=== PATIENT | male | born 1930 | race Caucasian/White ===

== ENCOUNTER 2017-10-15 20:50 | Inpatient (IN) | payer OTHER, BC ==
[2017-10-15 20:53] VITALS: BMI 24.4
[2017-10-15] MEDS ORDERED: morphine CARPU-JECT 2 MG/1 ML DISP.SYRIN IVPUSH ONE (21:27)
--- NOTE | 2017-10-15 21:27 | PDOC ---
History of Present Illness - General Chief Complaint: Injury Stated Complaint: FALL/ POSSIBLE FRACTURE Time Seen by Provider: 10/15/17 20:52 History Source: Patient Exam Limitations: No Limitations - History of Present Illness Initial Comments: 10/15/17 21:25 86M with pmh of aortic valve replacement, triple bypass, dementia, Dm2 and HTN brought in after a fall he sustained after tripping on furniture in the dark. Unwitnessed, no LOC but did hit his head and hip, screaming at the time complaining that his leg was broken. Currently comfortbale as long as he's immobile. Left leg shorted than the right. 10/15/17 21:34 Past History - Past Medical History Allergies/Adverse Reactions: Allergies Allergy/AdvReac Type Severity Reaction Status Date / Time iodine [Iodine] Allergy Unknown Verified 10/15/17 20:52 Home Medications: Ambulatory Orders Albuterol Sulfate [Proair Hfa -] 1 - 2 inh PO TID PRN 11/10/13 Amlodipine Besylate [Norvasc -] 5 mg PO DAILY 11/10/13 Aspirin 81 mg PO DAILY 11/10/13 Cholecalciferol (Vitamin D3) [Vitamin D] 1,000 unit PO DAILY 11/10/13 Clopidogrel Bisulfate [Plavix -] 75 mg PO HS 11/10/13 Docosahexanoic Acid/Epa [Fish Oil Softgel] 1 each PO DAILY 11/10/13 Montelukast Na [Singulair -] 10 mg PO DAILY 11/10/13 Rosuvastatin Calcium [Crestor] 20 mg PO DAILY 11/10/13 Sitagliptin Phosphate [Januvia] 50 mg PO HS 11/10/13 Tiotropium [place] [Spiriva -] 1 inh PO DAILY 11/10/13 Travoprost (Benzalkonium) [Travatan 0.004% Eye Drop] 5 ml OU HS 11/10/13 Valsartan [Diovan] 40 mg PO DAILY 11/10/13 Asthma: Yes Cardiac Disorders: Yes COPD: Yes Diabetes: Yes (IDDM) HTN: Yes Hypercholesterolemia: Yes - Surgical History Abdominal Surgery: Yes Cardiac Surgery: Yes (STENTS: 2006) Cholecystectomy: Yes Orthopedic Surgery: Yes (RIGHT FOOT SX BX) - Suicide/Smoking/Psychosocial Hx Smoking History: Never smoked Have you smoked in the past 12 months: No If you are a former smoker, when did you quit?: 5 YRS AGO Information on smoking cessation initiated: No 'Breaking Loose' booklet given: 11/10/13 Hx Alcohol Use: No Drug/Substance Use Hx: No Review of Systems - Review of Systems Able to Perform ROS?: Yes Is the patient limited Estonian proficient: No Constitutional: No: Symptoms Reported HEENTM: No: Symptoms Reported Respiratory: No: Symptoms reported Cardiac (ROS): No: Symptoms Reported ABD/GI: No: Symptoms Reported : No: Symptoms Reported Integumentary: No: Symptoms Reported Neurological: No: Headache, Numbness, Paresthesia, Weakness All Other Systems: Reviewed and Negative *Physical Exam - Vital Signs Last Vital Signs Temp Pulse Resp BP Pulse Ox 97.9 F 81 20 149/72 92 L 10/15/17 20:52 10/15/17 20:52 10/15/17 20:52 10/15/17 20:52 10/15/17 20:52 - Physical Exam General Appearance: Yes: Nourished, Appropriately Dressed. No: Apparent Distress HEENT: positive: EOMI, THEODORE Respiratory/Chest: positive: Lungs Clear, Normal Breath Sounds. negative: Chest Tender, Respiratory Distress Cardiovascular: positive: Regular Rhythm, Regular Rate, S1, S2 Gastrointestinal/Abdominal: positive: Normal Bowel Sounds, Flat, Soft. negative : Tender Musculoskeletal: positive: Normal Inspection. negative: CVA Tenderness Extremity: positive: Other ([place] left leg no hematoma, pain on palpation or hip). negative: Coldness, Cyanosis, Delayed Capillary Refill Integumentary: positive: Normal Color, Dry, Warm. negative: Cyanotic, Erythema Neurologic: positive: Fully Oriented, Alert, Normal Response, Responsive, Confused. negative: Motor Strength 5/5, Sensory Deficit ED Treatment Course - LABORATORY CBC & Chemistry Diagram: 10/15/17 22:00 10/15/17 22:00 - RADIOLOGY Radiology Studies Ordered: Category Date Time Status HEAD CT WITHOUT CONTRAST [CT] Stat CT Scan 10/15/17 20:52 Ordered CHEST X-RAY PORTABLE* [RAD] Stat Radiology 10/15/17 20:55 Ordered FEMUR-LEFT [RAD] Stat Radiology 10/15/17 20:53 Ordered HIP & PELVIS-LEFT [RAD] Stat Radiology 10/15/17 20:53 Ordered Medical Decision Making - Medical Decision Making 10/15/17 21:37 R/O left hip fracture Films of left hip/pelvis/femur are pending. Head ct pending basic lab UA 10/15/17 23:52 EKG: Sinus rhythm with 1st degree AV block Left Bundle Branch Block *DC/Admit/Observation/Transfer Diagnosis at time of Disposition: Fracture, proximal femur - Discharge Dispostion Admit: Yes - Referrals - Patient Instructions - Post Discharge Activity
[2017-10-15] MEDS ORDERED: morphine CARPU-JECT 10 MG/1 ML DISP.SYRIN ONE (21:38)
--- NOTE | 2017-10-15 21:48 | PDOC ---
Attending Attestation - HPI HPI: 10/15/17 21:54 The patient is a 86 year old male, with a significant past medical history of aortic valve replacement, triple bypass, dementia, Dm2 and HTN, who presents to the emergency department, s/p mechanical fall. The patient reports tripping over furniture while walking in the dark. He reports hitting his head and hip. The patient reports he was able to ambulate after the fall. He denies loss of consciousness. He denies any recent fevers, chills, or dizziness. He denies any recent nausea, vomit, diarrhea or constipation. He denies any recent chest pain or shortness of breath. He denies any recent dysuria, frequency, urgency or hematuria. Allergies: Iodine. Past surgical history: None reported. Social History: Nonsmoker. Denies EtOH use and recreational drug use. Documentation prepared by Angelica Johnson, acting as medical technologist clinical for Diogo Jordan MD. - Physicial Exam PE: 10/15/17 21:54 GENERAL: Awake, alert, and fully oriented, in no acute distress HEAD: No signs of trauma EYES: PERRLA, EOMI, sclera anicteric, conjunctiva clear ENT: Auricles normal inspection, hearing grossly normal, nares patent, oropharynx clear without exudates. Moist mucosa NECK: Normal ROM, supple, no lymphadenopathy, JVD, or masses LUNGS: Breath sounds equal, clear to auscultation bilaterally. No wheezes, and no crackles HEART: Regular rate and rhythm, normal S1 and S2, no murmurs, rubs or gallops ABDOMEN: Soft, nontender, normoactive bowel sounds. No guarding, no rebound. No masses EXTREMITIES: +Shortened externally rotated left leg. 2+ DP pulse. Normal sensation. No tenderness to left knee. Normal range of motion, no edema. No clubbing or cyanosis. No cords, erythema, or tenderness NEUROLOGICAL: Cranial nerves II through XII grossly intact. Normal speech, normal gait SKIN: Warm, Dry, normal turgor, no rashes or lesions noted. - Medical Decision Making 10/15/17 23:50 EXAM: CT HEAD without contrast HISTORY: Status post fall COMPARISON: None. FINDINGS: The ventricular system is midline and nondilated. There is mild to moderate cortical atrophy and small vessel ischemic disease. There is no bleed, mass, extra-axial fluid collection or mass effect. No skull fracture or skull lesion is identified. The visualized paranasal sinuses and mastoid air cells are clear. IMPRESSION: No acute pathology. Read by: Isra Perez MD <Angelica Johnson - Last Filed: 10/15/17 23:50> - Resident Resident Name: Den Galeas - ED Attending Attestation I have performed the following: I have examined & evaluated the patient, The case was reviewed & discussed with the resident, I agree w/resident's findings & plan, Exceptions are as noted - Medical Decision Making 10/15/17 21:47 A portion of this note was written by my scribe, under my supervision. Vital Signs Temp Pulse Resp BP Pulse Ox 97.9 F 81 20 149/72 92 L 10/15/17 20:52 10/15/17 20:52 10/15/17 20:52 10/15/17 20:52 10/15/17 20:52 86-year-old male with history of hypertension, diabetes, hyperlipidemia, coronary disease, aortic valve replacement presents with mechanical fall. The patient had fell and hit his left hip. Was not able to get up. Denies numbness or weakness. During the fall he had hit his head but denies loss of consciousness. The patient's left lower extremity is shortened and external rotated concerning for left femoral or left intertrochanteric fracture. He is neurovascularly intact. We'll obtain x-rays, head CT and will likely admit the patient to the hospital given the circumstances. <Diogo Jordan - Last Filed: 10/15/17 23:56> Heart Score/ECG Review #1 ECG reviewed & interpreted by me at: 21:40 10/15/17 23:56 NSR 80 with 1st degree AV block, LBBB, QTC 477 msec <Diogo Jordan - Last Filed: 10/15/17 23:56>
[2017-10-15] MEDS ORDERED: ONDANSETRON 4 MG/2 ML VIAL ONE (21:59)
[2017-10-15 22:11] LABS: BASO % 0.4 % (0-2.0); EOS % 0.5 % (0-4.5); HEMATOCRIT 45.5 % (35.4-49); HEMOGLOBIN 14.7 GM/dL (11.7-16.9); LYMPH % 8.5 % (8-40); MCH 28.5 pg (25.7-33.7); MCHC 32.3 g/dl (32.0-35.9); MEAN CELL VOLUME 88.2 fl (80-96); MEAN PLT VOLUME 9.6 fl (7.5-11.1); MONO % 8.9 % (3.8-10.2); NEUT % 81.7 % (42.8-82.8); PLATELET COUNT 127 K/MM3 (134-434); RBC 5.16 M/mm3 (4.00-5.60); RDW 14.1 % (11.9-15.9); WHITE BLOOD COUNT 10.1 K/mm3 (4.0-10.0)
[2017-10-15 22:24] LABS: INR 1.04 (0.82-1.09); PROTHROMBIN TIME (PATIENT) 11.7 SEC (9.98-11.88)
[2017-10-15 22:26] LABS: ACTIVATED PTT 25.4 SECONDS (26.9-34.4)
[2017-10-15 22:41] LABS: ALBUMIN 3.3 g/dl (3.4-5.0); ALK PHOS 96 U/L (45-117); ANION GAP 6 (8-16); BILIRUBIN,TOTAL 1.2 mg/dL (0.2-1.0); BLOOD UREA NITROGEN 24 mg/dL (7-18); CALCIUM 8.5 mg/dL (8.5-10.1); CHLORIDE 104 mmol/L (98-107); CO2 29 mmol/L (21-32); CREATININE 1.5 mg/dL (0.7-1.3); GLUCOSE,RANDOM 207 mg/dL (74-106); POTASSIUM 5.3 mmol/L (3.5-5.1); SGOT/AST 21 U/L (15-37); SGPT/ALT 21 U/L (12-78); SODIUM 139 mmol/L (136-145); TOT PROT 6.9 g/dl (6.4-8.2)
[2017-10-16] MEDS ORDERED: ALBUTEROL SO4 18 GM HFA INHALER IH PRN (00:31)
[2017-10-16] MEDS ORDERED: ONDANSETRON 4 MG/2 ML VIAL IVPUSH PRN (00:33)
[2017-10-16] MEDS: SODIUM CHLORIDE 1,000 ML IV SCH (00:48)
[2017-10-16] MEDS: sitaGLIPtin PHOSPHATE 50 MG TABLET PO SCH (07:03)
[2017-10-16 08:05] LABS: URINE APPEARANCE CLEAR; URINE BILIRUBIN NEGATIVE (NEGATIVE); URINE BLOOD NEGATIVE (NEGATIVE); URINE COLOR DKYELLOW; URINE GLUCOSE (UA) 3+ (NEGATIVE); URINE KETONE 1+ (NEGATIVE); URINE LEUK ESTERASE NEGATIVE (NEGATIVE); URINE NITRITE NEGATIVE (NEGATIVE); URINE UROBILINOGEN 4.0 E.U/dl mg/dL (0.2-1.0)
[2017-10-16 08:29] LABS: URINE PROTEIN 3+ (NEGATIVE)
[2017-10-16 08:31] LABS: EPI CELLS RARE /HPF (FEW); URINE BACTERIA FEW /hpf (NONE SEEN); URINE MUCUS MODERATE
[2017-10-16] MEDS ORDERED: ACETAMINOPHEN 325 MG TABLET (FP) PO PRN (09:43)
[2017-10-16] MEDS ORDERED: amLODIPine BESYLATE 5 MG TABLET (FP) PO SCH (10:00)
[2017-10-16] MEDS ORDERED: VALSARTAN 40 MG TABLET (FP) PO SCH (10:00)
[2017-10-16] MEDS: OMEGA-3 ACID ETHYL ESTERS (FATTY-ACIDS) 1 GM CAPSULE (FP) PO SCH (10:16)
[2017-10-16] MEDS: ASPIRIN 81 MG CHEWABLE TABLETS PO SCH ×2 (10:16)
[2017-10-16] MEDS: ROSUVASTATIN CA 20 MG TABLET (FP) PO SCH (10:16)
[2017-10-16] MEDS: CHOLECALCIFEROL (VITAMIN D3) 1,000 UNIT TABLET (FP) PO SCH (10:16)
[2017-10-16] MEDS: MONTELUKAST NA 10 MG TABLET PO SCH (10:16)
[2017-10-16] MEDS: TIOTROPIUM BROMIDE 18 MCG/INH (DEVICE W/ 5 CAPSULES) IH SCH (10:17)
[2017-10-16 11:01] LABS: BASO % 0.1 % (0-2.0); HEMATOCRIT 42.5 % (35.4-49); HEMOGLOBIN 13.4 GM/dL (11.7-16.9); LYMPH % 9.7 % (8-40); MCH 28.3 pg (25.7-33.7); MCHC 31.5 g/dl (32.0-35.9); MEAN CELL VOLUME 89.7 fl (80-96); MEAN PLT VOLUME 9.7 fl (7.5-11.1); MONO % 8.1 % (3.8-10.2); NEUT % 82.1 % (42.8-82.8); PLATELET COUNT 127 K/MM3 (134-434); RBC 4.73 M/mm3 (4.00-5.60); RDW 14.4 % (11.9-15.9); WHITE BLOOD COUNT 8.8 K/mm3 (4.0-10.0)
[2017-10-16 11:24] LABS: ANION GAP 9 (8-16); BLOOD UREA NITROGEN 35 mg/dL (7-18); CALCIUM 7.9 mg/dL (8.5-10.1); CHLORIDE 103 mmol/L (98-107); CO2 26 mmol/L (21-32); CREATININE 1.6 mg/dL (0.7-1.3); POTASSIUM 4.8 mmol/L (3.5-5.1); SODIUM 138 mmol/L (136-145)
[2017-10-16 11:34] LABS: GLUCOSE,RANDOM 334 mg/dL (74-106)
--- NOTE | 2017-10-16 11:53 | CONSULT ---
Consult - text type - Consultation Consultation Note: Cardiology (Dr. Chopra covering Dr. Duncan) Referred by PMD CC: Fall with left hip Fx HPI: 86 yo male Known DMT2, dementia and hypertension Known ASCVD and AV disease with prior 2v CABG (BOTELLO to LAD and SVG to OM1) with bio AVR (27mm Bovine) at [place] in 2013 Cath in 10/2013 preceeding CABG showed patent RCA stents. Followed closely by Dr. Lerma and last seen approx 2 weeks ago. Now presents with left hip fracture after a mechanical fall Up in middle of the night (darK) and triped over a chair according to his who is at the bedside. At baseline he uses a walker and is not very mobile But since his AVR/CABG he has denied any chest pain or dyspnea at rest or walking. Meds reviewed: Not taking clopidogrel according to . CV meds include Valsartan 40mg daily, Asa 81mg daily, OM3, Amlodipine 5mg daily and Crestor 20mg daily. 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 Fam Hx: Mother DM and HTN. VS:T 100F, BP 140/67mmHg, Pulse 90-105/min His overall general appearance was normal for his stated age. The eyes had no xanthelasma. The neck had no jugular venous distension without masses or thyromegally. There was a normal carotid upstroke with no carotid bruits bilaterally. The mouth had no cyanosis or pallor. The respiratory and musculoskeletal systems had normal excursion and effort with no kyphosis or scoliosis and the lungs quinn were clear to auscultation bilaterally. The cardiac PMI was non displaced. The rate was regular with normal S1 and S2 and soft systolic murmur heard over RUSB, Loud A2. The abdomen was soft without masses or tenderness. There was no organomegaly and the abdominal aorta was not enlarged by palpation. Extremities had no clubbing or cyanosis and no edema was noted. The left leg was externally rotated. The skin had no ulcerations, rashes or nodules on palpation and neurologically. He was oriented to place and time with questionable insight to his current health status. ECG: on 10/15/2017 at 21:40 NSR at 80/min with 1st degree AVB and LBBB ( unchanged compared to prior in 2013) Echo (01/2014) LVEF 24% (post AVR/CABG) Labs: BUN/Cr 24/1.5, Hgb 14.7, Plt 127,000, INR 1.04, Trop 0.03. IMP/PLAN 86 yo with prior CABG/bioAVR now with left hip fracture. Most recent echo available shows LVEF 24% (2013 at [facility]) Not sure if a more recent echo has been done by Dr. Duncan. He has no clinical evidence of CHF, he is not on furosemide and he does not have an ICD on CXR, so I suspect his LVEF has had interval improvement since 2014 AVR and CABG. His ECG is stable with a baseline LBBB and he denies any cardiovascular complaints. Dr. Duncan here in AM where he can confirm his updated LV Function. If LV is normal he is stable and optimized to proceed, If his LV function is <30%, he is still stable and optimized to proceed with surgery but would be cautious with janis-operative IVF. Given his reported allergy to heparin (according to his ) I would recommend Fondaparinux 2.5mg daily to start 4-8 hours after surgery. Conitnue crestor and valsartan for HTN management
[2017-10-16] MEDS: INSULIN SLIDING SCALE (NOVOLOG) 1 VIAL SQ SCH ×2 (12:20→17:45)
[2017-10-16] MEDS ORDERED: INSULIN REGULAR HUMAN 100 UNITS/ML *VIAL ONE (12:23)
--- NOTE | 2017-10-16 12:51 | EKG ---
Test Reason : Blood Pressure : / mmHG Vent. Rate : 080 BPM Atrial Rate : 080 BPM P-R Int : 210 ms QRS Dur : 134 ms QT Int : 414 ms P-R-T Axes : 015 010 122 degrees QTc Int : 477 ms SINUS RHYTHM WITH 1ST DEGREE A-V BLOCK LEFT BUNDLE BRANCH BLOCK ABNORMAL ECG WHEN COMPARED WITH ECG OF 10-NOV-2013 08:07, [place] INTERVAL HAS INCREASED QT HAS SHORTENED Confirmed by Moiz Hancock ([id number]) on 10/16/2017 12:50:56 PM Referred By: Confirmed By:Moiz Hancock
--- NOTE | 2017-10-16 14:25 | HP ---
Admitting History and Physical - Primary Care Physician PCP: Hair Donald - Admission Chief Complaint: Left Hip Pain S/P Fall History of Present Illness: 86 yrs old man multiple medical Co-morbidities lives at home with poor gait stability H/o HTN, Bioprosthic AVR, Dyslipedemia, as per Cardiology note recent evaluation by Dr Cervantes compensated CHF, Uncontrolled T2DM, CAD S/P AL, CABG , PCI not on Plavix at base line LBB yesterday present s/p fall as per patient was at home upstairs walked in a dark room stucked with chair lost balance landed on Left side, also had head trauma, but no LOC, developed sever Left Hip Pian cpouldnt got up , came to help 911 was called patient brought to ED w/u shows Left proximal Femur fracture, no syncope or pre-syncope symptoms, no c/o focal weakness, seizures or incontinence, at the time of examination comfortable Left LE Pain in good control denies chest pain SOB or palpitation. 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 Cardiovascular: Yes: Aortic Stenosis, CAD, CHF, HTN, Hyperlipdemia - Past Surgical History Past Surgical History: Yes: CABG, Valve Replacement - Smoking History Smoking history: Never smoked Have you smoked in the past 12 months: No If you are a former smoker, when did you quit?: 5 YRS AGO - Alcohol/Substance Use Hx Alcohol Use: No - Social History Usual Living Arrangement: Yes: With Spouse Home Medications - Allergies Allergies/Adverse Reactions: Allergies Allergy/AdvReac Type Severity Reaction Status Date / Time iodine [Iodine] Allergy Unknown Verified 10/15/17 20:52 - Home Medications Home Medications: Ambulatory Orders Aspirin [ASA -] 81 mg PO DAILY 10/16/17 Budesonide [Pulmicort 0.5 mg Nebulizer -] 1 neb NEB BID 10/16/17 Cholecalciferol (Vitamin D3) [Vitamin D3 -] 5,000 unit PO DAILY 10/16/17 Escitalopram Oxalate [Lexapro -] 5 mg PO DAILY 10/16/17 Insulin (LOG) Aspart [NovoLOG -] 0 units SQ TID 10/16/17 Lisinopril 5 mg PO BID 10/16/17 Metoprolol Succinate 25 mg PO DAILY 10/16/17 Montelukast Na [Singulair -] 10 mg PO HS 10/16/17 Multivitamin/Iron/Folic Acid [Centrum Adults Tablet] 1 each PO DAILY 10/16/17 [place]-3 Fatty Acids [[place]-3] 1,000 mg PO DAILY 10/16/17 [place]-3S/Dha/Epa/Fish Oil [Fish Oil 1,200 mg Softgel] 1 each PO DAILY 10/16/17 Rosuvastatin [Crestor -] 20 mg PO HS 10/16/17 Sitagliptin Phosphate [Januvia] 50 mg PO DAILY 10/16/17 Tiotropium [place] [Spiriva] 1 inh PO DAILY 10/16/17 Family Disease History - Family Disease History Other Family History: not contributary Review of Systems - Review of Systems Constitutional: denies: Diaphoresis HENT: denies: Difficult Swallowing, Ear Discharge Neck: denies: Decreased ROM, Lumps Cardiovascular: denies: Chest Pain, Edema, Palpitations, Shortness of Breath Respiratory: denies: Cough, Hemoptysis Gastrointestinal: denies: Abdominal Pain, Constipation Genitourinary: denies: Burning, Discharge Musculoskeletal: denies: Extremity Pain, Joint Pain (Left Hip) Integumentary: denies: Blister, Bruising Neurological: denies: Change in LOC, Change in Speech Endocrine: denies: Excessive Sweating, Flushing, Increased Hunger Hematology/Lymphatic: denies: Easily Bruised, Excessive Bleeding Pain Intensity: 5 Physical Examination Vital Signs: Vital Signs Temperature 100 F H 10/16/17 07:44 Pulse Rate 105 H 10/16/17 07:44 Respiratory Rate 18 10/16/17 07:44 Blood Pressure 140/67 10/16/17 07:44 O2 Sat by Pulse Oximetry (%) 100 10/16/17 07:44 Elderly man c/o Left Hip Pian c/o chest pain or SOB HEENT: MM moist, no anemia, PERRLA EOMI, mild tender hematoma on scalp NECK Supple, no JVd No Bruit CHEST: Non tender CTA B/L CVS: S1S2 R SM in AA ABD: No distention, non tender Bs + EXT: Left LE external rotated sever Left Hip pain unable to move, Pulses +2, no CVA Tenderness 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 Labs: CBC, BMP 10/16/17 10:31 10/16/17 10:31 Laboratory Results - last 24 hr 01/10/15/17 10/15/17 07:24 22:00 22:00 WBC 10.1 H RBC 5.16 Hgb 14.7 Hct 45.5 MCV 88.2 MCH 28.5 MCHC 32.3 RDW 14.1 Plt Count 127 L MPV 9.6 Neutrophils % 81.7 Lymphocytes % 8.5 D Monocytes % 8.9 Eosinophils % 0.5 Basophils % 0.4 PT with INR 11.70 INR 1.04 PTT (Actin FS) 25.4 L D Sodium Potassium Chloride Carbon Dioxide Anion Gap BUN Creatinine Creat Clearance w eGFR POC Glucometer Random Glucose Calcium Total Bilirubin AST ALT Alkaline Phosphatase Creatine Kinase Creatine Kinase Index CK-MB (CK-2) Troponin I Total Protein Albumin Urine Color Dkyellow Urine Appearance Clear Urine pH 5.0 Ur Specific [place] 1.024 Urine Protein 3+ H Urine Glucose (UA) 3+ H Urine Ketones 1+ H Urine Blood Negative Urine Nitrite Negative Urine Bilirubin Negative Urine Urobilinogen 4.0 e.u/dl Ur Leukocyte Esterase Negative Urine WBC (Auto) 2 Urine RBC (Auto) 11 Ur Epithelial Cells Rare Urine Bacteria Few Urine Mucus Moderate Blood Type Antibody Screen 10/15/17 10/15/17 10/15/17 22:00 22:00 22:00 WBC RBC Hgb Hct MCV MCH MCHC RDW Plt Count MPV Neutrophils % Lymphocytes % Monocytes % Eosinophils % Basophils % PT with INR INR PTT (Actin FS) Sodium 139 Potassium 5.3 H Chloride 104 Carbon Dioxide 29 D Anion Gap 6 L BUN 24 H D Creatinine 1.5 H Creat Clearance w eGFR 44.59 POC Glucometer Random Glucose 207 H D Calcium 8.5 Total Bilirubin 1.2 H D AST 21 D ALT 21 D Alkaline Phosphatase 96 Creatine Kinase 194 Creatine Kinase Index 0.9 CK-MB (CK-2) 1.810 Troponin I 0.03 D Total Protein 6.9 Albumin 3.3 L Urine Color Urine Appearance Urine pH Ur Specific [place] Urine Protein Urine Glucose (UA) Urine Ketones Urine Blood Urine Nitrite Urine Bilirubin Urine Urobilinogen Ur Leukocyte Esterase Urine WBC (Auto) Urine RBC (Auto) Ur Epithelial Cells Urine Bacteria Urine Mucus Blood Type O POSITIVE Antibody Screen Negative 10/16/17 10/16/17 10/16/17 09:55 10:31 10:31 WBC 8.8 RBC 4.73 Hgb 13.4 Hct 42.5 MCV 89.7 MCH 28.3 MCHC 31.5 L RDW 14.4 Plt Count 127 L MPV 9.7 Neutrophils % 82.1 Lymphocytes % 9.7 Monocytes % 8.1 Eosinophils % 0.0 D Basophils % 0.1 PT with INR INR PTT (Actin FS) Sodium 138 Potassium 4.8 Chloride 103 Carbon Dioxide 26 Anion Gap 9 BUN 35 H D Creatinine 1.6 H Creat Clearance w eGFR POC Glucometer [phone] Random Glucose 334 H* D Calcium 7.9 L Total Bilirubin AST ALT Alkaline Phosphatase Creatine Kinase Creatine Kinase Index CK-MB (CK-2) Troponin I 0.02 D Total Protein Albumin Urine Color Urine Appearance Urine pH Ur Specific [place] Urine Protein Urine Glucose (UA) Urine Ketones Urine Blood Urine Nitrite Urine Bilirubin Urine Urobilinogen Ur Leukocyte Esterase Urine WBC (Auto) Urine RBC (Auto) Ur Epithelial Cells Urine Bacteria Urine Mucus Blood Type Antibody Screen Imaging - Results Chest X-ray: Report Reviewed (No Pulmonary congestion or infiltrates) Cat Scan: Report Reviewed (Head: No acute intracraniall changes) EKG: Report Reviewed (LBBB art [address] chnages) Other: Report Reviewed (Pelvis: Proximal fracture of Left Femur) Problem List - Problems (1) Fracture, proximal femur Assessment/Plan: Post Mechanical fall Bed Rest pain Control No Wt bearing Ortho Consult Pre Op Evaluation by Cardiology Type and Scree Code(s): S72.009A - FRACTURE OF UNSP PART OF NECK OF UNSP FEMUR, INIT Qualifiers: Fracture type: closed Laterality: left (2) Coronary arteriosclerosis after coronary artery bypass grafting Assessment/Plan: S/P CABG in [address] at present no active issue serial CE normal, EKG LBB at base line cont all home meds Cardiology consult. Code(s): I25.810 - ATHEROSCLEROSIS OF CABG W/O ANGINA PECTORIS (3) Hypercholesteremia Assessment/Plan: Cont Statin Code(s): E78.00 - PURE HYPERCHOLESTEROLEMIA, UNSPECIFIED (4) Uncontrolled diabetes mellitus Assessment/Plan: Diabetic diet, cont insulin as home regimen accu checks F/U HBa1C Code(s): E11.65 - TYPE 2 DIABETES MELLITUS WITH HYPERGLYCEMIA (5) Pre-operative cardiovascular examination Assessment/Plan: Evaluated by cardiology consult for pre Op optimization off Plavix cleared for surgery by Cardiology consult F/U Cardiology recommondations. Code(s): Z01.810 - ENCOUNTER FOR PREPROCEDURAL CARDIOVASCULAR EXAMINATION (6) CKD stage 3 secondary to diabetes Assessment/Plan: f/U BMP and cont hydration. Code(s): E11.22 - TYPE 2 DIABETES MELLITUS W DIABETIC CHRONIC KIDNEY DISEASE; N18.3 - CHRONIC KIDNEY DISEASE, STAGE 3 (MODERATE)
[2017-10-16] MEDS ORDERED: INSULIN (NOVOLOG) ASPART 100 UNITS/ML 10ML VIAL ONE (17:58)
[2017-10-16] MEDS ORDERED: ACETAMINOPHEN 325 MG TABLET (FP) ONE (21:19)
[2017-10-16] MEDS ORDERED: CLOPIDOGREL BISULFATE 75 MG TABLET (FP) PO SCH (22:00)
[2017-10-16] MEDS ORDERED: LORazepam 2 MG/ML SDV VIAL IVPUSH ONE (23:45)
[2017-10-17] MEDS: LATANOPROST 0.005% OPHTH SOLN 2.5ML BOTTLE OU SCH ×2 (02:28→22:40)
[2017-10-17] MEDS: LISINOPRIL 5 MG TABLET (FP) PO SCH ×2 (02:28→09:05)
[2017-10-17] MEDS: morphine CARPU-JECT 10 MG/1 ML DISP.SYRIN IVPUSH PRN ×2 (06:28→22:27)
[2017-10-17] MEDS: INSULIN SLIDING SCALE (NOVOLOG) 1 VIAL SQ SCH ×3 (06:31→18:57)
[2017-10-17 07:12] LABS: BASO % 0.2 % (0-2.0); HEMATOCRIT 39.2 % (35.4-49); HEMOGLOBIN 12.6 GM/dL (11.7-16.9); LYMPH % 6.6 % (8-40); MCH 28.4 pg (25.7-33.7); MCHC 32.1 g/dl (32.0-35.9); MEAN CELL VOLUME 88.5 fl (80-96); MEAN PLT VOLUME 9.8 fl (7.5-11.1); MONO % 9.7 % (3.8-10.2); NEUT % 83.5 % (42.8-82.8); PLATELET COUNT 137 K/MM3 (134-434); RBC 4.43 M/mm3 (4.00-5.60); RDW 14.8 % (11.9-15.9); WHITE BLOOD COUNT 11.5 K/mm3 (4.0-10.0)
[2017-10-17 07:38] LABS: ANION GAP 10 (8-16); BLOOD UREA NITROGEN 59 mg/dL (7-18); CALCIUM 8.9 mg/dL (8.5-10.1); CHLORIDE 103 mmol/L (98-107); CO2 28 mmol/L (21-32); CREATININE 2.1 mg/dL (0.7-1.3); POTASSIUM 4.8 mmol/L (3.5-5.1); SODIUM 141 mmol/L (136-145)
--- NOTE | 2017-10-17 08:53 | PN ---
Progress Note, Physician Chief Complaint: hip fracture History of Present Illness: states he was very agitated and combative yest, confused. less so today but still more confused than baseline. he has not c/o'd cp, sob and denies this at present. denies palpitations. admits to pain in leg at times, not the hip ex cigs - Current Medication List Current Medications: Active Medications Acetaminophen (Tylenol -) 650 mg PO Q6H PRN PRN Reason: PAIN Last Admin: 10/16/17 21:23 Dose: 650 mg Albuterol Sulfate (Ventolin Hfa Inhaler -) 1 puff IH Q8H PRN PRN Reason: SHORT OF BREATH/WHEEZING Aspirin (Asa -) 81 mg PO DAILY [facility] Last Admin: 10/16/17 10:16 Dose: Not Given Cholecalciferol (Vitamin D3 -) 1,000 unit PO DAILY [facility] Last Admin: 10/16/17 10:16 Dose: 1,000 unit Escitalopram Oxalate (Lexapro -) 5 mg PO DAILY [facility] Sodium Chloride (Normal Saline -) 1,000 mls @ 50 mls/hr IV ASDIR [facility] Last Admin: 10/16/17 00:48 Dose: 50 mls/hr Insulin Aspart (Novolog Vial Sliding Scale -) 1 vial SQ TIDAC [facility] PRN Reason: Protocol Last Admin: 10/17/17 06:31 Dose: 12 units Latanoprost (Xalatan 0.005% Eye Drops -) 1 drop OU HS [facility] Last Admin: 10/17/17 02:28 Dose: Not Given Lisinopril (Prinivil) 5 mg PO BID [facility] Last Admin: 10/17/17 02:28 Dose: Not Given Metoprolol Succinate (Toprol Xl -) 25 mg PO DAILY [facility] Montelukast Sodium (Singulair -) 10 mg PO DAILY [facility] Last Admin: 10/16/17 10:16 Dose: 10 mg Morphine Sulfate (Morphine Injection -) 2 mg IVPUSH Q6H PRN PRN Reason: PAIN LEVEL 6-10 Last Admin: 10/17/17 06:28 Dose: 2 mg Kmeud-1-Cloh Ethyl Esters (Lovaza -) 1 gm PO DAILY [facility] Last Admin: 10/16/17 10:16 Dose: 1 gm Ondansetron HCl (Zofran Injection) 4 mg IVPUSH Q6H PRN PRN Reason: NAUSEA Last Admin: 10/17/17 06:28 Dose: 4 mg Rosuvastatin Calcium (Crestor -) 20 mg PO DAILY [facility] Last Admin: 10/16/17 10:16 Dose: 20 mg Sitagliptin Phosphate (Januvia -) 50 mg PO DAILY@0700 [facility] Last Admin: 10/16/17 07:03 Dose: 50 mg Tiotropium [place] (Spiriva -) 1 puff IH DAILY [facility] Last Admin: 10/16/17 10:17 Dose: Not Given - Objective Vital Signs: Vital Signs Temperature 98.9 F 10/17/17 05:50 Pulse Rate 118 H 10/17/17 05:50 Respiratory Rate 20 10/17/17 05:50 Blood Pressure 166/74 10/17/17 05:50 O2 Sat by Pulse Oximetry (%) 95 10/17/17 03:00 Constitutional: Yes: Well Nourished, No Distress, Calm Eyes: No: Sclera Icterus HENT: No: Nasal Congestion Cardiovascular: Yes: Regular Rate and Rhythm, Tachycardia, Murmur (soft (2/6) FILEMON lusb). No: JVD, Gallop Respiratory: Yes: Regular, CTA Bilaterally (anteriorly (fela vest on)). No: Rales, Wheezes Gastrointestinal: Yes: Normal Bowel Sounds, Soft. No: Tenderness Musculoskeletal: Yes: Other (No kyphosis) Extremities: No: Cold Edema: No Integumentary: No: Jaundice Neurological: Yes: Alert. No: Seizure Psychiatric: No: Agitated Labs: CBC, BMP 10/17/17 05:45 10/17/17 05:45 INR, PTT INR 1.04 (0.82-1.09) 10/15/17 22:00 - ....Imaging EKG: Other (tele: baseline LBBB present, probably sinus tach to 140) Assessment/Plan Echo 11/12: nl LV/EF, nl RV, nl LA, no bioAVR dysfunction mechanical fall, hip frx: -tripped over chair in the dark -for ORIF preop CV eval: -RCRI = 1, decr functional status -pt's EF has normalized s/p CABG revasc, and remained stable on serial echoes. he has had no HF sx's since then. -no angina. -medically optimized -cleared to proceed with intermediate risk surgery at interm risk of periop CV complications -cont home metoprolol -has history of heparin-induced thrombocytopenia--avoid all heparin products tachycardia (with baseline LBBB): -probably sinus tachy here being driven by confustion/agitation -did not receive home toprol until this am -rhythm strip today with LBBB (morphology unchanged from office baseline ecg), prob sinus tach with 1st degree AVB, MT approx 200 msec which is similar to baseline ecg (difficult to see p waves). carotid massage--no change. -incr metopr to 25 bid. -monitor tele TYSON on CKD: -baseline creat 1.3-1.6 -creat bumped to 1.6 on 10/16, NS at 50 cc/hr started 1am on 10/16, creat up further 10/17 to 2.1 -bun up as well, suspect vol depletion in setting of agitation, decr po. ? SIMA exacerbating in vol-depleted DM pt. -incr IVF rate to 100 cc/hr. -hold lisinopril. -monitor daily labs s/p AVR: -normal fxn on echo CAD s/p CABG: -preserved EF -no angina since -cont home meds HTN: -bp at times mild-mod elevated here: ? agitation/disorientation, ? pain from hip frx -holding SIMA, increasing BB (as above)--observe bp trend DM: -per pmd dementia: -recently progressive -per pmd asthma/copd: -stable, no wheezing
[2017-10-17] MEDS: sitaGLIPtin PHOSPHATE 50 MG TABLET PO SCH (09:04)
[2017-10-17] MEDS: OMEGA-3 ACID ETHYL ESTERS (FATTY-ACIDS) 1 GM CAPSULE (FP) PO SCH (09:05)
[2017-10-17] MEDS: ROSUVASTATIN CA 20 MG TABLET (FP) PO SCH (09:06)
[2017-10-17] MEDS: ESCITALOPRAM OXALATE 10 MG TABLET (FP) PO SCH (09:06)
[2017-10-17] MEDS: TIOTROPIUM BROMIDE 18 MCG/INH (DEVICE W/ 5 CAPSULES) IH SCH (09:07)
[2017-10-17] MEDS: MONTELUKAST NA 10 MG TABLET PO SCH (09:07)
[2017-10-17] MEDS: ASPIRIN 81 MG CHEWABLE TABLETS PO SCH (09:07)
[2017-10-17] MEDS: SODIUM CHLORIDE 1,000 ML IV SCH ×2 (09:07→12:19)
[2017-10-17] MEDS: CHOLECALCIFEROL (VITAMIN D3) 1,000 UNIT TABLET (FP) PO SCH (09:07)
[2017-10-17 09:28] LABS: GLUCOSE,RANDOM 403 mg/dL (74-106)
[2017-10-17] MEDS ORDERED: metoPROLOL SUCCINATE 25 MG TAB.SR.24H (FP) PO SCH (10:00)
--- NOTE | 2017-10-17 11:29 | CON.ORTH ---
Consult Reason for Consultation:: left hip fx - Past Medical History [employer]: Yes: Dementia Cardio/Vascular: Yes: Aortic Stenosis, CAD, CHF, HTN, Hyperlipdemia - Past Surgical History Past Surgical History: Yes: CABG, Valve Replacement - Alcohol/Substance Use Hx Alcohol Use: No - Smoking History Smoking history: Never smoked Have you smoked in the past 12 months: No If you are a former smoker, when did you quit?: 5 YRS AGO Home Medications - Allergies Allergies/Adverse Reactions: Allergies Allergy/AdvReac Type Severity Reaction Status Date / Time iodine [Iodine] Allergy Unknown Verified 10/15/17 20:52 - Home Medications Home Medications: Ambulatory Orders Aspirin [ASA -] 81 mg PO DAILY 10/16/17 Budesonide [Pulmicort 0.5 mg Nebulizer -] 1 neb NEB BID 10/16/17 Cholecalciferol (Vitamin D3) [Vitamin D3 -] 5,000 unit PO DAILY 10/16/17 Escitalopram Oxalate [Lexapro -] 5 mg PO DAILY 10/16/17 Insulin (LOG) Aspart [NovoLOG -] 0 units SQ TID 10/16/17 Lisinopril 5 mg PO BID 10/16/17 Metoprolol Succinate 25 mg PO DAILY 10/16/17 Montelukast Na [Singulair -] 10 mg PO HS 10/16/17 Multivitamin/Iron/Folic Acid [Centrum Adults Tablet] 1 each PO DAILY 10/16/17 [place]-3 Fatty Acids [[place]-3] 1,000 mg PO DAILY 10/16/17 [place]-3S/Dha/Epa/Fish Oil [Fish Oil 1,200 mg Softgel] 1 each PO DAILY 10/16/17 Rosuvastatin [Crestor -] 20 mg PO HS 10/16/17 Sitagliptin Phosphate [Januvia] 50 mg PO DAILY 10/16/17 Tiotropium [place] [Spiriva] 1 inh PO DAILY 10/16/17 Family Disease History - Family Disease History Other Family History: not contributary Physical Exam for Ortho Vital Signs: Vital Signs Temperature 98.9 F 10/17/17 05:50 Pulse Rate 118 H 10/17/17 05:50 Respiratory Rate 20 10/17/17 05:50 Blood Pressure 166/74 10/17/17 05:50 O2 Sat by Pulse Oximetry (%) 95 10/17/17 03:00 Labs: CBC, BMP 10/17/17 05:45 10/17/17 05:45 INR, PTT INR 1.04 (0.82-1.09) 10/15/17 22:00 - Lower Extremity Hip: Yes: Left, Decreased ROM, Leg Externally Rotated, Leg Shortened, Pain, Swelling, Other (nvi) Imaging - Results X-ray: Report Reviewed, Image Reviewed Assessment/Plan 86 yrs old man multiple medical Co-morbidities lives at home with poor gait stability H/o HTN, Bioprosthic AVR, Dyslipedemia, as per Cardiology note recent evaluation by Dr Cervantes compensated CHF, Uncontrolled T2DM, CAD S/P [place], CABG , PCI not on Plavix at base line LBB yesterday present s/p fall as per patient was at home upstairs walked in a dark room stucked with chair lost balance landed on Left side, also had head trauma, but no LOC, developed sever Left Hip Pian cpouldnt got up , came to help 911 was called patient brought to ED w/u shows Left proximal Femur fracture, no syncope or pre-syncope symptoms, no c/o focal weakness, seizures or incontinence, at the time of examination comfortable Left LE Pain in good control denies chest pain SOB or palpitation. a/p- left displaced proximal femur fx Risks and benefits were d/w pts in detail will need Left long IM gamma nail tentatively Tuesday pending clearance surgical clearance NPO after midnight tonight d/w Dr. Fair
--- NOTE | 2017-10-17 15:22 | PN ---
Progress Note, Physician Chief Complaint: Mr Calvillo says he is feeling better. Still with pain but improved controlled. No cp, sob, n/v. - Current Medication List Current Medications: Active Medications Acetaminophen (Tylenol -) 650 mg PO Q6H PRN PRN Reason: PAIN Last Admin: 10/16/17 21:23 Dose: 650 mg Albuterol Sulfate (Ventolin Hfa Inhaler -) 1 puff IH Q8H PRN PRN Reason: SHORT OF BREATH/WHEEZING Aspirin (Asa -) 81 mg PO DAILY [facility] Last Admin: 10/17/17 09:07 Dose: Not Given Cholecalciferol (Vitamin D3 -) 1,000 unit PO DAILY [facility] Last Admin: 10/17/17 09:07 Dose: Not Given Escitalopram Oxalate (Lexapro -) 5 mg PO DAILY [facility] Last Admin: 10/17/17 09:06 Dose: Not Given Sodium Chloride (Normal Saline -) 1,000 mls @ 100 mls/hr IV ASDIR [facility] Last Admin: 10/17/17 12:19 Dose: 100 mls/hr Insulin Aspart (Novolog Vial Sliding Scale -) 1 vial SQ TIDAC [facility] PRN Reason: Protocol Last Admin: 10/17/17 14:27 Dose: 12 units Latanoprost (Xalatan 0.005% Eye Drops -) 1 drop OU HS [facility] Last Admin: 10/17/17 02:28 Dose: Not Given Metoprolol Succinate (Toprol Xl -) 25 mg PO BID [facility] Montelukast Sodium (Singulair -) 10 mg PO DAILY [facility] Last Admin: 10/17/17 09:07 Dose: Not Given Morphine Sulfate (Morphine Injection -) 2 mg IVPUSH Q6H PRN PRN Reason: PAIN LEVEL 6-10 Last Admin: 10/17/17 06:28 Dose: 2 mg Tkffk-6-Mbva Ethyl Esters (Lovaza -) 1 gm PO DAILY [facility] Last Admin: 10/17/17 09:05 Dose: Not Given Ondansetron HCl (Zofran Injection) 4 mg IVPUSH Q6H PRN PRN Reason: NAUSEA Last Admin: 10/17/17 06:28 Dose: 4 mg Rosuvastatin Calcium (Crestor -) 20 mg PO DAILY [facility] Last Admin: 10/17/17 09:06 Dose: Not Given Sitagliptin Phosphate (Januvia -) 50 mg PO DAILY@0700 [facility] Last Admin: 10/17/17 09:04 Dose: Not Given Tiotropium [place] (Spiriva -) 1 puff IH DAILY [facility] Last Admin: 10/17/17 09:07 Dose: Not Given - Objective Vital Signs: Vital Signs Temperature 36.9 C 10/17/17 14:00 Pulse Rate 103 H 10/17/17 14:00 Respiratory Rate 20 10/17/17 14:00 Blood Pressure 134/68 10/17/17 14:00 O2 Sat by Pulse Oximetry (%) 95 10/17/17 03:00 Constitutional: Yes: Well Nourished, No Distress, Calm Cardiovascular: Yes: Tachycardia, Murmur. No: Gallop, Rub Respiratory: Yes: Regular, CTA Bilaterally. No: Rales, Rhonchi, Wheezes Gastrointestinal: Yes: Normal Bowel Sounds, Soft. 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 Assessment/Plan: -with TYSON -holding all nephrotoxic agents -continue IVF -monitor for improvement -if worsens, consult nephrology Code(s): E11.22 - TYPE 2 DIABETES MELLITUS W DIABETIC CHRONIC KIDNEY DISEASE; N18.3 - CHRONIC KIDNEY DISEASE, STAGE 3 (MODERATE) (3) Coronary arteriosclerosis after coronary artery bypass grafting Assessment/Plan: -cardiology following -holding aspirin prior to surgery -continue statin and toprol xl Code(s): I25.810 - ATHEROSCLEROSIS OF CABG W/O ANGINA PECTORIS (4) Hypercholesteremia Assessment/Plan: -continue statin Code(s): E78.00 - PURE HYPERCHOLESTEROLEMIA, UNSPECIFIED (5) Uncontrolled diabetes mellitus Assessment/Plan: -elevated -will need much better glucose control, particularly after surgery -will add levemir 10 units bid -continue diabetic diet and januvia -close monitoring Code(s): E11.65 - TYPE 2 DIABETES MELLITUS WITH HYPERGLYCEMIA (6) COPD (chronic obstructive pulmonary disease) Assessment/Plan: -not in exacerbation -continue current management Code(s): J44.9 - CHRONIC OBSTRUCTIVE PULMONARY DISEASE, UNSPECIFIED (7) Dementia Assessment/Plan: -per patient with mild dementia -monitor Code(s): F03.90 - UNSPECIFIED DEMENTIA WITHOUT BEHAVIORAL DISTURBANCE (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
[2017-10-17] MEDS: INSULIN DETEMIR 100 UNITS/ML MDV SQ SCH (16:30)
--- NOTE | 2017-10-17 21:36 | EKG ---
Test Reason : Blood Pressure : / mmHG Vent. Rate : 132 BPM Atrial Rate : 127 BPM P-R Int : 000 ms QRS Dur : 152 ms QT Int : 368 ms P-R-T Axes : 000 008 128 degrees QTc Int : 545 ms ATRIAL FIBRILLATION WITH RAPID VENTRICULAR RESPONSE LEFT BUNDLE BRANCH BLOCK ABNORMAL ECG WHEN COMPARED WITH ECG OF 15-OCT-2017 21:40, ATRIAL FIBRILLATION HAS REPLACED SINUS RHYTHM VENT. RATE HAS INCREASED BY 52 BPM Confirmed by FABRICIO NOBLE, SHABNAM ([id number]) on 10/17/2017 9:35:51 PM Referred By: Confirmed By:SHABNAM REGALADO MD
[2017-10-17] MEDS: metoPROLOL SUCCINATE 25 MG TAB.SR.24H (FP) PO SCH (22:16)
[2017-10-18] MEDS: INSULIN SLIDING SCALE (NOVOLOG) 1 VIAL SQ SCH ×4 (07:13→19:03)
[2017-10-18] MEDS: INSULIN DETEMIR 100 UNITS/ML MDV SQ SCH ×2 (07:13→18:56)
[2017-10-18] MEDS: sitaGLIPtin PHOSPHATE 50 MG TABLET PO SCH (07:13)
[2017-10-18 07:33] LABS: BASO % 0.2 % (0-2.0); EOS % 0.1 % (0-4.5); HEMATOCRIT 36.2 % (35.4-49); HEMOGLOBIN 11.5 GM/dL (11.7-16.9); LYMPH % 5.7 % (8-40); MCH 28.5 pg (25.7-33.7); MCHC 31.8 g/dl (32.0-35.9); MEAN CELL VOLUME 89.5 fl (80-96); MEAN PLT VOLUME 9.7 fl (7.5-11.1); MONO % 3.9 % (3.8-10.2); NEUT % 90.1 % (42.8-82.8); PLATELET COUNT 120 K/MM3 (134-434); RBC 4.04 M/mm3 (4.00-5.60); RDW 14.6 % (11.9-15.9); WHITE BLOOD COUNT 6.4 K/mm3 (4.0-10.0)
[2017-10-18 07:59] LABS: ANION GAP 9 (8-16); BLOOD UREA NITROGEN 58 mg/dL (7-18); CALCIUM 8.4 mg/dL (8.5-10.1); CHLORIDE 109 mmol/L (98-107); CO2 28 mmol/L (21-32); CREATININE 1.9 mg/dL (0.7-1.3); MAGNESIUM 2.5 mg/dL (1.8-2.4); PHOSPHOROUS 3.6 mg/dL (2.5-4.9); POTASSIUM 5.2 mmol/L (3.5-5.1); SODIUM 146 mmol/L (136-145)
[2017-10-18 08:29] LABS: GLUCOSE,RANDOM 302 mg/dL (74-106)
[2017-10-18] MEDS ORDERED: INSULIN (NOVOLOG) ASPART 100 UNITS/ML 10ML VIAL SQ ONE (10:44)
[2017-10-18] MEDS: morphine CARPU-JECT 10 MG/1 ML DISP.SYRIN IVPUSH PRN ×2 (10:59→23:24)
[2017-10-18] MEDS: metoPROLOL SUCCINATE 25 MG TAB.SR.24H (FP) PO SCH ×2 (11:50→21:33)
[2017-10-18] MEDS: ROSUVASTATIN CA 20 MG TABLET (FP) PO SCH (11:50)
[2017-10-18] MEDS: ASPIRIN 81 MG CHEWABLE TABLETS PO SCH (11:50)
[2017-10-18] MEDS: MONTELUKAST NA 10 MG TABLET PO SCH (11:51)
[2017-10-18] MEDS: TIOTROPIUM BROMIDE 18 MCG/INH (DEVICE W/ 5 CAPSULES) IH SCH (11:51)
[2017-10-18] MEDS: OMEGA-3 ACID ETHYL ESTERS (FATTY-ACIDS) 1 GM CAPSULE (FP) PO SCH (11:51)
[2017-10-18] MEDS: ESCITALOPRAM OXALATE 10 MG TABLET (FP) PO SCH (11:51)
[2017-10-18] MEDS: CHOLECALCIFEROL (VITAMIN D3) 1,000 UNIT TABLET (FP) PO SCH (11:51)
[2017-10-18] MEDS: SODIUM CHLORIDE 1,000 ML IV SCH (11:52)
--- NOTE | 2017-10-18 11:52 | PN ---
Progress Note (short form) - Note Progress Note: Chief Complaint: hip fracture History of Present Illness: plan for surgery today. Toprol increased from daily to bid dosing yesterday. IVF increased yesterday. denies complaints. no cp, sob, palps, dizziness. poor memory. at baseline mental status per . ex cigs Current Medications Acetaminophen (Tylenol -) 650 mg PO Q6H PRN PRN Reason: PAIN Last Admin: 10/16/17 21:23 Dose: 650 mg Albuterol Sulfate (Ventolin Hfa Inhaler -) 1 puff IH Q8H PRN PRN Reason: SHORT OF BREATH/WHEEZING Aspirin (Asa -) 81 mg PO DAILY [facility] Last Admin: 10/17/17 09:07 Dose: Not Given Cholecalciferol (Vitamin D3 -) 1,000 unit PO DAILY [facility] Last Admin: 10/17/17 09:07 Dose: Not Given Escitalopram Oxalate (Lexapro -) 5 mg PO DAILY [facility] Last Admin: 10/17/17 09:06 Dose: Not Given Sodium Chloride (Normal Saline -) 1,000 mls @ 100 mls/hr IV ASDIR [facility] Last Admin: 10/17/17 12:19 Dose: 100 mls/hr Insulin Aspart (Novolog Vial Sliding Scale -) 1 vial SQ TIDAC [facility] PRN Reason: Protocol Last Admin: 10/18/17 07:13 Dose: Not Given Insulin Detemir (Levemir Vial) 10 units SQ BIDI [facility] Last Admin: 10/18/17 07:13 Dose: Not Given Latanoprost (Xalatan 0.005% Eye Drops -) 1 drop OU HS [facility] Last Admin: 10/17/17 22:40 Dose: 1 drop Metoprolol Succinate (Toprol Xl -) 25 mg PO BID [facility] Last Admin: 10/17/17 22:16 Dose: 25 mg Montelukast Sodium (Singulair -) 10 mg PO DAILY [facility] Last Admin: 10/17/17 09:07 Dose: Not Given Morphine Sulfate (Morphine Injection -) 2 mg IVPUSH Q6H PRN PRN Reason: PAIN LEVEL 6-10 Last Admin: 10/18/17 10:59 Dose: 2 mg Ytwkt-3-Wtym Ethyl Esters (Lovaza -) 1 gm PO DAILY [facility] Last Admin: 10/17/17 09:05 Dose: Not Given Ondansetron HCl (Zofran Injection) 4 mg IVPUSH Q6H PRN PRN Reason: NAUSEA Last Admin: 10/17/17 06:28 Dose: 4 mg Rosuvastatin Calcium (Crestor -) 20 mg PO DAILY [facility] Last Admin: 10/17/17 09:06 Dose: Not Given Sitagliptin Phosphate (Januvia -) 50 mg PO DAILY@0700 [facility] Last Admin: 10/18/17 07:13 Dose: Not Given Tiotropium [place] (Spiriva -) 1 puff IH DAILY [facility] Last Admin: 10/17/17 09:07 Dose: Not Given - Objective Vital Signs: Vital Signs - 24 hr 10/17/17 10/17/17 10/17/17 14:00 18:00 22:00 Temperature 98.4 F 98.8 F 98.6 F Pulse Rate 103 H 107 H 111 H Respiratory 20 20 18 Rate Blood Pressure 134/68 141/71 129/67 O2 Sat by Pulse 98 Oximetry (%) 10/18/17 10/18/17 02:33 06:00 Temperature 99.2 F 98.8 F Pulse Rate 113 H 110 H Respiratory 20 18 Rate Blood Pressure 143/77 146/71 O2 Sat by Pulse Oximetry (%) Intake & Output 10/16/17 10/17/17 10/18/17 10/19/17 07:59 07:59 07:59 07:59 Intake Total 110.5 120 Output Total 619 229 7964 Balance -420 10.5 -1180 Weight 175 lb 175 lb Constitutional: Yes: Well Nourished, No Distress, Calm Eyes: No: Sclera Icterus HENT: No: Nasal Congestion Cardiovascular: Yes: Regular Rate and Rhythm, Tachycardia, Murmur (soft (2/6) FILEMON lusb). No: JVD, Gallop Respiratory: Yes: Regular, CTA Bilaterally (anteriorly (fela vest on)). No: Rales, Wheezes Gastrointestinal: Yes: Normal Bowel Sounds, Soft. No: Tenderness Musculoskeletal: Yes: Other (No kyphosis) Extremities: No: Cold Edema: No Integumentary: No: Jaundice Neurological: Yes: Alert. No: Seizure Psychiatric: No: Agitated Labs: CBC, BMP 10/18/17 06:30 10/18/17 06:30 - ....Imaging EKG: Other (tele: baseline LBBB present with av delay, frequent runs of svt, freq pac's, pvc's) Assessment/Plan Echo 11/12: nl LV/EF, nl RV, nl LA, no bioAVR dysfunction mechanical fall, hip frx: -tripped over chair in the dark -for ORIF preop CV eval: -RCRI = 1, decr functional status. intermediate risk for surgery. -pt's EF has normalized s/p CABG revasc, and remained stable on serial echoes. he has had no HF sx's since then. -no angina. -medically optimized -cleared to proceed with intermediate risk surgery at interm risk of periop CV complications -cont home metoprolol (uptitrated here) -has history of heparin-induced thrombocytopenia--avoid all heparin products, discussed with pmd. plan for hematology evaluation. tachycardia (with baseline LBBB): -intermittent sinus tachy here being driven by confustion/agitation, but also with intermittent brief atrial runs/runs of svt. con't tele montioring. -incr metopr to 25 bid 10/17. - monitor lytes TYSON on CKD: -baseline creat 1.3-1.6 -creat bumped to 1.6 on 10/16, NS at 50 cc/hr started 1am on 10/16, creat up further 10/17 to 2.1 -bun up as well, suspect vol depletion in setting of agitation, decr po. ? SIMA exacerbating in vol-depleted DM pt. -incr IVF rate to 100 cc/hr 10/17 --> Cr improved but hypernatremia slightly worse. Adjustment of IVF per surgery/pmd -holding lisinopril. -monitor daily labs s/p AVR: -normal fxn on echo CAD s/p CABG: -preserved EF -no angina since -cont home meds HTN: -bp at times mild-mod elevated here: ? agitation/disorientation, ? pain from hip frx -holding SIMA, increasing BB (as above)--> bp control improved. con't to monitor. DM: -per pmd dementia: -recently progressive -per pmd asthma/copd: -stable, no wheezing
--- NOTE | 2017-10-18 12:04 | PN ---
Progress Note, Physician Chief Complaint: Mr Calvillo says he is upset that he hasn't eaten today. When told he was having surgery today, said he was upset because no one told him that. Denies cp, sob, n /v. at bedside and states this is his baseline. - Current Medication List Current Medications: Active Medications Acetaminophen (Tylenol -) 650 mg PO Q6H PRN PRN Reason: PAIN Last Admin: 10/16/17 21:23 Dose: 650 mg Albuterol Sulfate (Ventolin Hfa Inhaler -) 1 puff IH Q8H PRN PRN Reason: SHORT OF BREATH/WHEEZING Aspirin (Asa -) 81 mg PO DAILY [facility] Last Admin: 10/18/17 11:50 Dose: Not Given Cholecalciferol (Vitamin D3 -) 1,000 unit PO DAILY [facility] Last Admin: 10/18/17 11:51 Dose: Not Given Escitalopram Oxalate (Lexapro -) 5 mg PO DAILY [facility] Last Admin: 10/18/17 11:51 Dose: Not Given Sodium Chloride (Normal Saline -) 1,000 mls @ 100 mls/hr IV ASDIR [facility] Last Admin: 10/18/17 11:52 Dose: 100 mls/hr Insulin Aspart (Novolog Vial Sliding Scale -) 1 vial SQ TIDAC [facility] PRN Reason: Protocol Last Admin: 10/18/17 11:52 Dose: Not Given Insulin Detemir (Levemir Vial) 10 units SQ BIDI [facility] Last Admin: 10/18/17 07:13 Dose: Not Given Latanoprost (Xalatan 0.005% Eye Drops -) 1 drop OU HS [facility] Last Admin: 10/17/17 22:40 Dose: 1 drop Metoprolol Succinate (Toprol Xl -) 25 mg PO BID [facility] Last Admin: 10/18/17 11:50 Dose: 25 mg Montelukast Sodium (Singulair -) 10 mg PO DAILY [facility] Last Admin: 10/18/17 11:51 Dose: Not Given Morphine Sulfate (Morphine Injection -) 2 mg IVPUSH Q6H PRN PRN Reason: PAIN LEVEL 6-10 Last Admin: 10/18/17 10:59 Dose: 2 mg Zksjp-0-Idco Ethyl Esters (Lovaza -) 1 gm PO DAILY [facility] Last Admin: 10/18/17 11:51 Dose: Not Given Ondansetron HCl (Zofran Injection) 4 mg IVPUSH Q6H PRN PRN Reason: NAUSEA Last Admin: 10/17/17 06:28 Dose: 4 mg Rosuvastatin Calcium (Crestor -) 20 mg PO DAILY [facility] Last Admin: 10/18/17 11:50 Dose: Not Given Sitagliptin Phosphate (Januvia -) 50 mg PO DAILY@0700 [facility] Last Admin: 10/18/17 07:13 Dose: Not Given Tiotropium [place] (Spiriva -) 1 puff IH DAILY [facility] Last Admin: 10/18/17 11:51 Dose: Not Given - Objective Vital Signs: Vital Signs Temperature 37.1 C 10/18/17 06:00 Pulse Rate 110 H 10/18/17 06:00 Respiratory Rate 18 10/18/17 06:00 Blood Pressure 146/71 10/18/17 06:00 O2 Sat by Pulse Oximetry (%) 98 10/17/17 22:00 Constitutional: Yes: Well Nourished, No Distress, Calm Cardiovascular: Yes: Tachycardia. No: Gallop, Murmur, Rub Respiratory: Yes: Regular, CTA Bilaterally. No: Rales, Rhonchi, Wheezes Gastrointestinal: Yes: Normal Bowel Sounds, Soft. 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 Code(s): E11.22 - TYPE 2 DIABETES MELLITUS W DIABETIC CHRONIC KIDNEY DISEASE; N18.3 - CHRONIC KIDNEY DISEASE, STAGE 3 (MODERATE) (3) Coronary arteriosclerosis after coronary artery bypass grafting Code(s): I25.810 - ATHEROSCLEROSIS OF CABG W/O ANGINA PECTORIS (4) Hypercholesteremia Code(s): E78.00 - PURE HYPERCHOLESTEROLEMIA, UNSPECIFIED (5) Uncontrolled diabetes mellitus Code(s): E11.65 - TYPE 2 DIABETES MELLITUS WITH HYPERGLYCEMIA (6) COPD (chronic obstructive pulmonary disease) Code(s): J44.9 - CHRONIC OBSTRUCTIVE PULMONARY DISEASE, UNSPECIFIED (7) Dementia Code(s): F03.90 - UNSPECIFIED DEMENTIA WITHOUT BEHAVIORAL DISTURBANCE (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) Code(s): D75.82 - HEPARIN INDUCED THROMBOCYTOPENIA (HIT) Assessment/Plan (1) Fracture, proximal femur Assessment/Plan: -secondary to fall -planning for repair today Code(s): S72.009A - FRACTURE OF UNSP PART OF NECK OF UNSP FEMUR, INIT Qualifiers: Fracture type: closed Laterality: left (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 Assessment/Plan: -with TYSON -improving, approaching baseline -with slight hyperkalemia and hypernatremia -suspect will improve when eating -nephrology consult Code(s): E11.22 - TYPE 2 DIABETES MELLITUS W DIABETIC CHRONIC KIDNEY DISEASE; N18.3 - CHRONIC KIDNEY DISEASE, STAGE 3 (MODERATE) (3) Coronary arteriosclerosis after coronary artery bypass grafting Assessment/Plan: -cardiology following -holding aspirin prior to surgery -continue statin and toprol xl Code(s): I25.810 - ATHEROSCLEROSIS OF CABG W/O ANGINA PECTORIS (4) Hypercholesteremia Assessment/Plan: -continue statin Code(s): E78.00 - PURE HYPERCHOLESTEROLEMIA, UNSPECIFIED (5) Uncontrolled diabetes mellitus Assessment/Plan: -d/w at bedside -patient is on a significant amount of insulin at home, uses around 50 units a day of 70/30 (on sliding scale) -will need tighter glucose control while here, goal is less than 180 -will change levemir to 20 units bid -will continue SSI -monitor need for excess insulin for hyperglycemia -once eating may benefit from a basal/bolus regimen while in the hospital Code(s): E11.65 - TYPE 2 DIABETES MELLITUS WITH HYPERGLYCEMIA (6) COPD (chronic obstructive pulmonary disease) Assessment/Plan: -not in exacerbation -continue current management Code(s): J44.9 - CHRONIC OBSTRUCTIVE PULMONARY DISEASE, UNSPECIFIED (7) Dementia Assessment/Plan: -per patient with mild dementia -monitor Code(s): F03.90 - UNSPECIFIED DEMENTIA WITHOUT BEHAVIORAL DISTURBANCE (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
[2017-10-18] MEDS ORDERED: BUPIVACAINE HCL/PF 0.5% (5MG/ML) 10 ML VIAL ONE (14:03)
[2017-10-18] MEDS ORDERED: PROPOFOL 20 ML ONE (14:28)
[2017-10-18] MEDS ORDERED: BACITRACIN 15 GM TUBE TOPICAL OINTMENT ONE (14:31)
[2017-10-18] MEDS ORDERED: ceFAZolin SODIUM 1 GM VIAL ONE (14:59)
--- NOTE | 2017-10-18 16:29 | OP ---
Operative Note - Note: Operative Date: 10/18/17 ([facility]) Pre-Operative Diagnosis: left IM gamma nail Post-Operative Diagnosis: Same as Pre-op Surgeon: Adolfo [place] Stainer: Jesse Membreno Anesthesiologist/DIRECTOR OF COLLECTIONS: Mavis Herrera MD Anesthesia: Spinal Estimated Blood Loss (mls): 500 Operative Report Dictated: Yes
--- NOTE | 2017-10-18 16:44 | CONSULT ---
Consult Consult Specialty:: Hematology - History of Present Illness History of Present Illness: 86 yrs old man multiple medical Co-morbidities lives at home with poor gait stability H/o HTN, Bioprosthic AVR, Dyslipedemia, as per Cardiology note recent evaluation by Dr Cervantes compensated CHF, Uncontrolled T2DM, CAD S/P ND, CABG , PCI not on Plavix at base line LBB yesterday present s/p fall as per , also had head trauma, but no LOC, developed sever Left Hip Pian cpouldnt got up , came to help 911 was called patient brought to ED w/u shows Left proximal Femur fracture now pod#0 from ORIF left hip 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 and pt needing DVT ppx post surgery ROS unobtainable due to pts condition - Past Medical History PEDIATRIC ASSOCIATE: Yes: Dementia Cardio/Vascular: Yes: Aortic Stenosis, CAD, CHF, HTN, Hyperlipdemia - Past Surgical History Past Surgical History: Yes: CABG, Valve Replacement - Alcohol/Substance Use Hx Alcohol Use: No - Smoking History Smoking history: Never smoked Have you smoked in the past 12 months: No If you are a former smoker, when did you quit?: 5 YRS AGO Home Medications - Allergies Allergies/Adverse Reactions: Allergies Allergy/AdvReac Type Severity Reaction Status Date / Time iodine [Iodine] Allergy Unknown Verified 10/15/17 20:52 - Home Medications Home Medications: Ambulatory Orders Aspirin [ASA -] 81 mg PO DAILY 10/16/17 Budesonide [Pulmicort 0.5 mg Nebulizer -] 1 neb NEB BID 10/16/17 Cholecalciferol (Vitamin D3) [Vitamin D3 -] 5,000 unit PO DAILY 10/16/17 Escitalopram Oxalate [Lexapro -] 5 mg PO DAILY 10/16/17 Insulin (LOG) Aspart [NovoLOG -] 0 units SQ TID 10/16/17 Lisinopril 5 mg PO BID 10/16/17 Metoprolol Succinate 25 mg PO DAILY 10/16/17 Montelukast Na [Singulair -] 10 mg PO HS 10/16/17 Multivitamin/Iron/Folic Acid [Centrum Adults Tablet] 1 each PO DAILY 10/16/17 Trilla-3 Fatty Acids [Trilla-3] 1,000 mg PO DAILY 10/16/17 Trilla-3S/Dha/Epa/Fish Oil [Fish Oil 1,200 mg Softgel] 1 each PO DAILY 10/16/17 Rosuvastatin [Crestor -] 20 mg PO HS 10/16/17 Sitagliptin Phosphate [Januvia] 50 mg PO DAILY 10/16/17 Tiotropium [place] [Spiriva] 1 inh PO DAILY 10/16/17 Family Disease History - Family Disease History Other Family History: not contributary Physical Exam Vital Signs: Vital Signs Temperature 99.4 F 10/18/17 10:00 Pulse Rate 105 H 10/18/17 10:00 Respiratory Rate 20 10/18/17 10:00 Blood Pressure 126/82 10/18/17 10:00 O2 Sat by Pulse Oximetry (%) 92 L 10/18/17 10:00 Constitutional: Yes: Calm HENT: Yes: Atraumatic, Normocephalic Neck: Yes: Supple Cardiovascular: Yes: Regular Rate and Rhythm Respiratory: Yes: Regular Gastrointestinal: Yes: Normal Bowel Sounds, Soft Extremities: Yes: WNL Edema: No Labs: CBC, BMP 10/18/17 06:30 10/18/17 06:30 Problem List - Problems (1) CKD stage 3 secondary to diabetes Code(s): E11.22 - TYPE 2 DIABETES MELLITUS W DIABETIC CHRONIC KIDNEY DISEASE; N18.3 - CHRONIC KIDNEY DISEASE, STAGE 3 (MODERATE) (2) COPD (chronic obstructive pulmonary disease) Code(s): J44.9 - CHRONIC OBSTRUCTIVE PULMONARY DISEASE, UNSPECIFIED (3) HIT (heparin-induced thrombocytopenia) Code(s): D75.82 - HEPARIN INDUCED THROMBOCYTOPENIA (HIT) (4) Uncontrolled diabetes mellitus Code(s): E11.65 - TYPE 2 DIABETES MELLITUS WITH HYPERGLYCEMIA (5) Dementia Code(s): F03.90 - UNSPECIFIED DEMENTIA WITHOUT BEHAVIORAL DISTURBANCE Assessment/Plan h/o HIT, Now post-op ORIF left femur, needs DVT ppx in January 2014 We could re-challenge with heparin pdt as the hx is >100days, and repeat HIT AB , confirmed from that there is no hx of DVTs. But pt did not want him to take any heparin product Alternative agents are to give arixtra, but no arixtra in-house Other alternatives : can give NOACs, eliquis approved for post-op ppx (2.5 mg twice daily beginning 12 to 24 hours postoperatively/ duration: per surgical discretion ), OK for his CrCl discussed r/b/a with also gave patient "hand-out" of eliquis. d/w and cardiology over phone, minal SERRATO
[2017-10-18] MEDS ORDERED: ALBUTEROL SO4 18 GM HFA INHALER IH PRN (17:24)
[2017-10-18] MEDS ORDERED: ONDANSETRON 4 MG/2 ML VIAL IVPUSH PRN (17:24)
[2017-10-18] MEDS ORDERED: SODIUM CHLORIDE 1,000 ML IV SCH (17:24)
--- NOTE | 2017-10-18 17:24 | SPEC ---
DATE OF OPERATION: 10/18/2017 PREOPERATIVE DIAGNOSIS: Left proximal femur fracture. POSTOPERATIVE DIAGNOSIS: Left proximal femur fracture. PROCEDURE: Left proximal femur intramedullary terri open reduction internal fixation with long gamma nail. SURGEON: Filippo Ram M.D. RAPID TRANSIT OPERATOR: Tien Pemberton ANESTHESIOLOGIST: Mavis Herrera M.D. ANESTHESIA: Spinal anesthesia with sedation. DRAINS: None. COMPLICATIONS: None. BLOOD LOSS: 250 mL from surgery, 300 mL from the hematoma. BLOOD GIVEN: None. FLUID REPLACEMENT: 1500 mL INDICATION: This patient is an 86-year-old male with preoperative diagnosis of a left proximal femur fracture. After understanding the potential risks, complications of this procedure as well as the alternatives, benefits the patient and the family, including his , who is his health proxy, have elected to undergo the procedure. They understand there is risk of poor ambulation, need for additional surgery, poor fracture healing, nonunion, pain, and infection and arthritis. DESCRIPTION OF PROCEDURE: Patient brought to operating room, peripheral IV placed, IV sedation given, 2 g of IV Ancef was given, spinal anesthesia was induced. He was then placed onto the fracture table in a standard fashion. PROCEDURE: Patient was brought to the operating room. Peripheral IV placed, IV sedation given. One gram of IV Ancef was given. General anesthesia was induced. The patient had ample Webril placed around the peroneal post in both ankles. The patient was placed onto the fracture table with a slight longitudinal traction and internal rotation. X-rays were taken documenting excellent reduction of the fracture in the AP and lateral planes. Next, an incision was made over the proximal aspect of the greater trochanter. Subcutaneous hemostasis was achieved with a Bovie cautery, dissection done through the lateral fascia to the top of the greater trochanter. A Hunt elevator was used to take off the soft tissue from the starting point. Under direct visualization a partially threaded guide-wire was placed through the standard starting position, into the proximal femur, passed the fracture fragment into the medullary canal. It was documented to be in excellent position in AP, lateral and multiple oblique planes. Next, we used the proximal 17 mm cannulated reamer and put in a standard titanium Ivy Gamma 3, 125 degree, 420 mm trochanteric nail. It was a 125-degree terri. This was put in cannulated fashion to appropriate depth and using the external guide in a standard fashion, first using external jig, using a threaded guide-wire, replaced the lag screw, guide pin to the lateral aspect of the femur. The prosthesis and up to the femoral neck and head, looked to be in excellent position in a center central position, perhaps slightly posterior and slightly inferior in both AP and lateral planes. We measured it at an 110 mm screw. The cannulated drill was used to drill it to this leg and then we put in an 110 mm titanium lag screw. We achieved excellent compression and overall the position of the hardware in the fracture fragments looked excellent. We locked it in place with a proximal set screw, we altered the external jig to the static position and using the standard technique put in a distal interlocking screw under direct visualization of 45 mm in length. This locked the nail distally. We removed the external jig. We repeated x-rays in AP, lateral and multiple oblique planes and overall I was quite happy with the position of the fracture reduction, the length of the screw, the position of the hardware. Final x-rays were taken in the AP and lateral planes. After the terri was placed down the femur, but before I locked it distally, 2 cables were placed around the proximal fracture fragments holding reduction and reducing the fracture gap. The area was copiously irrigated and washed out. The deep fascial layer was closed with 0 Vicryl sutures. The deep dermal layer was closed with 2-0 Vicryl. Final skin approximation was done with ritika. The area was then washed and dried, covered with Xeroform gauze, 4 x 4 gauze, ABD and tape. Patient was taken down off the fracture table in stable condition. There were no complications during the case. Total operative time was about 50 minutes. Patient tolerated the procedure well, was brought to the regular recovery room in stable condition. FILIPPO RAM M.D. [id number]
--- NOTE | 2017-10-18 18:13 | PN ---
Progress Note (short form) - Note Progress Note: Renal consult Pt is still in OR and was unable to be seen. Chart reviewed. Brook recommend continued IVF. Will check urine studies and monitor BUN/Cr. Bony Paez DO
[2017-10-18] MEDS: CEFAZOLIN 1 GM PUSH 1 GM/10 ML DISP.SYRIN IVPUSH SCH (21:32)
[2017-10-18] MEDS: LATANOPROST 0.005% OPHTH SOLN 2.5ML BOTTLE OU SCH (21:36)
[2017-10-18] MEDS ORDERED: CEFAZOLIN 1 GM PUSH 1 GM/10 ML DISP.SYRIN IVPUSH SCH (22:30)
[2017-10-19] MEDS: CEFAZOLIN 1 GM PUSH 1 GM/10 ML DISP.SYRIN IVPUSH SCH (02:59)
[2017-10-19] MEDS: INSULIN SLIDING SCALE (NOVOLOG) 1 VIAL SQ SCH ×3 (06:07→22:02)
[2017-10-19] MEDS: sitaGLIPtin PHOSPHATE 50 MG TABLET PO SCH (06:07)
[2017-10-19] MEDS: INSULIN DETEMIR 100 UNITS/ML MDV SQ SCH ×2 (06:08→17:51)
[2017-10-19] MEDS: morphine CARPU-JECT 10 MG/1 ML DISP.SYRIN IVPUSH PRN ×3 (06:35→17:31)
[2017-10-19 07:48] LABS: BASO % 0.1 % (0-2.0); EOS % 0.2 % (0-4.5); HEMATOCRIT 34.3 % (35.4-49); LYMPH % 9.2 % (8-40); MCH 27.7 pg (25.7-33.7); MCHC 31.9 g/dl (32.0-35.9); MEAN CELL VOLUME 86.8 fl (80-96); MEAN PLT VOLUME 9.7 fl (7.5-11.1); MONO % 11.8 % (3.8-10.2); NEUT % 78.7 % (42.8-82.8); PLATELET COUNT 129 K/MM3 (134-434); RBC 3.95 M/mm3 (4.00-5.60); RDW 17.4 % (11.9-15.9); WHITE BLOOD COUNT 10.5 K/mm3 (4.0-10.0)
[2017-10-19 08:01] LABS: CHLORIDE 114 mmol/L (98-107); POTASSIUM 4.3 mmol/L (3.5-5.1); SODIUM 151 mmol/L (136-145)
[2017-10-19 08:12] LABS: ANION GAP 7 (8-16); BLOOD UREA NITROGEN 61 mg/dL (7-18); CALCIUM 8.1 mg/dL (8.5-10.1); CO2 30 mmol/L (21-32); CREATININE 1.9 mg/dL (0.7-1.3); GLUCOSE,RANDOM 235 mg/dL (74-106); MAGNESIUM 2.5 mg/dL (1.8-2.4)
--- NOTE | 2017-10-19 08:25 | PN ---
Progress Note (short form) - Note Progress Note: ANESTHESIOLOGY POST-OP CHECK 86M s/p left gamma nail under spinal anesthesia POD #1. No acute events overnight. Pt confused. As per nurse: no N/V, pain controlled - pt comfortable. Vital Signs Temperature 97.3 F L 10/19/17 06:00 Pulse Rate 104 H 10/19/17 06:00 Respiratory Rate 19 10/19/17 06:00 Blood Pressure 140/75 10/19/17 06:00 O2 Sat by Pulse Oximetry (%) 96 10/18/17 21:00 Active Medications Acetaminophen (Tylenol -) 650 mg PO Q6H PRN PRN Reason: PAIN Albuterol Sulfate (Ventolin Hfa Inhaler -) 1 puff IH Q8H PRN PRN Reason: SHORT OF BREATH/WHEEZING Cholecalciferol (Vitamin D3 -) 1,000 unit PO DAILY [facility] Enoxaparin Sodium (Lovenox -) 40 mg SQ DAILY [facility] Escitalopram Oxalate (Lexapro -) 5 mg PO DAILY [facility] Fentanyl (Sublimaze Injection -) 25 mcg IVPUSH [id number] PRN PRN Reason: PAIN-PACU ORDER X 4 DOSES ONLY Sodium Chloride (Normal Saline -) 1,000 mls @ 100 mls/hr IV ASDIR [facility] Last Admin: 10/18/17 18:57 Dose: 100 mls/hr Insulin Aspart (Novolog Vial Sliding Scale -) 1 vial SQ TIDAC [facility] PRN Reason: Protocol Last Admin: 10/19/17 06:07 Dose: 8 unit Insulin Detemir (Levemir Vial) 20 units SQ BIDI [facility] Last Admin: 10/19/17 06:08 Dose: 20 units Latanoprost (Xalatan 0.005% Eye Drops -) 1 drop OU HS [facility] Last Admin: 10/18/17 21:36 Dose: 1 drop Metoprolol Succinate (Toprol Xl -) 25 mg PO BID [facility] Last Admin: 10/18/17 21:33 Dose: 25 mg Montelukast Sodium (Singulair -) 10 mg PO DAILY [facility] Morphine Sulfate (Morphine Injection -) 2 mg IVPUSH Q6H PRN PRN Reason: PAIN LEVEL 6-10 Last Admin: 10/19/17 06:35 Dose: 2 mg Isasi-6-Wuvu Ethyl Esters (Lovaza -) 1 gm PO DAILY [facility] Ondansetron HCl (Zofran Injection) 4 mg IVPUSH Q6H PRN PRN Reason: NAUSEA Rosuvastatin Calcium (Crestor -) 20 mg PO HS [facility] Sitagliptin Phosphate (Januvia -) 50 mg PO DAILY@0700 [facility] Last Admin: 10/19/17 06:07 Dose: 50 mg Tiotropium [place] (Spiriva -) 1 puff IH DAILY [facility] Gen: Awake, confused No appareant anesthesia complications. Pain well controlled. Continue management as per primary team.
--- NOTE | 2017-10-19 08:33 | PN ---
Progress Note (short form) - Note Progress Note: Pt seen and examined. He is on POD #1 s/p left femur ORIF with long Im terri. He appears comfortable, no c/o pain. AVSS H/H decreased but acceptable. LLE appears well aligned, grossly NVI, dressing CDI Overall doing well on POD #1. We will see if he can participate with P.T., light PWB LLE DC planning
[2017-10-19] MEDS ORDERED: PT OWN MED DRAWER 7, Y5N ONE (09:18)
[2017-10-19] MEDS: ENOXAPARIN NA (PORCINE) 40 MG/0.4 ML DISP.SYRIN SQ SCH (09:28)
[2017-10-19] MEDS: ACETAMINOPHEN 325 MG TABLET (FP) PO PRN ×3 (09:28→23:26)
[2017-10-19] MEDS: OMEGA-3 ACID ETHYL ESTERS (FATTY-ACIDS) 1 GM CAPSULE (FP) PO SCH (09:29)
[2017-10-19] MEDS: metoPROLOL SUCCINATE 25 MG TAB.SR.24H (FP) PO SCH ×2 (09:29→21:56)
[2017-10-19] MEDS: CHOLECALCIFEROL (VITAMIN D3) 1,000 UNIT TABLET (FP) PO SCH (09:29)
[2017-10-19] MEDS: MONTELUKAST NA 10 MG TABLET PO SCH (09:29)
[2017-10-19] MEDS: TIOTROPIUM BROMIDE 18 MCG/INH (DEVICE W/ 5 CAPSULES) IH SCH (09:31)
[2017-10-19] MEDS ORDERED: ENOXAPARIN NA (PORCINE) 40 MG/0.4 ML DISP.SYRIN SQ SCH (10:00)
--- NOTE | 2017-10-19 11:06 | PN ---
Progress Note (short form) - Note Progress Note: s: confused, appears comfortable ex cigs Current Medications Generic Name Dose Route Start Last Admin Trade Name Freq PRN Reason Stop Dose Admin Acetaminophen 650 mg 10/18/17 17:24 10/19/17 09:28 Tylenol - PO 650 mg Q6H PRN Administration PAIN Albuterol Sulfate 1 puff 10/18/17 17:24 Ventolin Hfa Inhaler - IH Q8H PRN SHORT OF BREATH/WHEEZING Cholecalciferol 1,000 unit 10/19/17 10:00 10/19/17 09:29 Vitamin D3 - PO 1,000 unit DAILY [facility] Administration Enoxaparin Sodium 40 mg 10/19/17 10:00 10/19/17 09:28 Lovenox - SQ 40 mg DAILY [facility] Administration Escitalopram Oxalate 5 mg 10/19/17 10:00 Lexapro - PO DAILY [facility] Fentanyl 25 mcg 10/18/17 16:43 Sublimaze Injection - IVPUSH [id number] PRN PAIN-PACU ORDER X 4 DOSES ONLY Sodium Chloride 1,000 mls @ 100 mls/hr 10/18/17 17:24 10/18/17 18:57 Normal Saline - IV 100 mls/hr ASDIR [facility] Administration Insulin Aspart 1 vial 10/19/17 07:00 10/19/17 06:07 Novolog Vial Sliding Scale - SQ 8 unit TIDAC [facility] Administration Protocol Insulin Detemir 20 units 10/18/17 16:30 10/19/17 06:08 Levemir Vial SQ 20 units BIDI [facility] Administration Latanoprost 1 drop 10/18/17 22:00 10/18/17 21:36 Xalatan 0.005% Eye Drops - OU 1 drop HS [facility] Administration Metoprolol Succinate 25 mg 10/18/17 22:00 10/19/17 09:29 Toprol Xl - PO 25 mg BID [facility] Administration Montelukast Sodium 10 mg 10/19/17 10:00 10/19/17 09:29 Singulair - PO 10 mg DAILY [facility] Administration Morphine Sulfate 2 mg 10/18/17 17:24 10/19/17 06:35 Morphine Injection - IVPUSH 2 mg Q6H PRN Administration PAIN LEVEL 6-10 [id number] Ethyl Esters 1 gm 10/19/17 10:00 10/19/17 09:29 Lovaza - PO 1 gm DAILY [facility] Administration Ondansetron HCl 4 mg 10/18/17 17:24 Zofran Injection IVPUSH Q6H PRN NAUSEA Rosuvastatin Calcium 20 mg 10/19/17 22:00 Crestor - PO HS [facility] Sitagliptin Phosphate 50 mg 10/19/17 07:00 10/19/17 06:07 Januvia - PO 50 mg DAILY@0700 [facility] Administration Tiotropium [place] 1 puff 10/19/17 10:00 10/19/17 09:31 Spiriva - IH 1 puff DAILY [facility] Administration - Objective Vital Signs: Vital Signs Period Temp Pulse Resp BP Sys/Staples Pulse Ox Last 24 Hr 97.3 F-99.1 F 96-116 16-20 75-160/50-100 96-100 Constitutional: Yes: Well Nourished, No Distress, Calm Eyes: No: Sclera Icterus HENT: No: Nasal Congestion Cardiovascular: Yes: Regular Rate and Rhythm, Tachycardia, Murmur (soft (2/6) FILEMON lusb). No: JVD, Gallop Respiratory: Yes: Regular, CTA Bilaterally (anteriorly (fela vest on)). No: Rales, Wheezes Gastrointestinal: Yes: Normal Bowel Sounds, Soft. No: Tenderness Extremities: No: Cold Edema: No Integumentary: No: Jaundice Neurological: lethargic No: Seizure Psychiatric: No: Agitated Labs: CBC, BMP 10/19/17 05:47 10/19/17 05:47 - ....Imaging EKG: Other (tele: baseline LBBB present with av delay, occ runs of svt, freq pac 's, pvc's) Echo 11/12: nl LV/EF, nl RV, nl LA, no bioAVR dysfunction Assessment/Plan mechanical fall, hip frx: -tripped over chair in the dark -s/p ORIF tachycardia (with baseline LBBB): -intermittent sinus tachy here being driven by confustion/agitation, but also with intermittent brief atrial runs/runs of svt. -pain control, cont bb TYSON on CKD: -baseline creat 1.3-1.6 -creat bumped to 1.6 on 10/16, NS at 50 cc/hr started 1am on 10/16, creat up further 10/17 to 2.1 -bun up as well, suspect vol depletion in setting of agitation, decr po. ? SIMA exacerbating in vol-depleted DM pt. -cont ivfs -holding lisinopril. -monitor daily labs s/p AVR: -normal fxn on recent echo CAD s/p CABG: -preserved EF -no angina since -cont home meds HTN: -cont current meds dementia: -recently progressive -per pmd asthma/copd: -stable, no wheezing
--- NOTE | 2017-10-19 12:55 | PN ---
Progress Note, Physician Chief Complaint: Unable to obtain, patient altered - Current Medication List Current Medications: Active Medications Acetaminophen (Tylenol -) 650 mg PO Q6H PRN PRN Reason: PAIN Last Admin: 10/19/17 09:28 Dose: 650 mg Albuterol Sulfate (Ventolin Hfa Inhaler -) 1 puff IH Q8H PRN PRN Reason: SHORT OF BREATH/WHEEZING Cholecalciferol (Vitamin D3 -) 1,000 unit PO DAILY [facility] Last Admin: 10/19/17 09:29 Dose: 1,000 unit Enoxaparin Sodium (Lovenox -) 40 mg SQ DAILY [facility] Last Admin: 10/19/17 09:28 Dose: 40 mg Escitalopram Oxalate (Lexapro -) 5 mg PO DAILY [facility] Fentanyl (Sublimaze Injection -) 25 mcg IVPUSH [id number] PRN PRN Reason: PAIN-PACU ORDER X 4 DOSES ONLY Sodium Chloride (Normal Saline -) 1,000 mls @ 100 mls/hr IV ASDIR [facility] Last Admin: 10/18/17 18:57 Dose: 100 mls/hr Insulin Aspart (Novolog Vial Sliding Scale -) 1 vial SQ ACHS [facility] PRN Reason: Protocol Insulin Detemir (Levemir Vial) 20 units SQ BIDI [facility] Last Admin: 10/19/17 06:08 Dose: 20 units Latanoprost (Xalatan 0.005% Eye Drops -) 1 drop OU HS [facility] Last Admin: 10/18/17 21:36 Dose: 1 drop Metoprolol Succinate (Toprol Xl -) 25 mg PO BID [facility] Last Admin: 10/19/17 09:29 Dose: 25 mg Montelukast Sodium (Singulair -) 10 mg PO DAILY [facility] Last Admin: 10/19/17 09:29 Dose: 10 mg Morphine Sulfate (Morphine Injection -) 2 mg IVPUSH Q6H PRN PRN Reason: PAIN LEVEL 6-10 Last Admin: 10/19/17 06:35 Dose: 2 mg Rhpyx-9-Rtrk Ethyl Esters (Lovaza -) 1 gm PO DAILY [facility] Last Admin: 10/19/17 09:29 Dose: 1 gm Ondansetron HCl (Zofran Injection) 4 mg IVPUSH Q6H PRN PRN Reason: NAUSEA Rosuvastatin Calcium (Crestor -) 20 mg PO [facility] Sitagliptin Phosphate (Januvia -) 50 mg PO DAILY@0700 [facility] Last Admin: 10/19/17 06:07 Dose: 50 mg Tiotropium [place] (Spiriva -) 1 puff IH DAILY [facility] Last Admin: 10/19/17 09:31 Dose: 1 puff - Objective Vital Signs: Vital Signs Temperature 36.3 C L 10/19/17 06:00 Pulse Rate 104 H 10/19/17 06:00 Respiratory Rate 19 10/19/17 06:00 Blood Pressure 140/75 10/19/17 06:00 O2 Sat by Pulse Oximetry (%) 96 10/18/17 21:00 Constitutional: Yes: Well Nourished, No Distress, Calm Cardiovascular: Yes: Tachycardia. No: Gallop, Murmur, Rub Respiratory: Yes: Regular, CTA Bilaterally. No: Rales, Rhonchi, Wheezes Gastrointestinal: Yes: Normal Bowel Sounds, Soft. No: Distention, Tenderness Extremities: Yes: WNL Edema: No Labs: CBC, BMP 10/19/17 05:47 10/19/17 05:47 INR, PTT INR 1.04 (0.82-1.09) 10/15/17 22:00 Problem List - Problems (1) Fracture, proximal femur Code(s): S72.009A - FRACTURE OF UNSP PART OF NECK OF UNSP FEMUR, INIT Qualifiers: Fracture type: closed Laterality: left (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 Code(s): E11.22 - TYPE 2 DIABETES MELLITUS W DIABETIC CHRONIC KIDNEY DISEASE; N18.3 - CHRONIC KIDNEY DISEASE, STAGE 3 (MODERATE) (3) Coronary arteriosclerosis after coronary artery bypass grafting Code(s): I25.810 - ATHEROSCLEROSIS OF CABG W/O ANGINA PECTORIS (4) Hypercholesteremia Code(s): E78.00 - PURE HYPERCHOLESTEROLEMIA, UNSPECIFIED (5) Uncontrolled diabetes mellitus Code(s): E11.65 - TYPE 2 DIABETES MELLITUS WITH HYPERGLYCEMIA (6) COPD (chronic obstructive pulmonary disease) Code(s): J44.9 - CHRONIC OBSTRUCTIVE PULMONARY DISEASE, UNSPECIFIED (7) Dementia Code(s): F03.90 - UNSPECIFIED DEMENTIA WITHOUT BEHAVIORAL DISTURBANCE (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) Code(s): D75.82 - HEPARIN INDUCED THROMBOCYTOPENIA (HIT) Assessment/Plan (1) Fracture, proximal femur Assessment/Plan: -s/p repair -continue PT Code(s): S72.009A - FRACTURE OF UNSP PART OF NECK OF UNSP FEMUR, INIT Qualifiers: Fracture type: closed Laterality: left (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 Assessment/Plan: -nephrology consulted and case discussed -fluids changed to 1/2 NS -monitor Code(s): E11.22 - TYPE 2 DIABETES MELLITUS W DIABETIC CHRONIC KIDNEY DISEASE; N18.3 - CHRONIC KIDNEY DISEASE, STAGE 3 (MODERATE) (3) Coronary arteriosclerosis after coronary artery bypass grafting Assessment/Plan: -cardiology following -restart aspirin when safe from ortho standpoint -continue statin and toprol xl Code(s): I25.810 - ATHEROSCLEROSIS OF CABG W/O ANGINA PECTORIS (4) Hypercholesteremia Assessment/Plan: -continue statin Code(s): E78.00 - PURE HYPERCHOLESTEROLEMIA, UNSPECIFIED (5) Uncontrolled diabetes mellitus Assessment/Plan: -d/w at bedside -patient now on levemir 20 units bid -afternoon FSBS below 180 -will monitor how much patient needs and adjust insulin as necessary Code(s): E11.65 - TYPE 2 DIABETES MELLITUS WITH HYPERGLYCEMIA (6) COPD (chronic obstructive pulmonary disease) Assessment/Plan: -not in exacerbation -continue current management Code(s): J44.9 - CHRONIC OBSTRUCTIVE PULMONARY DISEASE, UNSPECIFIED (7) Dementia Assessment/Plan: -exacerbated secondary to surgery and hospitalization -monitor Code(s): F03.90 - UNSPECIFIED DEMENTIA WITHOUT BEHAVIORAL DISTURBANCE (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) Assessment/Plan: -appreciate hematology assistance, case discussed -plan to start on eliquis when cleared by surgery Code(s): D75.82 - HEPARIN INDUCED THROMBOCYTOPENIA (HIT)
[2017-10-19] MEDS: ESCITALOPRAM OXALATE 10 MG TABLET (FP) PO SCH (13:33)
[2017-10-19] MEDS ORDERED: SODIUM CHLORIDE 0.45% 1,000 ML IV SCH (13:45)
--- NOTE | 2017-10-19 16:46 | CON.NEP ---
Consult Consult Specialty:: Nephrology Referred by:: Dr. 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 Cardio/Vascular: Yes: Aortic Stenosis, CAD, CHF, HTN, Hyperlipdemia - Past Surgical History Past Surgical History: Yes: CABG, Valve Replacement - Alcohol/Substance Use Hx Alcohol Use: No - Smoking History Smoking history: Never smoked Have you smoked in the past 12 months: No If you are a former smoker, when did you quit?: 5 YRS AGO Home Medications - Allergies Allergies/Adverse Reactions: Allergies Allergy/AdvReac Type Severity Reaction Status Date / Time iodine [Iodine] Allergy Unknown Verified 10/15/17 20:52 - Home Medications Home Medications: Ambulatory Orders Aspirin [ASA -] 81 mg PO DAILY 10/16/17 Budesonide [Pulmicort 0.5 mg Nebulizer -] 1 neb NEB BID 10/16/17 Cholecalciferol (Vitamin D3) [Vitamin D3 -] 5,000 unit PO DAILY 10/16/17 Escitalopram Oxalate [Lexapro -] 5 mg PO DAILY 10/16/17 Insulin (LOG) Aspart [NovoLOG -] 0 units SQ TID 10/16/17 Lisinopril 5 mg PO BID 10/16/17 Metoprolol Succinate 25 mg PO DAILY 10/16/17 Montelukast Na [Singulair -] 10 mg PO HS 10/16/17 Multivitamin/Iron/Folic Acid [Centrum Adults Tablet] 1 each PO DAILY 10/16/17 Kinsman-3 Fatty Acids [Kinsman-3] 1,000 mg PO DAILY 10/16/17 [place]insman-3S/Dha/Epa/Fish Oil [Fish Oil 1,200 mg Softgel] 1 each PO DAILY 10/16/17 Rosuvastatin [Crestor -] 20 mg PO HS 10/16/17 Sitagliptin Phosphate [Januvia] 50 mg PO DAILY 10/16/17 Tiotropium [employer] [Spiriva] 1 inh PO DAILY 10/16/17 Family Disease History - Family Disease History Other Family History: not contributary Nephrology Consult - Height Height: 5 ft 11 in - Weight Weight: 79.379 kg - BMI Body Mass Index (BMI): 24.4 - Lab Results CBC,BMP: CBC, BMP 10/19/17 05:47 10/19/17 05:47 Anion Gap: Anion Gap Anion Gap 7 (8-16) L 10/19/17 05:47 - Physical Examination Vital Signs: Vital Signs Temperature 98.3 F 10/19/17 14:00 Pulse Rate 103 H 10/19/17 14:00 Respiratory Rate 20 10/19/17 14:00 Blood Pressure 103/73 10/19/17 14:00 O2 Sat by Pulse Oximetry (%) 96 10/18/17 21:00 Assessment/Plan 86 yo male Known DMT2, dementia and hypertension Known ASCVD and AV disease with prior 2v CABG (BOTELLO to LAD and SVG to OM1) with bio AVR (27mm Bovine) at [facility] in 2013 86 year old gentleman with PMhx of of CAD s/p CABG, DM Type 2, Hypertension, Dementia, Mild CKD (baseline Cr 1.3) presented to the ED s/p fall and found to have a proximal femur frature with TYSON with Cr of 1.9 and Na of 150. #Acute on chronic renal insufficiency Etiology likely renal hypoprofusion in setting of fracture/blood loss and relative hypotension Check Urine studies and US of Kidney and Bladder Maintain lambert for now with strict I and O change IVF to hypotonic saline Trend BUN/Cr avoid NSIADs, IV contrast, SIMA/ARB #Hypernatremia from poor oral intake + isotonic saline change IVF to 1/2 NS oral water intake as tolerated #Femur fracture s/p ORIF pain control #Gross Hematuria from traumatic lambert monitor urine output #Hypertension on metoprolol for CAD no SIMA/ARB Thank you Bony Paez DO Current Medications Acetaminophen (Tylenol -) 650 mg PO Q6H PRN PRN Reason: PAIN Last Admin: 10/19/17 15:22 Dose: 650 mg Albuterol Sulfate (Ventolin Hfa Inhaler -) 1 puff IH Q8H PRN PRN Reason: SHORT OF BREATH/WHEEZING Cholecalciferol (Vitamin D3 -) 1,000 unit PO DAILY [facility] Last Admin: 10/19/17 09:29 Dose: 1,000 unit Enoxaparin Sodium (Lovenox -) 40 mg SQ DAILY [facility] Last Admin: 10/19/17 09:28 Dose: 40 mg Escitalopram Oxalate (Lexapro -) 5 mg PO DAILY [facility] Last Admin: 10/19/17 13:33 Dose: 5 mg Fentanyl (Sublimaze Injection -) 25 mcg IVPUSH [id number] PRN PRN Reason: PAIN-PACU ORDER X 4 DOSES ONLY Sodium Chloride (1/2 Normal Saline) 1,000 mls @ 100 mls/hr IV ASDIR [facility] Last Admin: 10/19/17 14:30 Dose: 100 mls/hr Insulin Aspart (Novolog Vial Sliding Scale -) 1 vial SQ ACHS [facility] PRN Reason: Protocol Insulin Detemir (Levemir Vial) 20 units SQ BIDI [facility] Last Admin: 10/19/17 06:08 Dose: 20 units Latanoprost (Xalatan 0.005% Eye Drops -) 1 drop OU HS [facility] Last Admin: 10/18/17 21:36 Dose: 1 drop Metoprolol Succinate (Toprol Xl -) 25 mg PO BID [facility] Last Admin: 10/19/17 09:29 Dose: 25 mg Montelukast Sodium (Singulair -) 10 mg PO DAILY [facility] Last Admin: 10/19/17 09:29 Dose: 10 mg Morphine Sulfate (Morphine Injection -) 2 mg IVPUSH Q6H PRN PRN Reason: PAIN LEVEL 6-10 Last Admin: 10/19/17 06:35 Dose: 2 mg Vantd-4-Bgym Ethyl Esters (Lovaza -) 1 gm PO DAILY [facility] Last Admin: 10/19/17 09:29 Dose: 1 gm Ondansetron HCl (Zofran Injection) 4 mg IVPUSH Q6H PRN PRN Reason: NAUSEA Rosuvastatin Calcium (Crestor -) 20 mg PO [facility] Sitagliptin Phosphate (Januvia -) 50 mg PO DAILY@0700 [facility] Last Admin: 10/19/17 06:07 Dose: 50 mg Tiotropium [employer] (Spiriva -) 1 puff IH DAILY [facility] Last Admin: 10/19/17 09:31 Dose: 1 puff
[2017-10-19] MEDS ORDERED: SODIUM CHLORIDE 1,000 ML IV STA (18:42)
--- NOTE | 2017-10-19 19:13 | HOSP ---
Subjective - Review of Symptoms Subjective: Notified by RN that pt having arabella bleeding from penis. RN noted that UOP dropped and was advised to remove lambert and replace However when lambert was removed starting having arabella bleeding from penis pt assessed at bedside, is resting comfortable Bp dropped at SBP 90's pulsatile bleeding noted from penis pt placed into [place] and bolus IVF Lambert inserted without resistance. bleeding noted to stop. pink tinged urine in lambert catheter BP increased to 115/80 Urology consulted stat CBC will likely require further imaging SIgned out to night team to f/u. Physical Examination Vital Signs: Vital Signs Temperature 98.3 F 10/19/17 14:00 Pulse Rate 103 H 10/19/17 14:00 Respiratory Rate 20 10/19/17 14:00 Blood Pressure 103/73 10/19/17 14:00 O2 Sat by Pulse Oximetry (%) 96 10/18/17 21:00 Labs: CBC, BMP 10/19/17 05:47 10/19/17 05:47
[2017-10-19 20:17] LABS: HEMATOCRIT 30.5 % (35.4-49); HEMOGLOBIN 9.7 GM/dL (11.7-16.9); MCH 27.7 pg (25.7-33.7); MCHC 31.9 g/dl (32.0-35.9); MEAN PLT VOLUME 9.8 fl (7.5-11.1); PLATELET COUNT 137 K/MM3 (134-434); RBC 3.51 M/mm3 (4.00-5.60); RDW 17.6 % (11.9-15.9); WHITE BLOOD COUNT 12.2 K/mm3 (4.0-10.0)
[2017-10-19] MEDS: SODIUM CHLORIDE 0.45% 1,000 ML IV SCH (20:45)
[2017-10-19] MEDS: ROSUVASTATIN CA 20 MG TABLET (FP) PO SCH (21:55)
[2017-10-19] MEDS: LATANOPROST 0.005% OPHTH SOLN 2.5ML BOTTLE OU SCH ×2 (22:05→22:12)
[2017-10-19 22:44] LABS: INR 1.12 (0.82-1.09); PROTHROMBIN TIME (PATIENT) 12.6 SEC (9.98-11.88)
[2017-10-19 22:47] LABS: ACTIVATED PTT 24.6 SECONDS (26.9-34.4)
[2017-10-19 22:54] LABS: URINE APPEARANCE CLOUDY; URINE BILIRUBIN NEGATIVE (NEGATIVE); URINE BLOOD 3+ (NEGATIVE); URINE COLOR YELLOW; URINE GLUCOSE (UA) 1+ (NEGATIVE); URINE KETONE NEGATIVE (NEGATIVE); URINE LEUK ESTERASE TRACE (NEGATIVE); URINE NITRITE NEGATIVE (NEGATIVE); URINE UROBILINOGEN NEGATIVE mg/dL (0.2-1.0)
[2017-10-19 22:58] LABS: URINE PROTEIN 2+ (NEGATIVE)
[2017-10-19 22:59] LABS: URINE MUCUS RARE
[2017-10-20] MEDS: ACETAMINOPHEN 325 MG TABLET (FP) PO PRN ×2 (05:29→23:02)
[2017-10-20] MEDS: sitaGLIPtin PHOSPHATE 50 MG TABLET PO SCH (06:32)
[2017-10-20] MEDS: INSULIN SLIDING SCALE (NOVOLOG) 1 VIAL SQ SCH ×5 (06:33→21:18)
[2017-10-20] MEDS: INSULIN DETEMIR 100 UNITS/ML MDV SQ SCH ×2 (06:33→17:15)
[2017-10-20] MEDS: SODIUM CHLORIDE 0.45% 1,000 ML IV SCH (07:03)
[2017-10-20 07:50] LABS: BASO % 0.1 % (0-2.0); EOS % 1.3 % (0-4.5); HEMATOCRIT 28.6 % (35.4-49); HEMOGLOBIN 9.1 GM/dL (11.7-16.9); LYMPH % 10.2 % (8-40); MCH 27.4 pg (25.7-33.7); MCHC 31.7 g/dl (32.0-35.9); MEAN CELL VOLUME 86.3 fl (80-96); MEAN PLT VOLUME 9.5 fl (7.5-11.1); MONO % 11.1 % (3.8-10.2); NEUT % 77.3 % (42.8-82.8); PLATELET COUNT 121 K/MM3 (134-434); RBC 3.32 M/mm3 (4.00-5.60); RDW 17.2 % (11.9-15.9); WHITE BLOOD COUNT 11.9 K/mm3 (4.0-10.0)
[2017-10-20 08:14] LABS: CHLORIDE 118 mmol/L (98-107); POTASSIUM 4.1 mmol/L (3.5-5.1); SODIUM 153 mmol/L (136-145)
[2017-10-20 08:21] LABS: ANION GAP 7 (8-16); BLOOD UREA NITROGEN 61 mg/dL (7-18); CALCIUM 7.4 mg/dL (8.5-10.1); CO2 28 mmol/L (21-32); CREATININE 1.7 mg/dL (0.7-1.3); GLUCOSE,RANDOM 70 mg/dL (74-106); MAGNESIUM 2.5 mg/dL (1.8-2.4); PHOSPHOROUS 2.8 mg/dL (2.5-4.9)
--- NOTE | 2017-10-20 08:41 | PN ---
Progress Note (short form) - Note Progress Note: Pt seen and examined. He is comfortable, no c/o pain or palpitations. H/H decreased to 9.1/28.6 LLE Dressing with mild amount of sanguinous drainage LLE grossly NVI, and overall looks quite good. Imp Doing very well, stable, on POD #2 s/p left femur ORIF Rec P.T. for ambulation and assistance, light PWB only DC/transfer planning ] Can DC/Transfer likely tomorrow from an orthopedic pov
[2017-10-20] MEDS: ESCITALOPRAM OXALATE 10 MG TABLET (FP) PO SCH (09:22)
[2017-10-20] MEDS: metoPROLOL SUCCINATE 25 MG TAB.SR.24H (FP) PO SCH ×2 (09:23→21:10)
[2017-10-20] MEDS: OMEGA-3 ACID ETHYL ESTERS (FATTY-ACIDS) 1 GM CAPSULE (FP) PO SCH (09:23)
[2017-10-20] MEDS: CHOLECALCIFEROL (VITAMIN D3) 1,000 UNIT TABLET (FP) PO SCH (09:23)
[2017-10-20] MEDS: MONTELUKAST NA 10 MG TABLET PO SCH (09:23)
[2017-10-20] MEDS: ENOXAPARIN NA (PORCINE) 40 MG/0.4 ML DISP.SYRIN SQ SCH (09:23)
--- NOTE | 2017-10-20 10:08 | PN ---
Progress Note (short form) - Note Progress Note: s: no cp sob palps dizzy ex cigs Current Medications Generic Name Dose Route Start Last Admin Trade Name Freq PRN Reason Stop Dose Admin Acetaminophen 650 mg 10/18/17 17:24 10/20/17 05:29 Tylenol - PO 650 mg Q6H PRN Administration PAIN Albuterol Sulfate 1 puff 10/18/17 17:24 Ventolin Hfa Inhaler - IH Q8H PRN SHORT OF BREATH/WHEEZING Cholecalciferol 1,000 unit 10/19/17 10:00 10/20/17 09:23 Vitamin D3 - PO 1,000 unit DAILY [facility] Administration Enoxaparin Sodium 40 mg 10/19/17 10:00 10/20/17 09:23 Lovenox - SQ 40 mg DAILY [facility] Administration Escitalopram Oxalate 5 mg 10/19/17 10:00 10/20/17 09:22 Lexapro - PO 5 mg DAILY [facility] Administration Fentanyl 25 mcg 10/18/17 16:43 Sublimaze Injection - IVPUSH [id number] PRN PAIN-PACU ORDER X 4 DOSES ONLY Sodium Chloride 1,000 mls @ 125 mls/hr 10/19/17 18:45 10/20/17 07:03 1/2 Normal Saline IV 125 mls/hr ASDIR [facility] Administration Insulin Aspart 1 vial 10/19/17 16:30 10/20/17 06:33 Novolog Vial Sliding Scale - SQ Not Given ACHS [facility] Protocol Insulin Detemir 20 units 10/18/17 16:30 10/20/17 06:33 Levemir Vial SQ Not Given BIDI [facility] Latanoprost 1 drop 10/18/17 22:00 10/19/17 22:12 Xalatan 0.005% Eye Drops - OU 1 drop HS [facility] Administration Metoprolol Succinate 25 mg 10/18/17 22:00 10/20/17 09:23 Toprol Xl - PO 25 mg BID [facility] Administration Montelukast Sodium 10 mg 10/19/17 10:00 10/20/17 09:23 Singulair - PO 10 mg DAILY [facility] Administration Morphine Sulfate 2 mg 10/18/17 17:24 10/19/17 17:31 Morphine Injection - IVPUSH 2 mg Q6H PRN Administration PAIN LEVEL 6-10 Rtmte-4-Yovd Ethyl Esters 1 gm 10/19/17 10:00 10/20/17 09:23 Lovaza - PO 1 gm DAILY [facility] Administration Ondansetron HCl 4 mg 10/18/17 17:24 Zofran Injection IVPUSH Q6H PRN NAUSEA Rosuvastatin Calcium 20 mg 10/19/17 22:00 10/19/17 21:55 Crestor - PO 20 mg HS [facility] Administration Sitagliptin Phosphate 50 mg 10/19/17 07:00 10/20/17 06:32 Januvia - PO Not Given DAILY@0700 [facility] Tiotropium [place] 1 puff 10/19/17 10:00 10/19/17 09:31 Spiriva - IH 1 puff DAILY [facility] Administration - Objective Vital Signs: Vital Signs Period Temp Pulse Resp BP Sys/Staples Pulse Ox Last 24 Hr 97.7 F-99.2 F 91-111 20-20 103-163/56-81 Constitutional: Yes: Well Nourished, No Distress, Calm Eyes: No: Sclera Icterus HENT: No: Nasal Congestion Cardiovascular: Yes: Regular Rate and Rhythm, Tachycardia, Murmur (soft (2/6) FILEMON lusb). No: JVD, Gallop Respiratory: Yes: Regular, CTA Bilaterally (anteriorly (fela vest on)). No: Rales, Wheezes Gastrointestinal: Yes: Normal Bowel Sounds, Soft. No: Tenderness Extremities: No: Cold Edema: No Integumentary: No: Jaundice Neurological: : Seizure Psychiatric: No: Agitated Labs: CBC, BMP 10/20/17 06:55 10/20/17 06:55 - ....Imaging EKG: Other (tele: baseline LBBB present with av delay, freq pac's, pvc's) Echo 11/12: nl LV/EF, nl RV, nl LA, no bioAVR dysfunction Assessment/Plan mechanical fall, hip frx: -tripped over chair in the dark -s/p ORIF tachycardia (with baseline LBBB): -intermittent sinus tachy here being driven by confustion/agitation, but also with intermittent brief atrial runs/runs of svt. -pain control, cont bb TYSON on CKD: -baseline creat 1.3-1.6 -creat bumped to 1.6 on 10/16, NS at 50 cc/hr started 1am on 10/16, creat up further 10/17 to 2.1 -bun up as well, suspect vol depletion in setting of agitation, decr po. ? SIMA exacerbating in vol-depleted DM pt. -holding lisinopril. -monitor daily labs s/p AVR: -normal fxn on recent echo CAD s/p CABG: -preserved EF -no angina since -cont home meds HTN: -cont current meds dementia: -recently progressive -per pmd asthma/copd: -stable, no wheezing
[2017-10-20] MEDS: TIOTROPIUM BROMIDE 18 MCG/INH (DEVICE W/ 5 CAPSULES) IH SCH (11:42)
--- NOTE | 2017-10-20 13:19 | PN ---
Progress Note (short form) - Note Progress Note: Patient seen and examined at bedside. Events noted ROS not obtained due to dementia Constitutional: Yes: Calm, HENT: Yes: Atraumatic, Normocephalic Neck: Yes: Supple Cardiovascular: Yes: Regular Rate and Rhythm Respiratory: Yes: Regular Gastrointestinal: Yes: Normal Bowel Sounds, Soft Extremities: Yes: WNL Edema: No Last Vital Signs Temp Pulse Resp BP Pulse Ox 98.8 F 93 H 20 153/70 96 10/20/17 10:00 10/20/17 10:00 10/20/17 10:00 10/20/17 10:00 10/18/17 21:00 CBC, BMP 10/20/17 06:55 10/20/17 06:55 Current Medications Generic Name Dose Route Start Last Admin Trade Name Freq PRN Reason Stop Dose Admin Acetaminophen 650 mg 10/18/17 17:24 10/20/17 05:29 Tylenol - PO 650 mg Q6H PRN Administration PAIN Albuterol Sulfate 1 puff 10/18/17 17:24 Ventolin Hfa Inhaler - IH Q8H PRN SHORT OF BREATH/WHEEZING Cholecalciferol 1,000 unit 10/19/17 10:00 10/20/17 09:23 Vitamin D3 - PO 1,000 unit DAILY [facility] Administration Enoxaparin Sodium 40 mg 10/19/17 10:00 10/20/17 09:23 Lovenox - SQ 40 mg DAILY [facility] Administration Escitalopram Oxalate 5 mg 10/19/17 10:00 10/20/17 09:22 Lexapro - PO 5 mg DAILY [facility] Administration Fentanyl 25 mcg 10/18/17 16:43 Sublimaze Injection - IVPUSH [id number] PRN PAIN-PACU ORDER X 4 DOSES ONLY Sodium Chloride 1,000 mls @ 125 mls/hr 10/19/17 18:45 10/20/17 07:03 1/2 Normal Saline IV 125 mls/hr ASDIR [facility] Administration Insulin Aspart 1 vial 10/19/17 16:30 10/20/17 11:21 Novolog Vial Sliding Scale - SQ Not Given ACHS [facility] Protocol Insulin Detemir 20 units 10/18/17 16:30 10/20/17 06:33 Levemir Vial SQ Not Given BIDI [facility] Latanoprost 1 drop 10/18/17 22:00 10/19/17 22:12 Xalatan 0.005% Eye Drops - OU 1 drop HS [facility] Administration Metoprolol Succinate 25 mg 10/18/17 22:00 10/20/17 09:23 Toprol Xl - PO 25 mg BID [facility] Administration Montelukast Sodium 10 mg 10/19/17 10:00 10/20/17 09:23 Singulair - PO 10 mg DAILY [facility] Administration Morphine Sulfate 2 mg 10/18/17 17:24 10/19/17 17:31 Morphine Injection - IVPUSH 2 mg Q6H PRN Administration PAIN LEVEL 6-10 Rsgax-0-Cwlb Ethyl Esters 1 gm 10/19/17 10:00 10/20/17 09:23 Lovaza - PO 1 gm DAILY [facility] Administration Ondansetron HCl 4 mg 10/18/17 17:24 Zofran Injection IVPUSH Q6H PRN NAUSEA Rosuvastatin Calcium 20 mg 10/19/17 22:00 10/19/17 21:55 Crestor - PO 20 mg HS [facility] Administration Sitagliptin Phosphate 50 mg 10/19/17 07:00 10/20/17 06:32 Januvia - PO Not Given DAILY@0700 [facility] Tiotropium [place] 1 puff 10/19/17 10:00 10/20/17 11:42 Spiriva - IH 1 puff DAILY [facility] Administration left femur ORIF Anemia Mild thrombocytopenia h/o HIT in 01/2014 DVT ppx post surgery bleeding. for anemia w/u. eliquis was not started (as dvt ppx ) as held in the setting of hematuria, traumatic lambert. thrombocytopenia, chronic , has 120 in 2010. will continue to monitor. 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
--- NOTE | 2017-10-20 15:14 | PN ---
Progress Note (short form) - Note Progress Note: Renal follow up for TYSON on CKD Pt seen and examined at the bedside overnight events noted pt is awake and alert today at bedside lambert in place on IVF Vital Signs Temperature 98.8 F 10/20/17 10:00 Pulse Rate 93 H 10/20/17 10:00 Respiratory Rate 20 10/20/17 10:00 Blood Pressure 153/70 10/20/17 10:00 O2 Sat by Pulse Oximetry (%) 96 10/18/17 21:00 Intake & Output 10/17/17 10/18/17 10/19/17 10/20/17 23:59 23:59 23:59 23:59 Intake Total 220 2019 3160 2524 Output Total 100 3000 775 350 Balance 120 -980 2385 2174 Weight 79.379 kg 79.379 kg NAD alert RRR No LE edema lambert in place CBC, BMP 10/20/17 06:55 10/20/17 06:55 Current Medications Acetaminophen (Tylenol -) 650 mg PO Q6H PRN PRN Reason: PAIN Last Admin: 10/20/17 05:29 Dose: 650 mg Albuterol Sulfate (Ventolin Hfa Inhaler -) 1 puff IH Q8H PRN PRN Reason: SHORT OF BREATH/WHEEZING Cholecalciferol (Vitamin D3 -) 1,000 unit PO DAILY [facility] Last Admin: 10/20/17 09:23 Dose: 1,000 unit Enoxaparin Sodium (Lovenox -) 40 mg SQ DAILY [facility] Last Admin: 10/20/17 09:23 Dose: 40 mg Escitalopram Oxalate (Lexapro -) 5 mg PO DAILY [facility] Last Admin: 10/20/17 09:22 Dose: 5 mg Fentanyl (Sublimaze Injection -) 25 mcg IVPUSH [id number] PRN PRN Reason: PAIN-PACU ORDER X 4 DOSES ONLY Sodium Chloride (1/2 Normal Saline) 1,000 mls @ 125 mls/hr IV ASDIR [facility] Last Admin: 10/20/17 07:03 Dose: 125 mls/hr Insulin Aspart (Novolog Vial Sliding Scale -) 1 vial SQ ACHS [facility] PRN Reason: Protocol Last Admin: 10/20/17 11:21 Dose: Not Given Insulin Detemir (Levemir Vial) 20 units SQ BIDI [facility] Last Admin: 10/20/17 06:33 Dose: Not Given Latanoprost (Xalatan 0.005% Eye Drops -) 1 drop OU HS [facility] Last Admin: 10/19/17 22:12 Dose: 1 drop Metoprolol Succinate (Toprol Xl -) 25 mg PO BID [facility] Last Admin: 10/20/17 09:23 Dose: 25 mg Montelukast Sodium (Singulair -) 10 mg PO DAILY [facility] Last Admin: 10/20/17 09:23 Dose: 10 mg Morphine Sulfate (Morphine Injection -) 2 mg IVPUSH Q6H PRN PRN Reason: PAIN LEVEL 6-10 Last Admin: 10/19/17 17:31 Dose: 2 mg Ctfxq-0-Arqi Ethyl Esters (Lovaza -) 1 gm PO DAILY [facility] Last Admin: 10/20/17 09:23 Dose: 1 gm Ondansetron HCl (Zofran Injection) 4 mg IVPUSH Q6H PRN PRN Reason: NAUSEA Rosuvastatin Calcium (Crestor -) 20 mg PO HS [facility] Last Admin: 10/19/17 21:55 Dose: 20 mg Sitagliptin Phosphate (Januvia -) 50 mg PO DAILY@0700 [facility] Last Admin: 10/20/17 06:32 Dose: Not Given Tiotropium [place] (Spiriva -) 1 puff IH DAILY [facility] Last Admin: 10/20/17 11:42 Dose: 1 puff 86 year old gentleman with PMhx of of CAD s/p CABG, DM Type 2, Hypertension, Dementia, Mild CKD (baseline Cr 1.3) presented to the ED s/p fall and found to have a proximal femur frature with TYSON with Cr of 1.9 and Na of 150. #Acute on chronic renal insufficiency Etiology likely renal hypoprofusion in setting of fracture/blood loss and relative hypotension Urine studies show low FeNa consistent with preserved tubular function continue hypotonic saline US pending lambert in place with some blood but + urine production #Hypernatremia Serum na remains high will continue 1/2 NS as pt needs water intake but also need some volume #Femur fracture s/p ORIF pain control #Hematuria/BPH Urology consult #Hypertension on metoprolol for CAD no SIMA/ARB Thank you Bony Paez DO
--- NOTE | 2017-10-20 16:00 | PN ---
Progress Note, Physician Chief Complaint: Mr Calvillo says he feels lousy because he is sick but denies pain or nausea. Unable to obtain further subjective secondary to dementia but much improved. - Current Medication List Current Medications: Active Medications Acetaminophen (Tylenol -) 650 mg PO Q6H PRN PRN Reason: PAIN Last Admin: 10/20/17 05:29 Dose: 650 mg Albuterol Sulfate (Ventolin Hfa Inhaler -) 1 puff IH Q8H PRN PRN Reason: SHORT OF BREATH/WHEEZING Cholecalciferol (Vitamin D3 -) 1,000 unit PO DAILY [facility] Last Admin: 10/20/17 09:23 Dose: 1,000 unit Enoxaparin Sodium (Lovenox -) 40 mg SQ DAILY [facility] Last Admin: 10/20/17 09:23 Dose: 40 mg Escitalopram Oxalate (Lexapro -) 5 mg PO DAILY [facility] Last Admin: 10/20/17 09:22 Dose: 5 mg Fentanyl (Sublimaze Injection -) 25 mcg IVPUSH [id number] PRN PRN Reason: PAIN-PACU ORDER X 4 DOSES ONLY Sodium Chloride (1/2 Normal Saline) 1,000 mls @ 125 mls/hr IV ASDIR [facility] Last Admin: 10/20/17 07:03 Dose: 125 mls/hr Insulin Aspart (Novolog Vial Sliding Scale -) 1 vial SQ ACHS [facility] PRN Reason: Protocol Last Admin: 10/20/17 11:21 Dose: Not Given Insulin Detemir (Levemir Vial) 20 units SQ BIDI [facility] Last Admin: 10/20/17 06:33 Dose: Not Given Latanoprost (Xalatan 0.005% Eye Drops -) 1 drop OU HS [facility] Last Admin: 10/19/17 22:12 Dose: 1 drop Metoprolol Succinate (Toprol Xl -) 25 mg PO BID [facility] Last Admin: 10/20/17 09:23 Dose: 25 mg Montelukast Sodium (Singulair -) 10 mg PO DAILY [facility] Last Admin: 10/20/17 09:23 Dose: 10 mg Morphine Sulfate (Morphine Injection -) 2 mg IVPUSH Q6H PRN PRN Reason: PAIN LEVEL 6-10 Last Admin: 10/19/17 17:31 Dose: 2 mg Upavz-1-Uiov Ethyl Esters (Lovaza -) 1 gm PO DAILY [facility] Last Admin: 10/20/17 09:23 Dose: 1 gm Ondansetron HCl (Zofran Injection) 4 mg IVPUSH Q6H PRN PRN Reason: NAUSEA Rosuvastatin Calcium (Crestor -) 20 mg PO HS [facility] Last Admin: 10/19/17 21:55 Dose: 20 mg Sitagliptin Phosphate (Januvia -) 50 mg PO DAILY@0700 [facility] Last Admin: 10/20/17 06:32 Dose: Not Given Tiotropium [place] (Spiriva -) 1 puff IH DAILY [facility] Last Admin: 10/20/17 11:42 Dose: 1 puff - Objective Vital Signs: Vital Signs Temperature 37.1 C 10/20/17 10:00 Pulse Rate 93 H 10/20/17 10:00 Respiratory Rate 20 10/20/17 10:00 Blood Pressure 153/70 10/20/17 10:00 O2 Sat by Pulse Oximetry (%) 96 10/18/17 21:00 Constitutional: Yes: Well Nourished, No Distress, Calm Cardiovascular: Yes: Tachycardia. No: Pulse Irregular, Gallop, Murmur, Rub Respiratory: Yes: Regular, CTA Bilaterally. No: Rales, Rhonchi, Wheezes Gastrointestinal: Yes: Normal Bowel Sounds, Soft. No: Distention, Tenderness Extremities: Yes: WNL Edema: No Labs: CBC, BMP 10/20/17 06:55 10/20/17 06:55 INR, PTT INR 1.12 (0.82-1.09) 10/19/17 21:00 Problem List - Problems (1) Fracture, proximal femur Code(s): S72.009A - FRACTURE OF UNSP PART OF NECK OF UNSP FEMUR, INIT Qualifiers: Fracture type: closed Laterality: left (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 Code(s): E11.22 - TYPE 2 DIABETES MELLITUS W DIABETIC CHRONIC KIDNEY DISEASE; N18.3 - CHRONIC KIDNEY DISEASE, STAGE 3 (MODERATE) (3) Coronary arteriosclerosis after coronary artery bypass grafting Code(s): I25.810 - ATHEROSCLEROSIS OF CABG W/O ANGINA PECTORIS (4) Hypercholesteremia Code(s): E78.00 - PURE HYPERCHOLESTEROLEMIA, UNSPECIFIED (5) Uncontrolled diabetes mellitus Code(s): E11.65 - TYPE 2 DIABETES MELLITUS WITH HYPERGLYCEMIA (6) COPD (chronic obstructive pulmonary disease) Code(s): J44.9 - CHRONIC OBSTRUCTIVE PULMONARY DISEASE, UNSPECIFIED (7) Dementia Code(s): F03.90 - UNSPECIFIED DEMENTIA WITHOUT BEHAVIORAL DISTURBANCE (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) Code(s): D75.82 - HEPARIN INDUCED THROMBOCYTOPENIA (HIT) Assessment/Plan (1) Fracture, proximal femur Assessment/Plan: -s/p repair -continue PT Code(s): S72.009A - FRACTURE OF UNSP PART OF NECK OF UNSP FEMUR, INIT Qualifiers: Fracture type: closed Laterality: left (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 Assessment/Plan: -nephrology following and note reviewed -continue 1/2 NS currently Code(s): E11.22 - TYPE 2 DIABETES MELLITUS W DIABETIC CHRONIC KIDNEY DISEASE; N18.3 - CHRONIC KIDNEY DISEASE, STAGE 3 (MODERATE) (3) Coronary arteriosclerosis after coronary artery bypass grafting Assessment/Plan: -cardiology following -restart aspirin when safe from ortho standpoint -continue statin and toprol xl Code(s): I25.810 - ATHEROSCLEROSIS OF CABG W/O ANGINA PECTORIS (4) Hypercholesteremia Assessment/Plan: -continue statin Code(s): E78.00 - PURE HYPERCHOLESTEROLEMIA, UNSPECIFIED (5) Uncontrolled diabetes mellitus Assessment/Plan: -much improved -continue levemir 20 units bid with SSI -currently maintaining below goal of 180 -will decrease severity of SSI Code(s): E11.65 - TYPE 2 DIABETES MELLITUS WITH HYPERGLYCEMIA (6) COPD (chronic obstructive pulmonary disease) Assessment/Plan: -not in exacerbation -continue current management Code(s): J44.9 - CHRONIC OBSTRUCTIVE PULMONARY DISEASE, UNSPECIFIED (7) Dementia Assessment/Plan: -exacerbated secondary to surgery and hospitalization -monitor Code(s): F03.90 - UNSPECIFIED DEMENTIA WITHOUT BEHAVIORAL DISTURBANCE (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) Assessment/Plan: -appreciate hematology assistance, case discussed -plan to start on eliquis when cleared by surgery Code(s): D75.82 - HEPARIN INDUCED THROMBOCYTOPENIA (HIT) (9) Hematuria -secondary to trauma -urology consulted
--- NOTE | 2017-10-20 18:37 | CON.GU ---
Consult Consult Specialty:: Urology Reason for Consultation:: Hematuria following traumatic lambert removal then insertion. - History of Present Illness Chief Complaint: Gross hematuria (resolved). History of Present Illness: Pt had Lambert removed and had gross hematuria. Lambert has been re-inserted and currently the urien is clear yellow. He denies and previous episodes of hematuria. No complaints of dysuria or other urinary symptoms. HAs Lambert indwelling. Not certain why Lambert remains indwelling - History Source History Provided By: Patient Limitations to Obtaining History: No Limitations - Past Medical History SLUBBER HAND: Yes: Dementia Cardio/Vascular: Yes: Aortic Stenosis, CAD, CHF, HTN, Hyperlipdemia - Past Surgical History Past Surgical History: Yes: CABG, Valve Replacement - Alcohol/Substance Use Hx Alcohol Use: No - Smoking History Smoking history: Never smoked Have you smoked in the past 12 months: No If you are a former smoker, when did you quit?: 5 YRS AGO - Social History Usual Living Arrangement: With Spouse Home Medications - Allergies Allergies/Adverse Reactions: Allergies Allergy/AdvReac Type Severity Reaction Status Date / Time iodine [Iodine] Allergy Unknown Verified 10/15/17 20:52 - Home Medications Home Medications: Ambulatory Orders Aspirin [ASA -] 81 mg PO DAILY 10/16/17 Budesonide [Pulmicort 0.5 mg Nebulizer -] 1 neb NEB BID 10/16/17 Cholecalciferol (Vitamin D3) [Vitamin D3 -] 5,000 unit PO DAILY 10/16/17 Escitalopram Oxalate [Lexapro -] 5 mg PO DAILY 10/16/17 Insulin (LOG) Aspart [NovoLOG -] 0 units SQ TID 10/16/17 Lisinopril 5 mg PO BID 10/16/17 Metoprolol Succinate 25 mg PO DAILY 10/16/17 Montelukast Na [Singulair -] 10 mg PO HS 10/16/17 Multivitamin/Iron/Folic Acid [Centrum Adults Tablet] 1 each PO DAILY 10/16/17 [place]-3 Fatty Acids [Houston-3] 1,000 mg PO DAILY 10/16/17 [place]-3S/Dha/Epa/Fish Oil [Fish Oil 1,200 mg Softgel] 1 each PO DAILY 10/16/17 Rosuvastatin [Crestor -] 20 mg PO HS 10/16/17 Sitagliptin Phosphate [Januvia] 50 mg PO DAILY 10/16/17 Tiotropium [place] [Spiriva] 1 inh PO DAILY 10/16/17 Family Disease History - Family Disease History Family History: Unremarkable Other Family History: not contributary Review of Systems - Review of Systems Constitutional: reports: No Symptoms Eyes: reports: No Symptoms HENT: reports: No Symptoms Neck: reports: No Symptoms Cardiovascular: reports: No Symptoms Respiratory: reports: No Symptoms Gastrointestinal: reports: No Symptoms Genitourinary: reports: Hematuria (resolved), Incontinence Musculoskeletal: reports: No Symptoms Integumentary: reports: No Symptoms Neurological: reports: No Symptoms Endocrine: reports: No Symptoms Hematology/Lymphatic: reports: No Symptoms Psychiatric: reports: No Symptoms Physical Exam- Vital Signs: Vital Signs Temperature 98.7 F 10/20/17 17:00 Pulse Rate 93 H 10/20/17 10:00 Respiratory Rate 20 10/20/17 17:00 Blood Pressure 120/82 10/20/17 17:00 O2 Sat by Pulse Oximetry (%) 96 10/18/17 21:00 Constitutional: Yes: Well Nourished, No Distress Eyes: Yes: WNL HENT: Yes: WNL Neck: Yes: WNL Cardiovascular: Yes: WNL Respiratory: Yes: WNL Gastrointestinal: Yes: WNL, Soft Renal/: Yes: Lmabert Present, Hematuria (Urine is clear yellow in the lambert tubing and bag.) Kidneys: Yes: WNL Pelvis: Yes: WNL Testicles: Yes: WNL Scrotum: Yes: WNL Prostate Exam: Yes: WNL Musculoskeletal: Yes: WNL Extremities: Yes: WNL Integumentary: Yes: WNL Labs: CBC, BMP 10/20/17 06:55 10/20/17 06:55 Imaging - Results Ultrasound: Report Reviewed Problem List - Problems (1) Hematuria Code(s): R31.9 - HEMATURIA, UNSPECIFIED Qualifiers: Hematuria type: gross Qualified Code(s): R31.0 - Gross hematuria Assessment/Plan Hematuria resolved. Likely secondary to the lambert trauma. Renal and bladder ultrasound unremarkable. CBC stable No acute urologic intervention needed.
[2017-10-20] MEDS: LATANOPROST 0.005% OPHTH SOLN 2.5ML BOTTLE OU SCH (21:09)
[2017-10-20] MEDS: ROSUVASTATIN CA 20 MG TABLET (FP) PO SCH (21:11)
[2017-10-21] MEDS: INSULIN DETEMIR 100 UNITS/ML MDV SQ SCH ×2 (06:19→17:50)
[2017-10-21] MEDS: sitaGLIPtin PHOSPHATE 50 MG TABLET PO SCH (06:19)
[2017-10-21] MEDS: INSULIN SLIDING SCALE (NOVOLOG) 1 VIAL SQ SCH ×4 (06:19→22:34)
[2017-10-21 07:58] LABS: BASO % 0.2 % (0-2.0); EOS % 5.2 % (0-4.5); HEMATOCRIT 27.7 % (35.4-49); HEMOGLOBIN 8.8 GM/dL (11.7-16.9); LYMPH % 11.9 % (8-40); MCH 27.7 pg (25.7-33.7); MCHC 31.7 g/dl (32.0-35.9); MEAN CELL VOLUME 87.4 fl (80-96); MEAN PLT VOLUME 9.9 fl (7.5-11.1); MONO % 11.2 % (3.8-10.2); NEUT % 71.5 % (42.8-82.8); PLATELET COUNT 144 K/MM3 (134-434); RBC 3.17 M/mm3 (4.00-5.60); RDW 16.7 % (11.9-15.9); WHITE BLOOD COUNT 10.1 K/mm3 (4.0-10.0)
[2017-10-21 08:16] LABS: ANION GAP 9 (8-16); BLOOD UREA NITROGEN 51 mg/dL (7-18); CALCIUM 7.4 mg/dL (8.5-10.1); CHLORIDE 112 mmol/L (98-107); CO2 27 mmol/L (21-32); CREATININE 1.5 mg/dL (0.7-1.3); GLUCOSE,RANDOM 142 mg/dL (74-106); LDH 367 U/L (87-241); MAGNESIUM 2.4 mg/dL (1.8-2.4); PHOSPHOROUS 2.3 mg/dL (2.5-4.9); POTASSIUM 3.6 mmol/L (3.5-5.1); SODIUM 148 mmol/L (136-145)
[2017-10-21] MEDS: ENOXAPARIN NA (PORCINE) 40 MG/0.4 ML DISP.SYRIN SQ SCH (10:15)
[2017-10-21] MEDS: ESCITALOPRAM OXALATE 10 MG TABLET (FP) PO SCH (10:15)
[2017-10-21] MEDS: OMEGA-3 ACID ETHYL ESTERS (FATTY-ACIDS) 1 GM CAPSULE (FP) PO SCH (10:16)
[2017-10-21] MEDS: metoPROLOL SUCCINATE 25 MG TAB.SR.24H (FP) PO SCH ×2 (10:16→22:12)
[2017-10-21] MEDS: CHOLECALCIFEROL (VITAMIN D3) 1,000 UNIT TABLET (FP) PO SCH (10:16)
[2017-10-21] MEDS: MONTELUKAST NA 10 MG TABLET PO SCH (10:16)
[2017-10-21] MEDS: TIOTROPIUM BROMIDE 18 MCG/INH (DEVICE W/ 5 CAPSULES) IH SCH (10:21)
--- NOTE | 2017-10-21 10:46 | PN ---
Progress Note (short form) - Note Progress Note: s: no cp sob palps dizzy ex cigs Current Medications Generic Name Dose Route Start Last Admin Trade Name Freq PRN Reason Stop Dose Admin Acetaminophen 650 mg 10/18/17 17:24 10/20/17 23:02 Tylenol - PO 650 mg Q6H PRN Administration PAIN Albuterol Sulfate 1 puff 10/18/17 17:24 Ventolin Hfa Inhaler - IH Q8H PRN SHORT OF BREATH/WHEEZING Cholecalciferol 1,000 unit 10/19/17 10:00 10/21/17 10:16 Vitamin D3 - PO 1,000 unit DAILY [facility]ERRE Administration Enoxaparin Sodium 40 mg 10/19/17 10:00 10/21/17 10:15 Lovenox - SQ 40 mg DAILY [facility] Administration Escitalopram Oxalate 5 mg 10/19/17 10:00 10/21/17 10:15 Lexapro - PO 5 mg DAILY [facility]ERRE Administration Fentanyl 25 mcg 10/18/17 16:43 Sublimaze Injection - IVPUSH [id number] PRN PAIN-PACU ORDER X 4 DOSES ONLY Sodium Chloride 1,000 mls @ 125 mls/hr 10/19/17 18:45 10/20/17 07:03 1/2 Normal Saline IV 125 mls/hr ASDIR [facility]ERRE Administration Insulin Aspart 1 vial 10/20/17 16:30 10/21/17 06:19 Novolog Vial Sliding Scale - SQ 2 units ACHS JEAN-PIERRE Administration Protocol Insulin Detemir 20 units 10/18/17 16:30 10/21/17 06:19 Levemir Vial SQ 20 units BIDI [facility]-PIERRE Administration Latanoprost 1 drop 10/18/17 22:00 10/20/17 21:09 Xalatan 0.005% Eye Drops - OU 1 drop HS [facility] Administration Metoprolol Succinate 25 mg 10/18/17 22:00 10/21/17 10:16 Toprol Xl - PO 25 mg BID [facility] Administration Montelukast Sodium 10 mg 10/19/17 10:00 10/21/17 10:16 Singulair - PO 10 mg DAILY [facility] Administration Morphine Sulfate 2 mg 10/18/17 17:24 10/19/17 17:31 Morphine Injection - IVPUSH 2 mg Q6H PRN Administration PAIN LEVEL 6-10 Merth-6-Deiw Ethyl Esters 1 gm 10/19/17 10:00 10/21/17 10:16 Lovaza - PO 1 gm DAILY [facility] Administration Ondansetron HCl 4 mg 10/18/17 17:24 Zofran Injection IVPUSH Q6H PRN NAUSEA Rosuvastatin Calcium 20 mg 10/19/17 22:00 10/20/17 21:11 Crestor - PO 20 mg HS [facility]-PIERRE Administration Sitagliptin Phosphate 50 mg 10/19/17 07:00 10/21/17 06:19 Januvia - PO 50 mg DAILY@0700 [facility]RE Administration Tiotropium [place] 1 puff 10/19/17 10:00 10/21/17 10:21 Spiriva - IH 1 puff DAILY [facility]ER[facility] Administration - Objective Vital Signs: Vital Signs Period Temp Pulse Resp BP Sys/Staples Pulse Ox Last 24 Hr 98.7 F-100.1 F 97-108 20-20 120-141/63-82 100 Constitutional: Yes: Well Nourished, No Distress, Calm Eyes: No: Sclera Icterus HENT: No: Nasal Congestion Cardiovascular: Yes: Regular Rate and Rhythm, Tachycardia, Murmur (soft (2/6) FILEMON lusb). No: JVD, Gallop Respiratory: Yes: Regular, CTA Bilaterally (anteriorly (fela vest on)). No: Rales, Wheezes Gastrointestinal: Yes: Normal Bowel Sounds, Soft. No: Tenderness Extremities: No: Cold Edema: No Integumentary: No: Jaundice Neurological: : Seizure Psychiatric: No: Agitated Labs: CBC, BMP 10/21/17 06:45 10/21/17 06:45 - ....Imaging EKG: Other (tele: baseline LBBB present with av delay, freq pac's, pvc's) Echo 11/12: nl LV/EF, nl RV, nl LA, no bioAVR dysfunction Assessment/Plan mechanical fall, hip frx: -tripped over chair in the dark -s/p ORIF tachycardia (with baseline LBBB): -intermittent sinus tachy here being driven by confustion/agitation, but also with intermittent brief atrial runs/runs of svt. -pain control, cont bb TYSON on CKD: -baseline creat 1.3-1.6 -creat bumped to 1.6 on 10/16, NS at 50 cc/hr started 1am on 10/16, creat up further 10/17 to 2.1 -bun up as well, suspect vol depletion in setting of agitation, decr po. ? SIMA exacerbating in vol-depleted DM pt. -holding lisinopril. -monitor daily labs s/p AVR: -normal fxn on recent echo CAD s/p CABG: -preserved EF -no angina since -cont home meds HTN: -cont current meds dementia: -recently progressive -per pmd asthma/copd: -stable, no wheezing cardiac gaitan remains stable, can dc tele
--- NOTE | 2017-10-21 11:32 | PN ---
Progress Note, Physician Chief Complaint: Mr Calvillo says he is doing well and without complaint. No cp, sob, n/v. Very pleasant today. - Current Medication List Current Medications: Active Medications Acetaminophen (Tylenol -) 650 mg PO Q6H PRN PRN Reason: PAIN Last Admin: 10/20/17 23:02 Dose: 650 mg Albuterol Sulfate (Ventolin Hfa Inhaler -) 1 puff IH Q8H PRN PRN Reason: SHORT OF BREATH/WHEEZING Cholecalciferol (Vitamin D3 -) 1,000 unit PO DAILY [facility] Last Admin: 10/21/17 10:16 Dose: 1,000 unit Enoxaparin Sodium (Lovenox -) 40 mg SQ DAILY [facility] Last Admin: 10/21/17 10:15 Dose: 40 mg Escitalopram Oxalate (Lexapro -) 5 mg PO DAILY [facility] Last Admin: 10/21/17 10:15 Dose: 5 mg Fentanyl (Sublimaze Injection -) 25 mcg IVPUSH [id number] PRN PRN Reason: PAIN-PACU ORDER X 4 DOSES ONLY Sodium Chloride (1/2 Normal Saline) 1,000 mls @ 125 mls/hr IV ASDIR [facility] Last Admin: 10/20/17 07:03 Dose: 125 mls/hr Insulin Aspart (Novolog Vial Sliding Scale -) 1 vial SQ ACHS [facility] PRN Reason: Protocol Last Admin: 10/21/17 06:19 Dose: 2 units Insulin Detemir (Levemir Vial) 20 units SQ BIDI [facility] Last Admin: 10/21/17 06:19 Dose: 20 units Latanoprost (Xalatan 0.005% Eye Drops -) 1 drop OU HS [facility] Last Admin: 10/20/17 21:09 Dose: 1 drop Metoprolol Succinate (Toprol Xl -) 25 mg PO BID [facility] Last Admin: 10/21/17 10:16 Dose: 25 mg Montelukast Sodium (Singulair -) 10 mg PO DAILY [facility] Last Admin: 10/21/17 10:16 Dose: 10 mg Morphine Sulfate (Morphine Injection -) 2 mg IVPUSH Q6H PRN PRN Reason: PAIN LEVEL 6-10 Last Admin: 10/19/17 17:31 Dose: 2 mg Ffrye-9-Fbgd Ethyl Esters (Lovaza -) 1 gm PO DAILY [facility] Last Admin: 10/21/17 10:16 Dose: 1 gm Ondansetron HCl (Zofran Injection) 4 mg IVPUSH Q6H PRN PRN Reason: NAUSEA Potassium Phos/Sodium Phos (Phos-Nak Packet -) 1 packet PO BID [facility] Rosuvastatin Calcium (Crestor -) 20 mg PO HS [facility] Last Admin: 10/20/17 21:11 Dose: 20 mg Sitagliptin Phosphate (Januvia -) 50 mg PO DAILY@0700 [facility] Last Admin: 10/21/17 06:19 Dose: 50 mg Tiotropium [place] (Spiriva -) 1 puff IH DAILY [facility] Last Admin: 10/21/17 10:21 Dose: 1 puff - Objective Vital Signs: Vital Signs Temperature 37.5 C 10/21/17 04:57 Pulse Rate 97 H 10/21/17 04:57 Respiratory Rate 20 10/21/17 04:57 Blood Pressure 130/63 10/21/17 04:57 O2 Sat by Pulse Oximetry (%) 100 10/20/17 20:22 Constitutional: Yes: Well Nourished, No Distress, Calm Cardiovascular: Yes: Tachycardia. No: Pulse Irregular, Gallop, Murmur, Rub Respiratory: Yes: Regular, CTA Bilaterally. No: Rales, Rhonchi, Wheezes Gastrointestinal: Yes: Normal Bowel Sounds, Soft. No: Distention, Tenderness Extremities: Yes: WNL Edema: No Labs: CBC, BMP 10/21/17 06:45 10/21/17 06:45 INR, PTT INR 1.12 (0.82-1.09) 10/19/17 21:00 Problem List - Problems (1) Fracture, proximal femur Code(s): S72.009A - FRACTURE OF UNSP PART OF NECK OF UNSP FEMUR, INIT Qualifiers: Fracture type: closed Laterality: left (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 Code(s): E11.22 - TYPE 2 DIABETES MELLITUS W DIABETIC CHRONIC KIDNEY DISEASE; N18.3 - CHRONIC KIDNEY DISEASE, STAGE 3 (MODERATE) (3) Coronary arteriosclerosis after coronary artery bypass grafting Code(s): I25.810 - ATHEROSCLEROSIS OF CABG W/O ANGINA PECTORIS (4) Hypercholesteremia Code(s): E78.00 - PURE HYPERCHOLESTEROLEMIA, UNSPECIFIED (5) Uncontrolled diabetes mellitus Code(s): E11.65 - TYPE 2 DIABETES MELLITUS WITH HYPERGLYCEMIA (6) COPD (chronic obstructive pulmonary disease) Code(s): J44.9 - CHRONIC OBSTRUCTIVE PULMONARY DISEASE, UNSPECIFIED (7) Dementia Code(s): F03.90 - UNSPECIFIED DEMENTIA WITHOUT BEHAVIORAL DISTURBANCE (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) Code(s): D75.82 - HEPARIN INDUCED THROMBOCYTOPENIA (HIT) Assessment/Plan (1) Fracture, proximal femur Assessment/Plan: -s/p repair -continue PT Code(s): S72.009A - FRACTURE OF UNSP PART OF NECK OF UNSP FEMUR, INIT Qualifiers: Fracture type: closed Laterality: left (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 Assessment/Plan: -renal function improving -nephrology following -defer stopping IVF to nephrology Code(s): E11.22 - TYPE 2 DIABETES MELLITUS W DIABETIC CHRONIC KIDNEY DISEASE; N18.3 - CHRONIC KIDNEY DISEASE, STAGE 3 (MODERATE) (3) Coronary arteriosclerosis after coronary artery bypass grafting Assessment/Plan: -cardiology following -restart aspirin when safe from ortho standpoint -continue statin and toprol xl Code(s): I25.810 - ATHEROSCLEROSIS OF CABG W/O ANGINA PECTORIS (4) Hypercholesteremia Assessment/Plan: -continue statin Code(s): E78.00 - PURE HYPERCHOLESTEROLEMIA, UNSPECIFIED (5) Uncontrolled diabetes mellitus Assessment/Plan: -well controlled -continue levemir 20 units bid -maintain glucose levels below 180 Code(s): E11.65 - TYPE 2 DIABETES MELLITUS WITH HYPERGLYCEMIA (6) COPD (chronic obstructive pulmonary disease) Assessment/Plan: -not in exacerbation -continue current management Code(s): J44.9 - CHRONIC OBSTRUCTIVE PULMONARY DISEASE, UNSPECIFIED (7) Dementia Assessment/Plan: -exacerbated secondary to surgery and hospitalization -monitor -concern about sundowning -neurology consult, want patient to be stable upon discharge Code(s): F03.90 - UNSPECIFIED DEMENTIA WITHOUT BEHAVIORAL DISTURBANCE (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
[2017-10-21] MEDS: SODIUM CHLORIDE 0.45% 1,000 ML IV SCH ×2 (13:55→17:52)
[2017-10-21] MEDS: NAPH,MB-DB/K PH,MBDB POWDER PACKET PO SCH ×2 (13:56→22:12)
--- NOTE | 2017-10-21 15:32 | PN ---
Progress Note (short form) - Note Progress Note: Renal follow up for TYSON on CKD Pt seen and examined at the bedside at the bedside reports that pt was very agigatated overnight tolerating oral diet on IVF Vital Signs Temperature 98.4 F 10/21/17 14:00 Pulse Rate 90 10/21/17 14:00 Respiratory Rate 18 10/21/17 10:00 Blood Pressure 134/60 10/21/17 14:00 O2 Sat by Pulse Oximetry (%) 100 10/20/17 20:22 Intake & Output 10/18/17 10/19/17 10/20/17 10/21/17 23:59 23:59 23:59 23:59 Intake Total 2019 3160 2914 1730 Output Total 3000 775 1350 950 Balance -980 2385 1564 780 Weight 79.379 kg NAD alert RRR No LE edema lambert in place CBC, BMP 10/21/17 06:45 10/21/17 06:45 Laboratory Tests 10/21/17 06:45 Calcium 7.4 L Phosphorus 2.3 L Magnesium 2.4 LD Total 367 H Current Medications Acetaminophen (Tylenol -) 650 mg PO Q6H PRN PRN Reason: PAIN Last Admin: 10/20/17 23:02 Dose: 650 mg Albuterol Sulfate (Ventolin Hfa Inhaler -) 1 puff IH Q8H PRN PRN Reason: SHORT OF BREATH/WHEEZING Apixaban (Eliquis -) 2.5 mg PO BID [facility] Cholecalciferol (Vitamin D3 -) 1,000 unit PO DAILY [facility] Last Admin: 10/21/17 10:16 Dose: 1,000 unit Escitalopram Oxalate (Lexapro -) 5 mg PO DAILY [facility] Last Admin: 10/21/17 10:15 Dose: 5 mg Fentanyl (Sublimaze Injection -) 25 mcg IVPUSH [id number] PRN PRN Reason: PAIN-PACU ORDER X 4 DOSES ONLY Sodium Chloride (1/2 Normal Saline) 1,000 mls @ 125 mls/hr IV ASDIR [facility] Last Admin: 10/21/17 13:55 Dose: 125 mls/hr Insulin Aspart (Novolog Vial Sliding Scale -) 1 vial SQ ACHS [facility] PRN Reason: Protocol Last Admin: 10/21/17 12:35 Dose: Not Given Insulin Detemir (Levemir Vial) 20 units SQ BIDI [facility] Last Admin: 10/21/17 06:19 Dose: 20 units Latanoprost (Xalatan 0.005% Eye Drops -) 1 drop OU HS [facility] Last Admin: 10/20/17 21:09 Dose: 1 drop Metoprolol Succinate (Toprol Xl -) 25 mg PO BID [facility] Last Admin: 10/21/17 10:16 Dose: 25 mg Montelukast Sodium (Singulair -) 10 mg PO DAILY [facility] Last Admin: 10/21/17 10:16 Dose: 10 mg Morphine Sulfate (Morphine Injection -) 2 mg IVPUSH Q6H PRN PRN Reason: PAIN LEVEL 6-10 Last Admin: 10/19/17 17:31 Dose: 2 mg Iyjay-1-Lsdg Ethyl Esters (Lovaza -) 1 gm PO DAILY [facility] Last Admin: 10/21/17 10:16 Dose: 1 gm Ondansetron HCl (Zofran Injection) 4 mg IVPUSH Q6H PRN PRN Reason: NAUSEA Potassium Phos/Sodium Phos (Phos-Nak Packet -) 1 packet PO BID [facility] Last Admin: 10/21/17 13:56 Dose: 1 packet Rosuvastatin Calcium (Crestor -) 20 mg PO HS [facility] Last Admin: 10/20/17 21:11 Dose: 20 mg Sitagliptin Phosphate (Januvia -) 50 mg PO DAILY@0700 [facility] Last Admin: 10/21/17 06:19 Dose: 50 mg Tiotropium [place] (Spiriva -) 1 puff IH DAILY [facility] Last Admin: 10/21/17 10:21 Dose: 1 puff 86 year old gentleman with PMhx of of CAD s/p CABG, DM Type 2, Hypertension, Dementia, Mild CKD (baseline Cr 1.3) presented to the ED s/p fall and found to have a proximal femur frature with TYSON with Cr of 1.9 and Na of 150. #Acute on chronic renal insufficiency Etiology likely renal hypoprofusion in setting of fracture/blood loss and relative hypotension BUN/Cr improved will continue IVF but at a decreased rate Renal US reviewed, smaller left kidney, no evidence of obstruction #Hypernatremia improving continue 1/2 NS for now #Femur fracture s/p ORIF pain control #Hematuria/BPH lambert in place #Hypertension on metoprolol for CAD no SIMA/ARB Thank you Bony Paez DO
--- NOTE | 2017-10-21 16:20 | PN ---
Progress Note (short form) - Note Progress Note: Patient seen and examined at bedside. Events noted ROS not obtained due to dementia Constitutional: Yes: Calm, HENT: Yes: Atraumatic, Normocephalic Neck: Yes: Supple Cardiovascular: Yes: Regular Rate and Rhythm Respiratory: Yes: Regular Gastrointestinal: Yes: Normal Bowel Sounds, Soft Extremities: Yes: WNL Edema: No Last Vital Signs Temp Pulse Resp BP Pulse Ox 98.8 F 93 H 20 153/70 96 10/20/17 10:00 10/20/17 10:00 10/20/17 10:00 10/20/17 10:00 10/18/17 21:00 CBC, BMP 10/20/17 06:55 10/20/17 06:55 Current Medications Generic Name Dose Route Start Last Admin Trade Name Freq PRN Reason Stop Dose Admin Acetaminophen 650 mg 10/18/17 17:24 10/20/17 05:29 Tylenol - PO 650 mg Q6H PRN Administration PAIN Albuterol Sulfate 1 puff 10/18/17 17:24 Ventolin Hfa Inhaler - IH Q8H PRN SHORT OF BREATH/WHEEZING Cholecalciferol 1,000 unit 10/19/17 10:00 10/20/17 09:23 Vitamin D3 - PO 1,000 unit DAILY [facility] Administration Enoxaparin Sodium 40 mg 10/19/17 10:00 10/20/17 09:23 Lovenox - SQ 40 mg DAILY [facility]ERRE Administration Escitalopram Oxalate 5 mg 10/19/17 10:00 10/20/17 09:22 Lexapro - PO 5 mg DAILY [facility]ERRE Administration Fentanyl 25 mcg 10/18/17 16:43 Sublimaze Injection - IVPUSH [id number] PRN PAIN-PACU ORDER X 4 DOSES ONLY Sodium Chloride 1,000 mls @ 125 mls/hr 10/19/17 18:45 10/20/17 07:03 1/2 Normal Saline IV 125 mls/hr [facility] Administration Insulin Aspart 1 vial 10/19/17 16:30 10/20/17 11:21 Novolog Vial Sliding Scale - SQ Not Given ACHS [facility] Protocol Insulin Detemir 20 units 10/18/17 16:30 10/20/17 06:33 Levemir Vial SQ Not Given BIDI [facility] Latanoprost 1 drop 10/18/17 22:00 10/19/17 22:12 Xalatan 0.005% Eye Drops - OU 1 drop HS [facility] Administration Metoprolol Succinate 25 mg 10/18/17 22:00 10/20/17 09:23 Toprol Xl - PO 25 mg BID [facility] Administration Montelukast Sodium 10 mg 10/19/17 10:00 10/20/17 09:23 Singulair - PO 10 mg DAILY [facility] Administration Morphine Sulfate 2 mg 10/18/17 17:24 10/19/17 17:31 Morphine Injection - IVPUSH 2 mg Q6H PRN Administration PAIN LEVEL 6-10 Srafd-0-Ixsw Ethyl Esters 1 gm 10/19/17 10:00 10/20/17 09:23 Lovaza - PO 1 gm DAILY [facility] Administration Ondansetron HCl 4 mg 10/18/17 17:24 Zofran Injection IVPUSH Q6H PRN NAUSEA Rosuvastatin Calcium 20 mg 10/19/17 22:00 10/19/17 21:55 Crestor - PO 20 mg HS [facility] Administration Sitagliptin Phosphate 50 mg 10/19/17 07:00 10/20/17 06:32 Januvia - PO Not Given DAILY@0700 [facility] Tiotropium [place] 1 puff 10/19/17 10:00 10/20/17 11:42 Spiriva - IH 1 puff DAILY [facility] Administration left femur ORIF Anemia Mild thrombocytopenia h/o HIT in 01/2014 DVT ppx post surgery bleeding. f/u anemia w/u. eliquis as ppx. note reviewed monitor crit closely. if <8 will need to transfuse Problem List - Problems (1) CKD stage 3 secondary to diabetes Code(s): E11.22 - TYPE 2 DIABETES MELLITUS W DIABETIC CHRONIC KIDNEY DISEASE; N18.3 - CHRONIC KIDNEY DISEASE, STAGE 3 (MODERATE) (2) COPD (chronic obstructive pulmonary disease) Code(s): J44.9 - CHRONIC OBSTRUCTIVE PULMONARY DISEASE, UNSPECIFIED (3) HIT (heparin-induced thrombocytopenia) Code(s): D75.82 - HEPARIN INDUCED THROMBOCYTOPENIA (HIT) (4) Uncontrolled diabetes mellitus Code(s): E11.65 - TYPE 2 DIABETES MELLITUS WITH HYPERGLYCEMIA (5) Dementia Code(s): F03.90 - UNSPECIFIED DEMENTIA WITHOUT BEHAVIORAL DISTURBANCE
[2017-10-21] MEDS: ROSUVASTATIN CA 20 MG TABLET (FP) PO SCH (22:13)
[2017-10-21] MEDS: LATANOPROST 0.005% OPHTH SOLN 2.5ML BOTTLE OU SCH (22:35)
--- NOTE | 2017-10-21 22:47 | CON.NEURO ---
Consult Consult Specialty:: NEUROLOGY -[facility] - History of Present Illness History of Present Illness: 86 yrs old man multiple medical Co-morbidities lives at home with poor gait stability H/o HTN, Bioprosthic AVR, Dyslipedemia, as per Cardiology note recent evaluation by Dr Cervantes compensated CHF, Uncontrolled T2DM, CAD S/P OH, CABG , PCI not on Plavix at base line LBB yesterday present s/p fall as per , also had head trauma, but no LOC, developed sever Left Hip Pian cpouldnt got up , came to help 911 was called patient brought to ED w/u shows Left proximal Femur fracture. nOw s/P ORIF. He is unable to relate hx. but as per nursing he has a mild dementia that as per chart review is said to be "recently progressive", since sx. noted to be more "confused". 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 Cardio/Vascular: Yes: Aortic Stenosis, CAD, CHF, HTN, Hyperlipdemia - Past Surgical History Past Surgical History: Yes: CABG, Valve Replacement - Alcohol/Substance Use Hx Alcohol Use: No - Smoking History Smoking history: Never smoked Have you smoked in the past 12 months: No If you are a former smoker, when did you quit?: 5 YRS AGO - Social History Usual Living Arrangement: With Spouse Home Medications - Allergies Allergies/Adverse Reactions: Allergies Allergy/AdvReac Type Severity Reaction Status Date / Time iodine [Iodine] Allergy Unknown Verified 10/15/17 20:52 - Home Medications Home Medications: Ambulatory Orders Aspirin [ASA -] 81 mg PO DAILY 10/16/17 Budesonide [Pulmicort 0.5 mg Nebulizer -] 1 neb NEB BID 10/16/17 Cholecalciferol (Vitamin D3) [Vitamin D3 -] 5,000 unit PO DAILY 10/16/17 Escitalopram Oxalate [Lexapro -] 5 mg PO DAILY 10/16/17 Insulin (LOG) Aspart [NovoLOG -] 0 units SQ TID 10/16/17 Lisinopril 5 mg PO BID 10/16/17 Metoprolol Succinate 25 mg PO DAILY 10/16/17 Montelukast Na [Singulair -] 10 mg PO HS 10/16/17 Multivitamin/Iron/Folic Acid [Centrum Adults Tablet] 1 each PO DAILY 10/16/17 Panther-3 Fatty Acids [Panther-3] 1,000 mg PO DAILY 10/16/17 Panther-3S/Dha/Epa/Fish Oil [Fish Oil 1,200 mg Softgel] 1 each PO DAILY 10/16/17 Rosuvastatin [Crestor -] 20 mg PO HS 10/16/17 Sitagliptin Phosphate [Januvia] 50 mg PO DAILY 10/16/17 Tiotropium [place] [Spiriva] 1 inh PO DAILY 10/16/17 Family Disease History - Family Disease History Other Family History: not contributary Physical Exam-Neuro Vital Signs: Vital Signs Temperature 99.4 F 10/21/17 17:00 Pulse Rate 93 H 10/21/17 17:00 Respiratory Rate 20 10/21/17 20:40 Blood Pressure 129/63 10/21/17 17:00 O2 Sat by Pulse Oximetry (%) 91 L 10/21/17 20:40 Labs: CBC, BMP 10/21/17 06:45 10/21/17 06:45 INR, PTT INR 1.12 (0.82-1.09) 10/19/17 21:00 - Neuro Exam Level Of Consciousness: Yes: Alert, Oriented to Person Eyes: Yes: THEODORE Speech: Wernicke's Aphasia (Pt. makes paraphasic errors, has impaired comprehension and is logorrhoeic, makes non-sequiter remarks.) Dominant Hand: Right Mini Mental Exam: Inattentive, unable to test. Cranial Nerves II-XII Intact: No (slight right diminished nasolabial fold) DTR's: 0 Left Achilles, 0 Right Achilles, 1+ Left Tricep, 1+ Right Tricep, 1+ Left Brachioradialis, 1+ Right Brachioradialis, 2+ Left Bicep, 2+ Right Bicep Babinski: Present (right upgoing toe) Response to light touch: Normal (withdraws all 4 ext. to pain in all 4ext. Unable to test other sensory modalities) Motor Strength: 2/5: Left Leg (Unable to exert strength), 4/5: Right Leg, 5/5: Left Arm, Right Arm (+right UE mild pronator drift.) Gait: Deferred, Other (Unable ) Imaging - Results Cat Scan: Report Reviewed (CT Head 10/15/17 without acute abn.) Assessment/Plan S/P ORIF, with cognitive deficits at baseline now more confused and has sensory aphasia. It is uncklear whetherr this aphasia is new or preexisting, likely new. He may have had a left temporal lobe ischemic event. Suggest: Repeat CT head Carotid doppler study Rest of managemnet after above. Thank you, Zenaida Ramesh MD [phone]
[2017-10-22] MEDS: sitaGLIPtin PHOSPHATE 50 MG TABLET PO SCH (06:09)
[2017-10-22] MEDS: INSULIN DETEMIR 100 UNITS/ML MDV SQ SCH ×2 (06:09→17:27)
[2017-10-22] MEDS: INSULIN SLIDING SCALE (NOVOLOG) 1 VIAL SQ SCH ×5 (06:09→21:35)
[2017-10-22] MEDS: MONTELUKAST NA 10 MG TABLET PO SCH (09:18)
[2017-10-22] MEDS: ESCITALOPRAM OXALATE 10 MG TABLET (FP) PO SCH (09:18)
[2017-10-22] MEDS: CHOLECALCIFEROL (VITAMIN D3) 1,000 UNIT TABLET (FP) PO SCH (09:18)
[2017-10-22] MEDS: APIXABAN 2.5 MG TABLET PO SCH ×3 (09:19→21:26)
[2017-10-22] MEDS: metoPROLOL SUCCINATE 25 MG TAB.SR.24H (FP) PO SCH ×2 (09:19→21:25)
[2017-10-22] MEDS: OMEGA-3 ACID ETHYL ESTERS (FATTY-ACIDS) 1 GM CAPSULE (FP) PO SCH (09:19)
[2017-10-22] MEDS: NAPH,MB-DB/K PH,MBDB POWDER PACKET PO SCH ×2 (09:19→21:26)
[2017-10-22] MEDS: TIOTROPIUM BROMIDE 18 MCG/INH (DEVICE W/ 5 CAPSULES) IH SCH (09:20)
--- NOTE | 2017-10-22 10:20 | PN ---
Progress Note (short form) - Note Progress Note: Renal follow up for TYSON on CKD Pt seen and examined at the bedside awake but confused not at the bedside todays labs pending pt pulled out lambert overnight nurse reports that he has been voiding w/o the lambert Vital Signs Temperature 99 F 10/22/17 05:31 Pulse Rate 98 H 10/22/17 05:31 Respiratory Rate 20 10/22/17 05:49 Blood Pressure 128/67 10/22/17 05:31 O2 Sat by Pulse Oximetry (%) 91 L 10/22/17 05:49 Intake & Output 10/19/17 10/20/17 10/21/17 10/22/17 23:59 23:59 23:59 23:59 Intake Total 3160 2914 1930 620 Output Total 775 1350 1150 Balance 2385 1564 780 620 Weight 79.379 kg NAD alert RRR No LE edema lambert removed CBC, BMP 10/21/17 06:45 10/21/17 06:45 Laboratory Tests 10/21/17 06:45 Calcium 7.4 L Phosphorus 2.3 L Magnesium 2.4 LD Total 367 H Current Medications Acetaminophen (Tylenol -) 650 mg PO Q6H PRN PRN Reason: PAIN Last Admin: 10/20/17 23:02 Dose: 650 mg Albuterol Sulfate (Ventolin Hfa Inhaler -) 1 puff IH Q8H PRN PRN Reason: SHORT OF BREATH/WHEEZING Apixaban (Eliquis -) 2.5 mg PO BID [facility] Cholecalciferol (Vitamin D3 -) 1,000 unit PO DAILY [facility] Last Admin: 10/21/17 10:16 Dose: 1,000 unit Escitalopram Oxalate (Lexapro -) 5 mg PO DAILY [facility] Last Admin: 10/21/17 10:15 Dose: 5 mg Fentanyl (Sublimaze Injection -) 25 mcg IVPUSH [id number] PRN PRN Reason: PAIN-PACU ORDER X 4 DOSES ONLY Sodium Chloride (1/2 Normal Saline) 1,000 mls @ 125 mls/hr IV ASDIR [facility] Last Admin: 10/21/17 13:55 Dose: 125 mls/hr Insulin Aspart (Novolog Vial Sliding Scale -) 1 vial SQ ACHS [facility] PRN Reason: Protocol Last Admin: 10/21/17 12:35 Dose: Not Given Insulin Detemir (Levemir Vial) 20 units SQ BIDI [facility] Last Admin: 10/21/17 06:19 Dose: 20 units Latanoprost (Xalatan 0.005% Eye Drops -) 1 drop OU HS [facility] Last Admin: 10/20/17 21:09 Dose: 1 drop Metoprolol Succinate (Toprol Xl -) 25 mg PO BID [facility] Last Admin: 10/21/17 10:16 Dose: 25 mg Montelukast Sodium (Singulair -) 10 mg PO DAILY [facility] Last Admin: 10/21/17 10:16 Dose: 10 mg Morphine Sulfate (Morphine Injection -) 2 mg IVPUSH Q6H PRN PRN Reason: PAIN LEVEL 6-10 Last Admin: 10/19/17 17:31 Dose: 2 mg [id number]-[id number] Ethyl Esters (Lovaza -) 1 gm PO DAILY [facility] Last Admin: 10/21/17 10:16 Dose: 1 gm Ondansetron HCl (Zofran Injection) 4 mg IVPUSH Q6H PRN PRN Reason: NAUSEA Potassium Phos/Sodium Phos (Phos-Nak Packet -) 1 packet PO BID [facility] Last Admin: 10/21/17 13:56 Dose: 1 packet Rosuvastatin Calcium (Crestor -) 20 mg PO HS [facility] Last Admin: 10/20/17 21:11 Dose: 20 mg Sitagliptin Phosphate (Januvia -) 50 mg PO DAILY@0700 [facility] Last Admin: 10/21/17 06:19 Dose: 50 mg Tiotropium [place] (Spiriva -) 1 puff IH DAILY [facility] Last Admin: 10/21/17 10:21 Dose: 1 puff 86 year old gentleman with PMhx of of CAD s/p CABG, DM Type 2, Hypertension, Dementia, Mild CKD (baseline Cr 1.3) presented to the ED s/p fall and found to have a proximal femur frature with TYSON with Cr of 1.9 and Na of 150. #Acute on chronic renal insufficiency Etiology likely renal hypoprofusion in setting of fracture/blood loss and relative hypotension renal function improving to near baseline as of yesterday todays labs pending on IVF #Hypernatremia todays labs pending continue hypotonic saline for now #Femur fracture s/p ORIF pain control #Hematuria/BPH lambert removed making urine urology following #Hypertension on metoprolol for CAD no SIMA/ARB Thank you Bony Paez DO
[2017-10-22 10:26] LABS: HEMOGLOBIN 8.4 GM/dL (11.7-16.9); MCH 27.8 pg (25.7-33.7); MCHC 32.4 g/dl (32.0-35.9); MEAN CELL VOLUME 85.6 fl (80-96); MEAN PLT VOLUME 9.2 fl (7.5-11.1); PLATELET COUNT 141 K/MM3 (134-434); RBC 3.04 M/mm3 (4.00-5.60); WHITE BLOOD COUNT 8.5 K/mm3 (4.0-10.0)
[2017-10-22 10:54] LABS: ANION GAP 10 (8-16); BLOOD UREA NITROGEN 39 mg/dL (7-18); CALCIUM 7.2 mg/dL (8.5-10.1); CHLORIDE 111 mmol/L (98-107); CO2 24 mmol/L (21-32); CREATININE 1.2 mg/dL (0.7-1.3); GLUCOSE,RANDOM 188 mg/dL (74-106); POTASSIUM 3.8 mmol/L (3.5-5.1); SODIUM 145 mmol/L (136-145)
[2017-10-22 11:06] LABS: MAGNESIUM 2.1 mg/dL (1.8-2.4); PHOSPHOROUS 2.6 mg/dL (2.5-4.9)
--- NOTE | 2017-10-22 12:47 | PN ---
Progress Note (short form) - Note Progress Note: Urology: Pt voiding without lambert. Recommend to leave out the lambert and observe for resolving hematuria without furthur trauma. Labs: CBC WBC 8.5 K/mm3 (4.0-10.0) 10/22/17 10:00 RBC 3.04 M/mm3 (4.00-5.60) L 10/22/17 10:00 Hgb 8.4 GM/dL (11.7-16.9) L 10/22/17 10:00 Hct 26.0 % (35.4-49) L 10/22/17 10:00 MCV 85.6 fl (80-96) 10/22/17 10:00 MCH 27.8 pg (25.7-33.7) 10/22/17 10:00 MCHC 32.4 g/dl (32.0-35.9) 10/22/17 10:00 RDW 16.0 % (11.9-15.9) H 10/22/17 10:00 Plt Count 141 K/MM3 (134-434) 10/22/17 10:00 MPV 9.2 fl (7.5-11.1) 10/22/17 10:00 Neutrophils % 71.5 % (42.8-82.8) 10/21/17 06:45 Lymphocytes % 11.9 % (8-40) 10/21/17 06:45 Monocytes % 11.2 % (3.8-10.2) H 10/21/17 06:45 Eosinophils % 5.2 % (0-4.5) H D 10/21/17 06:45 Basophils % 0.2 % (0-2.0) 10/21/17 06:45 Retic Count 2.50 % (0.5-1.5) H 10/21/17 06:45 Problem List - Problems (1) Hematuria Code(s): R31.9 - HEMATURIA, UNSPECIFIED Qualifiers: Qualified Code(s): R31.0 - Gross hematuria
--- NOTE | 2017-10-22 12:47 | PN ---
Progress Note, Physician History of Present Illness: Patient agitated/ confused last night, pulled out IV line, was chewing on IV tubing. Had pulled out lambert catheter yesterday and had hematuria (Eliquis was held). This morning sleepy after being up all night. Due ot get repeat CT head for suspected CVA. - Current Medication List Current Medications: Active Medications Acetaminophen (Tylenol -) 650 mg PO Q6H PRN PRN Reason: PAIN Last Admin: 10/20/17 23:02 Dose: 650 mg Albuterol Sulfate (Ventolin Hfa Inhaler -) 1 puff IH Q8H PRN PRN Reason: SHORT OF BREATH/WHEEZING Apixaban (Eliquis -) 2.5 mg PO BID [facility] Last Admin: 10/22/17 11:27 Dose: 2.5 mg Cholecalciferol (Vitamin D3 -) 1,000 unit PO DAILY [facility] Last Admin: 10/22/17 09:18 Dose: 1,000 unit Escitalopram Oxalate (Lexapro -) 5 mg PO DAILY [facility] Last Admin: 10/22/17 09:18 Dose: 5 mg Fentanyl (Sublimaze Injection -) 25 mcg IVPUSH [id number] PRN PRN Reason: PAIN-PACU ORDER X 4 DOSES ONLY Sodium Chloride (1/2 Normal Saline) 1,000 mls @ 75 mls/hr IV ASDIR [facility] Last Admin: 10/21/17 17:52 Dose: 75 mls/hr Insulin Aspart (Novolog Vial Sliding Scale -) 1 vial SQ ACHS [facility] PRN Reason: Protocol Last Admin: 10/22/17 06:09 Dose: Not Given Insulin Detemir (Levemir Vial) 20 units SQ BIDI [facility] Last Admin: 10/22/17 06:09 Dose: Not Given Latanoprost (Xalatan 0.005% Eye Drops -) 1 drop OU HS [facility] Last Admin: 10/21/17 22:35 Dose: 1 drop Metoprolol Succinate (Toprol Xl -) 25 mg PO BID [facility] Last Admin: 10/22/17 09:19 Dose: 25 mg Montelukast Sodium (Singulair -) 10 mg PO DAILY [facility] Last Admin: 10/22/17 09:18 Dose: 10 mg Vjate-3-Lmmm Ethyl Esters (Lovaza -) 1 gm PO DAILY [facility] Last Admin: 10/22/17 09:19 Dose: 1 gm Ondansetron HCl (Zofran Injection) 4 mg IVPUSH Q6H PRN PRN Reason: NAUSEA Potassium Phos/Sodium Phos (Phos-Nak Packet -) 1 packet PO BID [facility] Last Admin: 10/22/17 09:19 Dose: 1 packet Rosuvastatin Calcium (Crestor -) 20 mg PO HS [facility] Last Admin: 10/21/17 22:13 Dose: 20 mg Sitagliptin Phosphate (Januvia -) 50 mg PO DAILY@0700 [facility] Last Admin: 10/22/17 06:09 Dose: Not Given Tiotropium [place] (Spiriva -) 1 puff IH DAILY [facility] Last Admin: 10/22/17 09:20 Dose: 1 puff - Objective Vital Signs: Vital Signs Temperature 98.8 F 10/22/17 10:00 Pulse Rate 100 H 10/22/17 10:00 Respiratory Rate 20 10/22/17 10:00 Blood Pressure 128/64 10/22/17 10:00 O2 Sat by Pulse Oximetry (%) 95 10/22/17 09:00 Constitutional: Yes: No Distress Cardiovascular: Yes: Regular Rate and Rhythm, S1, S2. No: Murmur Respiratory: Yes: Regular, CTA Bilaterally. No: Rales, Rhonchi, Wheezes Gastrointestinal: Yes: Normal Bowel Sounds, Soft. 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
--- NOTE | 2017-10-22 13:17 | PN ---
Progress Note (short form) - Note Progress Note: Oncology follow-up note S: patient minimally conversant when visited today. His says he had some bleeding from his urethra after lambert was removed as he keeps pulling the lambert. Per RN, urine is lcearing up and he put out alex colored urine. has reservations about using eliquis given his history of HIT Last Vital Signs Temp Pulse Resp BP Pulse Ox 98.8 F 100 H 20 128/64 95 10/22/17 10:00 10/22/17 10:00 10/22/17 10:00 10/22/17 10:00 10/22/17 09:00 ROS not obtained due to dementia Constitutional: Yes: Calm, HENT: Yes: Atraumatic, Normocephalic Neck: Yes: Supple Cardiovascular: Yes: Regular Rate and Rhythm Respiratory: Yes: Regular Gastrointestinal: Yes: Normal Bowel Sounds, Soft Extremities: Yes: WNL Edema: No CBC, BMP 10/22/17 10:00 10/22/17 10:00 Current Medications Generic Name Dose Route Start Last Admin Trade Name Larryq PRN Reason Stop Dose Admin Acetaminophen 650 mg 10/18/17 17:24 10/20/17 23:02 Tylenol - PO 650 mg Q6H PRN Administration PAIN Albuterol Sulfate 1 puff 10/18/17 17:24 Ventolin Hfa Inhaler - IH Q8H PRN SHORT OF BREATH/WHEEZING Apixaban 2.5 mg 10/22/17 10:00 10/22/17 11:27 Eliquis - PO 2.5 mg BID [facility] Administration Cholecalciferol 1,000 unit 10/19/17 10:00 10/22/17 09:18 Vitamin D3 - PO 1,000 unit DAILY [facility] Administration Escitalopram Oxalate 5 mg 10/19/17 10:00 10/22/17 09:18 Lexapro - PO 5 mg DAILY [facility] Administration Fentanyl 25 mcg 10/18/17 16:43 Sublimaze Injection - IVPUSH [id number] PRN PAIN-PACU ORDER X 4 DOSES ONLY Sodium Chloride 1,000 mls @ 75 mls/hr 10/21/17 15:33 10/21/17 17:52 1/2 Normal Saline IV 75 mls/hr ASDIR [facility] Administration Insulin Aspart 1 vial 10/20/17 16:30 10/22/17 13:01 Novolog Vial Sliding Scale - SQ 6 units ACHS [facility] Administration Protocol Insulin Detemir 20 units 10/18/17 16:30 10/22/17 06:09 Levemir Vial SQ Not Given BIDI [facility] Latanoprost 1 drop 10/18/17 22:00 10/21/17 22:35 Xalatan 0.005% Eye Drops - OU 1 drop HS [facility] Administration Metoprolol Succinate 25 mg 10/18/17 22:00 10/22/17 09:19 Toprol Xl - PO 25 mg BID [facility] Administration Montelukast Sodium 10 mg 10/19/17 10:00 10/22/17 09:18 Singulair - PO 10 mg DAILY [facility] Administration [id number]-[id number] Ethyl Esters 1 gm 10/19/17 10:00 10/22/17 09:19 Lovaza - PO 1 gm DAILY [facility] Administration Ondansetron HCl 4 mg 10/18/17 17:24 Zofran Injection IVPUSH Q6H PRN NAUSEA Potassium Phos/Sodium Phos 1 packet 10/21/17 11:00 10/22/17 09:19 Phos-Nak Packet - PO 1 packet BID [facility] Administration Rosuvastatin Calcium 20 mg 10/19/17 22:00 10/21/17 22:13 Crestor - PO 20 mg HS [facility] Administration Sitagliptin Phosphate 50 mg 10/19/17 07:00 10/22/17 06:09 Januvia - PO Not Given DAILY@0700 [facility] Tiotropium [place] 1 puff 10/19/17 10:00 10/22/17 09:20 Spiriva - IH 1 puff DAILY [facility] Administration A/P : 86 y/o male with PMHx of multiple cardiovascular comorbidities that is now admitted with a fall and is s/p left femur ORIF. He was diagnosed with HIT in 2013 and is now on eliquis for the same post surgical prophylaxis. -counts mildly trending down, transfuse Hgb <8 -platelets are stable, would continue eliquis at this time especially now tht patient is also undergoing a CVA rule out. I explained this to the who was agreeable with this plan -monitor daily CBC's -will continue to follow closely
[2017-10-22] MEDS: ACETAMINOPHEN 325 MG TABLET (FP) PO PRN ×2 (15:17→23:24)
--- NOTE | 2017-10-22 16:18 | PN ---
Progress Note (short form) - Note Progress Note: CC: hip fracture s: Worsened confusion overnight. Had pulled out lambert catheter yesterday and had recurrent hematuria --> lambert now removed, no further hematuria. HR increasing today in setting of + fever. unable to get history from patient. However according to he is calmer today, although more sleepy. ex cigs Current Medications Acetaminophen (Tylenol -) 650 mg PO Q6H PRN PRN Reason: PAIN Last Admin: 10/22/17 15:17 Dose: 650 mg Albuterol Sulfate (Ventolin Hfa Inhaler -) 1 puff IH Q8H PRN PRN Reason: SHORT OF BREATH/WHEEZING Apixaban (Eliquis -) 2.5 mg PO BID [facility] Last Admin: 10/22/17 11:27 Dose: 2.5 mg Cholecalciferol (Vitamin D3 -) 1,000 unit PO DAILY [facility] Last Admin: 10/22/17 09:18 Dose: 1,000 unit Docusate Sodium (Colace -) 200 mg PO DAILY [facility] Escitalopram Oxalate (Lexapro -) 5 mg PO DAILY [facility] Last Admin: 10/22/17 09:18 Dose: 5 mg Fentanyl (Sublimaze Injection -) 25 mcg IVPUSH [id number] PRN PRN Reason: PAIN-PACU ORDER X 4 DOSES ONLY Sodium Chloride (1/2 Normal Saline) 1,000 mls @ 75 mls/hr IV ASDIR [facility] Last Admin: 10/21/17 17:52 Dose: 75 mls/hr Levofloxacin (Levaquin 500 Mg Premixed Ivpb -) 500 mg in 100 mls @ 100 mls/hr IVPB DAILY [facility] Insulin Aspart (Novolog Vial Sliding Scale -) 1 vial SQ ACHS [facility] PRN Reason: Protocol Last Admin: 10/22/17 13:01 Dose: 6 units Insulin Detemir (Levemir Vial) 20 units SQ BIDI [facility] Last Admin: 10/22/17 06:09 Dose: Not Given Latanoprost (Xalatan 0.005% Eye Drops -) 1 drop OU HS [facility] Last Admin: 10/21/17 22:35 Dose: 1 drop Metoprolol Succinate (Toprol Xl -) 25 mg PO BID [facility] Last Admin: 10/22/17 09:19 Dose: 25 mg Montelukast Sodium (Singulair -) 10 mg PO DAILY [facility] Last Admin: 10/22/17 09:18 Dose: 10 mg [id number] Ethyl Esters (Lovaza -) 1 gm PO DAILY [facility] Last Admin: 10/22/17 09:19 Dose: 1 gm Ondansetron HCl (Zofran Injection) 4 mg IVPUSH Q6H PRN PRN Reason: NAUSEA Potassium Phos/Sodium Phos (Phos-Nak Packet -) 1 packet PO BID [facility] Last Admin: 10/22/17 09:19 Dose: 1 packet Rosuvastatin Calcium (Crestor -) 20 mg PO HS [facility] Last Admin: 10/21/17 22:13 Dose: 20 mg Senna (Senna -) 2 tab PO [facility] Sitagliptin Phosphate (Januvia -) 50 mg PO DAILY@0700 [facility] Last Admin: 10/22/17 06:09 Dose: Not Given Tiotropium [place] (Spiriva -) 1 puff IH DAILY [facility] Last Admin: 10/22/17 09:20 Dose: 1 puff - Objective : Vital Signs - 24 hr 10/21/17 10/21/17 10/21/17 17:00 20:40 22:00 Temperature 99.4 F 99.6 F Pulse Rate 93 H 94 H Respiratory 20 20 20 Rate Blood Pressure 129/63 122/53 O2 Sat by Pulse 91 L Oximetry (%) 10/22/17 10/22/17 10/22/17 05:31 05:49 09:00 Temperature 99 F Pulse Rate 98 H Respiratory 20 20 Rate Blood Pressure 128/67 O2 Sat by Pulse 91 L 95 Oximetry (%) 10/22/17 10/22/17 10:00 14:00 Temperature 98.8 F 102.3 F H Pulse Rate 100 H 108 H Respiratory 20 20 Rate Blood Pressure 128/64 122/75 O2 Sat by Pulse Oximetry (%) Intake & Output 10/20/17 10/21/17 10/22/17 10/23/17 07:59 07:59 07:59 07:59 Intake Total 3220 3004 960 Output Total 375 1800 700 Balance 2845 1204 260 Weight 175 lb Constitutional: Yes: Well Nourished, No Distress, Calm Eyes: No: Sclera Icterus HENT: No: Nasal Congestion Cardiovascular: Yes: Regular Rate and Rhythm, Murmur (soft (2/6) FILEMON lusb). No : JVD, Gallop Respiratory: Yes: Regular, CTA Bilaterally (anteriorly (fela vest on)). No: Rales, Wheezes Gastrointestinal: Yes: Normal Bowel Sounds, Soft. No: Tenderness Extremities: No: Cold Edema: No Integumentary: No: Jaundice Neurological: Alert but not oriented: Seizure Psychiatric: No: Agitated Labs: CBC, BMP 10/22/17 10:00 10/22/17 10:00 - ....Imaging EKG: Other (tele: baseline LBBB present with av delay, freq pac's, pvc's, frequent recurrent runs of SVT, atrial runs ) head ct: no acute pathology carotid u/s: extensive atherosclerotic disease without stenosis. Echo 11/12: nl LV/EF, nl RV, nl LA, no bioAVR dysfunction Assessment/Plan mechanical fall, hip frx: -tripped over chair in the dark -s/p ORIF 10/18 - started on low dose eliquis today 10/22 for post-op dvt px. pt with h/o HIT. heme following. hgb trending down since surgery. tachycardia (with baseline LBBB): -intermittent sinus tachy here being driven by confustion/agitation/pain?/fever , but also with frequent intermittent brief atrial runs/runs of svt (worse today 10/22 in setting of fever). -pain control, fever control. lyte repletion prn. cont bb. increased to bid dosing from daily dosing here. TYSON on CKD: -baseline creat 1.3-1.6 - suspect etiology vol depletion/hypoperfusion in setting of decr po/blood loss. ? SIMA exacerbating -creat bumped to 1.6 on 10/16, NS at 50 cc/hr started 1am on 10/16, creat peak to 2.1 --> IVF rate increased with improvement in cr (now back to baseline) -holding lisinopril. - on hypotonic IVF for hypernatremia (resolved today 10/22), renal following. s/p AVR: -normal fxn on recent echo CAD s/p CABG: -preserved EF -no angina since -cont home meds (bb, statin), holding ASA while on AC HTN: - stable on toprol bid dementia: -recently progressive -per pmd asthma/copd: -stable, no wheezing fever - eval/mgm't per pmd/surgery
[2017-10-22] MEDS: SODIUM CHLORIDE 0.45% 1,000 ML IV SCH (16:22)
[2017-10-22 19:30] LABS: URINE APPEARANCE SLCLOUDY; URINE BILIRUBIN NEGATIVE (NEGATIVE); URINE BLOOD 2+ (NEGATIVE); URINE COLOR YELLOW; URINE GLUCOSE (UA) 1+ (NEGATIVE); URINE KETONE 1+ (NEGATIVE); URINE LEUK ESTERASE NEGATIVE (NEGATIVE); URINE NITRITE NEGATIVE (NEGATIVE)
[2017-10-22 20:08] LABS: URINE PROTEIN 1+ (NEGATIVE)
[2017-10-22 20:09] LABS: EPI CELLS RARE /HPF (FEW); URINE MUCUS RARE
[2017-10-22] MEDS: LATANOPROST 0.005% OPHTH SOLN 2.5ML BOTTLE OU SCH (21:25)
[2017-10-22] MEDS: ROSUVASTATIN CA 20 MG TABLET (FP) PO SCH (21:26)
[2017-10-22] MEDS: SENNOSIDES 8.6MG TABLET (FP) PO SCH (21:26)
[2017-10-22] MEDS ORDERED: INSULIN (NOVOLOG) ASPART 100 UNITS/ML 10ML VIAL ONE (21:30)
--- NOTE | 2017-10-22 22:22 | PN ---
Progress Note (short form) - Note Progress Note: orthopedically stable plan: oob, PT,
[2017-10-23] MEDS ORDERED: HALOPERIDOL LACTATE 5 MG/ML IM ONE ×2 (01:30→21:45)
[2017-10-23] MEDS: INSULIN SLIDING SCALE (NOVOLOG) 1 VIAL SQ SCH ×4 (06:20→21:57)
[2017-10-23] MEDS: INSULIN DETEMIR 100 UNITS/ML MDV SQ SCH ×2 (06:23→17:58)
[2017-10-23] MEDS: sitaGLIPtin PHOSPHATE 50 MG TABLET PO SCH (06:24)
[2017-10-23 07:11] LABS: HEMOGLOBIN 8.3 GM/dL (11.7-16.9); MCH 27.7 pg (25.7-33.7); MCHC 31.9 g/dl (32.0-35.9); MEAN CELL VOLUME 86.8 fl (80-96); MEAN PLT VOLUME 9.8 fl (7.5-11.1); PLATELET COUNT 147 K/MM3 (134-434); RBC 2.99 M/mm3 (4.00-5.60); RDW 16.2 % (11.9-15.9); WHITE BLOOD COUNT 11.1 K/mm3 (4.0-10.0)
[2017-10-23 07:22] LABS: ANION GAP 9 (8-16); BLOOD UREA NITROGEN 36 mg/dL (7-18); CALCIUM 7.1 mg/dL (8.5-10.1); CHLORIDE 109 mmol/L (98-107); CO2 26 mmol/L (21-32); CREATININE 1.2 mg/dL (0.7-1.3); GLUCOSE,RANDOM 216 mg/dL (74-106); MAGNESIUM 2.1 mg/dL (1.8-2.4); PHOSPHOROUS 3.1 mg/dL (2.5-4.9); SODIUM 144 mmol/L (136-145)
[2017-10-23 09:57] LABS: ANISOCYTOSIS 2+; PLATELET ESTIMATE DECREASED
[2017-10-23] MEDS: ESCITALOPRAM OXALATE 10 MG TABLET (FP) PO SCH (10:36)
[2017-10-23] MEDS: DOCUSATE SODIUM 100 MG CAPSULE (FP) PO SCH (10:36)
[2017-10-23] MEDS: OMEGA-3 ACID ETHYL ESTERS (FATTY-ACIDS) 1 GM CAPSULE (FP) PO SCH (10:37)
[2017-10-23] MEDS: TIOTROPIUM BROMIDE 18 MCG/INH (DEVICE W/ 5 CAPSULES) IH SCH (10:37)
[2017-10-23] MEDS: ACETAMINOPHEN 325 MG TABLET (FP) PO PRN ×2 (10:37→18:05)
[2017-10-23] MEDS: MONTELUKAST NA 10 MG TABLET PO SCH (10:37)
[2017-10-23] MEDS: APIXABAN 2.5 MG TABLET PO SCH ×2 (10:37→21:57)
[2017-10-23] MEDS: CHOLECALCIFEROL (VITAMIN D3) 1,000 UNIT TABLET (FP) PO SCH (10:37)
[2017-10-23] MEDS: NAPH,MB-DB/K PH,MBDB POWDER PACKET PO SCH ×2 (10:37→21:57)
[2017-10-23] MEDS: metoPROLOL SUCCINATE 25 MG TAB.SR.24H (FP) PO SCH ×2 (10:38→21:58)
--- NOTE | 2017-10-23 12:06 | PN ---
Progress Note, Physician History of Present Illness: Patient very agitated/ aggressive last night -received IM haldol and much more calm this morning. Still confused [place] knows that he broke his leg but states that they "fixed it twice". Repeat CT head negative for CVA. Blood counts have been stable, but having fevers. Blood cultures pending (likely source urine as he had pulled out lambert catheter) -started on Levaquin yesterday. - Current Medication List Current Medications: Active Medications Acetaminophen (Tylenol -) 650 mg PO Q6H PRN PRN Reason: PAIN Last Admin: 10/23/17 10:37 Dose: 650 mg Albuterol Sulfate (Ventolin Hfa Inhaler -) 1 puff IH Q8H PRN PRN Reason: SHORT OF BREATH/WHEEZING Apixaban (Eliquis -) 2.5 mg PO BID [facility] Last Admin: 10/23/17 10:37 Dose: 2.5 mg Cholecalciferol (Vitamin D3 -) 1,000 unit PO DAILY [facility] Last Admin: 10/23/17 10:37 Dose: 1,000 unit Docusate Sodium (Colace -) 200 mg PO DAILY [facility] Last Admin: 10/23/17 10:36 Dose: 200 mg Escitalopram Oxalate (Lexapro -) 5 mg PO DAILY [facility] Last Admin: 10/23/17 10:36 Dose: 5 mg Fentanyl (Sublimaze Injection -) 25 mcg IVPUSH [id number] PRN PRN Reason: PAIN-PACU ORDER X 4 DOSES ONLY Sodium Chloride (1/2 Normal Saline) 1,000 mls @ 75 mls/hr IV ASDIR [facility] Last Admin: 10/22/17 16:22 Dose: 75 mls/hr Levofloxacin (Levaquin 500 Mg Premixed Ivpb -) 500 mg in 100 mls @ 100 mls/hr IVPB DAILY [facility] Last Admin: 10/23/17 10:37 Dose: 100 mls/hr Insulin Aspart (Novolog Vial Sliding Scale -) 1 vial SQ ACHS [facility] PRN Reason: Protocol Last Admin: 10/23/17 06:20 Dose: 4 units Insulin Detemir (Levemir Vial) 20 units SQ BIDI [facility] Last Admin: 10/23/17 06:23 Dose: 20 units Latanoprost (Xalatan 0.005% Eye Drops -) 1 drop OU [facility] Last Admin: 10/22/17 21:25 Dose: 1 drop Metoprolol Succinate (Toprol Xl -) 25 mg PO BID [facility] Last Admin: 10/23/17 10:38 Dose: 25 mg Montelukast Sodium (Singulair -) 10 mg PO DAILY [facility] Last Admin: 10/23/17 10:37 Dose: 10 mg [id number] Ethyl Esters (Lovaza -) 1 gm PO DAILY [facility] Last Admin: 10/23/17 10:37 Dose: 1 gm Ondansetron HCl (Zofran Injection) 4 mg IVPUSH Q6H PRN PRN Reason: NAUSEA Potassium Phos/Sodium Phos (Phos-Nak Packet -) 1 packet PO BID [facility] Last Admin: 10/23/17 10:37 Dose: 1 packet Rosuvastatin Calcium (Crestor -) 20 mg PO [facility] Last Admin: 10/22/17 21:26 Dose: 20 mg Senna (Senna -) 2 tab PO [facility] Last Admin: 10/22/17 21:26 Dose: 2 tab Sitagliptin Phosphate (Januvia -) 50 mg PO DAILY@0700 [facility] Last Admin: 10/23/17 06:24 Dose: 50 mg Tiotropium [place] (Spiriva -) 1 puff IH DAILY [facility] Last Admin: 10/23/17 10:37 Dose: 1 puff - Objective Vital Signs: Vital Signs Temperature 99.1 F 10/23/17 06:00 Pulse Rate 109 H 10/23/17 06:00 Respiratory Rate 19 10/23/17 06:00 Blood Pressure 120/62 10/23/17 06:00 O2 Sat by Pulse Oximetry (%) 95 10/22/17 21:00 Constitutional: Yes: No Distress, Calm Neck: Yes: Supple, Trachea Midline Cardiovascular: Yes: Regular Rate and Rhythm Respiratory: Yes: Regular, CTA Bilaterally Gastrointestinal: Yes: Normal Bowel Sounds, Soft. 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
[2017-10-23] MEDS ORDERED: HALOPERIDOL 2 MG TABLET PO PRN (15:14)
--- NOTE | 2017-10-23 15:42 | PN ---
Progress Note (short form) - Note Progress Note: CC: hip fracture s: temp improving, no longer febrile. bp trending down. calm, conversational. still with poor po intake. denies cp, sob, palps, dizziness. ex cigs - Objective Current Medications Acetaminophen (Tylenol -) 650 mg PO Q6H PRN PRN Reason: PAIN Last Admin: 10/23/17 10:37 Dose: 650 mg Albuterol Sulfate (Ventolin Hfa Inhaler -) 1 puff IH Q8H PRN PRN Reason: SHORT OF BREATH/WHEEZING Apixaban (Eliquis -) 2.5 mg PO BID [facility] Last Admin: 10/23/17 10:37 Dose: 2.5 mg Cholecalciferol (Vitamin D3 -) 1,000 unit PO DAILY [facility] Last Admin: 10/23/17 10:37 Dose: 1,000 unit Docusate Sodium (Colace -) 200 mg PO DAILY [facility] Last Admin: 10/23/17 10:36 Dose: 200 mg Escitalopram Oxalate (Lexapro -) 5 mg PO DAILY [facility] Last Admin: 10/23/17 10:36 Dose: 5 mg Fentanyl (Sublimaze Injection -) 25 mcg IVPUSH [id number] PRN PRN Reason: PAIN-PACU ORDER X 4 DOSES ONLY Haloperidol (Haldol -) 2 mg PO TID PRN PRN Reason: AGITATION Sodium Chloride (1/2 Normal Saline) 1,000 mls @ 75 mls/hr IV ASDIR [facility] Last Admin: 10/22/17 16:22 Dose: 75 mls/hr Levofloxacin (Levaquin 500 Mg Premixed Ivpb -) 500 mg in 100 mls @ 100 mls/hr IVPB DAILY [facility] Last Admin: 10/23/17 10:37 Dose: 100 mls/hr Insulin Aspart (Novolog Vial Sliding Scale -) 1 vial SQ ACHS [facility] PRN Reason: Protocol Last Admin: 10/23/17 12:21 Dose: 2 units Insulin Detemir (Levemir Vial) 20 units SQ BIDI [facility] Last Admin: 10/23/17 06:23 Dose: 20 units Latanoprost (Xalatan 0.005% Eye Drops -) 1 drop OU HS [facility] Last Admin: 10/22/17 21:25 Dose: 1 drop Metoprolol Succinate (Toprol Xl -) 25 mg PO BID [facility] Last Admin: 10/23/17 10:38 Dose: 25 mg Montelukast Sodium (Singulair -) 10 mg PO DAILY [facility] Last Admin: 10/23/17 10:37 Dose: 10 mg [id number] Ethyl Esters (Lovaza -) 1 gm PO DAILY [facility] Last Admin: 10/23/17 10:37 Dose: 1 gm Ondansetron HCl (Zofran Injection) 4 mg IVPUSH Q6H PRN PRN Reason: NAUSEA Potassium Phos/Sodium Phos (Phos-Nak Packet -) 1 packet PO BID [facility] Last Admin: 10/23/17 10:37 Dose: 1 packet Rosuvastatin Calcium (Crestor -) 20 mg PO [facility] Last Admin: 10/22/17 21:26 Dose: 20 mg Senna (Senna -) 2 tab PO [facility] Last Admin: 10/22/17 21:26 Dose: 2 tab Sitagliptin Phosphate (Januvia -) 50 mg PO DAILY@0700 [facility] Last Admin: 10/23/17 06:24 Dose: 50 mg Tiotropium [place] (Spiriva -) 1 puff IH DAILY [facility] Last Admin: 10/23/17 10:37 Dose: 1 puff Vital Signs - 24 hr 10/22/17 10/22/17 10/22/17 16:23 18:00 21:00 Temperature 100 F H 99.2 F Pulse Rate 104 H Respiratory 20 Rate Blood Pressure 104/56 O2 Sat by Pulse 95 Oximetry (%) 10/22/17 10/23/17 10/23/17 22:00 02:00 06:00 Temperature 99.5 F 99.1 F 99.1 F Pulse Rate 110 H 113 H 109 H Respiratory 20 20 19 Rate Blood Pressure 135/65 107/64 120/62 O2 Sat by Pulse Oximetry (%) 10/23/17 10/23/17 10/23/17 09:00 10:00 14:00 Temperature 99.5 F 99.2 F Pulse Rate 99 H 88 Respiratory 20 20 Rate Blood Pressure 100/58 113/52 O2 Sat by Pulse 95 Oximetry (%) Intake & Output 10/21/17 10/22/17 10/23/17 10/24/17 07:59 07:59 07:59 07:59 Intake Total 3004 960 2350 Output Total 1800 700 425 Balance 7868 454 5428 Constitutional: Yes: Well Nourished, No Distress, Calm Eyes: No: Sclera Icterus HENT: No: Nasal Congestion Cardiovascular: Yes: Regular Rate and Rhythm, Murmur (soft (2/6) FILEMON lusb). No : JVD, Gallop Respiratory: Yes: Regular, trace bibasilar rales. No: Rales, Wheezes Gastrointestinal: Yes: Normal Bowel Sounds, Soft. No: Tenderness Extremities: No: Cold Edema: No Integumentary: No: Jaundice Neurological: Alert but not oriented: Seizure Psychiatric: No: Agitated Labs: CBC, BMP 10/23/17 05:05 10/23/17 05:05 Laboratory Tests 10/23/17 05:05 Plt Count Phosphorus Magnesium 2.1 - ....Imaging EKG: Other tele: baseline LBBB present with av delay, freq pac's, pvc's, frequent recurrent runs of SVT, atrial runs, (decreased freq compared to yesterday) intermittent sinus tach cxr 10/23 images/report reviewed: persistent right base infiltrate with fluid/ atelectasis head ct: no acute pathology carotid u/s: extensive atherosclerotic disease without stenosis. Echo 11/12: nl LV/EF, nl RV, nl LA, no bioAVR dysfunction Assessment/Plan mechanical fall, hip frx: -tripped over chair in the dark -s/p ORIF 10/18 - started on low dose eliquis 10/22 for post-op dvt px. pt with h/o HIT. heme following. hgb trending down since surgery. tachycardia (with baseline LBBB): -intermittent sinus tachy here being driven by confustion/agitation/pain?/fever , but also with frequent intermittent brief atrial runs/runs of svt (worse in setting of fever). -pain control, fever control. mgm't of infection per pmd/id. (UTI vs. pna) lyte repletion prn. cont bb. increased to bid dosing from daily dosing here. Can consider need to uptitrate bb further if bp remains stable tomorrow. TYSON on CKD: -baseline creat 1.3-1.6 - suspect etiology vol depletion/hypoperfusion in setting of decr po/blood loss. ? SIMA exacerbating -creat bumped to 1.6 on 10/16, NS at 50 cc/hr started 1am on 10/16, creat peak to 2.1 --> IVF rate increased with improvement in cr (now back to baseline) -holding lisinopril. - on hypotonic IVF for hypernatremia (resolved 10/22), renal following. s/p AVR: -normal fxn on recent echo CAD s/p CABG: -preserved EF -no angina since -cont home meds (bb, statin), holding ASA while on AC HTN: - stable on toprol bid, monitor trend. dementia: -recently progressive -per pmd asthma/copd: -stable, no wheezing fever - eval/mgm't per pmd/ID
--- NOTE | 2017-10-23 15:47 | CON.ID ---
Consult Consult Specialty:: infectious diseases Referred by:: Reason for Consultation:: fever - History of Present Illness History of Present Illness: 86 yrs old man multiple medical Co-morbidities lives at home with poor gait stability H/o HTN, Bioprosthic AVR, Dyslipedemia, as per Cardiology note recent evaluation by Dr Cervantes compensated CHF, Uncontrolled T2DM, CAD S/P [place], CABG , PCI not on Plavix According to the had a fall patient was brought to the hospital and underwent surgery patient was doing well,untill he started spiking fevers and also started having more confusion at night and aggressive behaviour patient has history of dementia and after he lost his son has been generally angry with everything currently patient is stable patient was worked up for fever and found to have rt base infiltrate also increase in wbc noted - History Source History Provided By: Family Member Limitations to Obtaining History: Clinical Condition - Past Medical History SAUSAGE TIER: Yes: Dementia Cardio/Vascular: Yes: Aortic Stenosis, CAD, CHF, HTN, Hyperlipdemia - Past Surgical History Past Surgical History: Yes: CABG, Valve Replacement - Alcohol/Substance Use Hx Alcohol Use: No - Smoking History Smoking history: Never smoked Have you smoked in the past 12 months: No If you are a former smoker, when did you quit?: 5 YRS AGO - Social History Usual Living Arrangement: With Spouse Home Medications - Allergies Allergies/Adverse Reactions: Allergies Allergy/AdvReac Type Severity Reaction Status Date / Time iodine [Iodine] Allergy Unknown Verified 10/15/17 20:52 - Home Medications Home Medications: Ambulatory Orders Aspirin [ASA -] 81 mg PO DAILY 10/16/17 Budesonide [Pulmicort 0.5 mg Nebulizer -] 1 neb NEB BID 10/16/17 Cholecalciferol (Vitamin D3) [Vitamin D3 -] 5,000 unit PO DAILY 10/16/17 Escitalopram Oxalate [Lexapro -] 5 mg PO DAILY 10/16/17 Insulin (LOG) Aspart [NovoLOG -] 0 units SQ TID 10/16/17 Lisinopril 5 mg PO BID 10/16/17 Metoprolol Succinate 25 mg PO DAILY 10/16/17 Montelukast Na [Singulair -] 10 mg PO HS 10/16/17 Multivitamin/Iron/Folic Acid [Centrum Adults Tablet] 1 each PO DAILY 10/16/17 [place]-3 Fatty Acids [[place]-3] 1,000 mg PO DAILY 10/16/17 [place]-3S/Dha/Epa/Fish Oil [Fish Oil 1,200 mg Softgel] 1 each PO DAILY 10/16/17 Rosuvastatin [Crestor -] 20 mg PO HS 10/16/17 Sitagliptin Phosphate [Januvia] 50 mg PO DAILY 10/16/17 Tiotropium [place] [Spiriva] 1 inh PO DAILY 10/16/17 Family Disease History - Family Disease History Other Family History: not contributary Review of Systems Unable to obtain ROS, reason: unable Physical Exam Vital Signs: Vital Signs Temperature 99.2 F 10/23/17 14:00 Pulse Rate 88 10/23/17 14:00 Respiratory Rate 20 10/23/17 14:00 Blood Pressure 113/52 10/23/17 14:00 O2 Sat by Pulse Oximetry (%) 95 10/23/17 09:00 Constitutional: Yes: Calm, Mild Distress Eyes: Yes: Conjunctiva Clear HENT: Yes: Atraumatic, Normocephalic Neck: Yes: Supple, Trachea Midline Cardiovascular: Yes: Regular Rate and Rhythm Respiratory: Yes: On Nasal O2, Poor Air Entry (rt side), Rhonchi Gastrointestinal: Yes: Normal Bowel Sounds, Soft Musculoskeletal: Yes: WNL Extremities: Yes: WNL Neurological: Yes: Alert, Confusion Psychiatric: Yes: Alert, Other Labs: CBC, BMP 10/23/17 05:05 10/23/17 05:05 Imaging - Results Chest X-ray: Report Reviewed, Image Reviewed Ultrasound: Report Reviewed, Image Reviewed Assessment/Plan Assessment/Plan (1) Pneumonia with sepsis (2) Fracture, proximal femur Code(s): S72.009A - FRACTURE OF UNSP PART OF NECK OF UNSP FEMUR, INIT Qualifiers: Fracture type: closed Laterality: left (3) CKD stage 3 secondary to diabetes Code(s): E11.22 - TYPE 2 DIABETES MELLITUS W DIABETIC CHRONIC KIDNEY DISEASE; N18.3 - CHRONIC KIDNEY DISEASE, STAGE 3 (MODERATE) (4) Coronary arteriosclerosis after coronary artery bypass grafting Code(s): I25.810 - ATHEROSCLEROSIS OF CABG W/O ANGINA PECTORIS (5) Hypercholesteremia Code(s): E78.00 - PURE HYPERCHOLESTEROLEMIA, UNSPECIFIED (6) Uncontrolled diabetes mellitus Code(s): E11.65 - TYPE 2 DIABETES MELLITUS WITH HYPERGLYCEMIA (7) COPD (chronic obstructive pulmonary disease) Code(s): J44.9 - CHRONIC OBSTRUCTIVE PULMONARY DISEASE, UNSPECIFIED (8) Dementia Code(s): F03.90 - UNSPECIFIED DEMENTIA WITHOUT BEHAVIORAL DISTURBANCE (9) HIT (heparin-induced thrombocytopenia) Code(s): D75.82 - HEPARIN INDUCED THROMBOCYTOPENIA (HIT) (10) Hematuria -resolved plan plasencia tart patient on zosyn will monitor wbc await for rest of the results aspiration precautions rest as per the team
[2017-10-23] MEDS ORDERED: PIPERACILLIN/TAZOB 3.375 GM 50 ML IVPB SCH (16:00)
[2017-10-23] MEDS: SODIUM CHLORIDE 0.45% 1,000 ML IV SCH (17:13)
[2017-10-23] MEDS: PIPERACILLIN/TAZOB 3.375 GM 3.375 GM in DEXTROSE 5%-WATER - 100 ML IVPB SCH (17:14)
[2017-10-23] MEDS: HALOPERIDOL 1 MG TABLET (FP) PO PRN (18:06)
[2017-10-23] MEDS ORDERED: PT OWN MED DRAWER 7, Y5N ONE ×2 (18:52→22:00)
[2017-10-23] MEDS ORDERED: INSULIN DETEMIR 100 UNITS/ML MDV SQ ONE (18:53)
[2017-10-23] MEDS ORDERED: INSULIN (NOVOLOG) ASPART 100 UNITS/ML 10ML VIAL ONE (18:53)
[2017-10-23] MEDS: ROSUVASTATIN CA 20 MG TABLET (FP) PO SCH (21:57)
[2017-10-23] MEDS: SENNOSIDES 8.6MG TABLET (FP) PO SCH (21:57)
[2017-10-23] MEDS: LATANOPROST 0.005% OPHTH SOLN 2.5ML BOTTLE OU SCH (22:00)
[2017-10-24] MEDS ORDERED: PT OWN MED DRAWER 7, Y5N ONE ×4 (02:10→17:19)
[2017-10-24] MEDS: PIPERACILLIN/TAZOB 3.375 GM 3.375 GM in DEXTROSE 5%-WATER - 100 ML IVPB SCH ×3 (02:21→18:08)
[2017-10-24] MEDS: INSULIN SLIDING SCALE (NOVOLOG) 1 VIAL SQ SCH ×4 (06:06→22:00)
[2017-10-24] MEDS: INSULIN DETEMIR 100 UNITS/ML MDV SQ SCH ×3 (06:23→18:08)
[2017-10-24] MEDS: sitaGLIPtin PHOSPHATE 50 MG TABLET PO SCH (06:25)
[2017-10-24] MEDS: HALOPERIDOL 1 MG TABLET (FP) PO PRN ×2 (06:25→09:41)
[2017-10-24 06:54] LABS: HEMATOCRIT 26.6 % (35.4-49); HEMOGLOBIN 8.4 GM/dL (11.7-16.9); MCH 27.8 pg (25.7-33.7); MCHC 31.7 g/dl (32.0-35.9); MEAN CELL VOLUME 87.6 fl (80-96); MEAN PLT VOLUME 9.9 fl (7.5-11.1); PLATELET COUNT 171 K/MM3 (134-434); RBC 3.04 M/mm3 (4.00-5.60); RDW 16.1 % (11.9-15.9); WHITE BLOOD COUNT 9.5 K/mm3 (4.0-10.0)
[2017-10-24 07:21] LABS: ALBUMIN 2.1 g/dl (3.4-5.0); ANION GAP 7 (8-16); BILIRUBIN,TOTAL 1.4 mg/dL (0.2-1.0); BLOOD UREA NITROGEN 31 mg/dL (7-18); CALCIUM 7.1 mg/dL (8.5-10.1); CHLORIDE 110 mmol/L (98-107); CO2 29 mmol/L (21-32); CREATININE 1.4 mg/dL (0.7-1.3); GLUCOSE,RANDOM 108 mg/dL (74-106); POTASSIUM 3.7 mmol/L (3.5-5.1); SGOT/AST 70 U/L (15-37); SGPT/ALT 63 U/L (12-78); SODIUM 146 mmol/L (136-145); TOT PROT 4.9 g/dl (6.4-8.2)
[2017-10-24 07:22] LABS: ALK PHOS 90 U/L (45-117)
--- NOTE | 2017-10-24 09:06 | PN ---
Progress Note, Physician Chief Complaint: hip fracture History of Present Illness: very agitated/combative still at times per , no complaints of cp, palpit, sob currently sleepy but opens eyes to voice, not well oriented ex cigs - Current Medication List Current Medications: Active Medications Acetaminophen (Tylenol -) 650 mg PO Q6H PRN PRN Reason: PAIN Last Admin: 10/23/17 18:05 Dose: 650 mg Albuterol Sulfate (Ventolin Hfa Inhaler -) 1 puff IH Q8H PRN PRN Reason: SHORT OF BREATH/WHEEZING Apixaban (Eliquis -) 2.5 mg PO BID [facility] Last Admin: 10/23/17 21:57 Dose: 2.5 mg Cholecalciferol (Vitamin D3 -) 1,000 unit PO DAILY [facility] Last Admin: 10/23/17 10:37 Dose: 1,000 unit Docusate Sodium (Colace -) 200 mg PO DAILY [facility] Last Admin: 10/23/17 10:36 Dose: 200 mg Escitalopram Oxalate (Lexapro -) 5 mg PO DAILY [facility] Last Admin: 10/23/17 10:36 Dose: 5 mg Fentanyl (Sublimaze Injection -) 25 mcg IVPUSH [id number] PRN PRN Reason: PAIN-PACU ORDER X 4 DOSES ONLY Haloperidol (Haldol -) 2 mg PO TID PRN PRN Reason: AGITATION Last Admin: 10/24/17 06:25 Dose: 2 mg Sodium Chloride (1/2 Normal Saline) 1,000 mls @ 75 mls/hr IV ASDIR [facility] Last Admin: 10/23/17 17:13 Dose: Not Given Piperacillin Sod/Tazobactam (Sod 3.375 gm/ Dextrose) 100 mls @ 200 mls/hr IVPB Q8H-IV [facility] Last Admin: 10/24/17 02:21 Dose: 200 mls/hr Insulin Aspart (Novolog Vial Sliding Scale -) 1 vial SQ ACHS [facility] PRN Reason: Protocol Last Admin: 10/24/17 06:06 Dose: Not Given Insulin Detemir (Levemir Vial) 20 units SQ BIDI [facility] Last Admin: 10/24/17 07:38 Dose: 20 units Latanoprost (Xalatan 0.005% Eye Drops -) 1 drop OU HS [facility] Last Admin: 10/23/17 22:00 Dose: 1 drop Metoprolol Succinate (Toprol Xl -) 25 mg PO BID [facility] Last Admin: 10/23/17 21:58 Dose: 25 mg Montelukast Sodium (Singulair -) 10 mg PO DAILY [facility] Last Admin: 10/23/17 10:37 Dose: 10 mg Qzpta-0-Awjg Ethyl Esters (Lovaza -) 1 gm PO DAILY [facility] Last Admin: 10/23/17 10:37 Dose: 1 gm Ondansetron HCl (Zofran Injection) 4 mg IVPUSH Q6H PRN PRN Reason: NAUSEA Potassium Phos/Sodium Phos (Phos-Nak Packet -) 1 packet PO BID [facility] Last Admin: 10/23/17 21:57 Dose: 1 packet Rosuvastatin Calcium (Crestor -) 20 mg PO [facility] Last Admin: 10/23/17 21:57 Dose: 20 mg Senna (Senna -) 2 tab PO [facility] Last Admin: 10/23/17 21:57 Dose: 2 tab Sitagliptin Phosphate (Januvia -) 50 mg PO DAILY@0700 [facility] Last Admin: 10/24/17 06:25 Dose: 50 mg Tiotropium [place] (Spiriva -) 1 puff IH DAILY [facility] Last Admin: 10/23/17 10:37 Dose: 1 puff - Objective Vital Signs: Vital Signs Temperature 99.9 F H 10/24/17 06:50 Pulse Rate 91 H 10/24/17 06:50 Respiratory Rate 20 10/24/17 08:44 Blood Pressure 130/54 10/24/17 06:50 O2 Sat by Pulse Oximetry (%) 96 10/24/17 08:44 Constitutional: Yes: No Distress, Calm Eyes: No: Sclera Icterus HENT: No: Nasal Congestion Cardiovascular: Yes: Regular Rate and Rhythm, Murmur (2/6 early FILEMON lsub), S1, S2, Other (PMI non diplaced). No: JVD, Gallop Respiratory: Yes: CTA Bilaterally (anteriorly). No: Accessory Muscle Use Gastrointestinal: Yes: Normal Bowel Sounds, Soft. No: Tenderness Musculoskeletal: Yes: Other (No kyphosis) Extremities: No: Cold Edema: No Integumentary: No: Jaundice Neurological: Yes: Alert. No: Seizure Psychiatric: No: Agitated Labs: CBC, BMP 10/24/17 06:35 10/24/17 06:35 INR, PTT INR 1.12 (0.82-1.09) 10/19/17 21:00 - ....Imaging EKG: Other (tele: NSR mostly 90s. at times wide QRS c/w LBBB, usually rate- related (with clear sinus rhythm p waves at times)) Assessment/Plan cxr 10/23 images/report reviewed: persistent right base infiltrate with fluid/ atelectasis head ct: no acute pathology carotid u/s: extensive atherosclerotic disease without stenosis. Echo 11/12: nl LV/EF, nl RV, nl LA, no bioAVR dysfunction Assessment/Plan mechanical fall, hip frx: -tripped over chair in the dark -s/p ORIF 10/18 -started on low dose eliquis 10/22 for post-op dvt prophylaxis (known h/o HIT)-- per ortho, heme. postop hgb stable sinus tachycardia (with baseline LBBB)/PSVT/wide complex tach ? brief NSVT: -intermittent sinus tachy here being driven by confustion/agitation and now fever as well -also with frequent intermittent brief atrial runs/runs of svt -pain control, fever control/abx (ID consulted). -cont toprol 25 bid--low threshold to increase if need be, given bp's have been stable (asthma may not tolerate higher doses at home but ok while here) -10/24 tele: rate-related intermittent LBBB without suspicion of any sustained VT. at times atrial rate approx 120s, with similar RI interval as baseline-- likely sinus tach > SVT -cont K repletion as doing--target K >2, Mag >4 TYSON on CKD: -baseline creat 1.3-1.6 -suspect etiology vol depletion/hypoperfusion in setting of decr po/blood loss. ? SIMA exacerbating -creat bumped to 1.6 on 10/16, NS at 50 cc/hr started 1am on 10/16, creat peak to 2.1 --> IVF rate increased with improvement in cr (now back to baseline) -holding lisinopril. -on hypotonic IVF for hypernatremia--improving. per renal s/p AVR: -normal fxn on recent echo CAD s/p CABG: -preserved EF -no angina since -cont home meds (bb, statin), holding ASA while on AC HTN: - stable on toprol bid, monitor trend. dementia: -recently progressive -per pmd asthma/copd: -stable, no wheezing fever - eval/mgm't per pmd/ID
[2017-10-24] MEDS: MONTELUKAST NA 10 MG TABLET PO SCH (09:41)
[2017-10-24] MEDS: CHOLECALCIFEROL (VITAMIN D3) 1,000 UNIT TABLET (FP) PO SCH (09:41)
[2017-10-24] MEDS: APIXABAN 2.5 MG TABLET PO SCH ×2 (09:41→21:50)
[2017-10-24] MEDS: OMEGA-3 ACID ETHYL ESTERS (FATTY-ACIDS) 1 GM CAPSULE (FP) PO SCH (09:42)
[2017-10-24] MEDS: metoPROLOL SUCCINATE 25 MG TAB.SR.24H (FP) PO SCH ×2 (09:42→21:51)
[2017-10-24] MEDS: DOCUSATE SODIUM 100 MG CAPSULE (FP) PO SCH (09:42)
[2017-10-24] MEDS: ESCITALOPRAM OXALATE 10 MG TABLET (FP) PO SCH ×2 (09:42→09:57)
--- NOTE | 2017-10-24 09:51 | PN ---
Progress Note (short form) - Note Progress Note: Ortho Pt seen and examined s/p left IM gamma nail Selected Entries 10/24/17 06:50 Temperature 99.9 F H Pulse Rate 91 H Respiratory 20 Rate Blood Pressure 130/54 Laboratory Tests 10/24/17 06:35 WBC 9.5 Hgb 8.4 L Hct 26.6 L Plt Count 171 dressing saturated, incision with slight serous drainage, calf soft, nt nvi a/p dressing changed PT if able dvt ppx pain control d/c planning
[2017-10-24] MEDS: NAPH,MB-DB/K PH,MBDB POWDER PACKET PO SCH ×2 (09:56→21:51)
[2017-10-24] MEDS: TIOTROPIUM BROMIDE 18 MCG/INH (DEVICE W/ 5 CAPSULES) IH SCH (09:56)
[2017-10-24 10:31] LABS: ANISOCYTOSIS 1+; MACROCYTOSIS 0; PLATELET ESTIMATE NORMAL
--- NOTE | 2017-10-24 11:32 | PN ---
Progress Note, Physician Chief Complaint: Mr Calvillo says he is "getting there". at bedside saying he still becomes very agitated at night. - Current Medication List Current Medications: Active Medications Acetaminophen (Tylenol -) 650 mg PO Q6H PRN PRN Reason: PAIN Last Admin: 10/23/17 18:05 Dose: 650 mg Albuterol Sulfate (Ventolin Hfa Inhaler -) 1 puff IH Q8H PRN PRN Reason: SHORT OF BREATH/WHEEZING Apixaban (Eliquis -) 2.5 mg PO BID [facility] Last Admin: 10/24/17 09:41 Dose: 2.5 mg Cholecalciferol (Vitamin D3 -) 1,000 unit PO DAILY [facility] Last Admin: 10/24/17 09:41 Dose: 1,000 unit Docusate Sodium (Colace -) 200 mg PO DAILY [facility] Last Admin: 10/24/17 09:42 Dose: 200 mg Escitalopram Oxalate (Lexapro -) 5 mg PO DAILY [facility] Last Admin: 10/24/17 09:57 Dose: 5 mg Fentanyl (Sublimaze Injection -) 25 mcg IVPUSH [id number] PRN PRN Reason: PAIN-PACU ORDER X 4 DOSES ONLY Haloperidol (Haldol -) 2 mg PO TID PRN PRN Reason: AGITATION Last Admin: 10/24/17 09:41 Dose: 2 mg Sodium Chloride (1/2 Normal Saline) 1,000 mls @ 75 mls/hr IV ASDIR [facility] Last Admin: 10/23/17 17:13 Dose: Not Given Piperacillin Sod/Tazobactam (Sod 3.375 gm/ Dextrose) 100 mls @ 200 mls/hr IVPB Q8H-IV [facility] Last Admin: 10/24/17 09:59 Dose: 200 mls/hr Insulin Aspart (Novolog Vial Sliding Scale -) 1 vial SQ ACHS [facility] PRN Reason: Protocol Last Admin: 10/24/17 06:06 Dose: Not Given Insulin Detemir (Levemir Vial) 20 units SQ BIDI [facility] Last Admin: 10/24/17 07:38 Dose: 20 units Latanoprost (Xalatan 0.005% Eye Drops -) 1 drop OU HS [facility] Last Admin: 10/23/17 22:00 Dose: 1 drop Metoprolol Succinate (Toprol Xl -) 25 mg PO BID [facility] Last Admin: 10/24/17 09:42 Dose: 25 mg Montelukast Sodium (Singulair -) 10 mg PO DAILY [facility] Last Admin: 10/24/17 09:41 Dose: 10 mg Jbwpo-0-Qape Ethyl Esters (Lovaza -) 1 gm PO DAILY [facility] Last Admin: 10/24/17 09:42 Dose: 1 gm Ondansetron HCl (Zofran Injection) 4 mg IVPUSH Q6H PRN PRN Reason: NAUSEA Potassium Phos/Sodium Phos (Phos-Nak Packet -) 1 packet PO BID [facility] Last Admin: 10/24/17 09:56 Dose: 1 packet Rosuvastatin Calcium (Crestor -) 20 mg PO [facility] Last Admin: 10/23/17 21:57 Dose: 20 mg Senna (Senna -) 2 tab PO [facility] Last Admin: 10/23/17 21:57 Dose: 2 tab Sitagliptin Phosphate (Januvia -) 50 mg PO DAILY@0700 [facility] Last Admin: 10/24/17 06:25 Dose: 50 mg Tiotropium [place] (Spiriva -) 1 puff IH DAILY [facility] Last Admin: 10/24/17 09:56 Dose: 1 puff - Objective Vital Signs: Vital Signs Temperature 36.8 C 10/24/17 10:00 Pulse Rate 99 H 10/24/17 10:00 Respiratory Rate 20 10/24/17 10:00 Blood Pressure 132/51 10/24/17 10:00 O2 Sat by Pulse Oximetry (%) 96 10/24/17 08:44 Constitutional: Yes: Well Nourished, No Distress, Calm Cardiovascular: Yes: Regular Rate and Rhythm. No: Gallop, Murmur, Rub Respiratory: Yes: Regular, Rhonchi (RLL). No: Rales, Wheezes Gastrointestinal: Yes: Normal Bowel Sounds, Soft. No: Distention, Tenderness Extremities: Yes: WNL Edema: No Labs: CBC, BMP 10/24/17 06:35 10/24/17 06:35 INR, PTT INR 1.12 (0.82-1.09) 10/19/17 21:00 - ....Imaging Chest X-ray: Report Reviewed, Image Reviewed Problem List - Problems (1) Pneumonia Code(s): J18.9 - PNEUMONIA, UNSPECIFIED ORGANISM (2) Sepsis Code(s): A41.9 - SEPSIS, UNSPECIFIED ORGANISM (3) Fracture, proximal femur Code(s): S72.009A - FRACTURE OF UNSP PART OF NECK OF UNSP FEMUR, INIT Qualifiers: Fracture type: closed Laterality: left (4) CKD stage 3 secondary to diabetes Code(s): E11.22 - TYPE 2 DIABETES MELLITUS W DIABETIC CHRONIC KIDNEY DISEASE; N18.3 - CHRONIC KIDNEY DISEASE, STAGE 3 (MODERATE) (5) Coronary arteriosclerosis after coronary artery bypass grafting Code(s): I25.810 - ATHEROSCLEROSIS OF CABG W/O ANGINA PECTORIS (6) Hypercholesteremia Code(s): E78.00 - PURE HYPERCHOLESTEROLEMIA, UNSPECIFIED (7) Uncontrolled diabetes mellitus Code(s): E11.65 - TYPE 2 DIABETES MELLITUS WITH HYPERGLYCEMIA (8) COPD (chronic obstructive pulmonary disease) Code(s): J44.9 - CHRONIC OBSTRUCTIVE PULMONARY DISEASE, UNSPECIFIED (9) Dementia Code(s): F03.90 - UNSPECIFIED DEMENTIA WITHOUT BEHAVIORAL DISTURBANCE (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) Code(s): D75.82 - HEPARIN INDUCED THROMBOCYTOPENIA (HIT) Assessment/Plan (1) Pneumonia with sepsis -patient with fever and leukocytosis -chest x-ray showing effusion and infiltrate, possible atelectasis -case d/w ID -continue zosyn -monitor for improvement (2) Fracture, proximal femur Assessment/Plan: -s/p repair -continue PT Code(s): S72.009A - FRACTURE OF UNSP PART OF NECK OF UNSP FEMUR, INIT Qualifiers: Fracture type: closed Laterality: left (3) CKD stage 3 secondary to diabetes Assessment/Plan: -renal function stable -continue IVF currently -nephrology to see and defer cessation of IVF to their discretion Code(s): E11.22 - TYPE 2 DIABETES MELLITUS W DIABETIC CHRONIC KIDNEY DISEASE; N18.3 - CHRONIC KIDNEY DISEASE, STAGE 3 (MODERATE) (4) Coronary arteriosclerosis after coronary artery bypass grafting Assessment/Plan: -cardiology following -holding aspirin while on AC -continue statin and toprol xl Code(s): I25.810 - ATHEROSCLEROSIS OF CABG W/O ANGINA PECTORIS (5) Hypercholesteremia Assessment/Plan: -continue statin Code(s): E78.00 - PURE HYPERCHOLESTEROLEMIA, UNSPECIFIED (6) Uncontrolled diabetes mellitus Assessment/Plan: -well controlled -continue levemir 20 units bid -maintain glucose levels below 180 Code(s): E11.65 - TYPE 2 DIABETES MELLITUS WITH HYPERGLYCEMIA (7) COPD (chronic obstructive pulmonary disease) Assessment/Plan: -not in exacerbation -continue current management Code(s): J44.9 - CHRONIC OBSTRUCTIVE PULMONARY DISEASE, UNSPECIFIED (8) Dementia Assessment/Plan: -appreciate neurology assistance -aspect of sunding -however may be getting hypoxic at night -check oxygen at night -continue prn haldol Code(s): F03.90 - UNSPECIFIED DEMENTIA WITHOUT BEHAVIORAL DISTURBANCE (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
[2017-10-24] MEDS ORDERED: INSULIN (NOVOLOG) ASPART 100 UNITS/ML 10ML VIAL ONE (14:42)
[2017-10-24] MEDS: SODIUM CHLORIDE 0.45% 1,000 ML IV SCH (18:07)
[2017-10-24] MEDS: SENNOSIDES 8.6MG TABLET (FP) PO SCH (21:47)
[2017-10-24] MEDS: ROSUVASTATIN CA 20 MG TABLET (FP) PO SCH (21:50)
[2017-10-24] MEDS: LATANOPROST 0.005% OPHTH SOLN 2.5ML BOTTLE OU SCH (21:55)
[2017-10-25] MEDS ORDERED: PT OWN MED DRAWER 7, Y5N ONE ×4 (02:42→21:10)
[2017-10-25] MEDS: PIPERACILLIN/TAZOB 3.375 GM 3.375 GM in DEXTROSE 5%-WATER - 100 ML IVPB SCH ×3 (02:49→17:02)
[2017-10-25] MEDS: sitaGLIPtin PHOSPHATE 50 MG TABLET PO SCH (06:28)
[2017-10-25] MEDS: INSULIN DETEMIR 100 UNITS/ML MDV SQ SCH ×2 (06:28→21:56)
[2017-10-25] MEDS: INSULIN SLIDING SCALE (NOVOLOG) 1 VIAL SQ SCH ×4 (06:28→21:56)
[2017-10-25 07:28] LABS: ANION GAP 9 (8-16); BLOOD UREA NITROGEN 24 mg/dL (7-18); CALCIUM 7.1 mg/dL (8.5-10.1); CHLORIDE 110 mmol/L (98-107); CO2 27 mmol/L (21-32); MAGNESIUM 2.2 mg/dL (1.8-2.4); PHOSPHOROUS 3.5 mg/dL (2.5-4.9); POTASSIUM 3.3 mmol/L (3.5-5.1); SODIUM 146 mmol/L (136-145)
[2017-10-25 07:30] LABS: CREATININE 1.1 mg/dL (0.7-1.3)
[2017-10-25 07:45] LABS: HEMATOCRIT 26.8 % (35.4-49); HEMOGLOBIN 8.6 GM/dL (11.7-16.9); MCH 27.8 pg (25.7-33.7); MCHC 32.1 g/dl (32.0-35.9); MEAN CELL VOLUME 86.7 fl (80-96); MEAN PLT VOLUME 9.5 fl (7.5-11.1); PLATELET COUNT 203 K/MM3 (134-434); RBC 3.09 M/mm3 (4.00-5.60); WHITE BLOOD COUNT 9.6 K/mm3 (4.0-10.0)
[2017-10-25 07:55] LABS: GLUCOSE,RANDOM 35 mg/dL (74-106)
[2017-10-25] MEDS: OMEGA-3 ACID ETHYL ESTERS (FATTY-ACIDS) 1 GM CAPSULE (FP) PO SCH (09:12)
[2017-10-25] MEDS: DOCUSATE SODIUM 100 MG CAPSULE (FP) PO SCH (09:12)
[2017-10-25] MEDS: ESCITALOPRAM OXALATE 10 MG TABLET (FP) PO SCH (09:12)
[2017-10-25] MEDS: TIOTROPIUM BROMIDE 18 MCG/INH (DEVICE W/ 5 CAPSULES) IH SCH (09:13)
[2017-10-25] MEDS: CHOLECALCIFEROL (VITAMIN D3) 1,000 UNIT TABLET (FP) PO SCH (09:13)
[2017-10-25] MEDS: MONTELUKAST NA 10 MG TABLET PO SCH (09:13)
[2017-10-25] MEDS: NAPH,MB-DB/K PH,MBDB POWDER PACKET PO SCH ×2 (09:13→22:00)
[2017-10-25] MEDS: APIXABAN 2.5 MG TABLET PO SCH ×2 (09:13→21:59)
[2017-10-25] MEDS: metoPROLOL SUCCINATE 25 MG TAB.SR.24H (FP) PO SCH ×2 (09:13→21:57)
--- NOTE | 2017-10-25 11:30 | PN ---
Progress Note (short form) - Note Progress Note: Chief Complaint: hip fracture History of Present Illness: according to , still with . remains on IVF but according to is eating slightly more. HR's trending down. remains afebrile. patient alert and conversational, no complaints of cp, palpit, sob, dizziness. endorses some mild abdominal discomfort after eating. no pain. tele d/c yesterday. ex cigs Current Medications Acetaminophen (Tylenol -) 650 mg PO Q6H PRN PRN Reason: PAIN Last Admin: 10/23/17 18:05 Dose: 650 mg Albuterol Sulfate (Ventolin Hfa Inhaler -) 1 puff IH Q8H PRN PRN Reason: SHORT OF BREATH/WHEEZING Apixaban (Eliquis -) 2.5 mg PO BID [facility] Last Admin: 10/25/17 09:13 Dose: 2.5 mg Cholecalciferol (Vitamin D3 -) 1,000 unit PO DAILY [facility] Last Admin: 10/25/17 09:13 Dose: 1,000 unit Docusate Sodium (Colace -) 200 mg PO DAILY [facility] Last Admin: 10/25/17 09:12 Dose: 200 mg Escitalopram Oxalate (Lexapro -) 5 mg PO DAILY [facility] Last Admin: 10/25/17 09:12 Dose: 5 mg Fentanyl (Sublimaze Injection -) 25 mcg IVPUSH [id number] PRN PRN Reason: PAIN-PACU ORDER X 4 DOSES ONLY Haloperidol (Haldol -) 2 mg PO TID PRN PRN Reason: AGITATION Last Admin: 10/24/17 09:41 Dose: 2 mg Sodium Chloride (1/2 Normal Saline) 1,000 mls @ 75 mls/hr IV ASDIR [facility] Last Admin: 10/24/17 18:07 Dose: 75 mls/hr Piperacillin Sod/Tazobactam (Sod 3.375 gm/ Dextrose) 100 mls @ 200 mls/hr IVPB Q8H-IV [facility] Last Admin: 10/25/17 09:12 Dose: 200 mls/hr Insulin Aspart (Novolog Vial Sliding Scale -) 1 vial SQ ACHS [facility] PRN Reason: Protocol Last Admin: 10/25/17 06:28 Dose: Not Given Insulin Detemir (Levemir Vial) 10 units SQ [facility] Insulin Detemir (Levemir Vial) 15 units SQ AM [facility] Latanoprost (Xalatan 0.005% Eye Drops -) 1 drop OU HS [facility] Last Admin: 10/24/17 21:55 Dose: 1 drop Metoprolol Succinate (Toprol Xl -) 25 mg PO BID [facility] Last Admin: 10/25/17 09:13 Dose: 25 mg Montelukast Sodium (Singulair -) 10 mg PO DAILY [facility] Last Admin: 10/25/17 09:13 Dose: 10 mg Aawih-2-Vkvi Ethyl Esters (Lovaza -) 1 gm PO DAILY [facility] Last Admin: 10/25/17 09:12 Dose: 1 gm Ondansetron HCl (Zofran Injection) 4 mg IVPUSH Q6H PRN PRN Reason: NAUSEA Potassium Phos/Sodium Phos (Phos-Nak Packet -) 1 packet PO BID [facility] Last Admin: 10/25/17 09:13 Dose: 1 packet Rosuvastatin Calcium (Crestor -) 20 mg PO [facility] Last Admin: 10/24/17 21:50 Dose: 20 mg Senna (Senna -) 2 tab PO [facility] Last Admin: 10/24/17 21:47 Dose: Not Given Sitagliptin Phosphate (Januvia -) 50 mg PO DAILY@0700 [facility] Last Admin: 10/25/17 06:28 Dose: Not Given Tiotropium [place] (Spiriva -) 1 puff IH DAILY [facility] Last Admin: 10/25/17 09:13 Dose: 1 puff - Objective Vital Signs: Vital Signs - 24 hr 10/24/17 10/24/17 10/24/17 14:05 18:00 21:00 Temperature 98 F 97.4 F L Pulse Rate 89 82 Respiratory 20 20 Rate Blood Pressure 134/56 124/68 O2 Sat by Pulse 95 Oximetry (%) 10/24/17 10/25/17 10/25/17 22:00 06:00 09:00 Temperature 98.6 F Pulse Rate 82 84 Respiratory 20 20 Rate Blood Pressure 131/60 135/62 O2 Sat by Pulse 97 Oximetry (%) 10/25/17 10:00 Temperature 98.2 F Pulse Rate 78 Respiratory 18 Rate Blood Pressure 137/74 O2 Sat by Pulse Oximetry (%) Intake & Output 10/23/17 10/24/17 10/25/17 10/26/17 07:59 07:59 07:59 07:59 Intake Total 2350 2000 850 Output Total 425 500 Balance 1925 1500 850 Constitutional: Yes: Well Nourished, No Distress, Calm Eyes: No: Sclera Icterus HENT: No: Nasal Congestion Cardiovascular: Yes: Regular Rate and Rhythm, Murmur (soft (2/6) FILEMON lusb). No : JVD, Gallop Respiratory: Yes: Regular, trace bibasilar rales/dimished air mov't, nl effort. Gastrointestinal: Yes: Normal Bowel Sounds, Soft. No: Tenderness Extremities: + dp/pt No: Cold Edema: No Integumentary: No: Jaundice, diaphoresis Neurological: Alert but not oriented Psychiatric: No: Agitated Labs: CBC, BMP 10/25/17 05:05 10/25/17 05:05 Laboratory Tests 10/25/17 05:05 Magnesium 2.2 - ....Imaging EKG: Other (prior tele: NSR mostly 90s. at times wide QRS c/w LBBB, usually rate -related (with clear sinus rhythm p waves at times)) Assessment/Plan cxr 10/23 images/report reviewed: persistent right base infiltrate with fluid/ atelectasis head ct: no acute pathology carotid u/s: extensive atherosclerotic disease without stenosis. Echo 11/12: nl LV/EF, nl RV, nl LA, no bioAVR dysfunction Assessment/Plan mechanical fall, hip frx: -tripped over chair in the dark -s/p ORIF 10/18 -started on low dose eliquis 10/22 for post-op dvt prophylaxis (known h/o HIT)-- per ortho, heme. postop hgb stable sinus tachycardia (with baseline LBBB)/PSVT/wide complex tach ? brief NSVT: -intermittent sinus tachy here being driven by confustion/agitation and now fever as well -also with frequent intermittent brief atrial runs/runs of svt -pain control, fever control/abx (ID consulted). -cont toprol 25 bid--low threshold to increase if need be, given bp's have been stable (asthma may not tolerate higher doses at home but ok while here) -10/24 tele: rate-related intermittent LBBB without suspicion of any sustained VT. at times atrial rate approx 120s, with similar [place] interval as baseline-- likely sinus tach > SVT - 10/25: now off tele, Hr trend overall improved. - cont K repletion as doing--target K >2, Mag >4 TYSON on CKD: -baseline creat 1.3-1.6 -suspect etiology vol depletion/hypoperfusion in setting of decr po/blood loss. ? SIMA exacerbating -creat bumped to 1.6 on 10/16, NS at 50 cc/hr started 1am on 10/16, creat peak to 2.1 --> IVF rate increased with improvement in cr (now back to baseline) -holding lisinopril. -on hypotonic IVF for hypernatremia--stable/improving. per renal s/p AVR: -normal fxn on recent echo CAD s/p CABG: -preserved EF -no angina since -cont home meds (bb, statin, lovaza), holding ASA while on AC HTN: - stable on toprol bid dementia: -recently progressive -per pmd asthma/copd: -stable, no wheezing fever - eval/mgm't per pmd/ID. currently afebrile.
[2017-10-25 11:38] LABS: PLATELET ESTIMATE NORMAL
[2017-10-25] MEDS ORDERED: POTASSIUM CHLORIDE TABS 20 MEQ TABLET.ER (FP) PO ONE (11:45)
[2017-10-25] MEDS: POTASSIUM CHLORIDE 10 MEQ in SODIUM CHLORIDE 100 ML IVPB SCH ×3 (12:08→13:49)
--- NOTE | 2017-10-25 13:30 | PN ---
Progress Note, Physician History of Present Illness: continues to improve breathing much better night agitation still present - Current Medication List Current Medications: Active Medications Acetaminophen (Tylenol -) 650 mg PO Q6H PRN PRN Reason: PAIN Last Admin: 10/23/17 18:05 Dose: 650 mg Albuterol Sulfate (Ventolin Hfa Inhaler -) 1 puff IH Q8H PRN PRN Reason: SHORT OF BREATH/WHEEZING Apixaban (Eliquis -) 2.5 mg PO BID [facility] Last Admin: 10/25/17 09:13 Dose: 2.5 mg Cholecalciferol (Vitamin D3 -) 1,000 unit PO DAILY [facility] Last Admin: 10/25/17 09:13 Dose: 1,000 unit Docusate Sodium (Colace -) 200 mg PO DAILY [facility] Last Admin: 10/25/17 09:12 Dose: 200 mg Escitalopram Oxalate (Lexapro -) 5 mg PO DAILY [facility] Last Admin: 10/25/17 09:12 Dose: 5 mg Fentanyl (Sublimaze Injection -) 25 mcg IVPUSH [id number] PRN PRN Reason: PAIN-PACU ORDER X 4 DOSES ONLY Haloperidol (Haldol -) 2 mg PO TID PRN PRN Reason: AGITATION Last Admin: 10/24/17 09:41 Dose: 2 mg Piperacillin Sod/Tazobactam (Sod 3.375 gm/ Dextrose) 100 mls @ 200 mls/hr IVPB Q8H-IV [facility] Last Admin: 10/25/17 09:12 Dose: 200 mls/hr Potassium Chloride 10 meq/ (Sodium Chloride) 105 mls @ 100 mls/hr IVPB Q60M [facility] Stop: 10/25/17 14:59 Last Admin: 10/25/17 12:53 Dose: 100 mls/hr Amino Acids (Clinimix -) 1,000 mls @ 42 mls/hr IV Q24H [facility] Insulin Aspart (Novolog Vial Sliding Scale -) 1 vial SQ ACHS [facility] PRN Reason: Protocol Last Admin: 10/25/17 11:28 Dose: Not Given Insulin Detemir (Levemir Vial) 10 units SQ HS [facility] Insulin Detemir (Levemir Vial) 15 units SQ AM [facility] Latanoprost (Xalatan 0.005% Eye Drops -) 1 drop OU HS [facility] Last Admin: 10/24/17 21:55 Dose: 1 drop Metoprolol Succinate (Toprol Xl -) 25 mg PO BID [facility] Last Admin: 10/25/17 09:13 Dose: 25 mg Montelukast Sodium (Singulair -) 10 mg PO DAILY [facility] Last Admin: 10/25/17 09:13 Dose: 10 mg Keksn-2-Gbeo Ethyl Esters (Lovaza -) 1 gm PO DAILY [facility] Last Admin: 10/25/17 09:12 Dose: 1 gm Ondansetron HCl (Zofran Injection) 4 mg IVPUSH Q6H PRN PRN Reason: NAUSEA Potassium Phos/Sodium Phos (Phos-Nak Packet -) 1 packet PO BID [facility] Last Admin: 10/25/17 09:13 Dose: 1 packet Rosuvastatin Calcium (Crestor -) 20 mg PO [facility] Last Admin: 10/24/17 21:50 Dose: 20 mg Senna (Senna -) 2 tab PO [facility] Last Admin: 10/24/17 21:47 Dose: Not Given Sitagliptin Phosphate (Januvia -) 50 mg PO DAILY@0700 [facility] Last Admin: 10/25/17 06:28 Dose: Not Given Tiotropium [place] (Spiriva -) 1 puff IH DAILY [facility] Last Admin: 10/25/17 09:13 Dose: 1 puff - Objective Vital Signs: Vital Signs Temperature 98.2 F 10/25/17 10:00 Pulse Rate 78 10/25/17 10:00 Respiratory Rate 18 10/25/17 10:00 Blood Pressure 137/74 10/25/17 10:00 O2 Sat by Pulse Oximetry (%) 97 10/25/17 09:00 Constitutional: Yes: No Distress, Calm Cardiovascular: Yes: Regular Rate and Rhythm Respiratory: Yes: Regular, Poor Air Entry Gastrointestinal: Yes: Normal Bowel Sounds, Soft Musculoskeletal: Yes: WNL Extremities: Yes: Other Neurological: Yes: Alert, Other Labs: CBC, BMP 10/25/17 05:05 10/25/17 05:05 INR, PTT INR 1.12 (0.82-1.09) 10/19/17 21:00 Assessment/Plan Assessment/Plan (1) Pneumonia with sepsis (2) Fracture, proximal femur Code(s): S72.009A - FRACTURE OF UNSP PART OF NECK OF UNSP FEMUR, INIT Qualifiers: Fracture type: closed Laterality: left (3) CKD stage 3 secondary to diabetes Code(s): E11.22 - TYPE 2 DIABETES MELLITUS W DIABETIC CHRONIC KIDNEY DISEASE; N18.3 - CHRONIC KIDNEY DISEASE, STAGE 3 (MODERATE) (4) Coronary arteriosclerosis after coronary artery bypass grafting Code(s): I25.810 - ATHEROSCLEROSIS OF CABG W/O ANGINA PECTORIS (5) Hypercholesteremia Code(s): E78.00 - PURE HYPERCHOLESTEROLEMIA, UNSPECIFIED (6) Uncontrolled diabetes mellitus Code(s): E11.65 - TYPE 2 DIABETES MELLITUS WITH HYPERGLYCEMIA (7) COPD (chronic obstructive pulmonary disease) Code(s): J44.9 - CHRONIC OBSTRUCTIVE PULMONARY DISEASE, UNSPECIFIED (8) Dementia Code(s): F03.90 - UNSPECIFIED DEMENTIA WITHOUT BEHAVIORAL DISTURBANCE (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
[2017-10-25] MEDS: ACETAMINOPHEN 325 MG TABLET (FP) PO PRN (13:54)
--- NOTE | 2017-10-25 13:57 | PN ---
Progress Note, Physician Chief Complaint: Mr Calvillo says he is doing well. Very pleasant, cannot elicit complaints. says he continues to become agitated at night. - Current Medication List Current Medications: Active Medications Acetaminophen (Tylenol -) 650 mg PO Q6H PRN PRN Reason: PAIN Last Admin: 10/23/17 18:05 Dose: 650 mg Albuterol Sulfate (Ventolin Hfa Inhaler -) 1 puff IH Q8H PRN PRN Reason: SHORT OF BREATH/WHEEZING Apixaban (Eliquis -) 2.5 mg PO BID [facility] Last Admin: 10/25/17 09:13 Dose: 2.5 mg Cholecalciferol (Vitamin D3 -) 1,000 unit PO DAILY [facility] Last Admin: 10/25/17 09:13 Dose: 1,000 unit Docusate Sodium (Colace -) 200 mg PO DAILY [facility] Last Admin: 10/25/17 09:12 Dose: 200 mg Escitalopram Oxalate (Lexapro -) 5 mg PO DAILY [facility] Last Admin: 10/25/17 09:12 Dose: 5 mg Fentanyl (Sublimaze Injection -) 25 mcg IVPUSH [id number] PRN PRN Reason: PAIN-PACU ORDER X 4 DOSES ONLY Haloperidol (Haldol -) 2 mg PO TID PRN PRN Reason: AGITATION Last Admin: 10/24/17 09:41 Dose: 2 mg Piperacillin Sod/Tazobactam (Sod 3.375 gm/ Dextrose) 100 mls @ 200 mls/hr IVPB Q8H-IV [facility] Last Admin: 10/25/17 09:12 Dose: 200 mls/hr Potassium Chloride 10 meq/ (Sodium Chloride) 105 mls @ 100 mls/hr IVPB Q60M [facility] Stop: 10/25/17 14:59 Last Admin: 10/25/17 13:49 Dose: 100 mls/hr Amino Acids (Clinimix -) 1,000 mls @ 42 mls/hr IV Q24H [facility] Insulin Aspart (Novolog Vial Sliding Scale -) 1 vial SQ ACHS [facility] PRN Reason: Protocol Last Admin: 10/25/17 11:28 Dose: Not Given Insulin Detemir (Levemir Vial) 10 units SQ HS [facility] Insulin Detemir (Levemir Vial) 15 units SQ AM [facility] Latanoprost (Xalatan 0.005% Eye Drops -) 1 drop OU [facility] Last Admin: 10/24/17 21:55 Dose: 1 drop Metoprolol Succinate (Toprol Xl -) 25 mg PO BID [facility] Last Admin: 10/25/17 09:13 Dose: 25 mg Montelukast Sodium (Singulair -) 10 mg PO DAILY [facility] Last Admin: 10/25/17 09:13 Dose: 10 mg Fuhcy-4-Pcoe Ethyl Esters (Lovaza -) 1 gm PO DAILY [facility] Last Admin: 10/25/17 09:12 Dose: 1 gm Ondansetron HCl (Zofran Injection) 4 mg IVPUSH Q6H PRN PRN Reason: NAUSEA Potassium Phos/Sodium Phos (Phos-Nak Packet -) 1 packet PO BID [facility] Last Admin: 10/25/17 09:13 Dose: 1 packet Rosuvastatin Calcium (Crestor -) 20 mg PO [facility] Last Admin: 10/24/17 21:50 Dose: 20 mg Senna (Senna -) 2 tab PO [facility] Last Admin: 10/24/17 21:47 Dose: Not Given Sitagliptin Phosphate (Januvia -) 50 mg PO DAILY@0700 [facility] Last Admin: 10/25/17 06:28 Dose: Not Given Tiotropium [place] (Spiriva -) 1 puff IH DAILY [facility] Last Admin: 10/25/17 09:13 Dose: 1 puff - Objective Vital Signs: Vital Signs Temperature 36.8 C 10/25/17 10:00 Pulse Rate 78 10/25/17 10:00 Respiratory Rate 18 10/25/17 10:00 Blood Pressure 137/74 10/25/17 10:00 O2 Sat by Pulse Oximetry (%) 97 10/25/17 09:00 Constitutional: Yes: Well Nourished, No Distress, Calm Cardiovascular: Yes: Regular Rate and Rhythm. No: Gallop, Murmur, Rub Respiratory: Yes: Regular, On Nasal O2, Rhonchi (right base). No: CTA Bilaterally, Rales, Wheezes Gastrointestinal: Yes: Normal Bowel Sounds, Soft. No: Distention, Tenderness Extremities: Yes: WNL Edema: No Labs: CBC, BMP 10/25/17 05:05 10/25/17 05:05 INR, PTT INR 1.12 (0.82-1.09) 10/19/17 21:00 Problem List - Problems (1) Pneumonia Code(s): J18.9 - PNEUMONIA, UNSPECIFIED ORGANISM (2) Sepsis Code(s): A41.9 - SEPSIS, UNSPECIFIED ORGANISM (3) Fracture, proximal femur Code(s): S72.009A - FRACTURE OF UNSP PART OF NECK OF UNSP FEMUR, INIT Qualifiers: Fracture type: closed Laterality: left (4) CKD stage 3 secondary to diabetes Code(s): E11.22 - TYPE 2 DIABETES MELLITUS W DIABETIC CHRONIC KIDNEY DISEASE; N18.3 - CHRONIC KIDNEY DISEASE, STAGE 3 (MODERATE) (5) Coronary arteriosclerosis after coronary artery bypass grafting Code(s): I25.810 - ATHEROSCLEROSIS OF CABG W/O ANGINA PECTORIS (6) Hypercholesteremia Code(s): E78.00 - PURE HYPERCHOLESTEROLEMIA, UNSPECIFIED (7) Uncontrolled diabetes mellitus Code(s): E11.65 - TYPE 2 DIABETES MELLITUS WITH HYPERGLYCEMIA (8) COPD (chronic obstructive pulmonary disease) Code(s): J44.9 - CHRONIC OBSTRUCTIVE PULMONARY DISEASE, UNSPECIFIED (9) Dementia Code(s): F03.90 - UNSPECIFIED DEMENTIA WITHOUT BEHAVIORAL DISTURBANCE (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) Code(s): D75.82 - HEPARIN INDUCED THROMBOCYTOPENIA (HIT) Assessment/Plan (1) Pneumonia with sepsis -appreciate ID assistance -continue zosyn -currently afebrile and leukocytosis resolved (2) Fracture, proximal femur Assessment/Plan: -s/p repair -continue PT Code(s): S72.009A - FRACTURE OF UNSP PART OF NECK OF UNSP FEMUR, INIT Qualifiers: Fracture type: closed Laterality: left (3) CKD stage 3 secondary to diabetes Assessment/Plan: -renal function stable -IVF stopped, now on clinimix Code(s): E11.22 - TYPE 2 DIABETES MELLITUS W DIABETIC CHRONIC KIDNEY DISEASE; N18.3 - CHRONIC KIDNEY DISEASE, STAGE 3 (MODERATE) (4) Coronary arteriosclerosis after coronary artery bypass grafting Assessment/Plan: -cardiology following -holding aspirin while on AC -continue statin and toprol xl Code(s): I25.810 - ATHEROSCLEROSIS OF CABG W/O ANGINA PECTORIS (5) Hypercholesteremia Assessment/Plan: -continue statin Code(s): E78.00 - PURE HYPERCHOLESTEROLEMIA, UNSPECIFIED (6) Uncontrolled diabetes mellitus Assessment/Plan: -episodes of hypoglycemia -started on clinimix -decrease levemir Code(s): E11.65 - TYPE 2 DIABETES MELLITUS WITH HYPERGLYCEMIA (7) COPD (chronic obstructive pulmonary disease) Assessment/Plan: -not in exacerbation -continue current management Code(s): J44.9 - CHRONIC OBSTRUCTIVE PULMONARY DISEASE, UNSPECIFIED (8) Dementia Assessment/Plan: -will request second opinion per patient's request -also consult psychiatry -follow up evaluations Code(s): F03.90 - UNSPECIFIED DEMENTIA WITHOUT BEHAVIORAL DISTURBANCE (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
[2017-10-25] MEDS: AMINO ACIDS 4.25%/D5W 1,000 ML IV SCH (13:58)
--- NOTE | 2017-10-25 15:53 | PN ---
Progress Note (short form) - Note Progress Note: Renal follow up for TYSON on CKD Pt seen and examined at the bedside at the bedside oral intake is improving making urine on IVF no acute complaints Vital Signs Temperature 98.2 F 10/25/17 10:00 Pulse Rate 78 10/25/17 10:00 Respiratory Rate 18 10/25/17 10:00 Blood Pressure 137/74 10/25/17 10:00 O2 Sat by Pulse Oximetry (%) 97 10/25/17 09:00 Intake & Output 10/22/17 10/23/17 10/24/17 10/25/17 23:59 23:59 23:59 23:59 Intake Total 1860 2110 1850 400 Output Total 300 625 Balance 1560 1485 1850 400 NAD alert RRR No LE edema lambert removed CBC, BMP 10/25/17 05:05 10/25/17 05:05 Laboratory Tests 10/25/17 05:05 Calcium 7.1 L Phosphorus 3.5 Magnesium 2.2 Current Medications Acetaminophen (Tylenol -) 650 mg PO Q6H PRN PRN Reason: PAIN Last Admin: 10/25/17 13:54 Dose: 650 mg Albuterol Sulfate (Ventolin Hfa Inhaler -) 1 puff IH Q8H PRN PRN Reason: SHORT OF BREATH/WHEEZING Apixaban (Eliquis -) 2.5 mg PO BID [facility] Last Admin: 10/25/17 09:13 Dose: 2.5 mg Cholecalciferol (Vitamin D3 -) 1,000 unit PO DAILY [facility] Last Admin: 10/25/17 09:13 Dose: 1,000 unit Docusate Sodium (Colace -) 200 mg PO DAILY [facility] Last Admin: 10/25/17 09:12 Dose: 200 mg Escitalopram Oxalate (Lexapro -) 5 mg PO DAILY [facility] Last Admin: 10/25/17 09:12 Dose: 5 mg Fentanyl (Sublimaze Injection -) 25 mcg IVPUSH [id number] PRN PRN Reason: PAIN-PACU ORDER X 4 DOSES ONLY Haloperidol (Haldol -) 2 mg PO TID PRN PRN Reason: AGITATION Last Admin: 10/24/17 09:41 Dose: 2 mg Piperacillin Sod/Tazobactam (Sod 3.375 gm/ Dextrose) 100 mls @ 200 mls/hr IVPB Q8H-IV [facility] Last Admin: 10/25/17 09:12 Dose: 200 mls/hr Amino Acids (Clinimix -) 1,000 mls @ 42 mls/hr IV Q24H [facility] Last Admin: 10/25/17 13:58 Dose: 42 mls/hr Insulin Aspart (Novolog Vial Sliding Scale -) 1 vial SQ ACHS [facility] PRN Reason: Protocol Last Admin: 10/25/17 11:28 Dose: Not Given Insulin Detemir (Levemir Vial) 10 units SQ HS [facility] Insulin Detemir (Levemir Vial) 15 units SQ AM [facility] Latanoprost (Xalatan 0.005% Eye Drops -) 1 drop OU HS [facility] Last Admin: 10/24/17 21:55 Dose: 1 drop Metoprolol Succinate (Toprol Xl -) 25 mg PO BID [facility] Last Admin: 10/25/17 09:13 Dose: 25 mg Montelukast Sodium (Singulair -) 10 mg PO DAILY [facility] Last Admin: 10/25/17 09:13 Dose: 10 mg Rkwwg-1-Matr Ethyl Esters (Lovaza -) 1 gm PO DAILY [facility] Last Admin: 10/25/17 09:12 Dose: 1 gm Ondansetron HCl (Zofran Injection) 4 mg IVPUSH Q6H PRN PRN Reason: NAUSEA Potassium Phos/Sodium Phos (Phos-Nak Packet -) 1 packet PO BID [facility] Last Admin: 10/25/17 09:13 Dose: 1 packet Rosuvastatin Calcium (Crestor -) 20 mg PO [facility] Last Admin: 10/24/17 21:50 Dose: 20 mg Senna (Senna -) 2 tab PO [facility] Last Admin: 10/24/17 21:47 Dose: Not Given Sitagliptin Phosphate (Januvia -) 50 mg PO DAILY@0700 [facility] Last Admin: 10/25/17 06:28 Dose: Not Given Tiotropium [place] (Spiriva -) 1 puff IH DAILY [facility] Last Admin: 10/25/17 09:13 Dose: 1 puff 86 year old gentleman with PMhx of of CAD s/p CABG, DM Type 2, Hypertension, Dementia, Mild CKD (baseline Cr 1.3) presented to the ED s/p fall and found to have a proximal femur frature with TYSON with Cr of 1.9 and Na of 150. #Acute on chronic renal insufficiency Renal function now improved to near baseline will D/c IVF and start Clinimix at 42 cc per hour trend BUN/Cr and electrolytes #Hypernatremia oral intake of water as tolerated trend na #Femur fracture s/p ORIF pain control #Hematuria/BPH lambert removed making urine urology following #Hypertension on metoprolol for CAD no SIMA/ARB Thank you Bony Paez DO
--- NOTE | 2017-10-25 20:08 | CON.PSY ---
Psychiatry Consult Chief Complaint: Asked to see this patient, an 86 year old male for episodes of agitation . 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 Patient was found lying in bed calm with no agitation or combative behaviour at this time A review of his medications indicated that he received haldol this am for behavioral disturbances. Since, then, he has not required any more haldol and has been in behavioral control. Patient's reports that he is much calmer during the day and it is at nights that he displays agitated behavior. He has haldol on board prn and he is on lexapro 5 mgs daily. Rec: Since patient is not requiring the use of haldol frequently, it is acceptable to continue prn use. If he starts to need haldol more regularly, would recommend that we switch to risperdal 1mg q 8 h prn for its less side effect profile - Current Medications Current Medications: Active Medications Acetaminophen (Tylenol -) 650 mg PO Q6H PRN PRN Reason: PAIN Last Admin: 10/25/17 13:54 Dose: 650 mg Albuterol Sulfate (Ventolin Hfa Inhaler -) 1 puff IH Q8H PRN PRN Reason: SHORT OF BREATH/WHEEZING Apixaban (Eliquis -) 2.5 mg PO BID [facility] Last Admin: 10/25/17 09:13 Dose: 2.5 mg Cholecalciferol (Vitamin D3 -) 1,000 unit PO DAILY [facility] Last Admin: 10/25/17 09:13 Dose: 1,000 unit Docusate Sodium (Colace -) 200 mg PO DAILY [facility] Last Admin: 10/25/17 09:12 Dose: 200 mg Escitalopram Oxalate (Lexapro -) 5 mg PO DAILY [facility] Last Admin: 10/25/17 09:12 Dose: 5 mg Fentanyl (Sublimaze Injection -) 25 mcg IVPUSH [id number] PRN PRN Reason: PAIN-PACU ORDER X 4 DOSES ONLY Haloperidol (Haldol -) 2 mg PO TID PRN PRN Reason: AGITATION Last Admin: 10/24/17 09:41 Dose: 2 mg Piperacillin Sod/Tazobactam (Sod 3.375 gm/ Dextrose) 100 mls @ 200 mls/hr IVPB Q8H-IV [facility] Last Admin: 10/25/17 17:02 Dose: 200 mls/hr Amino Acids (Clinimix -) 1,000 mls @ 42 mls/hr IV Q24H [facility] Last Admin: 10/25/17 13:58 Dose: 42 mls/hr Insulin Aspart (Novolog Vial Sliding Scale -) 1 vial SQ ACHS [facility] PRN Reason: Protocol Last Admin: 10/25/17 16:59 Dose: Not Given Insulin Detemir (Levemir Vial) 10 units SQ HS [facility] Insulin Detemir (Levemir Vial) 15 units SQ AM [facility] Latanoprost (Xalatan 0.005% Eye Drops -) 1 drop OU HS [facility] Last Admin: 10/24/17 21:55 Dose: 1 drop Metoprolol Succinate (Toprol Xl -) 25 mg PO BID [facility] Last Admin: 10/25/17 09:13 Dose: 25 mg Montelukast Sodium (Singulair -) 10 mg PO DAILY [facility] Last Admin: 10/25/17 09:13 Dose: 10 mg Gwwrm-3-Hsyf Ethyl Esters (Lovaza -) 1 gm PO DAILY [facility] Last Admin: 10/25/17 09:12 Dose: 1 gm Ondansetron HCl (Zofran Injection) 4 mg IVPUSH Q6H PRN PRN Reason: NAUSEA Potassium Phos/Sodium Phos (Phos-Nak Packet -) 1 packet PO BID [facility] Last Admin: 10/25/17 09:13 Dose: 1 packet Rosuvastatin Calcium (Crestor -) 20 mg PO [facility] Last Admin: 10/24/17 21:50 Dose: 20 mg Senna (Senna -) 2 tab PO [facility] Last Admin: 10/24/17 21:47 Dose: Not Given Sitagliptin Phosphate (Januvia -) 50 mg PO DAILY@0700 [facility] Last Admin: 10/25/17 06:28 Dose: Not Given Tiotropium [place] (Spiriva -) 1 puff IH DAILY [facility] Last Admin: 10/25/17 09:13 Dose: 1 puff - Allergies Allergies: Allergies Allergy/AdvReac Type Severity Reaction Status Date / Time iodine [Iodine] Allergy Unknown Verified 10/15/17 20:52
[2017-10-25] MEDS ORDERED: ROSUVASTATIN CA 10 MG TABLET (FP) ONE (21:09)
[2017-10-25] MEDS: SENNOSIDES 8.6MG TABLET (FP) PO SCH (21:57)
[2017-10-25] MEDS: ROSUVASTATIN CA 20 MG TABLET (FP) PO SCH (21:58)
[2017-10-25] MEDS: HALOPERIDOL 1 MG TABLET (FP) PO PRN (21:59)
[2017-10-25] MEDS: LATANOPROST 0.005% OPHTH SOLN 2.5ML BOTTLE OU SCH (21:59)
[2017-10-26] MEDS: PIPERACILLIN/TAZOB 3.375 GM 3.375 GM in DEXTROSE 5%-WATER - 100 ML IVPB SCH ×2 (01:57→10:50)
[2017-10-26] MEDS: INSULIN SLIDING SCALE (NOVOLOG) 1 VIAL SQ SCH ×4 (06:32→22:23)
[2017-10-26] MEDS: INSULIN DETEMIR 100 UNITS/ML MDV SQ SCH ×2 (06:33→22:19)
[2017-10-26] MEDS: sitaGLIPtin PHOSPHATE 50 MG TABLET PO SCH (06:33)
[2017-10-26] MEDS: ACETAMINOPHEN 325 MG TABLET (FP) PO PRN (06:33)
[2017-10-26] MEDS ORDERED: ONDANSETRON 4 MG/2 ML VIAL IVPUSH PRN (07:32)
[2017-10-26 08:06] LABS: HEMOGLOBIN 8.9 GM/dL (11.7-16.9); MCH 27.9 pg (25.7-33.7); MCHC 31.9 g/dl (32.0-35.9); MEAN CELL VOLUME 87.5 fl (80-96); MEAN PLT VOLUME 9.3 fl (7.5-11.1); PLATELET COUNT 242 K/MM3 (134-434); RDW 16.6 % (11.9-15.9); WHITE BLOOD COUNT 10.1 K/mm3 (4.0-10.0)
--- NOTE | 2017-10-26 08:23 | PN ---
Progress Note, Physician History of Present Illness: patient looks better,according to no complaints but patient becoming more agitated at night clinically better - Current Medication List Current Medications: Active Medications Acetaminophen (Tylenol -) 650 mg PO Q6H PRN PRN Reason: PAIN Albuterol Sulfate (Ventolin Hfa Inhaler -) 1 puff IH Q8H PRN PRN Reason: SHORT OF BREATH/WHEEZING Apixaban (Eliquis -) 2.5 mg PO BID [facility] Cholecalciferol (Vitamin D3 -) 1,000 unit PO DAILY [facility] Docusate Sodium (Colace -) 200 mg PO DAILY [facility] Escitalopram Oxalate (Lexapro -) 5 mg PO DAILY [facility] Haloperidol (Haldol -) 2 mg PO TID PRN PRN Reason: AGITATION Last Admin: 10/25/17 21:59 Dose: 2 mg Piperacillin Sod/Tazobactam (Sod 3.375 gm/ Dextrose) 100 mls @ 200 mls/hr IVPB Q8H-IV [facility] Last Admin: 10/26/17 01:57 Dose: 200 mls/hr Amino Acids (Clinimix -) 1,000 mls @ 42 mls/hr IV Q24H [facility] Last Admin: 10/25/17 13:58 Dose: 42 mls/hr Insulin Aspart (Novolog Vial Sliding Scale -) 1 vial SQ ACHS [facility] PRN Reason: Protocol Insulin Detemir (Levemir Vial) 10 units SQ HS [facility] Last Admin: 10/25/17 21:56 Dose: 10 units Insulin Detemir (Levemir Vial) 15 units SQ AM [facility] Last Admin: 10/26/17 06:33 Dose: 15 units Latanoprost (Xalatan 0.005% Eye Drops -) 1 drop OU HS [facility] Metoprolol Succinate (Toprol Xl -) 25 mg PO BID [facility] Montelukast Sodium (Singulair -) 10 mg PO DAILY [facility] Wogrx-5-Dytj Ethyl Esters (Lovaza -) 1 gm PO DAILY [facility] Ondansetron HCl (Zofran Injection) 4 mg IVPUSH Q6H PRN PRN Reason: NAUSEA Potassium Phos/Sodium Phos (Phos-Nak Packet -) 1 packet PO BID [facility] Rosuvastatin Calcium (Crestor -) 20 mg PO HS [facility] Senna (Senna -) 2 tab PO HS [facility] Sitagliptin Phosphate (Januvia -) 50 mg PO DAILY@0700 [facility] Tiotropium [place] (Spiriva -) 1 puff IH DAILY [facility] - Objective Vital Signs: Vital Signs Temperature 99.1 F 10/26/17 06:00 Pulse Rate 92 H 10/26/17 06:00 Respiratory Rate 20 10/26/17 06:00 Blood Pressure 134/69 10/26/17 06:00 O2 Sat by Pulse Oximetry (%) 96 10/25/17 22:00 Constitutional: Yes: No Distress, Calm Cardiovascular: Yes: Regular Rate and Rhythm Respiratory: Yes: Regular, Poor Air Entry, Rhonchi Gastrointestinal: Yes: Normal Bowel Sounds Extremities: Yes: Other Neurological: Yes: Alert, Other Psychiatric: Yes: Other Labs: CBC, BMP 10/26/17 07:27 INR, PTT INR 1.12 (0.82-1.09) 10/19/17 21:00 Assessment/Plan Assessment/Plan (1) Pneumonia with sepsis (2) Fracture, proximal femur Code(s): S72.009A - FRACTURE OF UNSP PART OF NECK OF UNSP FEMUR, INIT Qualifiers: Fracture type: closed Laterality: left (3) CKD stage 3 secondary to diabetes Code(s): E11.22 - TYPE 2 DIABETES MELLITUS W DIABETIC CHRONIC KIDNEY DISEASE; N18.3 - CHRONIC KIDNEY DISEASE, STAGE 3 (MODERATE) (4) Coronary arteriosclerosis after coronary artery bypass grafting Code(s): I25.810 - ATHEROSCLEROSIS OF CABG W/O ANGINA PECTORIS (5) Hypercholesteremia Code(s): E78.00 - PURE HYPERCHOLESTEROLEMIA, UNSPECIFIED (6) Uncontrolled diabetes mellitus Code(s): E11.65 - TYPE 2 DIABETES MELLITUS WITH HYPERGLYCEMIA (7) COPD (chronic obstructive pulmonary disease) Code(s): J44.9 - CHRONIC OBSTRUCTIVE PULMONARY DISEASE, UNSPECIFIED (8) Dementia Code(s): F03.90 - UNSPECIFIED DEMENTIA WITHOUT BEHAVIORAL DISTURBANCE (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
[2017-10-26 08:28] LABS: CHLORIDE 105 mmol/L (98-107); POTASSIUM 4.2 mmol/L (3.5-5.1); SODIUM 140 mmol/L (136-145)
[2017-10-26 08:34] LABS: ANION GAP 7 (8-16); BLOOD UREA NITROGEN 23 mg/dL (7-18); CALCIUM 7.6 mg/dL (8.5-10.1); CO2 28 mmol/L (21-32); CREATININE 1.3 mg/dL (0.7-1.3); GLUCOSE,RANDOM 140 mg/dL (74-106); MAGNESIUM 2.2 mg/dL (1.8-2.4); PHOSPHOROUS 2.6 mg/dL (2.5-4.9)
--- NOTE | 2017-10-26 09:32 | CONSULT ---
Consult - text type - Consultation Consultation Note: Neurology History of Present Illness: 86 yrs old man multiple medical Co-morbidities lives at home with poor gait stability H/o HTN, Bioprosthic AVR, Dyslipedemia, as per Cardiology note recent evaluation by Dr Duncan compensated CHF, Uncontrolled T2DM, CAD S/P SC, CABG , PCI not on Plavix at base line LBB presented s/p fall as per patient was at home upstairs walked in a dark room stucked with chair lost balance landed on Left side, also had head trauma, but no LOC, and was brought to ER. Was noted to have left proximal Femur fracture, no syncope or pre- syncope symptoms, no c/o focal weakness, seizures or incontinence. Seen initially by Dr. Ramesh but requested second opinion. CT head completed and did not show acute changes. Patient with underlying memory difficulty and seen in office by me before. Overnight, has been getting aggitated and Psych note reviewed and appreciated. Recommended PRN haldol or if needed frequently, can use ongoing risperdal. ID following and has prescribed Zosyn for ongoing Pneumonia. Nurse's aide mentioned patient was aggitated this AM and biting. - Past Medical History [employer]: Yes: Dementia Cardiovascular: Yes: Aortic Stenosis, CAD, CHF, HTN, Hyperlipdemia - Past Surgical History Past Surgical History: Yes: CABG, Valve Replacement - Smoking History Smoking history: Never smoked Have you smoked in the past 12 months: No If you are a former smoker, when did you quit?: 5 YRS AGO - Alcohol/Substance Use Hx Alcohol Use: No - Social History Usual Living Arrangement: Yes: With Spouse Home Medications - Allergies Allergies/Adverse Reactions: Allergies Allergy/AdvReac Type Severity Reaction Status Date / Time iodine [Iodine] Allergy Unknown Verified 10/15/17 20:52 - Home Medications Home Medications: Ambulatory Orders Aspirin [ASA -] 81 mg PO DAILY 10/16/17 Budesonide [Pulmicort 0.5 mg Nebulizer -] 1 neb NEB BID 10/16/17 Cholecalciferol (Vitamin D3) [Vitamin D3 -] 5,000 unit PO DAILY 10/16/17 Escitalopram Oxalate [Lexapro -] 5 mg PO DAILY 10/16/17 Insulin (LOG) Aspart [NovoLOG -] 0 units SQ TID 10/16/17 Lisinopril 5 mg PO BID 10/16/17 Metoprolol Succinate 25 mg PO DAILY 10/16/17 Montelukast Na [Singulair -] 10 mg PO HS 10/16/17 Multivitamin/Iron/Folic Acid [Centrum Adults Tablet] 1 each PO DAILY 10/16/17 [place]-3 Fatty Acids [[place]-3] 1,000 mg PO DAILY 10/16/17 [place]-3S/Dha/Epa/Fish Oil [Fish Oil 1,200 mg Softgel] 1 each PO DAILY 10/16/17 Rosuvastatin [Crestor -] 20 mg PO HS 10/16/17 Sitagliptin Phosphate [Januvia] 50 mg PO DAILY 10/16/17 Tiotropium [place] [Spiriva] 1 inh PO DAILY 10/16/17 Family Disease History - Family Disease History Other Family History: not contributary Review of Systems - Review of Systems Constitutional: denies: Diaphoresis HENT: denies: Difficult Swallowing, Ear Discharge Neck: denies: Decreased ROM, Lumps Cardiovascular: denies: Chest Pain, Edema, Palpitations, Shortness of Breath Respiratory: denies: Cough, Hemoptysis Gastrointestinal: denies: Abdominal Pain, Constipation Genitourinary: denies: Burning, Discharge Musculoskeletal: denies: Extremity Pain, Joint Pain (Left Hip) Integumentary: denies: Blister, Bruising Neurological: denies: Change in LOC, Change in Speech Endocrine: denies: Excessive Sweating, Flushing, Increased Hunger Hematology/Lymphatic: denies: Easily Bruised, Excessive Bleeding Pain Intensity: 5 Physical Examination Vital Signs Period Temp Pulse Resp BP Sys/Staples Pulse Ox Last 24 Hr 72 F-99.1 F 20-95 18-20 97-164/50-74 96 Constitutional: Yes: Well Nourished, No Distress, Calm and cooperative Eyes: No: Sclera Icterus HENT: No: Nasal Congestion Cardiovascular: Yes: Regular Rate and Rhythm, Tachycardia, Murmur (soft (2/6) FILEMON lusb). No: JVD, Gallop Respiratory: Yes: Regular, CTA Bilaterally No: Rales, Wheezes Gastrointestinal: Yes: Normal Bowel Sounds, Soft. No: Tenderness Musculoskeletal: Yes: Other (No kyphosis) Extremities: No: Cold Edema: No Integumentary: No: Jaundice Neurological: Awake, alert, calm, CN appear intact, moves all ext equally, sensory intact, gait deferred Psychiatric: No: Agitatation Labs: CBCD WBC 10.1 K/mm3 (4.0-10.0) H 10/26/17 07:27 RBC 3.20 M/mm3 (4.00-5.60) L 10/26/17 07:27 Hgb 8.9 GM/dL (11.7-16.9) L 10/26/17 07:27 Hct 28.0 % (35.4-49) L 10/26/17 07:27 MCV 87.5 fl (80-96) 10/26/17 07:27 MCHC 31.9 g/dl (32.0-35.9) L 10/26/17 07:27 RDW 16.6 % (11.9-15.9) H 10/26/17 07:27 Plt Count 242 K/MM3 (134-434) 10/26/17 07:27 MPV 9.3 fl (7.5-11.1) 10/26/17 07:27 CMP Sodium 146 mmol/L (136-145) H 10/25/17 05:05 Potassium 3.3 mmol/L (3.5-5.1) L 10/25/17 05:05 Chloride 110 mmol/L (98-107) H 10/25/17 05:05 Carbon Dioxide 27 mmol/L (21-32) 10/25/17 05:05 Anion Gap 9 (8-16) 10/25/17 05:05 BUN 24 mg/dL (7-18) H D 10/25/17 05:05 Creatinine 1.1 mg/dL (0.7-1.3) D 10/25/17 05:05 Creat Clearance w eGFR 48.28 (>60) 10/24/17 06:35 Calcium 7.1 mg/dL (8.5-10.1) L 10/25/17 05:05 Total Bilirubin 1.4 mg/dL (0.2-1.0) H 10/24/17 06:35 AST 70 U/L (15-37) H D 10/24/17 06:35 ALT 63 U/L (12-78) D 10/24/17 06:35 Alkaline Phosphatase 90 U/L (45-117) 10/24/17 06:35 Total Protein 4.9 g/dl (6.4-8.2) L D 10/24/17 06:35 Albumin 2.1 g/dl (3.4-5.0) L D 10/24/17 06:35 Imaging - Results Chest X-ray: Report Reviewed (No Pulmonary congestion or infiltrates) Cat Scan: Report Reviewed (Head: No acute intracraniall changes) Plan 86 yrs old man multiple medical Co-morbidities lives at home with poor gait stability H/o HTN, Bioprosthic AVR, Dyslipedemia, as per Cardiology note recent evaluation by Dr Duncan compensated CHF, Uncontrolled T2DM, CAD S/P SC, CABG , PCI not on Plavix at base line LBB presented s/p fall as per patient was at home upstairs walked in a dark room stucked with chair lost balance landed on Left side, also had head trauma, but no LOC, and was brought to ER. Was noted to have left proximal Femur fracture, no syncope or pre- syncope symptoms, no c/o focal weakness, seizures or incontinence. Seen initially by Dr. Ramesh but requested second opinion. CT head completed and did not show acute changes. Patient with underlying memory difficulty and seen in office by me before. Overnight, has been getting aggitated and Psych note reviewed and appreciated. Recommended PRN haldol or if needed frequently, can use ongoing risperdal. ID following and has prescribed Zosyn for ongoing Pneumonia. Nurse's aide mentioned patient was aggitated this AM and biting. Likely with sundowning and combination of unfamiliar enviorment with infection causing altered mental status Delirium superimposed onto ongoing cognitive impairment leading to patient episodes Agree with psych rec'd Would not pursue further imaging at this time Would try to reorient as able, medication if patient risk to self or others Maintain hydration As infection clears would expect improvements gradually
[2017-10-26] MEDS ORDERED: PT OWN MED DRAWER 7, Y5N ONE (09:43)
[2017-10-26] MEDS: DOCUSATE SODIUM 100 MG CAPSULE (FP) PO SCH (10:50)
[2017-10-26] MEDS: OMEGA-3 ACID ETHYL ESTERS (FATTY-ACIDS) 1 GM CAPSULE (FP) PO SCH (10:50)
[2017-10-26] MEDS: APIXABAN 2.5 MG TABLET PO SCH ×2 (10:50→22:19)
[2017-10-26] MEDS: CHOLECALCIFEROL (VITAMIN D3) 1,000 UNIT TABLET (FP) PO SCH (10:50)
[2017-10-26] MEDS: metoPROLOL SUCCINATE 25 MG TAB.SR.24H (FP) PO SCH ×2 (10:51→22:18)
[2017-10-26] MEDS: MONTELUKAST NA 10 MG TABLET PO SCH (10:51)
[2017-10-26] MEDS: NAPH,MB-DB/K PH,MBDB POWDER PACKET PO SCH ×2 (10:51→22:19)
[2017-10-26] MEDS: ESCITALOPRAM OXALATE 10 MG TABLET (FP) PO SCH (10:51)
[2017-10-26] MEDS: TIOTROPIUM BROMIDE 18 MCG/INH (DEVICE W/ 5 CAPSULES) IH SCH (11:11)
--- NOTE | 2017-10-26 11:23 | PN ---
Progress Note (short form) - Note Progress Note: s: no cp sob palps dizzy ex cigs Current Medications Generic Name Dose Route Start Last Admin Trade Name Freq PRN Reason Stop Dose Admin Acetaminophen 650 mg 10/26/17 07:32 Tylenol - PO Q6H PRN PAIN Albuterol Sulfate 1 puff 10/26/17 07:32 Ventolin Hfa Inhaler - IH Q8H PRN SHORT OF BREATH/WHEEZING Apixaban 2.5 mg 10/26/17 10:00 10/26/17 10:50 Eliquis - PO 2.5 mg BID JEAN-PIERRE Administration Cholecalciferol 1,000 unit 10/26/17 10:00 10/26/17 10:50 Vitamin D3 - PO 1,000 unit DAILY JEAN-PIERRE Administration Docusate Sodium 200 mg 10/26/17 10:00 10/26/17 10:50 Colace - PO 200 mg DAILY JEAN-PIERRE Administration Escitalopram Oxalate 5 mg 10/26/17 10:00 10/26/17 10:51 Lexapro - PO 5 mg DAILY JEAN-PIERRE Administration Haloperidol 2 mg 10/23/17 17:04 10/25/17 21:59 Haldol - PO 2 mg TID PRN Administration AGITATION Piperacillin Sod/Tazobactam 100 mls @ 200 mls/hr 10/23/17 16:00 10/26/17 10: 50 Sod 3.375 gm/ Dextrose IVPB 200 mls/hr Q8H-IV JEAN-PIERRE Administration Amino Acids 1,000 mls @ 42 mls/hr 10/25/17 12:00 10/25/17 13:58 Clinimix - IV 42 mls/hr Q24H JEAN-PIERRE Administration Insulin Aspart 1 vial 10/26/17 11:00 Novolog Vial Sliding Scale - SQ ACHS [facility] Protocol Insulin Detemir 10 units 10/25/17 22:00 10/25/17 21:56 Levemir Vial SQ 10 units HS JEAN-PIERRE Administration Insulin Detemir 15 units 10/26/17 07:00 10/26/17 06:33 Levemir Vial SQ 15 units AM JEAN-PIERRE Administration Latanoprost 1 drop 10/26/17 22:00 Xalatan 0.005% Eye Drops - OU HS [facility] Metoprolol Succinate 25 mg 10/26/17 10:00 10/26/17 10:51 Toprol Xl - PO 25 mg BID JEAN-PIERRE Administration Montelukast Sodium 10 mg 10/26/17 10:00 10/26/17 10:51 Singulair - PO 10 mg DAILY JEAN-PIERRE Administration [id number] Ethyl Esters 1 gm 10/26/17 10:00 10/26/17 10:50 Lovaza - PO 1 gm DAILY JEAN-PIERRE Administration Ondansetron HCl 4 mg 10/26/17 07:32 Zofran Injection IVPUSH Q6H PRN NAUSEA Potassium Phos/Sodium Phos 1 packet 10/26/17 10:00 10/26/17 10:51 Phos-Nak Packet - PO 1 packet BID JEAN-PIERRE Administration Rosuvastatin Calcium 20 mg 10/26/17 22:00 Crestor - PO HS JEAN-PIERRE Senna 2 tab 10/26/17 22:00 Senna - PO HS JEAN-PIERRE Sitagliptin Phosphate 50 mg 10/27/17 07:00 Januvia - PO DAILY@0700 JEAN-PIERRE Tiotropium [place] 1 puff 10/26/17 10:00 10/26/17 11:11 Spiriva - IH 1 puff DAILY JEAN-PIERRE Administration Vital Signs Period Temp Pulse Resp BP Sys/Staples Pulse Ox Last 24 Hr 72 F-99.1 F 20-95 18-20 97-164/50-72 96 Constitutional: Yes: Well Nourished, No Distress, Calm Eyes: No: Sclera Icterus HENT: No: Nasal Congestion Cardiovascular: Yes: Regular Rate and Rhythm, Tachycardia, Murmur (soft (2/6) FILEMON lusb). No: JVD, Gallop Respiratory: Yes: Regular, CTA Bilaterally (anteriorly (fela vest on)). No: Rales, Wheezes Gastrointestinal: Yes: Normal Bowel Sounds, Soft. No: Tenderness Extremities: No: Cold Edema: No Integumentary: No: Jaundice Neurological: : Seizure Psychiatric: No: Agitated Labs: CBC, BMP 10/26/17 07:27 10/26/17 07:27 Echo 11/12: nl LV/EF, nl RV, nl LA, no bioAVR dysfunction Assessment/Plan mechanical fall, hip frx: -tripped over chair in the dark -s/p ORIF 10/18 -started on low dose eliquis 10/22 for post-op dvt prophylaxis (known h/o HIT)-- per ortho, heme. postop hgb stable sinus tachycardia (with baseline LBBB)/PSVT/wide complex tach ? brief NSVT: -intermittent sinus tachy here being driven by confustion/agitation and now fever as well -also with frequent intermittent brief atrial runs/runs of svt -pain control, fever control/abx (ID consulted). -cont toprol 25 bid--low threshold to increase if need be, given bp's have been stable (asthma may not tolerate higher doses at home but ok while here) -10/24 tele: rate-related intermittent LBBB without suspicion of any sustained VT. at times atrial rate approx 120s, with similar NH interval as baseline-- likely sinus tach > SVT - 10/25-: now off tele, Hr trend overall improved. - cont K repletion as doing--target K >2, Mag >4 TYSON on CKD: -baseline creat 1.3-1.6 -suspect etiology vol depletion/hypoperfusion in setting of decr po/blood loss. ? SIMA exacerbating -creat bumped to 1.6 on 10/16, NS at 50 cc/hr started 1am on 10/16, creat peak to 2.1 --> IVF rate increased with improvement in cr (now back to baseline) -holding lisinopril. -on hypotonic IVF for hypernatremia--stable/improving. per renal s/p AVR: -normal fxn on recent echo CAD s/p CABG: -preserved EF -no angina since -cont home meds (bb, statin, lovaza), holding ASA while on AC HTN: - stable on toprol bid dementia: -recently progressive -per pmd asthma/copd: -stable, no wheezing
--- NOTE | 2017-10-26 11:51 | PN ---
Progress Note (short form) - Note Progress Note: Ortho Pt seen and examined s/p left IM gamma nail Selected Entries 10/26/17 06:00 Temperature 99.1 F Pulse Rate 92 H Respiratory 20 Rate Blood Pressure 134/69 Laboratory Tests 10/26/17 07:27 WBC 10.1 H Hgb 8.9 L Hct 28.0 L Plt Count 242 incision c/d/i, calf soft, nt nvi a/p ABX as per ID PT if able dvt ppx pain control d/c planning
--- NOTE | 2017-10-26 12:07 | PN ---
Progress Note, Physician Chief Complaint: Mr Calvillo remains pleasant. Unable to obtain subjective. says patient still becomes very agitated at night. - Current Medication List Current Medications: Active Medications Acetaminophen (Tylenol -) 650 mg PO Q6H PRN PRN Reason: PAIN Albuterol Sulfate (Ventolin Hfa Inhaler -) 1 puff IH Q8H PRN PRN Reason: SHORT OF BREATH/WHEEZING Apixaban (Eliquis -) 2.5 mg PO BID [facility] Last Admin: 10/26/17 10:50 Dose: 2.5 mg Cholecalciferol (Vitamin D3 -) 1,000 unit PO DAILY [facility] Last Admin: 10/26/17 10:50 Dose: 1,000 unit Docusate Sodium (Colace -) 200 mg PO DAILY [facility] Last Admin: 10/26/17 10:50 Dose: 200 mg Escitalopram Oxalate (Lexapro -) 5 mg PO DAILY [facility] Last Admin: 10/26/17 10:51 Dose: 5 mg Haloperidol (Haldol -) 2 mg PO TID PRN PRN Reason: AGITATION Last Admin: 10/25/17 21:59 Dose: 2 mg Piperacillin Sod/Tazobactam (Sod 3.375 gm/ Dextrose) 100 mls @ 200 mls/hr IVPB Q8H-IV [facility] Last Admin: 10/26/17 10:50 Dose: 200 mls/hr Amino Acids (Clinimix -) 1,000 mls @ 42 mls/hr IV Q24H [facility] Last Admin: 10/25/17 13:58 Dose: 42 mls/hr Insulin Aspart (Novolog Vial Sliding Scale -) 1 vial SQ ACHS [facility] PRN Reason: Protocol Last Admin: 10/26/17 12:00 Dose: 2 units Insulin Detemir (Levemir Vial) 10 units SQ HS [facility] Last Admin: 10/25/17 21:56 Dose: 10 units Insulin Detemir (Levemir Vial) 15 units SQ AM [facility] Last Admin: 10/26/17 06:33 Dose: 15 units Latanoprost (Xalatan 0.005% Eye Drops -) 1 drop OU HS [facility] Metoprolol Succinate (Toprol Xl -) 25 mg PO BID [facility] Last Admin: 10/26/17 10:51 Dose: 25 mg Montelukast Sodium (Singulair -) 10 mg PO DAILY [facility] Last Admin: 10/26/17 10:51 Dose: 10 mg [id number] Ethyl Esters (Lovaza -) 1 gm PO DAILY [facility] Last Admin: 10/26/17 10:50 Dose: 1 gm Ondansetron HCl (Zofran Injection) 4 mg IVPUSH Q6H PRN PRN Reason: NAUSEA Potassium Phos/Sodium Phos (Phos-Nak Packet -) 1 packet PO BID [facility] Last Admin: 10/26/17 10:51 Dose: 1 packet Rosuvastatin Calcium (Crestor -) 20 mg PO HS JEAN-PIERRE Senna (Senna -) 2 tab PO HS JEAN-PIERRE Sitagliptin Phosphate (Januvia -) 50 mg PO DAILY@0700 [facility] Tiotropium [place] (Spiriva -) 1 puff IH DAILY [facility] Last Admin: 10/26/17 11:11 Dose: 1 puff - Objective Vital Signs: Vital Signs Temperature 37.3 C 10/26/17 06:00 Pulse Rate 92 H 10/26/17 06:00 Respiratory Rate 20 10/26/17 06:00 Blood Pressure 134/69 10/26/17 06:00 O2 Sat by Pulse Oximetry (%) 96 10/25/17 22:00 Constitutional: Yes: Well Nourished, No Distress, Calm Cardiovascular: Yes: Regular Rate and Rhythm. No: Gallop, Murmur, Rub Respiratory: Yes: Regular, CTA Bilaterally. No: Rales, Rhonchi, Wheezes Gastrointestinal: Yes: Normal Bowel Sounds, Soft. No: Distention, Tenderness Extremities: Yes: WNL Edema: No Labs: CBC, BMP 10/26/17 07:27 10/26/17 07:27 INR, PTT INR 1.12 (0.82-1.09) 10/19/17 21:00 Problem List - Problems (1) Pneumonia Code(s): J18.9 - PNEUMONIA, UNSPECIFIED ORGANISM (2) Sepsis Code(s): A41.9 - SEPSIS, UNSPECIFIED ORGANISM (3) Fracture, proximal femur Code(s): S72.009A - FRACTURE OF UNSP PART OF NECK OF UNSP FEMUR, INIT Qualifiers: Fracture type: closed Laterality: left (4) CKD stage 3 secondary to diabetes Code(s): E11.22 - TYPE 2 DIABETES MELLITUS W DIABETIC CHRONIC KIDNEY DISEASE; N18.3 - CHRONIC KIDNEY DISEASE, STAGE 3 (MODERATE) (5) Coronary arteriosclerosis after coronary artery bypass grafting Code(s): I25.810 - ATHEROSCLEROSIS OF CABG W/O ANGINA PECTORIS (6) Hypercholesteremia Code(s): E78.00 - PURE HYPERCHOLESTEROLEMIA, UNSPECIFIED (7) Uncontrolled diabetes mellitus Code(s): E11.65 - TYPE 2 DIABETES MELLITUS WITH HYPERGLYCEMIA (8) COPD (chronic obstructive pulmonary disease) Code(s): J44.9 - CHRONIC OBSTRUCTIVE PULMONARY DISEASE, UNSPECIFIED (9) Dementia Code(s): F03.90 - UNSPECIFIED DEMENTIA WITHOUT BEHAVIORAL DISTURBANCE (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 if can stop clinimix Code(s): E11.22 - TYPE 2 DIABETES MELLITUS W DIABETIC CHRONIC KIDNEY DISEASE; N18.3 - CHRONIC KIDNEY DISEASE, STAGE 3 (MODERATE) (4) Coronary arteriosclerosis after coronary artery bypass grafting Assessment/Plan: -cardiology following -holding aspirin while on AC -continue statin and toprol xl Code(s): I25.810 - ATHEROSCLEROSIS OF CABG W/O ANGINA PECTORIS (5) Hypercholesteremia Assessment/Plan: -continue statin Code(s): E78.00 - PURE HYPERCHOLESTEROLEMIA, UNSPECIFIED (6) Uncontrolled diabetes mellitus Assessment/Plan: -improved control on decreased levemir -may elevate -monitor Code(s): E11.65 - TYPE 2 DIABETES MELLITUS WITH HYPERGLYCEMIA (7) COPD (chronic obstructive pulmonary disease) Assessment/Plan: -not in exacerbation -continue current management Code(s): J44.9 - CHRONIC OBSTRUCTIVE PULMONARY DISEASE, UNSPECIFIED (8) Dementia Assessment/Plan: -appreciate psychiatry and neurology assistance -continue haldol currently Code(s): F03.90 - UNSPECIFIED DEMENTIA WITHOUT BEHAVIORAL DISTURBANCE (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
[2017-10-26 12:22] LABS: ANISOCYTOSIS 2+; PLATELET ESTIMATE NORMAL
[2017-10-26] MEDS: ALBUTEROL SO4 18 GM HFA INHALER IH PRN (13:30)
[2017-10-26] MEDS: AMINO ACIDS 4.25%/D5W 1,000 ML IV SCH (13:30)
--- NOTE | 2017-10-26 15:18 | PN ---
Progress Note, Physician History of Present Illness: patient looks more lethargic today events from night noted - Current Medication List Current Medications: Active Medications Acetaminophen (Tylenol -) 650 mg PO Q6H PRN PRN Reason: PAIN Albuterol Sulfate (Ventolin Hfa Inhaler -) 1 puff IH Q8H PRN PRN Reason: SHORT OF BREATH/WHEEZING Last Admin: 10/26/17 13:30 Dose: 1 puff Apixaban (Eliquis -) 2.5 mg PO BID [facility] Last Admin: 10/26/17 10:50 Dose: 2.5 mg Cholecalciferol (Vitamin D3 -) 1,000 unit PO DAILY [facility] Last Admin: 10/26/17 10:50 Dose: 1,000 unit Docusate Sodium (Colace -) 200 mg PO DAILY [facility] Last Admin: 10/26/17 10:50 Dose: 200 mg Escitalopram Oxalate (Lexapro -) 5 mg PO DAILY [facility] Last Admin: 10/26/17 10:51 Dose: 5 mg Haloperidol (Haldol -) 2 mg PO TID PRN PRN Reason: AGITATION Last Admin: 10/25/17 21:59 Dose: 2 mg Piperacillin Sod/Tazobactam (Sod 3.375 gm/ Dextrose) 100 mls @ 200 mls/hr IVPB Q8H-IV [facility] Last Admin: 10/26/17 10:50 Dose: 200 mls/hr Amino Acids (Clinimix -) 1,000 mls @ 42 mls/hr IV Q24H [facility] Last Admin: 10/26/17 13:30 Dose: 42 mls/hr Insulin Aspart (Novolog Vial Sliding Scale -) 1 vial SQ ACHS [facility] PRN Reason: Protocol Last Admin: 10/26/17 12:00 Dose: 2 units Insulin Detemir (Levemir Vial) 10 units SQ HS [facility] Last Admin: 10/25/17 21:56 Dose: 10 units Insulin Detemir (Levemir Vial) 15 units SQ AM [facility] Last Admin: 10/26/17 06:33 Dose: 15 units Latanoprost (Xalatan 0.005% Eye Drops -) 1 drop OU HS [facility] Metoprolol Succinate (Toprol Xl -) 25 mg PO BID [facility] Last Admin: 10/26/17 10:51 Dose: 25 mg Montelukast Sodium (Singulair -) 10 mg PO DAILY [facility] Last Admin: 10/26/17 10:51 Dose: 10 mg [id number]-3-[id number] Ethyl Esters (Lovaza -) 1 gm PO DAILY [facility] Last Admin: 10/26/17 10:50 Dose: 1 gm Ondansetron HCl (Zofran Injection) 4 mg IVPUSH Q6H PRN PRN Reason: NAUSEA Potassium Phos/Sodium Phos (Phos-Nak Packet -) 1 packet PO BID [facility] Last Admin: 10/26/17 10:51 Dose: 1 packet Rosuvastatin Calcium (Crestor -) 20 mg PO HS [facility] Senna (Senna -) 2 tab PO HS [facility] Sitagliptin Phosphate (Januvia -) 50 mg PO DAILY@0700 [facility] Tiotropium [place] (Spiriva -) 1 puff IH DAILY [facility] Last Admin: 10/26/17 11:11 Dose: 1 puff - Objective Vital Signs: Vital Signs Temperature 98.0 F 10/26/17 13:38 Pulse Rate 81 10/26/17 13:38 Respiratory Rate 20 10/26/17 09:00 Blood Pressure 112/53 10/26/17 13:38 O2 Sat by Pulse Oximetry (%) 96 10/26/17 09:00 Constitutional: Yes: No Distress, Calm HENT: Yes: Other (tounge red) Cardiovascular: Yes: Regular Rate and Rhythm Respiratory: Yes: Poor Air Entry, Wheezes (exp) Gastrointestinal: Yes: Normal Bowel Sounds, Soft Musculoskeletal: Yes: WNL Extremities: Yes: WNL Neurological: Yes: Alert, Oriented Psychiatric: Yes: Alert, Oriented Labs: CBC, BMP 10/26/17 07:27 10/26/17 07:27 INR, PTT INR 1.12 (0.82-1.09) 10/19/17 21:00 Assessment/Plan Assessment/Plan (1) Pneumonia with sepsis (2) Fracture, proximal femur Code(s): S72.009A - FRACTURE OF UNSP PART OF NECK OF UNSP FEMUR, INIT Qualifiers: Fracture type: closed Laterality: left (3) CKD stage 3 secondary to diabetes Code(s): E11.22 - TYPE 2 DIABETES MELLITUS W DIABETIC CHRONIC KIDNEY DISEASE; N18.3 - CHRONIC KIDNEY DISEASE, STAGE 3 (MODERATE) (4) Coronary arteriosclerosis after coronary artery bypass grafting Code(s): I25.810 - ATHEROSCLEROSIS OF CABG W/O ANGINA PECTORIS (5) Hypercholesteremia Code(s): E78.00 - PURE HYPERCHOLESTEROLEMIA, UNSPECIFIED (6) Uncontrolled diabetes mellitus Code(s): E11.65 - TYPE 2 DIABETES MELLITUS WITH HYPERGLYCEMIA (7) COPD (chronic obstructive pulmonary disease) Code(s): J44.9 - CHRONIC OBSTRUCTIVE PULMONARY DISEASE, UNSPECIFIED (8) Dementia Code(s): F03.90 - UNSPECIFIED DEMENTIA WITHOUT BEHAVIORAL DISTURBANCE (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
[2017-10-26] MEDS ORDERED: LORazepam 2 MG/ML SDV VIAL IVPUSH ONE (18:41)
[2017-10-26] MEDS ORDERED: ROSUVASTATIN CA 10 MG TABLET (FP) ONE (22:12)
[2017-10-26] MEDS: ROSUVASTATIN CA 20 MG TABLET (FP) PO SCH (22:17)
[2017-10-26] MEDS: SENNOSIDES 8.6MG TABLET (FP) PO SCH (22:20)
[2017-10-26] MEDS: LATANOPROST 0.005% OPHTH SOLN 2.5ML BOTTLE OU SCH (22:20)
[2017-10-27] MEDS: INSULIN DETEMIR 100 UNITS/ML MDV SQ SCH ×2 (06:27→21:48)
[2017-10-27] MEDS: sitaGLIPtin PHOSPHATE 50 MG TABLET PO SCH (06:28)
[2017-10-27] MEDS: INSULIN SLIDING SCALE (NOVOLOG) 1 VIAL SQ SCH ×4 (06:28→21:47)
[2017-10-27] MEDS ORDERED: INSULIN (NOVOLOG) ASPART 100 UNITS/ML 10ML VIAL ONE (06:44)
[2017-10-27 07:48] LABS: HEMATOCRIT 28.3 % (35.4-49); HEMOGLOBIN 8.8 GM/dL (11.7-16.9); MCH 27.1 pg (25.7-33.7); MEAN CELL VOLUME 87.6 fl (80-96); MEAN PLT VOLUME 8.7 fl (7.5-11.1); PLATELET COUNT 242 K/MM3 (134-434); RBC 3.24 M/mm3 (4.00-5.60); RDW 16.7 % (11.9-15.9); WHITE BLOOD COUNT 11.1 K/mm3 (4.0-10.0)
[2017-10-27 08:01] LABS: ANION GAP 4 (8-16); BLOOD UREA NITROGEN 23 mg/dL (7-18); CALCIUM 7.3 mg/dL (8.5-10.1); CHLORIDE 106 mmol/L (98-107); CO2 30 mmol/L (21-32); CREATININE 1.1 mg/dL (0.7-1.3); GLUCOSE,RANDOM 103 mg/dL (74-106); PHOSPHOROUS 2.6 mg/dL (2.5-4.9); POTASSIUM 3.8 mmol/L (3.5-5.1); SODIUM 140 mmol/L (136-145)
[2017-10-27] MEDS: MONTELUKAST NA 10 MG TABLET PO SCH (09:58)
[2017-10-27] MEDS: CHOLECALCIFEROL (VITAMIN D3) 1,000 UNIT TABLET (FP) PO SCH (09:58)
[2017-10-27] MEDS: DOCUSATE SODIUM 100 MG CAPSULE (FP) PO SCH (09:58)
[2017-10-27] MEDS: metoPROLOL SUCCINATE 25 MG TAB.SR.24H (FP) PO SCH ×2 (09:58→21:42)
[2017-10-27] MEDS: OMEGA-3 ACID ETHYL ESTERS (FATTY-ACIDS) 1 GM CAPSULE (FP) PO SCH (09:58)
[2017-10-27] MEDS: ESCITALOPRAM OXALATE 10 MG TABLET (FP) PO SCH (09:58)
[2017-10-27] MEDS: APIXABAN 2.5 MG TABLET PO SCH ×2 (09:59→21:44)
[2017-10-27] MEDS: TIOTROPIUM BROMIDE 18 MCG/INH (DEVICE W/ 5 CAPSULES) IH SCH (09:59)
[2017-10-27] MEDS: NAPH,MB-DB/K PH,MBDB POWDER PACKET PO SCH ×2 (09:59→21:43)
--- NOTE | 2017-10-27 10:02 | PN ---
Progress Note (short form) - Note Progress Note: Neurology History of Present Illness: 86 yrs old man multiple medical Co-morbidities lives at home with poor gait stability H/o HTN, Bioprosthic AVR, Dyslipedemia, as per Cardiology note recent evaluation by Dr Duncan compensated CHF, Uncontrolled T2DM, CAD S/P AL, CABG , PCI not on Plavix at base line LBB presented s/p fall as per patient was at home upstairs walked in a dark room stucked with chair lost balance landed on Left side, also had head trauma, but no LOC, and was brought to ER. Was noted to have left proximal Femur fracture, no syncope or pre- syncope symptoms, no c/o focal weakness, seizures or incontinence. Seen initially by Dr. Ramesh but requested second opinion. CT head completed and did not show acute changes. Patient with underlying memory difficulty and seen in office by me before. This AM somnolent, monitor for arousal later in the day. Psych recommended PRN haldol or if needed frequently, can use ongoing risperdal. ID following for infection. Active Medications Acetaminophen (Tylenol -) 650 mg PO Q6H PRN PRN Reason: PAIN Albuterol Sulfate (Ventolin Hfa Inhaler -) 1 puff IH Q8H PRN PRN Reason: SHORT OF BREATH/WHEEZING Last Admin: 10/26/17 13:30 Dose: 1 puff Apixaban (Eliquis -) 2.5 mg PO BID [facility] Last Admin: 10/26/17 22:19 Dose: 2.5 mg Cholecalciferol (Vitamin D3 -) 1,000 unit PO DAILY [facility] Last Admin: 10/26/17 10:50 Dose: 1,000 unit Docusate Sodium (Colace -) 200 mg PO DAILY [facility] Last Admin: 10/26/17 10:50 Dose: 200 mg Escitalopram Oxalate (Lexapro -) 5 mg PO DAILY [facility] Last Admin: 10/26/17 10:51 Dose: 5 mg Haloperidol (Haldol -) 2 mg PO TID PRN PRN Reason: AGITATION Last Admin: 10/25/17 21:59 Dose: 2 mg Amino Acids (Clinimix -) 1,000 mls @ 42 mls/hr IV Q24H [facility] Last Admin: 10/26/17 13:30 Dose: 42 mls/hr Insulin Aspart (Novolog Vial Sliding Scale -) 1 vial SQ ACHS [facility] PRN Reason: Protocol Last Admin: 10/27/17 06:28 Dose: Not Given Insulin Detemir (Levemir Vial) 10 units SQ HS [facility] Last Admin: 10/26/17 22:19 Dose: 10 units Insulin Detemir (Levemir Vial) 15 units SQ AM [facility] Last Admin: 10/27/17 06:27 Dose: 15 units Latanoprost (Xalatan 0.005% Eye Drops -) 1 drop OU HS [facility] Last Admin: 10/26/17 22:20 Dose: 1 drop Metoprolol Succinate (Toprol Xl -) 25 mg PO BID [facility] Last Admin: 10/26/17 22:18 Dose: 25 mg Montelukast Sodium (Singulair -) 10 mg PO DAILY [facility] Last Admin: 10/26/17 10:51 Dose: 10 mg Qdmci-1-Trya Ethyl Esters (Lovaza -) 1 gm PO DAILY [facility] Last Admin: 10/26/17 10:50 Dose: 1 gm Ondansetron HCl (Zofran Injection) 4 mg IVPUSH Q6H PRN PRN Reason: NAUSEA Potassium Phos/Sodium Phos (Phos-Nak Packet -) 1 packet PO BID [facility] Last Admin: 10/26/17 22:19 Dose: 1 packet Rosuvastatin Calcium (Crestor -) 20 mg PO [facility] Last Admin: 10/26/17 22:17 Dose: 20 mg Senna (Senna -) 2 tab PO [facility] Last Admin: 10/26/17 22:20 Dose: 2 tab Sitagliptin Phosphate (Januvia -) 50 mg PO DAILY@0700 [facility] Last Admin: 10/27/17 06:28 Dose: 50 mg Tiotropium [place] (Spiriva -) 1 puff IH DAILY [facility] Last Admin: 10/26/17 11:11 Dose: 1 puff Physical Examination Vital Signs Temperature 98.2 F 10/27/17 09:00 Pulse Rate 91 H 10/27/17 09:00 Respiratory Rate 20 10/27/17 09:00 Blood Pressure 137/64 10/27/17 09:00 O2 Sat by Pulse Oximetry (%) 96 10/26/17 21:00 Constitutional: Yes: Well Nourished, No Distress, Calm and cooperative Eyes: No: Sclera Icterus HENT: No: Nasal Congestion Cardiovascular: Yes: Regular Rate and Rhythm, Tachycardia, Murmur (soft (2/6) FILEMON lusb). No: JVD, Gallop Respiratory: Yes: Regular, CTA Bilaterally No: Rales, Wheezes Gastrointestinal: Yes: Normal Bowel Sounds, Soft. No: Tenderness Musculoskeletal: Yes: Other (No kyphosis) Extremities: No: Cold Edema: No Integumentary: No: Jaundice Neurological: Awake, alert, calm, CN appear intact, moves all ext equally, sensory intact, gait deferred Psychiatric: No: Agitatation, somnolent CBCD WBC 11.1 K/mm3 (4.0-10.0) H 10/27/17 07:20 RBC 3.24 M/mm3 (4.00-5.60) L 10/27/17 07:20 Hgb 8.8 GM/dL (11.7-16.9) L 10/27/17 07:20 Hct 28.3 % (35.4-49) L 10/27/17 07:20 MCV 87.6 fl (80-96) 10/27/17 07:20 MCHC 31.0 g/dl (32.0-35.9) L 10/27/17 07:20 RDW 16.7 % (11.9-15.9) H 10/27/17 07:20 Plt Count 242 K/MM3 (134-434) 10/27/17 07:20 MPV 8.7 fl (7.5-11.1) 10/27/17 07:20 CMP Sodium 140 mmol/L (136-145) 10/27/17 07:20 Potassium 3.8 mmol/L (3.5-5.1) 10/27/17 07:20 Chloride 106 mmol/L (98-107) 10/27/17 07:20 Carbon Dioxide 30 mmol/L (21-32) 10/27/17 07:20 Anion Gap 4 (8-16) L 10/27/17 07:20 BUN 23 mg/dL (7-18) H 10/27/17 07:20 Creatinine 1.1 mg/dL (0.7-1.3) 10/27/17 07:20 Creat Clearance w eGFR 48.28 (>60) 10/24/17 06:35 Calcium 7.3 mg/dL (8.5-10.1) L 10/27/17 07:20 Total Bilirubin 1.4 mg/dL (0.2-1.0) H 10/24/17 06:35 AST 70 U/L (15-37) H D 10/24/17 06:35 ALT 63 U/L (12-78) D 10/24/17 06:35 Alkaline Phosphatase 90 U/L (45-117) 10/24/17 06:35 Total Protein 4.9 g/dl (6.4-8.2) L D 10/24/17 06:35 Albumin 2.1 g/dl (3.4-5.0) L D 10/24/17 06:35 Imaging - Results Chest X-ray: Report Reviewed (No Pulmonary congestion or infiltrates) Cat Scan: Report Reviewed (Head: No acute intracraniall changes) Plan 86 yrs old man multiple medical Co-morbidities lives at home with poor gait stability H/o HTN, Bioprosthic AVR, Dyslipedemia, as per Cardiology note recent evaluation by Dr Duncan compensated CHF, Uncontrolled T2DM, CAD S/P AL, CABG , PCI not on Plavix at base line LBB presented s/p fall as per patient was at home upstairs walked in a dark room stucked with chair lost balance landed on Left side, also had head trauma, but no LOC, and was brought to ER. Was noted to have left proximal Femur fracture, no syncope or pre- syncope symptoms, no c/o focal weakness, seizures or incontinence. Seen initially by Dr. Ramesh but requested second opinion. CT head completed and did not show acute changes. Had been getting aggitated and psych recommended PRN haldol or if needed frequently, can use ongoing risperdal. Monitor mental status for more arousal in afternoon Has had owning, combination of unfamiliar enviorment with infection causing altered mental status Maintain hydration As infection clears would expect improvements gradually Id following for infection
--- NOTE | 2017-10-27 10:22 | PN ---
Progress Note (short form) - Note Progress Note: Pt seen and examined. He is s/p Left Gamma Nail. Doing fine. Comfortable. P.T. progressing slowly. AVSS H/H increased to 8.9 LLE grossly NVI Dressing CDI Overall pt doing well. Can DC/Transfer from an orthopedic POV
--- NOTE | 2017-10-27 10:50 | PN ---
Progress Note (short form) - Note Progress Note: s: no cp sob palps dizzy ex cigs Current Medications Generic Name Dose Route Start Last Admin Trade Name Freq PRN Reason Stop Dose Admin Acetaminophen 650 mg 10/26/17 07:32 Tylenol - PO Q6H PRN PAIN Albuterol Sulfate 1 puff 10/26/17 07:32 10/26/17 13:30 Ventolin Hfa Inhaler - IH 1 puff Q8H PRN Administration SHORT OF BREATH/WHEEZING Apixaban 2.5 mg 10/26/17 10:00 10/27/17 09:59 Eliquis - PO 2.5 mg BID [facility] Administration Cholecalciferol 1,000 unit 10/26/17 10:00 10/27/17 09:58 Vitamin D3 - PO 1,000 unit DAILY [facility] Administration Docusate Sodium 200 mg 10/26/17 10:00 10/27/17 09:58 Colace - PO 200 mg DAILY [facility] Administration Escitalopram Oxalate 5 mg 10/26/17 10:00 10/27/17 09:58 Lexapro - PO 5 mg DAILY [facility] Administration Haloperidol 2 mg 10/23/17 17:04 10/25/17 21:59 Haldol - PO 2 mg TID PRN Administration AGITATION Amino Acids 1,000 mls @ 42 mls/hr 10/25/17 12:00 10/26/17 13:30 Clinimix - IV 42 mls/hr Q24H [facility] Administration Insulin Aspart 1 vial 10/26/17 11:00 10/27/17 06:28 Novolog Vial Sliding Scale - SQ Not Given [facility]S [facility] Protocol Insulin Detemir 10 units 10/25/17 22:00 10/26/17 22:19 Levemir Vial SQ 10 units HS [facility] Administration Insulin Detemir 15 units 10/26/17 07:00 10/27/17 06:27 Levemir Vial SQ 15 units AM [facility] Administration Latanoprost 1 drop 10/26/17 22:00 10/26/17 22:20 Xalatan 0.005% Eye Drops - OU 1 drop HS [facility] Administration Metoprolol Succinate 25 mg 10/26/17 10:00 10/27/17 09:58 Toprol Xl - PO 25 mg BID [facility] Administration Montelukast Sodium 10 mg 10/26/17 10:00 10/27/17 09:58 Singulair - PO 10 mg DAILY [facility] Administration Aihxl-1-Fqel Ethyl Esters 1 gm 10/26/17 10:00 10/27/17 09:58 Lovaza - PO 1 gm DAILY [facility] Administration Ondansetron HCl 4 mg 10/26/17 07:32 Zofran Injection IVPUSH Q6H PRN NAUSEA Potassium Phos/Sodium Phos 1 packet 10/26/17 10:00 10/27/17 09:59 Phos-Nak Packet - PO 1 packet BID [facility] Administration Rosuvastatin Calcium 20 mg 10/26/17 22:00 10/26/17 22:17 Crestor - PO 20 mg HS [facility] Administration Senna 2 tab 10/26/17 22:00 10/26/17 22:20 Senna - PO 2 tab HS [facility] Administration Sitagliptin Phosphate 50 mg 10/27/17 07:00 10/27/17 06:28 Januvia - PO 50 mg DAILY@0700 [facility] Administration Tiotropium [place] 1 puff 10/26/17 10:00 10/27/17 09:59 Spiriva - IH 1 puff DAILY [facility] Administration Vital Signs Period Temp Pulse Resp BP Sys/Staples Pulse Ox Last 24 Hr 97.4 F-99.1 F 81-93 18-20 112-158/53-79 96 Constitutional: Yes: Well Nourished, No Distress, Calm Eyes: No: Sclera Icterus HENT: No: Nasal Congestion Cardiovascular: Yes: Regular Rate and Rhythm, Tachycardia, Murmur (soft (2/6) FILEMON lusb). No: JVD, Gallop Respiratory: Yes: Regular, CTA Bilaterally (anteriorly (fela vest on)). No: Rales, Wheezes Gastrointestinal: Yes: Normal Bowel Sounds, Soft. No: Tenderness Extremities: No: Cold Edema: No Integumentary: No: Jaundice Neurological: : Seizure Psychiatric: No: Agitated Labs: CBC, BMP 10/27/17 07:20 10/27/17 07:20 Echo 11/12: nl LV/EF, nl RV, nl LA, no bioAVR dysfunction Assessment/Plan mechanical fall, hip frx: -tripped over chair in the dark -s/p ORIF 10/18 -started on low dose eliquis 10/22 for post-op dvt prophylaxis (known h/o HIT)-- per ortho, heme. postop hgb stable sinus tachycardia (with baseline LBBB)/PSVT/wide complex tach ? brief NSVT: -intermittent sinus tachy here being driven by confustion/agitation and now fever as well -also with frequent intermittent brief atrial runs/runs of svt -pain control, fever control/abx (ID consulted). -cont toprol 25 bid--low threshold to increase if need be, given bp's have been stable (asthma may not tolerate higher doses at home but ok while here) -10/24 tele: rate-related intermittent LBBB without suspicion of any sustained VT. at times atrial rate approx 120s, with similar WI interval as baseline-- likely sinus tach > SVT - 10/25-10/27: now off tele, Hr trend overall improved. TYSON on CKD: -baseline creat 1.3-1.6 -suspect etiology vol depletion/hypoperfusion in setting of decr po/blood loss. ? SIMA exacerbating -creat bumped to 1.6 on 10/16, NS at 50 cc/hr started 1am on 10/16, creat peak to 2.1 --> IVF rate increased with improvement in cr (now back to baseline) -holding lisinopril. s/p AVR: -normal fxn on recent echo CAD s/p CABG: -preserved EF -no angina since -cont home meds (bb, statin, lovaza), holding ASA while on AC HTN: - stable on toprol bid dementia: -recently progressive -per pmd asthma/copd: -stable, no wheezing
[2017-10-27] MEDS: AMINO ACIDS 4.25%/D5W 1,000 ML IV SCH (13:50)
[2017-10-27 13:53] LABS: PLATELET ESTIMATE ADEQUATE
--- NOTE | 2017-10-27 15:58 | PN ---
Progress Note, Physician Chief Complaint: Mr Calvillo is lethargic today but pleasant. still says very agitated at night. - Current Medication List Current Medications: Active Medications Acetaminophen (Tylenol -) 650 mg PO Q6H PRN PRN Reason: PAIN Albuterol Sulfate (Ventolin Hfa Inhaler -) 1 puff IH Q8H PRN PRN Reason: SHORT OF BREATH/WHEEZING Last Admin: 10/26/17 13:30 Dose: 1 puff Apixaban (Eliquis -) 2.5 mg PO BID [facility] Last Admin: 10/27/17 09:59 Dose: 2.5 mg Cholecalciferol (Vitamin D3 -) 1,000 unit PO DAILY [facility] Last Admin: 10/27/17 09:58 Dose: 1,000 unit Docusate Sodium (Colace -) 200 mg PO DAILY [facility] Last Admin: 10/27/17 09:58 Dose: 200 mg Escitalopram Oxalate (Lexapro -) 5 mg PO DAILY [facility] Last Admin: 10/27/17 09:58 Dose: 5 mg Haloperidol (Haldol -) 2 mg PO TID PRN PRN Reason: AGITATION Last Admin: 10/25/17 21:59 Dose: 2 mg Amino Acids (Clinimix -) 1,000 mls @ 42 mls/hr IV Q24H [facility] Last Admin: 10/27/17 13:50 Dose: 42 mls/hr Insulin Aspart (Novolog Vial Sliding Scale -) 1 vial SQ ACHS [facility] PRN Reason: Protocol Last Admin: 10/27/17 11:37 Dose: 2 units Insulin Detemir (Levemir Vial) 10 units SQ HS [facility] Last Admin: 10/26/17 22:19 Dose: 10 units Insulin Detemir (Levemir Vial) 15 units SQ AM [facility] Last Admin: 10/27/17 06:27 Dose: 15 units Latanoprost (Xalatan 0.005% Eye Drops -) 1 drop OU HS [facility] Last Admin: 10/26/17 22:20 Dose: 1 drop Lorazepam (Ativan -) 1 mg PO HS PRN PRN Reason: ANXIETY Metoprolol Succinate (Toprol Xl -) 25 mg PO BID [facility] Last Admin: 10/27/17 09:58 Dose: 25 mg Montelukast Sodium (Singulair -) 10 mg PO DAILY [facility] Last Admin: 10/27/17 09:58 Dose: 10 mg Fceha-0-Ubfu Ethyl Esters (Lovaza -) 1 gm PO DAILY [facility] Last Admin: 10/27/17 09:58 Dose: 1 gm Ondansetron HCl (Zofran Injection) 4 mg IVPUSH Q6H PRN PRN Reason: NAUSEA Potassium Phos/Sodium Phos (Phos-Nak Packet -) 1 packet PO BID [facility] Last Admin: 10/27/17 09:59 Dose: 1 packet Rosuvastatin Calcium (Crestor -) 20 mg PO [facility] Last Admin: 10/26/17 22:17 Dose: 20 mg Senna (Senna -) 2 tab PO [facility] Last Admin: 10/26/17 22:20 Dose: 2 tab Sitagliptin Phosphate (Januvia -) 50 mg PO DAILY@0700 [facility] Last Admin: 10/27/17 06:28 Dose: 50 mg Tiotropium [place] (Spiriva -) 1 puff IH DAILY [facility] Last Admin: 10/27/17 09:59 Dose: 1 puff - Objective Vital Signs: Vital Signs Temperature 37.1 C 10/27/17 14:00 Pulse Rate 86 10/27/17 14:00 Respiratory Rate 20 10/27/17 14:00 Blood Pressure 120/45 10/27/17 14:00 O2 Sat by Pulse Oximetry (%) 97 10/27/17 09:00 Constitutional: Yes: Well Nourished, No Distress, Calm Cardiovascular: Yes: Regular Rate and Rhythm. No: Gallop, Murmur, Rub Respiratory: Yes: Regular, CTA Bilaterally. No: Rales, Rhonchi, Wheezes Gastrointestinal: Yes: Normal Bowel Sounds, Soft. No: Distention, Tenderness Extremities: Yes: WNL Edema: No Labs: CBC, BMP 10/27/17 07:20 10/27/17 07:20 INR, PTT INR 1.12 (0.82-1.09) 10/19/17 21:00 Problem List - Problems (1) Pneumonia Code(s): J18.9 - PNEUMONIA, UNSPECIFIED ORGANISM (2) Sepsis Code(s): A41.9 - SEPSIS, UNSPECIFIED ORGANISM (3) Fracture, proximal femur Code(s): S72.009A - FRACTURE OF UNSP PART OF NECK OF UNSP FEMUR, INIT Qualifiers: Fracture type: closed Laterality: left (4) CKD stage 3 secondary to diabetes Code(s): E11.22 - TYPE 2 DIABETES MELLITUS W DIABETIC CHRONIC KIDNEY DISEASE; N18.3 - CHRONIC KIDNEY DISEASE, STAGE 3 (MODERATE) (5) Coronary arteriosclerosis after coronary artery bypass grafting Code(s): I25.810 - ATHEROSCLEROSIS OF CABG W/O ANGINA PECTORIS (6) Hypercholesteremia Code(s): E78.00 - PURE HYPERCHOLESTEROLEMIA, UNSPECIFIED (7) Uncontrolled diabetes mellitus Code(s): E11.65 - TYPE 2 DIABETES MELLITUS WITH HYPERGLYCEMIA (8) COPD (chronic obstructive pulmonary disease) Code(s): J44.9 - CHRONIC OBSTRUCTIVE PULMONARY DISEASE, UNSPECIFIED (9) Dementia Code(s): F03.90 - UNSPECIFIED DEMENTIA WITHOUT BEHAVIORAL DISTURBANCE (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) Code(s): D75.82 - HEPARIN INDUCED THROMBOCYTOPENIA (HIT) Assessment/Plan (1) Pneumonia with sepsis -case d/w ID -finished full course of antibiotics (2) Fracture, proximal femur Assessment/Plan: -s/p repair -continue PT Code(s): S72.009A - FRACTURE OF UNSP PART OF NECK OF UNSP FEMUR, INIT Qualifiers: Fracture type: closed Laterality: left (3) CKD stage 3 secondary to diabetes Assessment/Plan: -renal function stable -continue clinimix, patient with minimal intake secondary to Code(s): E11.22 - TYPE 2 DIABETES MELLITUS W DIABETIC CHRONIC KIDNEY DISEASE; N18.3 - CHRONIC KIDNEY DISEASE, STAGE 3 (MODERATE) (4) Coronary arteriosclerosis after coronary artery bypass grafting Assessment/Plan: -cardiology following -holding aspirin while on AC -continue statin and toprol xl Code(s): I25.810 - ATHEROSCLEROSIS OF CABG W/O ANGINA PECTORIS (5) Hypercholesteremia Assessment/Plan: -continue statin Code(s): E78.00 - PURE HYPERCHOLESTEROLEMIA, UNSPECIFIED (6) Uncontrolled diabetes mellitus Assessment/Plan: -improved control on decreased levemir -may elevate -monitor Code(s): E11.65 - TYPE 2 DIABETES MELLITUS WITH HYPERGLYCEMIA (7) COPD (chronic obstructive pulmonary disease) Assessment/Plan: -not in exacerbation -continue current management Code(s): J44.9 - CHRONIC OBSTRUCTIVE PULMONARY DISEASE, UNSPECIFIED (8) Dementia Assessment/Plan: -appreciate psychiatry and neurology assistance -will trial ativan at night to see if helps sleep Code(s): F03.90 - UNSPECIFIED DEMENTIA WITHOUT BEHAVIORAL DISTURBANCE (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
--- NOTE | 2017-10-27 16:05 | PN ---
Progress Note, Physician History of Present Illness: patient stable still with confusion at night received ativan was normal during lunch - Current Medication List Current Medications: Active Medications Acetaminophen (Tylenol -) 650 mg PO Q6H PRN PRN Reason: PAIN Albuterol Sulfate (Ventolin Hfa Inhaler -) 1 puff IH Q8H PRN PRN Reason: SHORT OF BREATH/WHEEZING Last Admin: 10/26/17 13:30 Dose: 1 puff Apixaban (Eliquis -) 2.5 mg PO BID [facility] Last Admin: 10/27/17 09:59 Dose: 2.5 mg Cholecalciferol (Vitamin D3 -) 1,000 unit PO DAILY [facility] Last Admin: 10/27/17 09:58 Dose: 1,000 unit Docusate Sodium (Colace -) 200 mg PO DAILY [facility] Last Admin: 10/27/17 09:58 Dose: 200 mg Escitalopram Oxalate (Lexapro -) 5 mg PO DAILY [facility] Last Admin: 10/27/17 09:58 Dose: 5 mg Haloperidol (Haldol -) 2 mg PO TID PRN PRN Reason: AGITATION Last Admin: 10/25/17 21:59 Dose: 2 mg Amino Acids (Clinimix -) 1,000 mls @ 42 mls/hr IV Q24H [facility] Last Admin: 10/27/17 13:50 Dose: 42 mls/hr Insulin Aspart (Novolog Vial Sliding Scale -) 1 vial SQ ACHS [facility] PRN Reason: Protocol Last Admin: 10/27/17 11:37 Dose: 2 units Insulin Detemir (Levemir Vial) 10 units SQ HS [facility] Last Admin: 10/26/17 22:19 Dose: 10 units Insulin Detemir (Levemir Vial) 15 units SQ AM [facility] Last Admin: 10/27/17 06:27 Dose: 15 units Latanoprost (Xalatan 0.005% Eye Drops -) 1 drop OU HS [facility] Last Admin: 10/26/17 22:20 Dose: 1 drop Lorazepam (Ativan -) 1 mg PO HS PRN PRN Reason: ANXIETY Metoprolol Succinate (Toprol Xl -) 25 mg PO BID [facility] Last Admin: 10/27/17 09:58 Dose: 25 mg Montelukast Sodium (Singulair -) 10 mg PO DAILY [facility] Last Admin: 10/27/17 09:58 Dose: 10 mg Yolrf-7-Dewf Ethyl Esters (Lovaza -) 1 gm PO DAILY [facility] Last Admin: 10/27/17 09:58 Dose: 1 gm Ondansetron HCl (Zofran Injection) 4 mg IVPUSH Q6H PRN PRN Reason: NAUSEA Potassium Phos/Sodium Phos (Phos-Nak Packet -) 1 packet PO BID [facility] Last Admin: 10/27/17 09:59 Dose: 1 packet Rosuvastatin Calcium (Crestor -) 20 mg PO [facility] Last Admin: 10/26/17 22:17 Dose: 20 mg Senna (Senna -) 2 tab PO [facility] Last Admin: 10/26/17 22:20 Dose: 2 tab Sitagliptin Phosphate (Januvia -) 50 mg PO DAILY@0700 [facility] Last Admin: 10/27/17 06:28 Dose: 50 mg Tiotropium [place] (Spiriva -) 1 puff IH DAILY [facility] Last Admin: 10/27/17 09:59 Dose: 1 puff - Objective Vital Signs: Vital Signs Temperature 98.7 F 10/27/17 14:00 Pulse Rate 86 10/27/17 14:00 Respiratory Rate 20 10/27/17 14:00 Blood Pressure 120/45 10/27/17 14:00 O2 Sat by Pulse Oximetry (%) 97 10/27/17 09:00 Constitutional: Yes: Calm, Other Cardiovascular: Yes: Regular Rate and Rhythm Respiratory: Yes: Regular, On Nasal O2, Poor Air Entry Gastrointestinal: Yes: Normal Bowel Sounds, Soft Musculoskeletal: Yes: WNL Extremities: Yes: WNL Neurological: Yes: Alert, Other Psychiatric: Yes: Other Labs: CBC, BMP 10/27/17 07:20 10/27/17 07:20 INR, PTT INR 1.12 (0.82-1.09) 10/19/17 21:00 Assessment/Plan Assessment/Plan (1) Pneumonia with sepsis (2) Fracture, proximal femur Code(s): S72.009A - FRACTURE OF UNSP PART OF NECK OF UNSP FEMUR, INIT Qualifiers: Fracture type: closed Laterality: left (3) CKD stage 3 secondary to diabetes Code(s): E11.22 - TYPE 2 DIABETES MELLITUS W DIABETIC CHRONIC KIDNEY DISEASE; N18.3 - CHRONIC KIDNEY DISEASE, STAGE 3 (MODERATE) (4) Coronary arteriosclerosis after coronary artery bypass grafting Code(s): I25.810 - ATHEROSCLEROSIS OF CABG W/O ANGINA PECTORIS (5) Hypercholesteremia Code(s): E78.00 - PURE HYPERCHOLESTEROLEMIA, UNSPECIFIED (6) Uncontrolled diabetes mellitus Code(s): E11.65 - TYPE 2 DIABETES MELLITUS WITH HYPERGLYCEMIA (7) COPD (chronic obstructive pulmonary disease) Code(s): J44.9 - CHRONIC OBSTRUCTIVE PULMONARY DISEASE, UNSPECIFIED (8) Dementia Code(s): F03.90 - UNSPECIFIED DEMENTIA WITHOUT BEHAVIORAL DISTURBANCE (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
[2017-10-27] MEDS: AMOX TR/POT CLAV 500MG/125MG TABLETS (FP) PO SCH (17:07)
[2017-10-27] MEDS ORDERED: ROSUVASTATIN CA 10 MG TABLET (FP) ONE (21:17)
[2017-10-27] MEDS ORDERED: PT OWN MED DRAWER 7, Y5N ONE (21:19)
[2017-10-27] MEDS: SENNOSIDES 8.6MG TABLET (FP) PO SCH (21:43)
[2017-10-27] MEDS: ROSUVASTATIN CA 20 MG TABLET (FP) PO SCH (21:45)
[2017-10-27] MEDS: LATANOPROST 0.005% OPHTH SOLN 2.5ML BOTTLE OU SCH (21:47)
[2017-10-27] MEDS: LORazepam 1 MG TABLET PO PRN (21:50)
[2017-10-27] MEDS: ACETAMINOPHEN 325 MG TABLET (FP) PO PRN (21:52)
[2017-10-28] MEDS: INSULIN SLIDING SCALE (NOVOLOG) 1 VIAL SQ SCH ×4 (06:34→21:12)
[2017-10-28 08:47] LABS: HEMATOCRIT 28.6 % (35.4-49); HEMOGLOBIN 8.9 GM/dL (11.7-16.9); MCH 27.2 pg (25.7-33.7); MCHC 31.2 g/dl (32.0-35.9); MEAN CELL VOLUME 87.2 fl (80-96); MEAN PLT VOLUME 8.9 fl (7.5-11.1); PLATELET COUNT 249 K/MM3 (134-434); RBC 3.28 M/mm3 (4.00-5.60); RDW 16.8 % (11.9-15.9)
[2017-10-28 09:11] LABS: ANION GAP 7 (8-16); BLOOD UREA NITROGEN 23 mg/dL (7-18); CHLORIDE 105 mmol/L (98-107); CO2 28 mmol/L (21-32); GLUCOSE,RANDOM 74 mg/dL (74-106); MAGNESIUM 2.1 mg/dL (1.8-2.4); PHOSPHOROUS 2.7 mg/dL (2.5-4.9); POTASSIUM 3.6 mmol/L (3.5-5.1); SODIUM 140 mmol/L (136-145)
[2017-10-28 09:12] LABS: CALCIUM 7.6 mg/dL (8.5-10.1)
[2017-10-28] MEDS ORDERED: PT OWN MED DRAWER 7, Y5N ONE ×3 (09:13→21:06)
[2017-10-28] MEDS: TIOTROPIUM BROMIDE 18 MCG/INH (DEVICE W/ 5 CAPSULES) IH SCH (09:26)
[2017-10-28] MEDS: NAPH,MB-DB/K PH,MBDB POWDER PACKET PO SCH ×2 (09:28→21:12)
[2017-10-28] MEDS: OMEGA-3 ACID ETHYL ESTERS (FATTY-ACIDS) 1 GM CAPSULE (FP) PO SCH (09:28)
[2017-10-28] MEDS: MONTELUKAST NA 10 MG TABLET PO SCH (09:28)
[2017-10-28] MEDS: metoPROLOL SUCCINATE 25 MG TAB.SR.24H (FP) PO SCH ×2 (09:29→21:11)
[2017-10-28] MEDS: AMOX TR/POT CLAV 500MG/125MG TABLETS (FP) PO SCH ×2 (09:29→17:15)
[2017-10-28] MEDS: ESCITALOPRAM OXALATE 10 MG TABLET (FP) PO SCH (09:29)
[2017-10-28] MEDS: APIXABAN 2.5 MG TABLET PO SCH ×2 (09:29→21:11)
[2017-10-28] MEDS: DOCUSATE SODIUM 100 MG CAPSULE (FP) PO SCH (09:29)
[2017-10-28] MEDS: CHOLECALCIFEROL (VITAMIN D3) 1,000 UNIT TABLET (FP) PO SCH (09:30)
--- NOTE | 2017-10-28 09:43 | PN ---
Progress Note (short form) - Note Progress Note: Neurology History of Present Illness: 86 yrs old man multiple medical Co-morbidities lives at home with poor gait stability H/o HTN, Bioprosthic AVR, Dyslipedemia, as per Cardiology note recent evaluation by Dr Duncan compensated CHF, Uncontrolled T2DM, CAD S/P [place], CABG , PCI not on Plavix at base line LBB presented s/p fall as per patient was at home upstairs walked in a dark room stucked with chair lost balance landed on Left side, also had head trauma, but no LOC, and was brought to ER. Was noted to have left proximal Femur fracture, no syncope or pre- syncope symptoms, no c/o focal weakness, seizures or incontinence. Seen initially by Dr. Ramesh but requested second opinion. CT head completed and did not show acute changes. Patient with underlying memory difficulty and seen in office by me before. ID following for infection. Psych recommended PRN haldol or if needed frequently, can use ongoing risperdal. Has required Ativan overnight. Somnolent this AM but briefly arousable. Active Medications Acetaminophen (Tylenol -) 650 mg PO Q6H PRN PRN Reason: PAIN Last Admin: 10/27/17 21:52 Dose: 650 mg Albuterol Sulfate (Ventolin Hfa Inhaler -) 1 puff IH Q8H PRN PRN Reason: SHORT OF BREATH/WHEEZING Last Admin: 10/26/17 13:30 Dose: 1 puff Amoxicillin/Clavulanate Potassium (Augmentin - 500mg Tablet) 1 tab PO BID@0800, 1730 [facility] Last Admin: 10/28/17 09:29 Dose: 1 tab Apixaban (Eliquis -) 2.5 mg PO BID [facility] Last Admin: 10/28/17 09:29 Dose: 2.5 mg Cholecalciferol (Vitamin D3 -) 1,000 unit PO DAILY [facility] Last Admin: 10/28/17 09:30 Dose: 1,000 unit Docusate Sodium (Colace -) 200 mg PO DAILY [facility] Last Admin: 10/28/17 09:29 Dose: 200 mg Escitalopram Oxalate (Lexapro -) 5 mg PO DAILY [facility] Last Admin: 10/28/17 09:29 Dose: 5 mg Haloperidol (Haldol -) 2 mg PO TID PRN PRN Reason: AGITATION Last Admin: 10/25/17 21:59 Dose: 2 mg Amino Acids (Clinimix -) 1,000 mls @ 42 mls/hr IV Q24H [facility] Last Admin: 10/27/17 13:50 Dose: 42 mls/hr Insulin Aspart (Novolog Vial Sliding Scale -) 1 vial SQ ACHS [facility] PRN Reason: Protocol Last Admin: 10/28/17 06:34 Dose: Not Given Insulin Detemir (Levemir Vial) 10 units SQ HS [facility] Last Admin: 10/27/17 21:48 Dose: 10 units Insulin Detemir (Levemir Vial) 15 units SQ AM [facility] Last Admin: 10/27/17 06:27 Dose: 15 units Latanoprost (Xalatan 0.005% Eye Drops -) 1 drop OU HS [facility] Last Admin: 10/27/17 21:47 Dose: 1 drop Lorazepam (Ativan -) 1 mg PO HS PRN PRN Reason: ANXIETY Last Admin: 10/27/17 21:50 Dose: 1 mg Metoprolol Succinate (Toprol Xl -) 25 mg PO BID [facility] Last Admin: 10/28/17 09:29 Dose: 25 mg Montelukast Sodium (Singulair -) 10 mg PO DAILY [facility] Last Admin: 10/28/17 09:28 Dose: 10 mg Tnnoh-6-Cvzk Ethyl Esters (Lovaza -) 1 gm PO DAILY [facility] Last Admin: 10/28/17 09:28 Dose: 1 gm Ondansetron HCl (Zofran Injection) 4 mg IVPUSH Q6H PRN PRN Reason: NAUSEA Potassium Phos/Sodium Phos (Phos-Nak Packet -) 1 packet PO BID [facility] Last Admin: 10/28/17 09:28 Dose: 1 packet Rosuvastatin Calcium (Crestor -) 20 mg PO HS [facility] Last Admin: 10/27/17 21:45 Dose: 20 mg Senna (Senna -) 2 tab PO HS [facility] Last Admin: 10/27/17 21:43 Dose: 2 tab Sitagliptin Phosphate (Januvia -) 50 mg PO DAILY@0700 [facility] Last Admin: 10/27/17 06:28 Dose: 50 mg Tiotropium [place] (Spiriva -) 1 puff IH DAILY [facility] Last Admin: 10/28/17 09:26 Dose: 1 puff Physical Examination Vital Signs Temperature 97.8 F 10/28/17 08:57 Pulse Rate 85 10/28/17 08:57 Respiratory Rate 18 10/28/17 08:57 Blood Pressure 150/76 10/28/17 08:57 O2 Sat by Pulse Oximetry (%) 97 10/27/17 21:00 Constitutional: Yes: Well Nourished, No Distress, Calm and cooperative Eyes: No: Sclera Icterus HENT: No: Nasal Congestion Cardiovascular: Yes: Regular Rate and Rhythm, Tachycardia, Murmur (soft (2/6) FILEMON lusb). No: JVD, Gallop Respiratory: Yes: Regular, CTA Bilaterally No: Rales, Wheezes Gastrointestinal: Yes: Normal Bowel Sounds, Soft. No: Tenderness Musculoskeletal: Yes: Other (No kyphosis) Extremities: No: Cold Edema: No Integumentary: No: Jaundice Neurological: Awake, alert, calm, CN appear intact, moves all ext equally, sensory intact, gait deferred Psychiatric: somnolent CBCD WBC 11.0 K/mm3 (4.0-10.0) H 10/28/17 07:20 RBC 3.28 M/mm3 (4.00-5.60) L 10/28/17 07:20 Hgb 8.9 GM/dL (11.7-16.9) L 10/28/17 07:20 Hct 28.6 % (35.4-49) L 10/28/17 07:20 MCV 87.2 fl (80-96) 10/28/17 07:20 MCHC 31.2 g/dl (32.0-35.9) L 10/28/17 07:20 RDW 16.8 % (11.9-15.9) H 10/28/17 07:20 Plt Count 249 K/MM3 (134-434) 10/28/17 07:20 MPV 8.9 fl (7.5-11.1) 10/28/17 07:20 CMP Sodium 140 mmol/L (136-145) 10/28/17 07:20 Potassium 3.6 mmol/L (3.5-5.1) 10/28/17 07:20 Chloride 105 mmol/L (98-107) 10/28/17 07:20 Carbon Dioxide 28 mmol/L (21-32) 10/28/17 07:20 Anion Gap 7 (8-16) L 10/28/17 07:20 BUN 23 mg/dL (7-18) H 10/28/17 07:20 Creatinine 1.0 mg/dL (0.7-1.3) 10/28/17 07:20 Creat Clearance w eGFR 48.28 (>60) 10/24/17 06:35 Calcium 7.6 mg/dL (8.5-10.1) L 10/28/17 07:20 Total Bilirubin 1.4 mg/dL (0.2-1.0) H 10/24/17 06:35 AST 70 U/L (15-37) H D 10/24/17 06:35 ALT 63 U/L (12-78) D 10/24/17 06:35 Alkaline Phosphatase 90 U/L (45-117) 10/24/17 06:35 Total Protein 4.9 g/dl (6.4-8.2) L D 10/24/17 06:35 Albumin 2.1 g/dl (3.4-5.0) L D 10/24/17 06:35 Imaging - Results Chest X-ray: Report Reviewed (No Pulmonary congestion or infiltrates) Cat Scan: Report Reviewed (Head: No acute intracraniall changes) Plan 86 yrs old man multiple medical Co-morbidities lives at home with poor gait stability H/o HTN, Bioprosthic AVR, Dyslipedemia, as per Cardiology note recent evaluation by Dr Duncan compensated CHF, Uncontrolled T2DM, CAD S/P [place], CABG , PCI not on Plavix at base line LBB presented s/p fall as per patient was at home upstairs walked in a dark room stucked with chair lost balance landed on Left side, also had head trauma, but no LOC, and was brought to ER. Was noted to have left proximal Femur fracture, no syncope or pre- syncope symptoms, no c/o focal weakness, seizures or incontinence. Seen initially by Dr. Ramesh but requested second opinion. CT head completed and did not show acute changes. Had been getting aggitated and psych recommended PRN haldol or if needed frequently, can use ongoing risperdal. Ativan required for aggitation Has had sundowning, combination of unfamiliar enviorment with infection causing altered mental status Maintain hydration As infection clears would expect improvements gradually Id following for infection, on Augmentin
--- NOTE | 2017-10-28 09:59 | PN ---
Progress Note (short form) - Note Progress Note: Ortho Pt seen and examined s/p left IM gamma nail Selected Entries 10/28/17 08:57 Temperature 97.8 F Pulse Rate 85 Respiratory 18 Rate Blood Pressure 150/76 Laboratory Tests 10/28/17 07:20 WBC 11.0 H Hgb 8.9 L Hct 28.6 L Plt Count 249 incision c/d/i, calf soft, nt nvi a/p ABX as per ID PT if able dvt ppx pain control d/c planning
--- NOTE | 2017-10-28 11:08 | PN ---
Progress Note, Physician Chief Complaint: Mr Calvillo more awake today, remains pleasant. says he slept better last night. - Current Medication List Current Medications: Active Medications Acetaminophen (Tylenol -) 650 mg PO Q6H PRN PRN Reason: PAIN Last Admin: 10/27/17 21:52 Dose: 650 mg Albuterol Sulfate (Ventolin Hfa Inhaler -) 1 puff IH Q8H PRN PRN Reason: SHORT OF BREATH/WHEEZING Last Admin: 10/26/17 13:30 Dose: 1 puff Amoxicillin/Clavulanate Potassium (Augmentin - 500mg Tablet) 1 tab PO BID@0800, 1730 [facility] Last Admin: 10/28/17 09:29 Dose: 1 tab Apixaban (Eliquis -) 2.5 mg PO BID [facility] Last Admin: 10/28/17 09:29 Dose: 2.5 mg Cholecalciferol (Vitamin D3 -) 1,000 unit PO DAILY [facility] Last Admin: 10/28/17 09:30 Dose: 1,000 unit Docusate Sodium (Colace -) 200 mg PO DAILY [facility] Last Admin: 10/28/17 09:29 Dose: 200 mg Escitalopram Oxalate (Lexapro -) 5 mg PO DAILY [facility] Last Admin: 10/28/17 09:29 Dose: 5 mg Haloperidol (Haldol -) 2 mg PO TID PRN PRN Reason: AGITATION Last Admin: 10/25/17 21:59 Dose: 2 mg Amino Acids (Clinimix -) 1,000 mls @ 42 mls/hr IV Q24H [facility] Last Admin: 10/27/17 13:50 Dose: 42 mls/hr Insulin Aspart (Novolog Vial Sliding Scale -) 1 vial SQ ACHS [facility] PRN Reason: Protocol Last Admin: 10/28/17 06:34 Dose: Not Given Insulin Detemir (Levemir Vial) 10 units SQ HS [facility] Last Admin: 10/27/17 21:48 Dose: 10 units Insulin Detemir (Levemir Vial) 15 units SQ AM [facility] Last Admin: 10/27/17 06:27 Dose: 15 units Latanoprost (Xalatan 0.005% Eye Drops -) 1 drop OU HS [facility] Last Admin: 10/27/17 21:47 Dose: 1 drop Lorazepam (Ativan -) 1 mg PO HS PRN PRN Reason: ANXIETY Last Admin: 10/27/17 21:50 Dose: 1 mg Metoprolol Succinate (Toprol Xl -) 25 mg PO BID [facility] Last Admin: 10/28/17 09:29 Dose: 25 mg Montelukast Sodium (Singulair -) 10 mg PO DAILY [facility] Last Admin: 10/28/17 09:28 Dose: 10 mg Hvgug-7-Cqto Ethyl Esters (Lovaza -) 1 gm PO DAILY [facility] Last Admin: 10/28/17 09:28 Dose: 1 gm Ondansetron HCl (Zofran Injection) 4 mg IVPUSH Q6H PRN PRN Reason: NAUSEA Potassium Phos/Sodium Phos (Phos-Nak Packet -) 1 packet PO BID [facility] Last Admin: 10/28/17 09:28 Dose: 1 packet Rosuvastatin Calcium (Crestor -) 20 mg PO [facility] Last Admin: 10/27/17 21:45 Dose: 20 mg Senna (Senna -) 2 tab PO [facility] Last Admin: 10/27/17 21:43 Dose: 2 tab Sitagliptin Phosphate (Januvia -) 50 mg PO DAILY@0700 [facility] Last Admin: 10/27/17 06:28 Dose: 50 mg Tiotropium [place] (Spiriva -) 1 puff IH DAILY [facility] Last Admin: 10/28/17 09:26 Dose: 1 puff - Objective Vital Signs: Vital Signs Temperature 36.6 C 10/28/17 08:57 Pulse Rate 85 10/28/17 08:57 Respiratory Rate 18 10/28/17 08:57 Blood Pressure 150/76 10/28/17 08:57 O2 Sat by Pulse Oximetry (%) 97 10/27/17 21:00 Constitutional: Yes: Well Nourished, No Distress, Calm Cardiovascular: Yes: Regular Rate and Rhythm. No: Gallop, Murmur, Rub Respiratory: Yes: Regular, CTA Bilaterally. No: Rales, Rhonchi, Wheezes Gastrointestinal: Yes: Normal Bowel Sounds, Soft, Distention, Tenderness Genitourinary: Yes: Hematuria Extremities: Yes: WNL Edema: No Labs: CBC, BMP 10/28/17 07:20 10/28/17 07:20 INR, PTT INR 1.12 (0.82-1.09) 10/19/17 21:00 Problem List - Problems (1) Pneumonia Code(s): J18.9 - PNEUMONIA, UNSPECIFIED ORGANISM (2) Sepsis Code(s): A41.9 - SEPSIS, UNSPECIFIED ORGANISM (3) Fracture, proximal femur Code(s): S72.009A - FRACTURE OF UNSP PART OF NECK OF UNSP FEMUR, INIT Qualifiers: Fracture type: closed Laterality: left (4) CKD stage 3 secondary to diabetes Code(s): E11.22 - TYPE 2 DIABETES MELLITUS W DIABETIC CHRONIC KIDNEY DISEASE; N18.3 - CHRONIC KIDNEY DISEASE, STAGE 3 (MODERATE) (5) Coronary arteriosclerosis after coronary artery bypass grafting Code(s): I25.810 - ATHEROSCLEROSIS OF CABG W/O ANGINA PECTORIS (6) Hypercholesteremia Code(s): E78.00 - PURE HYPERCHOLESTEROLEMIA, UNSPECIFIED (7) Uncontrolled diabetes mellitus Code(s): E11.65 - TYPE 2 DIABETES MELLITUS WITH HYPERGLYCEMIA (8) COPD (chronic obstructive pulmonary disease) Code(s): J44.9 - CHRONIC OBSTRUCTIVE PULMONARY DISEASE, UNSPECIFIED (9) Dementia Code(s): F03.90 - UNSPECIFIED DEMENTIA WITHOUT BEHAVIORAL DISTURBANCE (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) Code(s): D75.82 - HEPARIN INDUCED THROMBOCYTOPENIA (HIT) Assessment/Plan (1) Pneumonia with sepsis -finished full course of antibiotics -now with cough -obtain chest x-ray -ID following (2) Fracture, proximal femur Assessment/Plan: -s/p repair -continue PT Code(s): S72.009A - FRACTURE OF UNSP PART OF NECK OF UNSP FEMUR, INIT Qualifiers: Fracture type: closed Laterality: left (3) CKD stage 3 secondary to diabetes Assessment/Plan: -renal function stable -continue clinimix, patient with minimal intake secondary to -plan to stop clinimix tomorrow if tolerating diet Code(s): E11.22 - TYPE 2 DIABETES MELLITUS W DIABETIC CHRONIC KIDNEY DISEASE; N18.3 - CHRONIC KIDNEY DISEASE, STAGE 3 (MODERATE) (4) Coronary arteriosclerosis after coronary artery bypass grafting Assessment/Plan: -cardiology following -holding aspirin while on AC -continue statin and toprol xl Code(s): I25.810 - ATHEROSCLEROSIS OF CABG W/O ANGINA PECTORIS (5) Hypercholesteremia Assessment/Plan: -continue statin Code(s): E78.00 - PURE HYPERCHOLESTEROLEMIA, UNSPECIFIED (6) Uncontrolled diabetes mellitus Assessment/Plan: -improved control on decreased levemir -january elevate -monitor Code(s): E11.65 - TYPE 2 DIABETES MELLITUS WITH HYPERGLYCEMIA (7) COPD (chronic obstructive pulmonary disease) Assessment/Plan: -not in exacerbation -continue current management Code(s): J44.9 - CHRONIC OBSTRUCTIVE PULMONARY DISEASE, UNSPECIFIED (8) Dementia Assessment/Plan: -continue prn evening ativan -patient more alert today after sleeping last night Code(s): F03.90 - UNSPECIFIED DEMENTIA WITHOUT BEHAVIORAL DISTURBANCE (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
[2017-10-28] MEDS: sitaGLIPtin PHOSPHATE 50 MG TABLET PO SCH (11:10)
--- NOTE | 2017-10-28 11:27 | PN ---
Progress Note (short form) - Note Progress Note: s: no cp sob palps dizzy ex cigs Current Medications Generic Name Dose Route Start Last Admin Trade Name Freq PRN Reason Stop Dose Admin Acetaminophen 650 mg 10/26/17 07:32 10/27/17 21:52 Tylenol - PO 650 mg Q6H PRN Administration PAIN Albuterol Sulfate 1 puff 10/26/17 07:32 10/26/17 13:30 Ventolin Hfa Inhaler - IH 1 puff Q8H PRN Administration SHORT OF BREATH/WHEEZING Amoxicillin/Clavulanate Potassium 1 tab 10/27/17 17:30 10/28/17 09:29 Augmentin - 500mg Tablet PO 1 tab BID@0800,1730 [facility] Administration Apixaban 2.5 mg 10/26/17 10:00 10/28/17 09:29 Eliquis - PO 2.5 mg BID [facility] Administration Cholecalciferol 1,000 unit 10/26/17 10:00 10/28/17 09:30 Vitamin D3 - PO 1,000 unit DAILY [facility] Administration Docusate Sodium 200 mg 10/26/17 10:00 10/28/17 09:29 Colace - PO 200 mg DAILY [facility] Administration Escitalopram Oxalate 5 mg 10/26/17 10:00 10/28/17 09:29 Lexapro - PO 5 mg DAILY [facility] Administration Haloperidol 2 mg 10/23/17 17:04 10/25/17 21:59 Haldol - PO 2 mg TID PRN Administration AGITATION Amino Acids 1,000 mls @ 42 mls/hr 10/25/17 12:00 10/27/17 13:50 Clinimix - IV 42 mls/hr Q24H [facility] Administration Insulin Aspart 1 vial 10/26/17 11:00 10/28/17 06:34 Novolog Vial Sliding Scale - SQ Not Given ACHS [facility] Protocol Insulin Detemir 10 units 10/25/17 22:00 10/27/17 21:48 Levemir Vial SQ 10 units HS [facility] Administration Insulin Detemir 15 units 10/26/17 07:00 10/27/17 06:27 Levemir Vial SQ 15 units AM [facility] Administration Latanoprost 1 drop 10/26/17 22:00 10/27/17 21:47 Xalatan 0.005% Eye Drops - OU 1 drop HS [facility] Administration Lorazepam 1 mg 02/01/18 22:00 10/27/17 21:50 Ativan - PO 1 mg HS PRN Administration ANXIETY Metoprolol Succinate 25 mg 10/26/17 10:00 10/28/17 09:29 Toprol Xl - PO 25 mg BID [facility] Administration Montelukast Sodium 10 mg 10/26/17 10:00 10/28/17 09:28 Singulair - PO 10 mg DAILY [facility] Administration Jxvaf-6-Lirg Ethyl Esters 1 gm 10/26/17 10:00 10/28/17 09:28 Lovaza - PO 1 gm DAILY [facility] Administration Ondansetron HCl 4 mg 10/26/17 07:32 Zofran Injection IVPUSH Q6H PRN NAUSEA Potassium Phos/Sodium Phos 1 packet 10/26/17 10:00 10/28/17 09:28 Phos-Nak Packet - PO 1 packet BID [facility] Administration Rosuvastatin Calcium 20 mg 10/26/17 22:00 10/27/17 21:45 Crestor - PO 20 mg HS [facility] Administration Senna 2 tab 10/26/17 22:00 10/27/17 21:43 Senna - PO 2 tab HS [facility] Administration Sitagliptin Phosphate 50 mg 10/27/17 07:00 10/28/17 11:10 Januvia - PO Not Given DAILY@0700 [facility] Tiotropium [place] 1 puff 10/26/17 10:00 10/28/17 09:26 Spiriva - IH 1 puff DAILY [facility] Administration Vital Signs Period Temp Pulse Resp BP Sys/Staples Pulse Ox Last 24 Hr 97.7 F-100.4 F 85-92 18-22 118-150/45-76 97-97 Constitutional: Yes: Well Nourished, No Distress, Calm Eyes: No: Sclera Icterus HENT: No: Nasal Congestion Cardiovascular: Yes: Regular Rate and Rhythm, Tachycardia, Murmur (soft (2/6) FILEMON lusb). No: JVD, Gallop Respiratory: Yes: Regular, CTA Bilaterally (anteriorly (fela vest on)). No: Rales, Wheezes Gastrointestinal: Yes: Normal Bowel Sounds, Soft. No: Tenderness Extremities: No: Cold Edema: No Integumentary: No: Jaundice Neurological: : Seizure Psychiatric: No: Agitated Labs: CBC, BMP 10/28/17 07:20 10/28/17 07:20 Echo 11/12: nl LV/EF, nl RV, nl LA, no bioAVR dysfunction Assessment/Plan mechanical fall, hip frx: -tripped over chair in the dark -s/p ORIF 10/18 sinus tachycardia (with baseline LBBB)/PSVT/wide complex tach ? brief NSVT: -intermittent sinus tachy here being driven by confustion/agitation and now fever as well -also with frequent intermittent brief atrial runs/runs of svt -pain control, fever control/abx (ID consulted). -cont toprol 25 bid--low threshold to increase if need be, given bp's have been stable (asthma may not tolerate higher doses at home but ok while here) -10/24 tele: rate-related intermittent LBBB without suspicion of any sustained VT. at times atrial rate approx 120s, with similar AL interval as baseline-- likely sinus tach > SVT - 10/25-10/28: now off tele, Hr trend overall improved. TYSON on CKD: -baseline creat 1.3-1.6 -suspect etiology vol depletion/hypoperfusion in setting of decr po/blood loss. ? SIMA exacerbating -creat bumped to 1.6 on 10/16, NS at 50 cc/hr started 1am on 10/16, creat peak to 2.1 --> IVF rate increased with improvement in cr (now back to baseline) -holding lisinopril. s/p AVR: -normal fxn on recent echo CAD s/p CABG: -preserved EF -no angina since -cont home meds (bb, statin, lovaza), holding ASA while on AC HTN: - stable on toprol bid dementia: -recently progressive -per pmd asthma/copd: -stable, no wheezing
[2017-10-28] MEDS ORDERED: INSULIN (NOVOLOG) ASPART 100 UNITS/ML 10ML VIAL ONE (11:30)
[2017-10-28] MEDS: INSULIN DETEMIR 100 UNITS/ML MDV SQ SCH ×2 (11:33→21:12)
[2017-10-28 12:27] LABS: PLATELET ESTIMATE ADEQUATE
[2017-10-28] MEDS: AMINO ACIDS 4.25%/D5W 1,000 ML IV SCH (13:36)
--- NOTE | 2017-10-28 14:07 | PN ---
Progress Note, Physician History of Present Illness: patient more awake and alert more cough today - Current Medication List Current Medications: Active Medications Acetaminophen (Tylenol -) 650 mg PO Q6H PRN PRN Reason: PAIN Last Admin: 10/27/17 21:52 Dose: 650 mg Albuterol Sulfate (Ventolin Hfa Inhaler -) 1 puff IH Q8H PRN PRN Reason: SHORT OF BREATH/WHEEZING Last Admin: 10/26/17 13:30 Dose: 1 puff Amoxicillin/Clavulanate Potassium (Augmentin - 500mg Tablet) 1 tab PO BID@0800, 1730 [facility] Last Admin: 10/28/17 09:29 Dose: 1 tab Apixaban (Eliquis -) 2.5 mg PO BID [facility] Last Admin: 10/28/17 09:29 Dose: 2.5 mg Cholecalciferol (Vitamin D3 -) 1,000 unit PO DAILY [facility] Last Admin: 10/28/17 09:30 Dose: 1,000 unit Docusate Sodium (Colace -) 200 mg PO DAILY [facility] Last Admin: 10/28/17 09:29 Dose: 200 mg Escitalopram Oxalate (Lexapro -) 5 mg PO DAILY [facility] Last Admin: 10/28/17 09:29 Dose: 5 mg Haloperidol (Haldol -) 2 mg PO TID PRN PRN Reason: AGITATION Last Admin: 10/25/17 21:59 Dose: 2 mg Amino Acids (Clinimix -) 1,000 mls @ 42 mls/hr IV Q24H [facility] Last Admin: 10/28/17 13:36 Dose: 42 mls/hr Insulin Aspart (Novolog Vial Sliding Scale -) 1 vial SQ ACHS [facility] PRN Reason: Protocol Last Admin: 10/28/17 11:32 Dose: 2 units Insulin Detemir (Levemir Vial) 10 units SQ HS [facility] Last Admin: 10/27/17 21:48 Dose: 10 units Insulin Detemir (Levemir Vial) 15 units SQ AM [facility] Last Admin: 10/28/17 11:33 Dose: 15 units Latanoprost (Xalatan 0.005% Eye Drops -) 1 drop OU HS [facility] Last Admin: 10/27/17 21:47 Dose: 1 drop Lorazepam (Ativan -) 1 mg PO HS PRN PRN Reason: ANXIETY Last Admin: 10/27/17 21:50 Dose: 1 mg Metoprolol Succinate (Toprol Xl -) 25 mg PO BID [facility] Last Admin: 10/28/17 09:29 Dose: 25 mg Montelukast Sodium (Singulair -) 10 mg PO DAILY [facility] Last Admin: 10/28/17 09:28 Dose: 10 mg Qypzu-6-Zbvf Ethyl Esters (Lovaza -) 1 gm PO DAILY [facility] Last Admin: 10/28/17 09:28 Dose: 1 gm Ondansetron HCl (Zofran Injection) 4 mg IVPUSH Q6H PRN PRN Reason: NAUSEA Potassium Phos/Sodium Phos (Phos-Nak Packet -) 1 packet PO BID [facility] Last Admin: 10/28/17 09:28 Dose: 1 packet Rosuvastatin Calcium (Crestor -) 20 mg PO [facility] Last Admin: 10/27/17 21:45 Dose: 20 mg Senna (Senna -) 2 tab PO [facility] Last Admin: 10/27/17 21:43 Dose: 2 tab Sitagliptin Phosphate (Januvia -) 50 mg PO DAILY@0700 [facility] Last Admin: 10/28/17 11:10 Dose: Not Given Tiotropium [place] (Spiriva -) 1 puff IH DAILY [facility] Last Admin: 10/28/17 09:26 Dose: 1 puff - Objective Vital Signs: Vital Signs Temperature 97.8 F 10/28/17 08:57 Pulse Rate 85 10/28/17 08:57 Respiratory Rate 18 10/28/17 08:57 Blood Pressure 150/76 10/28/17 08:57 O2 Sat by Pulse Oximetry (%) 97 10/28/17 09:00 Constitutional: Yes: Calm, Mild Distress Cardiovascular: Yes: Regular Rate and Rhythm Respiratory: Yes: On Nasal O2, Rhonchi Gastrointestinal: Yes: Normal Bowel Sounds, Soft Musculoskeletal: Yes: WNL Extremities: Yes: WNL Neurological: Yes: Alert, Other Psychiatric: Yes: Alert Labs: CBC, BMP 10/28/17 07:20 10/28/17 07:20 INR, PTT INR 1.12 (0.82-1.09) 10/19/17 21:00 - ....Imaging Chest X-ray: Report Reviewed, Image Reviewed Assessment/Plan Assessment/Plan (1) Pneumonia with sepsis (2) Fracture, proximal femur Code(s): S72.009A - FRACTURE OF UNSP PART OF NECK OF UNSP FEMUR, INIT Qualifiers: Fracture type: closed Laterality: left (3) CKD stage 3 secondary to diabetes Code(s): E11.22 - TYPE 2 DIABETES MELLITUS W DIABETIC CHRONIC KIDNEY DISEASE; N18.3 - CHRONIC KIDNEY DISEASE, STAGE 3 (MODERATE) (4) Coronary arteriosclerosis after coronary artery bypass grafting Code(s): I25.810 - ATHEROSCLEROSIS OF CABG W/O ANGINA PECTORIS (5) Hypercholesteremia Code(s): E78.00 - PURE HYPERCHOLESTEROLEMIA, UNSPECIFIED (6) Uncontrolled diabetes mellitus Code(s): E11.65 - TYPE 2 DIABETES MELLITUS WITH HYPERGLYCEMIA (7) COPD (chronic obstructive pulmonary disease) Code(s): J44.9 - CHRONIC OBSTRUCTIVE PULMONARY DISEASE, UNSPECIFIED (8) Dementia Code(s): F03.90 - UNSPECIFIED DEMENTIA WITHOUT BEHAVIORAL DISTURBANCE (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
[2017-10-28] MEDS ORDERED: guaiFENesin 200 MG/10 ML 10 ML UNIT-DOSE CUPS PO PRN (18:41)
[2017-10-28] MEDS: ALBUTEROL SO4 2.5/IPRATROPIUM 0.5 INH SOL 3 ML VIAL.NEB. NEB PRN (18:59)
--- NOTE | 2017-10-28 19:21 | PN ---
Progress Note (short form) - Note Progress Note: Patient seen and examined oriented in person. denies complaints . confused Last Vital Signs Temp Pulse Resp BP Pulse Ox 98.4 F 95 H 20 159/80 97 10/28/17 14:00 10/28/17 14:00 10/28/17 14:00 10/28/17 14:00 10/28/17 09:00 Cor: RSR, No murmurs, No gallops Lungs: Clear to P&A Abd: Soft, Normal bowel sounds, No organomegaly Ext:No significant edema Abnormal Lab Results 10/28/17 10/28/17 07:20 07:20 WBC 11.0 H RBC 3.28 L Hgb 8.9 L Hct 28.6 L MCHC 31.2 L RDW 16.8 H Anion Gap 7 L BUN 23 H Calcium 7.6 L Active Medications Generic Name Dose Route Start Last Admin Trade Name Freq PRN Reason Stop Dose Admin Acetaminophen 650 mg 10/26/17 07:32 10/27/17 21:52 Tylenol - PO 650 mg Q6H PRN Administration PAIN Albuterol Sulfate 1 puff 10/26/17 07:32 10/26/17 13:30 Ventolin Hfa Inhaler - IH 1 puff Q8H PRN Administration SHORT OF BREATH/WHEEZING Albuterol/Ipratropium 1 amp 10/28/17 18:40 10/28/17 18:59 Duoneb - NEB 1 amp Q6H PRN Administration SHORTNESS OF BREATH Amoxicillin/Clavulanate Potassium 1 tab 10/27/17 17:30 10/28/17 17:15 Augmentin - 500mg Tablet PO 1 tab BID@0800,1730 [facility] Administration Apixaban 2.5 mg 10/26/17 10:00 10/28/17 09:29 Eliquis - PO 2.5 mg BID [facility] Administration Cholecalciferol 1,000 unit 10/26/17 10:00 10/28/17 09:30 Vitamin D3 - PO 1,000 unit DAILY [facility] Administration Docusate Sodium 200 mg 10/26/17 10:00 10/28/17 09:29 Colace - PO 200 mg DAILY [facility] Administration Escitalopram Oxalate 5 mg 10/26/17 10:00 10/28/17 09:29 Lexapro - PO 5 mg DAILY [facility] Administration Guaifenesin 10 ml 10/28/17 18:41 Robitussin - PO Q8H PRN COUGH Haloperidol 2 mg 10/23/17 17:04 10/25/17 21:59 Haldol - PO 2 mg TID PRN Administration AGITATION Amino Acids 1,000 mls @ 42 mls/hr 10/25/17 12:00 10/28/17 13:36 Clinimix - IV 42 mls/hr Q24H [facility] Administration Insulin Aspart 1 vial 10/26/17 11:00 10/28/17 16:28 Novolog Vial Sliding Scale - SQ Not Given ACHS [facility] Protocol Insulin Detemir 10 units 10/25/17 22:00 10/27/17 21:48 Levemir Vial SQ 10 units HS [facility] Administration Insulin Detemir 15 units 10/26/17 07:00 10/28/17 11:33 Levemir Vial SQ 15 units AM [facility] Administration Latanoprost 1 drop 10/26/17 22:00 10/27/17 21:47 Xalatan 0.005% Eye Drops - OU 1 drop HS [facility] Administration Lorazepam 1 mg 10/27/17 22:00 10/27/17 21:50 Ativan - PO 1 mg HS PRN Administration ANXIETY Metoprolol Succinate 25 mg 10/26/17 10:00 10/28/17 09:29 Toprol Xl - PO 25 mg BID [facility] Administration Montelukast Sodium 10 mg 10/26/17 10:00 10/28/17 09:28 Singulair - PO 10 mg DAILY [facility] Administration Trlbu-9-[id number] Ethyl Esters 1 gm 10/26/17 10:00 10/28/17 09:28 Lovaza - PO 1 gm DAILY [facility] Administration Ondansetron HCl 4 mg 10/26/17 07:32 Zofran Injection IVPUSH Q6H PRN NAUSEA Potassium Phos/Sodium Phos 1 packet 10/26/17 10:00 10/28/17 09:28 Phos-Nak Packet - PO 1 packet BID [facility] Administration Rosuvastatin Calcium 20 mg 10/26/17 22:00 10/27/17 21:45 Crestor - PO 20 mg HS [facility] Administration Senna 2 tab 10/26/17 22:00 10/27/17 21:43 Senna - PO 2 tab HS [facility] Administration Sitagliptin Phosphate 50 mg 10/27/17 07:00 10/28/17 11:10 Januvia - PO Not Given DAILY@0700 [facility] Tiotropium [place] 1 puff 10/26/17 10:00 10/28/17 09:26 Spiriva - IH 1 puff DAILY [facility]ERRE Administration A/P 86 y/o patient with DM, left femur ORIF Anemia Mild thrombocytopenia h/o HIT in 01/2014 DVT ppx post surgery bleeding pneumonia On eliquis for DVT prophy. h/o HIT monitor CBC
[2017-10-28] MEDS ORDERED: ROSUVASTATIN CA 10 MG TABLET (FP) ONE (21:05)
[2017-10-28] MEDS: ROSUVASTATIN CA 20 MG TABLET (FP) PO SCH (21:12)
[2017-10-28] MEDS: LATANOPROST 0.005% OPHTH SOLN 2.5ML BOTTLE OU SCH (21:13)
[2017-10-28] MEDS: SENNOSIDES 8.6MG TABLET (FP) PO SCH (21:13)
[2017-10-28] MEDS: LORazepam 1 MG TABLET PO PRN (21:16)
[2017-10-29] MEDS: sitaGLIPtin PHOSPHATE 50 MG TABLET PO SCH (06:23)
[2017-10-29] MEDS: INSULIN SLIDING SCALE (NOVOLOG) 1 VIAL SQ SCH ×4 (06:23→21:11)
[2017-10-29] MEDS: INSULIN DETEMIR 100 UNITS/ML MDV SQ SCH ×2 (06:23→21:13)
[2017-10-29] MEDS ORDERED: PT OWN MED DRAWER 7, Y5N ONE ×3 (06:59→21:10)
[2017-10-29] MEDS: AMOX TR/POT CLAV 500MG/125MG TABLETS (FP) PO SCH ×2 (08:17→16:47)
[2017-10-29 08:25] LABS: HEMATOCRIT 26.6 % (35.4-49); HEMOGLOBIN 8.4 GM/dL (11.7-16.9); MCH 27.6 pg (25.7-33.7); MCHC 31.6 g/dl (32.0-35.9); MEAN CELL VOLUME 87.5 fl (80-96); MEAN PLT VOLUME 9.2 fl (7.5-11.1); PLATELET COUNT 237 K/MM3 (134-434); RBC 3.04 M/mm3 (4.00-5.60); RDW 17.1 % (11.9-15.9); WHITE BLOOD COUNT 9.8 K/mm3 (4.0-10.0)
[2017-10-29 08:59] LABS: CHLORIDE 104 mmol/L (98-107); POTASSIUM 3.7 mmol/L (3.5-5.1); SODIUM 141 mmol/L (136-145)
[2017-10-29 09:09] LABS: ANION GAP 9 (8-16); BLOOD UREA NITROGEN 26 mg/dL (7-18); CALCIUM 7.3 mg/dL (8.5-10.1); CO2 28 mmol/L (21-32); GLUCOSE,RANDOM 78 mg/dL (74-106); MAGNESIUM 2.1 mg/dL (1.8-2.4); PHOSPHOROUS 3.1 mg/dL (2.5-4.9)
[2017-10-29] MEDS: CHOLECALCIFEROL (VITAMIN D3) 1,000 UNIT TABLET (FP) PO SCH (10:54)
[2017-10-29] MEDS: OMEGA-3 ACID ETHYL ESTERS (FATTY-ACIDS) 1 GM CAPSULE (FP) PO SCH (10:54)
[2017-10-29] MEDS: metoPROLOL SUCCINATE 25 MG TAB.SR.24H (FP) PO SCH ×2 (10:54→21:05)
[2017-10-29] MEDS: LISINOPRIL 5 MG TABLET (FP) PO SCH (10:54)
[2017-10-29] MEDS: APIXABAN 2.5 MG TABLET PO SCH ×2 (10:54→21:13)
[2017-10-29] MEDS: DOCUSATE SODIUM 100 MG CAPSULE (FP) PO SCH (10:54)
[2017-10-29] MEDS: MONTELUKAST NA 10 MG TABLET PO SCH (10:55)
[2017-10-29] MEDS: NAPH,MB-DB/K PH,MBDB POWDER PACKET PO SCH ×2 (10:55→21:06)
[2017-10-29] MEDS: ESCITALOPRAM OXALATE 10 MG TABLET (FP) PO SCH (10:56)
[2017-10-29] MEDS: TIOTROPIUM BROMIDE 18 MCG/INH (DEVICE W/ 5 CAPSULES) IH SCH (11:34)
--- NOTE | 2017-10-29 12:43 | PN ---
Physical Exam: SUBJECTIVE: Patient seen and examined. He appears comfortable, mostly sleeping, arousable. Wrist restraints noted. OBJECTIVE: Vital Signs Period Temp Pulse Resp BP Sys/Staples Pulse Ox Last 24 Hr 97.3 F-98.6 F 89-100 17-20 135-159/71-80 97 PE Neuro: arousable, confused Pulm: rhonchi CV: s1 s2 Abd:s nt nd + bs Ext: LUE posterior ecchymosis, L hip ritika, ritika Laboratory Results - last 24 hr 10/29/17 10/29/17 10/29/17 06:54 07:15 07:15 WBC 9.8 RBC 3.04 L Hgb 8.4 L Hct 26.6 L MCV 87.5 MCH 27.6 MCHC 31.6 L RDW 17.1 H Plt Count 237 MPV 9.2 Neutrophils % No Result Required. Lymphocytes % No Result Required. Sodium 141 Potassium 3.7 Chloride 104 Carbon Dioxide 28 Anion Gap 9 BUN 26 H Creatinine 1.0 POC Glucometer 95 Random Glucose 78 Calcium 7.3 L Phosphorus 3.1 Magnesium 2.1 Active Medications Generic Name Dose Route Start Last Admin Trade Name Freq PRN Reason Stop Dose Admin Acetaminophen 650 mg 10/26/17 07:32 10/27/17 21:52 Tylenol - PO 650 mg Q6H PRN Administration PAIN Albuterol Sulfate 1 puff 10/26/17 07:32 10/26/17 13:30 Ventolin Hfa Inhaler - IH 1 puff Q8H PRN Administration SHORT OF BREATH/WHEEZING Albuterol/Ipratropium 1 amp 10/28/17 18:40 10/28/17 18:59 Duoneb - NEB 1 amp Q6H PRN Administration SHORTNESS OF BREATH Amoxicillin/Clavulanate Potassium 1 tab 10/27/17 17:30 10/29/17 08:17 Augmentin - 500mg Tablet PO 1 tab BID@0800,1730 [facility] Administration Apixaban 2.5 mg 10/26/17 10:00 10/29/17 10:54 Eliquis - PO 2.5 mg BID [facility] Administration Cholecalciferol 1,000 unit 10/26/17 10:00 10/29/17 10:54 Vitamin D3 - PO 1,000 unit DAILY [facility] Administration Docusate Sodium 200 mg 10/26/17 10:00 10/29/17 10:54 Colace - PO 200 mg DAILY [facility] Administration Escitalopram Oxalate 5 mg 10/26/17 10:00 10/29/17 10:56 Lexapro - PO 5 mg DAILY [facility] Administration Guaifenesin 10 ml 10/28/17 18:41 Robitussin - PO Q8H PRN COUGH Haloperidol 2 mg 10/23/17 17:04 10/25/17 21:59 Haldol - PO 2 mg TID PRN Administration AGITATION Amino Acids 1,000 mls @ 42 mls/hr 10/25/17 12:00 10/28/17 13:36 Clinimix - IV 42 mls/hr Q24H [facility] Administration Insulin Aspart 1 vial 10/26/17 11:00 10/29/17 11:10 Novolog Vial Sliding Scale - SQ Not Given ACHS [facility] Protocol Insulin Detemir 10 units 10/25/17 22:00 10/28/17 21:12 Levemir Vial SQ 10 units HS [facility] Administration Insulin Detemir 15 units 10/26/17 07:00 10/29/17 06:23 Levemir Vial SQ Not Given AM [facility] Latanoprost 1 drop 10/26/17 22:00 10/28/17 21:13 Xalatan 0.005% Eye Drops - OU 1 drop HS [facility] Administration Lisinopril 5 mg 10/29/17 10:00 10/29/17 10:54 Prinivil PO 5 mg DAILY [facility] Administration Lorazepam 1 mg 10/27/17 22:00 10/28/17 21:16 Ativan - PO 1 mg HS PRN Administration ANXIETY Metoprolol Succinate 25 mg 10/26/17 10:00 10/29/17 10:54 Toprol Xl - PO 25 mg BID [facility] Administration Montelukast Sodium 10 mg 10/26/17 10:00 10/29/17 10:55 Singulair - PO 10 mg DAILY [facility] Administration Nshjq-7-Lzan Ethyl Esters 1 gm 10/26/17 10:00 10/29/17 10:54 Lovaza - PO 1 gm DAILY [facility] Administration Ondansetron HCl 4 mg 10/26/17 07:32 Zofran Injection IVPUSH Q6H PRN NAUSEA Potassium Phos/Sodium Phos 1 packet 10/26/17 10:00 10/29/17 10:55 Phos-Nak Packet - PO 1 packet BID [facility] Administration Rosuvastatin Calcium 20 mg 10/26/17 22:00 10/28/17 21:12 Crestor - PO 20 mg HS [facility] Administration Senna 2 tab 10/26/17 22:00 10/28/17 21:13 Senna - PO 2 tab HS [facility] Administration Sitagliptin Phosphate 50 mg 10/27/17 07:00 10/29/17 06:23 Januvia - PO Not Given DAILY@0700 [facility] Tiotropium [place] 1 puff 10/26/17 10:00 10/29/17 11:34 Spiriva - IH 1 puff DAILY [facility]-PIERRE Administration Assessment: 86 year old male with HTN, Bioprosthic AVR, HLD, as per Cardiology note recent evaluation by Dr Duncan compensated CHF, DM II, CAD S/P [place], CABG, PCI not on Plavix at base line LBB admitted s/p fall. Plan: 1. Pneumonia with sepsis - Now on augmentin BID - CXR left base atelectasis - ID seeing 2. Fracture, proximal femur - s/p repair ORIF 10/18 - Daily PT 3. CKD stage 3 secondary to diabetes - Cr stable - Lost IV access, holding Clinimix 4. 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 Hypercholesteremia - Continue statin 6. Uncontrolled diabetes mellitus - Sugars controlled - Maintain current dose levemir 7. COPD - Not in exacerbation 8. Dementia - Continue prn evening ativan 9. HIT (heparin-induced thrombocytopenia) - Continue eliquis 2.5mg bid for DVT PPx 10. Hematuria - Recurrent - Unclear cause - Reconsult urology 11. Nutrition - Start magic cup and ensure Visit type - Emergency Visit Emergency Visit: Yes ED Registration Date: 10/15/17 Care time: The patient presented to the Emergency Department on the above date and was hospitalized for further evaluation of their emergent condition. - New Patient This patient is new to me today: Yes Date on this admission: 10/29/17 - Critical Care Critical Care patient: No
[2017-10-29 12:57] LABS: ANISOCYTOSIS 1+
[2017-10-29] MEDS: ALBUTEROL SO4 18 GM HFA INHALER IH PRN (13:32)
--- NOTE | 2017-10-29 13:32 | PN ---
Progress Note, Physician History of Present Illness: Pt seen and examined. Chart reviewed, results noted. Pt is currently alert, without distress, afebrile. at bedside. - Current Medication List Current Medications: Active Medications Acetaminophen (Tylenol -) 650 mg PO Q6H PRN PRN Reason: PAIN Last Admin: 10/27/17 21:52 Dose: 650 mg Albuterol Sulfate (Ventolin Hfa Inhaler -) 1 puff IH Q8H PRN PRN Reason: SHORT OF BREATH/WHEEZING Last Admin: 10/26/17 13:30 Dose: 1 puff Albuterol/Ipratropium (Duoneb -) 1 amp NEB Q6H PRN PRN Reason: SHORTNESS OF BREATH Last Admin: 10/28/17 18:59 Dose: 1 amp Amoxicillin/Clavulanate Potassium (Augmentin - 500mg Tablet) 1 tab PO BID@0800, 1730 [facility] Last Admin: 10/29/17 08:17 Dose: 1 tab Apixaban (Eliquis -) 2.5 mg PO BID [facility] Last Admin: 10/29/17 10:54 Dose: 2.5 mg Cholecalciferol (Vitamin D3 -) 1,000 unit PO DAILY [facility] Last Admin: 10/29/17 10:54 Dose: 1,000 unit Docusate Sodium (Colace -) 200 mg PO DAILY [facility] Last Admin: 10/29/17 10:54 Dose: 200 mg Escitalopram Oxalate (Lexapro -) 5 mg PO DAILY [facility] Last Admin: 10/29/17 10:56 Dose: 5 mg Guaifenesin (Robitussin -) 10 ml PO Q8H PRN PRN Reason: COUGH Haloperidol (Haldol -) 2 mg PO TID PRN PRN Reason: AGITATION Last Admin: 10/25/17 21:59 Dose: 2 mg Amino Acids (Clinimix -) 1,000 mls @ 42 mls/hr IV Q24H [facility] Last Admin: 10/28/17 13:36 Dose: 42 mls/hr Insulin Aspart (Novolog Vial Sliding Scale -) 1 vial SQ ACHS [facility] PRN Reason: Protocol Last Admin: 10/29/17 11:10 Dose: Not Given Insulin Detemir (Levemir Vial) 10 units SQ HS [facility] Last Admin: 10/28/17 21:12 Dose: 10 units Insulin Detemir (Levemir Vial) 15 units SQ AM [facility] Last Admin: 10/29/17 06:23 Dose: Not Given Latanoprost (Xalatan 0.005% Eye Drops -) 1 drop OU HS [facility] Last Admin: 10/28/17 21:13 Dose: 1 drop Lisinopril (Prinivil) 5 mg PO DAILY [facility] Last Admin: 10/29/17 10:54 Dose: 5 mg Lorazepam (Ativan -) 1 mg PO HS PRN PRN Reason: ANXIETY Last Admin: 10/28/17 21:16 Dose: 1 mg Metoprolol Succinate (Toprol Xl -) 25 mg PO BID [facility] Last Admin: 10/29/17 10:54 Dose: 25 mg Montelukast Sodium (Singulair -) 10 mg PO DAILY [facility] Last Admin: 10/29/17 10:55 Dose: 10 mg Rquoo-8-Oxcs Ethyl Esters (Lovaza -) 1 gm PO DAILY [facility] Last Admin: 10/29/17 10:54 Dose: 1 gm Ondansetron HCl (Zofran Injection) 4 mg IVPUSH Q6H PRN PRN Reason: NAUSEA Potassium Phos/Sodium Phos (Phos-Nak Packet -) 1 packet PO BID [facility] Last Admin: 10/29/17 10:55 Dose: 1 packet Rosuvastatin Calcium (Crestor -) 20 mg PO HS [facility] Last Admin: 10/28/17 21:12 Dose: 20 mg Senna (Senna -) 2 tab PO HS [facility] Last Admin: 10/28/17 21:13 Dose: 2 tab Sitagliptin Phosphate (Januvia -) 50 mg PO DAILY@0700 [facility] Last Admin: 10/29/17 06:23 Dose: Not Given Tiotropium [place] (Spiriva -) 1 puff IH DAILY [facility] Last Admin: 10/29/17 11:34 Dose: 1 puff - Objective Vital Signs: Vital Signs Temperature 98.2 F 10/29/17 08:00 Pulse Rate 89 10/29/17 08:00 Respiratory Rate 18 10/29/17 08:00 Blood Pressure 135/76 10/29/17 08:00 O2 Sat by Pulse Oximetry (%) 97 10/28/17 21:00 Constitutional: Yes: No Distress, Calm Cardiovascular: Yes: Regular Rate and Rhythm Respiratory: Yes: Wheezes (mild) Gastrointestinal: Yes: Normal Bowel Sounds, Soft Neurological: Yes: Alert Labs: CBC, BMP 10/29/17 07:15 10/29/17 07:15 INR, PTT INR 1.12 (0.82-1.09) 10/19/17 21:00 Problem List - Problems (1) CKD stage 3 secondary to diabetes Code(s): E11.22 - TYPE 2 DIABETES MELLITUS W DIABETIC CHRONIC KIDNEY DISEASE; N18.3 - CHRONIC KIDNEY DISEASE, STAGE 3 (MODERATE) (2) COPD (chronic obstructive pulmonary disease) Code(s): J44.9 - CHRONIC OBSTRUCTIVE PULMONARY DISEASE, UNSPECIFIED (3) Coronary arteriosclerosis after coronary artery bypass grafting Code(s): I25.810 - ATHEROSCLEROSIS OF CABG W/O ANGINA PECTORIS (4) Dementia Code(s): F03.90 - UNSPECIFIED DEMENTIA WITHOUT BEHAVIORAL DISTURBANCE (5) Fracture, proximal femur Code(s): S72.009A - FRACTURE OF UNSP PART OF NECK OF UNSP FEMUR, INIT Qualifiers: Fracture type: closed Laterality: left (6) HIT (heparin-induced thrombocytopenia) Code(s): D75.82 - HEPARIN INDUCED THROMBOCYTOPENIA (HIT) (7) Pneumonia Code(s): J18.9 - PNEUMONIA, UNSPECIFIED ORGANISM (8) Uncontrolled diabetes mellitus Code(s): E11.65 - TYPE 2 DIABETES MELLITUS WITH HYPERGLYCEMIA Assessment/Plan -- continue po antibiotics at this time -- incentive spirometry -- currently without distress monitor closely
[2017-10-29] MEDS: AMINO ACIDS 4.25%/D5W 1,000 ML IV SCH (16:45)
[2017-10-29] MEDS ORDERED: ROSUVASTATIN CA 10 MG TABLET (FP) ONE (20:57)
[2017-10-29] MEDS: SENNOSIDES 8.6MG TABLET (FP) PO SCH (21:06)
[2017-10-29] MEDS ORDERED: INSULIN (NOVOLOG) ASPART 100 UNITS/ML 10ML VIAL ONE (21:09)
[2017-10-29] MEDS: LATANOPROST 0.005% OPHTH SOLN 2.5ML BOTTLE OU SCH (21:11)
[2017-10-29] MEDS: BACITRACIN 15 GM TUBE TOPICAL OINTMENT TP SCH (21:14)
[2017-10-29] MEDS: HALOPERIDOL 1 MG TABLET (FP) PO PRN (21:14)
[2017-10-29] MEDS: ROSUVASTATIN CA 20 MG TABLET (FP) PO SCH (21:17)
[2017-10-30] MEDS: LORazepam 1 MG TABLET PO PRN ×2 (00:48→21:01)
[2017-10-30] MEDS: INSULIN SLIDING SCALE (NOVOLOG) 1 VIAL SQ SCH ×4 (06:17→20:59)
[2017-10-30] MEDS: sitaGLIPtin PHOSPHATE 50 MG TABLET PO SCH (06:18)
[2017-10-30] MEDS: INSULIN DETEMIR 100 UNITS/ML MDV SQ SCH ×2 (06:18→21:00)
[2017-10-30] MEDS ORDERED: PT OWN MED DRAWER 7, Y5N ONE ×3 (09:47→20:31)
[2017-10-30] MEDS: DOCUSATE SODIUM 100 MG CAPSULE (FP) PO SCH ×2 (10:09→13:18)
[2017-10-30] MEDS: BACITRACIN 15 GM TUBE TOPICAL OINTMENT TP SCH ×2 (10:09→21:03)
[2017-10-30] MEDS: MONTELUKAST NA 10 MG TABLET PO SCH (10:10)
[2017-10-30] MEDS: AMOX TR/POT CLAV 500MG/125MG TABLETS (FP) PO SCH ×2 (10:10→17:39)
[2017-10-30] MEDS: OMEGA-3 ACID ETHYL ESTERS (FATTY-ACIDS) 1 GM CAPSULE (FP) PO SCH (10:10)
[2017-10-30] MEDS: ESCITALOPRAM OXALATE 10 MG TABLET (FP) PO SCH (10:10)
[2017-10-30] MEDS: NAPH,MB-DB/K PH,MBDB POWDER PACKET PO SCH ×2 (10:10→21:03)
[2017-10-30] MEDS: CHOLECALCIFEROL (VITAMIN D3) 1,000 UNIT TABLET (FP) PO SCH (10:10)
[2017-10-30] MEDS: LISINOPRIL 5 MG TABLET (FP) PO SCH (10:11)
[2017-10-30] MEDS: APIXABAN 2.5 MG TABLET PO SCH ×2 (10:11→21:02)
[2017-10-30] MEDS: metoPROLOL SUCCINATE 25 MG TAB.SR.24H (FP) PO SCH ×2 (10:11→21:13)
[2017-10-30] MEDS: TIOTROPIUM BROMIDE 18 MCG/INH (DEVICE W/ 5 CAPSULES) IH SCH (10:11)
[2017-10-30] MEDS ORDERED: INSULIN (NOVOLOG) ASPART 100 UNITS/ML 10ML VIAL ONE ×2 (10:18→20:29)
--- NOTE | 2017-10-30 11:59 | PN ---
Physical Exam: SUBJECTIVE: Patient seen and examined. He is lethargic, RN states he was up until 5am. at bedside requesting 4 side rails at all times and ativan be made standing HS. No fevers noted OBJECTIVE: Vital Signs Period Temp Pulse Resp BP Sys/Staples Pulse Ox Last 24 Hr 97.8 F-98.9 F 83-101 18-19 115-134/50-70 96 PE Neuro: arousable to noxious stimuli, lethargic Pulm: diminished anteriorly CV: s1 s2 rrr Abd:s nt nd + bs Ext: LUE posterior ecchymosis, L hip ritika, ritika + DP pulses Laboratory Results - last 24 hr 10/29/17 10/29/17 10/29/17 07:15 16:49 21:02 Neutrophils % (Manual) 81.0 Lymphocytes % (Manual) 13.0 D Monocytes % (Manual) 5 Eosinophils % (Manual) 1.0 Hypochromia 1+ Anisocytosis 1+ POC Glucometer 195 199 Active Medications Generic Name Dose Route Start Last Admin Trade Name Freq PRN Reason Stop Dose Admin Acetaminophen 650 mg 10/26/17 07:32 10/27/17 21:52 Tylenol - PO 650 mg Q6H PRN Administration PAIN Albuterol Sulfate 1 puff 10/26/17 07:32 10/29/17 13:32 Ventolin Hfa Inhaler - IH 1 puff Q8H PRN Administration SHORT OF BREATH/WHEEZING Albuterol/Ipratropium 1 amp 10/28/17 18:40 10/28/17 18:59 Duoneb - NEB 1 amp Q6H PRN Administration SHORTNESS OF BREATH Amoxicillin/Clavulanate Potassium 1 tab 10/27/17 17:30 10/30/17 10:10 Augmentin - 500mg Tablet PO 1 tab BID@0800,1730 [facility] Administration Apixaban 2.5 mg 10/26/17 10:00 10/30/17 10:11 Eliquis - PO 2.5 mg BID [facility]ERRE Administration Bacitracin 1 applic 10/29/17 22:00 10/30/17 10:09 Bacitracin - TP 1 applic BID [facility]ERRE Administration Cholecalciferol 1,000 unit 10/26/17 10:00 10/30/17 10:10 Vitamin D3 - PO 1,000 unit DAILY [facility] Administration Docusate Sodium 200 mg 10/26/17 10:00 10/30/17 10:09 Colace - PO 200 mg DAILY [facility]ERRE Administration Escitalopram Oxalate 5 mg 10/26/17 10:00 10/30/17 10:10 Lexapro - PO 5 mg DAILY [facility]ER[facility] Administration Guaifenesin 10 ml 10/28/17 18:41 Robitussin - PO Q8H PRN COUGH Haloperidol 2 mg 10/23/17 17:04 10/29/17 21:14 Haldol - PO 2 mg TID PRN Administration AGITATION Amino Acids 1,000 mls @ 42 mls/hr 10/25/17 12:00 10/29/17 16:45 Clinimix - IV Not Given Q24H [facility]ERRE Amino Acids 1,000 mls @ 42 mls/hr 10/30/17 12:00 Clinimix - IV Q12H [facility] Insulin Aspart 1 vial 10/26/17 11:00 10/30/17 10:42 Novolog Vial Sliding Scale - SQ Not Given ACHS [facility] Protocol Insulin Detemir 10 units 10/25/17 22:00 10/29/17 21:13 Levemir Vial SQ 10 units HS [facility] Administration Insulin Detemir 15 units 10/26/17 07:00 10/30/17 06:18 Levemir Vial SQ Not Given AM [facility] Latanoprost 1 drop 10/26/17 22:00 10/29/17 21:11 Xalatan 0.005% Eye Drops - OU 1 drop HS [facility] Administration Lisinopril 5 mg 10/29/17 10:00 10/30/17 10:11 Prinivil PO 5 mg DAILY [facility] Administration Lorazepam 1 mg 10/30/17 22:00 Ativan - PO HS [facility] Metoprolol Succinate 25 mg 10/26/17 10:00 10/30/17 10:11 Toprol Xl - PO 25 mg BID [facility] Administration Montelukast Sodium 10 mg 10/26/17 10:00 10/30/17 10:10 Singulair - PO 10 mg DAILY [facility] Administration Eyjji-3-Xiqy Ethyl Esters 1 gm 10/26/17 10:00 10/30/17 10:10 Lovaza - PO 1 gm DAILY [facility] Administration Ondansetron HCl 4 mg 10/26/17 07:32 Zofran Injection IVPUSH Q6H PRN NAUSEA Potassium Phos/Sodium Phos 1 packet 10/26/17 10:00 10/30/17 10:10 Phos-Nak Packet - PO 1 packet BID [facility] Administration Rosuvastatin Calcium 20 mg 10/26/17 22:00 10/29/17 21:17 Crestor - PO 20 mg HS [facility] Administration Senna 2 tab 10/26/17 22:00 10/29/17 21:06 Senna - PO 2 tab HS [facility] Administration Sitagliptin Phosphate 50 mg 10/27/17 07:00 10/30/17 06:18 Januvia - PO Not Given DAILY@0700 [facility] Tiotropium [place] 1 puff 10/26/17 10:00 10/30/17 10:11 Spiriva - IH 1 puff DAILY [facility]ER[facility] Administration Assessment: 86 year old male with HTN, Bioprosthic AVR, HLD, as per Cardiology note recent evaluation by Dr Duncan compensated CHF, DM II, CAD S/P [place], CABG, PCI not on Plavix at base line LBB admitted s/p fall. Plan: 1. Pneumonia with sepsis - Continue augmentin BID - ID seeing 2. Fracture, proximal femur - s/p repair ORIF 10/18 - Daily PT 3. CKD stage 3 secondary to diabetes - PO intake is poor - Restart clinimix - Pt refuses NGT at this time 4. 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 Hypercholesteremia - Continue statin 6. Uncontrolled diabetes mellitus - Sugars controlled - Maintain current dose levemir 7. COPD - Not in exacerbation 8. 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 Hematuria - Recurrent - Unclear cause - Reconsult urology 11. Nutrition - Started magic cup and ensure Visit type - Emergency Visit Emergency Visit: Yes ED Registration Date: 10/15/17 Care time: The patient presented to the Emergency Department on the above date and was hospitalized for further evaluation of their emergent condition. - New Patient This patient is new to me today: No - Critical Care Critical Care patient: No
[2017-10-30 12:34] LABS: BASO % 0.5 % (0-2.0); EOS % 4.2 % (0-4.5); HEMATOCRIT 27.2 % (35.4-49); HEMOGLOBIN 8.4 GM/dL (11.7-16.9); MCH 27.2 pg (25.7-33.7); MCHC 30.9 g/dl (32.0-35.9); MEAN CELL VOLUME 88.1 fl (80-96); MONO % 10.2 % (3.8-10.2); NEUT % 72.1 % (42.8-82.8); PLATELET COUNT 254 K/MM3 (134-434); RBC 3.09 M/mm3 (4.00-5.60); WHITE BLOOD COUNT 7.2 K/mm3 (4.0-10.0)
--- NOTE | 2017-10-30 13:45 | PN ---
Progress Note, Physician History of Present Illness: Pt is more alert. No shortness of breath noted. No current cough. No new complaints. - Current Medication List Current Medications: Active Medications Acetaminophen (Tylenol -) 650 mg PO Q6H PRN PRN Reason: PAIN Last Admin: 10/27/17 21:52 Dose: 650 mg Albuterol Sulfate (Ventolin Hfa Inhaler -) 1 puff IH Q8H PRN PRN Reason: SHORT OF BREATH/WHEEZING Last Admin: 10/29/17 13:32 Dose: 1 puff Albuterol/Ipratropium (Duoneb -) 1 amp NEB Q6H PRN PRN Reason: SHORTNESS OF BREATH Last Admin: 10/28/17 18:59 Dose: 1 amp Amoxicillin/Clavulanate Potassium (Augmentin - 500mg Tablet) 1 tab PO BID@0800, 1730 [facility] Last Admin: 10/30/17 10:10 Dose: 1 tab Apixaban (Eliquis -) 2.5 mg PO BID [facility] Last Admin: 10/30/17 10:11 Dose: 2.5 mg Bacitracin (Bacitracin -) 1 applic TP BID [facility] Last Admin: 10/30/17 10:09 Dose: 1 applic Cholecalciferol (Vitamin D3 -) 1,000 unit PO DAILY [facility] Last Admin: 10/30/17 10:10 Dose: 1,000 unit Docusate Sodium (Colace -) 200 mg PO DAILY [facility] Last Admin: 10/30/17 13:18 Dose: Not Given Escitalopram Oxalate (Lexapro -) 5 mg PO DAILY [facility] Last Admin: 10/30/17 10:10 Dose: 5 mg Guaifenesin (Robitussin -) 10 ml PO Q8H PRN PRN Reason: COUGH Haloperidol (Haldol -) 2 mg PO TID PRN PRN Reason: AGITATION Last Admin: 10/29/17 21:14 Dose: 2 mg Amino Acids (Clinimix -) 1,000 mls @ 42 mls/hr IV Q12H [facility] Insulin Aspart (Novolog Vial Sliding Scale -) 1 vial SQ ACHS [facility] PRN Reason: Protocol Last Admin: 10/30/17 10:42 Dose: Not Given Insulin Detemir (Levemir Vial) 10 units SQ HS [facility] Last Admin: 10/29/17 21:13 Dose: 10 units Insulin Detemir (Levemir Vial) 15 units SQ AM [facility] Last Admin: 10/30/17 06:18 Dose: Not Given Latanoprost (Xalatan 0.005% Eye Drops -) 1 drop OU HS [facility] Last Admin: 10/29/17 21:11 Dose: 1 drop Lisinopril (Prinivil) 5 mg PO DAILY [facility] Last Admin: 10/30/17 10:11 Dose: 5 mg Lorazepam (Ativan -) 1 mg PO HS PRN PRN Reason: ANXIETY Metoprolol Succinate (Toprol Xl -) 25 mg PO BID [facility] Last Admin: 10/30/17 10:11 Dose: 25 mg Montelukast Sodium (Singulair -) 10 mg PO DAILY [facility] Last Admin: 10/30/17 10:10 Dose: 10 mg Puakl-5-Tyyh Ethyl Esters (Lovaza -) 1 gm PO DAILY [facility] Last Admin: 10/30/17 10:10 Dose: 1 gm Ondansetron HCl (Zofran Injection) 4 mg IVPUSH Q6H PRN PRN Reason: NAUSEA Potassium Phos/Sodium Phos (Phos-Nak Packet -) 1 packet PO BID [facility] Last Admin: 10/30/17 10:10 Dose: 1 packet Rosuvastatin Calcium (Crestor -) 20 mg PO HS [facility] Last Admin: 10/29/17 21:17 Dose: 20 mg Senna (Senna -) 2 tab PO HS [facility] Last Admin: 10/29/17 21:06 Dose: 2 tab Sitagliptin Phosphate (Januvia -) 50 mg PO DAILY@0700 [facility] Last Admin: 10/30/17 06:18 Dose: Not Given Tiotropium [place] (Spiriva -) 1 puff IH DAILY [facility] Last Admin: 10/30/17 10:11 Dose: 1 puff - Objective Vital Signs: Vital Signs Temperature 98.1 F 10/30/17 08:00 Pulse Rate 81 10/30/17 08:00 Respiratory Rate 20 10/30/17 08:00 Blood Pressure 157/72 10/30/17 08:00 O2 Sat by Pulse Oximetry (%) 96 10/30/17 08:00 Constitutional: Yes: No Distress, Calm Cardiovascular: Yes: Regular Rate and Rhythm Respiratory: Yes: Wheezes (mild expiratory wheeze, no rhonchi) Gastrointestinal: Yes: Normal Bowel Sounds, Soft Neurological: Yes: Alert Labs: CBC, BMP 10/30/17 12:20 10/29/17 07:15 INR, PTT INR 1.12 (0.82-1.09) 10/19/17 21:00 Problem List - Problems (1) CKD stage 3 secondary to diabetes Code(s): E11.22 - TYPE 2 DIABETES MELLITUS W DIABETIC CHRONIC KIDNEY DISEASE; N18.3 - CHRONIC KIDNEY DISEASE, STAGE 3 (MODERATE) (2) COPD (chronic obstructive pulmonary disease) Code(s): J44.9 - CHRONIC OBSTRUCTIVE PULMONARY DISEASE, UNSPECIFIED (3) Coronary arteriosclerosis after coronary artery bypass grafting Code(s): I25.810 - ATHEROSCLEROSIS OF CABG W/O ANGINA PECTORIS (4) Dementia Code(s): F03.90 - UNSPECIFIED DEMENTIA WITHOUT BEHAVIORAL DISTURBANCE (5) Fracture, proximal femur Code(s): S72.009A - FRACTURE OF UNSP PART OF NECK OF UNSP FEMUR, INIT Qualifiers: Fracture type: closed Laterality: left (6) HIT (heparin-induced thrombocytopenia) Code(s): D75.82 - HEPARIN INDUCED THROMBOCYTOPENIA (HIT) (7) Pneumonia Code(s): J18.9 - PNEUMONIA, UNSPECIFIED ORGANISM (8) Uncontrolled diabetes mellitus Code(s): E11.65 - TYPE 2 DIABETES MELLITUS WITH HYPERGLYCEMIA Assessment/Plan PNA s/p sepsis -- continue augmentin -- currently without distress, afebrile, without leukocytosis appears stable at this time -- continue supportive care
[2017-10-30] MEDS: AMINO ACIDS 4.25%/D5W 1,000 ML IV SCH (16:26)
[2017-10-30] MEDS ORDERED: ROSUVASTATIN CA 10 MG TABLET (FP) ONE (20:30)
[2017-10-30] MEDS: LATANOPROST 0.005% OPHTH SOLN 2.5ML BOTTLE OU SCH (21:00)
[2017-10-30] MEDS: SENNOSIDES 8.6MG TABLET (FP) PO SCH (21:02)
[2017-10-30] MEDS: ROSUVASTATIN CA 20 MG TABLET (FP) PO SCH (21:03)
[2017-10-31] MEDS ORDERED: PT OWN MED DRAWER 7, Y5N ONE ×4 (00:09→23:23)
[2017-10-31] MEDS: sitaGLIPtin PHOSPHATE 50 MG TABLET PO SCH (06:46)
[2017-10-31] MEDS: INSULIN SLIDING SCALE (NOVOLOG) 1 VIAL SQ SCH ×4 (06:46→21:09)
[2017-10-31] MEDS: INSULIN DETEMIR 100 UNITS/ML MDV SQ SCH ×2 (06:46→21:09)
[2017-10-31] MEDS: AMINO ACIDS 4.25%/D5W 1,000 ML IV SCH ×2 (06:57→11:40)
[2017-10-31 08:20] LABS: HEMATOCRIT 29.1 % (35.4-49); HEMOGLOBIN 8.9 GM/dL (11.7-16.9); MCH 27.5 pg (25.7-33.7); MCHC 30.7 g/dl (32.0-35.9); MEAN CELL VOLUME 89.5 fl (80-96); PLATELET COUNT 246 K/MM3 (134-434); RBC 3.25 M/mm3 (4.00-5.60); RDW 17.9 % (11.9-15.9)
--- NOTE | 2017-10-31 09:37 | PN ---
Progress Note (short form) - Note Progress Note: Neurology History of Present Illness: 86 yrs old man multiple medical Co-morbidities lives at home with poor gait stability H/o HTN, Bioprosthic AVR, Dyslipedemia, as per Cardiology note recent evaluation by Dr Duncan compensated CHF, Uncontrolled T2DM, CAD S/P DE, CABG , PCI not on Plavix at base line LBB presented s/p fall as per patient was at home upstairs walked in a dark room stucked with chair lost balance landed on Left side, also had head trauma, but no LOC, and was brought to ER. Was noted to have left proximal Femur fracture, no syncope or pre- syncope symptoms, no c/o focal weakness, seizures or incontinence. Seen initially by Dr. Ramesh but requested second opinion. CT head completed and did not show acute changes. Patient with underlying memory difficulty and seen in office by me before. ID following for infection. Psych recommended PRN haldol or if needed frequently, can use ongoing risperdal. Somnolent in AM, getting augmentin, no acute neurologic event overnight. Active Medications Acetaminophen (Tylenol -) 650 mg PO Q6H PRN PRN Reason: PAIN Last Admin: 10/27/17 21:52 Dose: 650 mg Albuterol Sulfate (Ventolin Hfa Inhaler -) 1 puff IH Q8H PRN PRN Reason: SHORT OF BREATH/WHEEZING Last Admin: 10/29/17 13:32 Dose: 1 puff Albuterol/Ipratropium (Duoneb -) 1 amp NEB Q6H PRN PRN Reason: SHORTNESS OF BREATH Last Admin: 10/28/17 18:59 Dose: 1 amp Amoxicillin/Clavulanate Potassium (Augmentin - 500mg Tablet) 1 tab PO BID@0800, 1730 [facility] Last Admin: 10/30/17 17:39 Dose: 1 tab Apixaban (Eliquis -) 2.5 mg PO BID [facility] Last Admin: 10/30/17 21:02 Dose: 2.5 mg Bacitracin (Bacitracin -) 1 applic TP BID [facility] Last Admin: 10/30/17 21:03 Dose: 1 applic Cholecalciferol (Vitamin D3 -) 1,000 unit PO DAILY [facility] Last Admin: 10/30/17 10:10 Dose: 1,000 unit Docusate Sodium (Colace -) 200 mg PO DAILY [facility] Last Admin: 10/30/17 13:18 Dose: Not Given Escitalopram Oxalate (Lexapro -) 5 mg PO DAILY [facility] Last Admin: 10/30/17 10:10 Dose: 5 mg Guaifenesin (Robitussin -) 10 ml PO Q8H PRN PRN Reason: COUGH Haloperidol (Haldol -) 2 mg PO TID PRN PRN Reason: AGITATION Last Admin: 10/29/17 21:14 Dose: 2 mg Amino Acids (Clinimix -) 1,000 mls @ 42 mls/hr IV Q12H [facility] Last Admin: 10/31/17 06:57 Dose: 42 mls/hr Insulin Aspart (Novolog Vial Sliding Scale -) 1 vial SQ ACHS [facility] PRN Reason: Protocol Last Admin: 10/31/17 06:46 Dose: Not Given Insulin Detemir (Levemir Vial) 10 units SQ HS [facility] Last Admin: 10/30/17 21:00 Dose: 10 units Insulin Detemir (Levemir Vial) 15 units SQ AM [facility] Last Admin: 10/31/17 06:46 Dose: Not Given Latanoprost (Xalatan 0.005% Eye Drops -) 1 drop OU HS [facility] Last Admin: 10/30/17 21:00 Dose: 1 drop Lisinopril (Prinivil) 5 mg PO DAILY [facility] Last Admin: 10/30/17 10:11 Dose: 5 mg Lorazepam (Ativan -) 1 mg PO HS PRN PRN Reason: ANXIETY Last Admin: 10/30/17 21:01 Dose: 1 mg Metoprolol Succinate (Toprol Xl -) 25 mg PO BID [facility] Last Admin: 10/30/17 21:13 Dose: 25 mg Montelukast Sodium (Singulair -) 10 mg PO DAILY [facility] Last Admin: 10/30/17 10:10 Dose: 10 mg Uvjcg-5-Zksj Ethyl Esters (Lovaza -) 1 gm PO DAILY [facility] Last Admin: 10/30/17 10:10 Dose: 1 gm Ondansetron HCl (Zofran Injection) 4 mg IVPUSH Q6H PRN PRN Reason: NAUSEA Potassium Phos/Sodium Phos (Phos-Nak Packet -) 1 packet PO BID [facility] Last Admin: 02/04/18 21:03 Dose: 1 packet Rosuvastatin Calcium (Crestor -) 20 mg PO [facility] Last Admin: 10/30/17 21:03 Dose: 20 mg Senna (Senna -) 2 tab PO [facility] Last Admin: 10/30/17 21:02 Dose: 2 tab Sitagliptin Phosphate (Januvia -) 50 mg PO DAILY@0700 [facility] Last Admin: 10/31/17 06:46 Dose: Not Given Tiotropium [place] (Spiriva -) 1 puff IH DAILY [facility] Last Admin: 10/30/17 10:11 Dose: 1 puff Physical Examination Vital Signs Period Temp Pulse Resp BP Sys/Staples Pulse Ox Last 24 Hr 97.6 F-99.4 F 61-93 18-20 117-135/53-71 96-100 Constitutional: Yes: Well Nourished, No Distress, Calm and cooperative Eyes: No: Sclera Icterus HENT: No: Nasal Congestion Cardiovascular: Yes: Regular Rate and Rhythm, Tachycardia, Murmur (soft (2/6) FILEMON lusb). No: JVD, Gallop Respiratory: Yes: Regular, CTA Bilaterally No: Rales, Wheezes Gastrointestinal: Yes: Normal Bowel Sounds, Soft. No: Tenderness Musculoskeletal: Yes: Other (No kyphosis) Extremities: No: Cold Edema: No Integumentary: No: Jaundice Neurological: Awake, alert, calm, CN appear intact, moves all ext equally, sensory intact, gait deferred Psychiatric: somnolent CBCD WBC 8.0 K/mm3 (4.0-10.0) 10/31/17 07:15 RBC 3.25 M/mm3 (4.00-5.60) L 10/31/17 07:15 Hgb 8.9 GM/dL (11.7-16.9) L 10/31/17 07:15 Hct 29.1 % (35.4-49) L 10/31/17 07:15 MCV 89.5 fl (80-96) 10/31/17 07:15 MCHC 30.7 g/dl (32.0-35.9) L 10/31/17 07:15 RDW 17.9 % (11.9-15.9) H 10/31/17 07:15 Plt Count 246 K/MM3 (134-434) 10/31/17 07:15 MPV 9.0 fl (7.5-11.1) 10/31/17 07:15 CMP Sodium 141 mmol/L (136-145) 10/29/17 07:15 Potassium 3.7 mmol/L (3.5-5.1) 10/29/17 07:15 Chloride 104 mmol/L (98-107) 10/29/17 07:15 Carbon Dioxide 28 mmol/L (21-32) 10/29/17 07:15 Anion Gap 9 (8-16) 10/29/17 07:15 BUN 26 mg/dL (7-18) H 10/29/17 07:15 Creatinine 1.0 mg/dL (0.7-1.3) 10/29/17 07:15 Creat Clearance w eGFR 48.28 (>60) 10/24/17 06:35 Calcium 7.3 mg/dL (8.5-10.1) L 10/29/17 07:15 Total Bilirubin 1.4 mg/dL (0.2-1.0) H 10/24/17 06:35 AST 70 U/L (15-37) H D 10/24/17 06:35 ALT 63 U/L (12-78) D 10/24/17 06:35 Alkaline Phosphatase 90 U/L (45-117) 10/24/17 06:35 Total Protein 4.9 g/dl (6.4-8.2) L D 10/24/17 06:35 Albumin 2.1 g/dl (3.4-5.0) L D 10/24/17 06:35 Imaging - Results Chest X-ray: Report Reviewed (No Pulmonary congestion or infiltrates) Cat Scan: Report Reviewed (Head: No acute intracraniall changes) Plan 86 yrs old man multiple medical Co-morbidities lives at home with poor gait stability H/o HTN, Bioprosthic AVR, Dyslipedemia, as per Cardiology note recent evaluation by Dr Duncan compensated CHF, Uncontrolled T2DM, CAD S/P DE, CABG , PCI not on Plavix at base line LBB presented s/p fall as per patient was at home upstairs walked in a dark room stucked with chair lost balance landed on Left side, also had head trauma, but no LOC, and was brought to ER. Was noted to have left proximal Femur fracture, no syncope or pre- syncope symptoms, no c/o focal weakness, seizures or incontinence. Seen initially by Dr. Ramesh but requested second opinion. CT head completed and did not show acute changes. Had been getting aggitated and psych recommended PRN haldol or if needed frequently, can use ongoing risperdal. Ativan required for aggitation Has had sundowning, combination of unfamiliar enviorment with infection causing altered mental status Maintain hydration As infection clears would expect improvements gradually Id following for infection, on Augmentin
[2017-10-31] MEDS: AMOX TR/POT CLAV 500MG/125MG TABLETS (FP) PO SCH ×2 (09:51→17:06)
[2017-10-31] MEDS: TIOTROPIUM BROMIDE 18 MCG/INH (DEVICE W/ 5 CAPSULES) IH SCH (09:51)
[2017-10-31] MEDS: MONTELUKAST NA 10 MG TABLET PO SCH (09:52)
[2017-10-31] MEDS: ESCITALOPRAM OXALATE 10 MG TABLET (FP) PO SCH (09:52)
[2017-10-31] MEDS: LISINOPRIL 5 MG TABLET (FP) PO SCH (09:52)
[2017-10-31] MEDS: DOCUSATE SODIUM 100 MG CAPSULE (FP) PO SCH (09:52)
[2017-10-31] MEDS: metoPROLOL SUCCINATE 25 MG TAB.SR.24H (FP) PO SCH (09:52)
[2017-10-31] MEDS: OMEGA-3 ACID ETHYL ESTERS (FATTY-ACIDS) 1 GM CAPSULE (FP) PO SCH (09:52)
[2017-10-31] MEDS: APIXABAN 2.5 MG TABLET PO SCH ×2 (09:53→21:09)
[2017-10-31] MEDS: CHOLECALCIFEROL (VITAMIN D3) 1,000 UNIT TABLET (FP) PO SCH (09:53)
[2017-10-31] MEDS: BACITRACIN 15 GM TUBE TOPICAL OINTMENT TP SCH ×2 (09:53→21:11)
[2017-10-31] MEDS: NAPH,MB-DB/K PH,MBDB POWDER PACKET PO SCH ×2 (09:53→21:10)
[2017-10-31 10:02] LABS: PLATELET ESTIMATE ADEQUATE
--- NOTE | 2017-10-31 11:53 | PN ---
Progress Note, Physician Chief Complaint: confusion History of Present Illness: much less confused, and not agitated per he denies cp, sob, leg swelling, syncope - Current Medication List Current Medications: Active Medications Acetaminophen (Tylenol -) 650 mg PO Q6H PRN PRN Reason: PAIN Last Admin: 10/27/17 21:52 Dose: 650 mg Albuterol Sulfate (Ventolin Hfa Inhaler -) 1 puff IH Q8H PRN PRN Reason: SHORT OF BREATH/WHEEZING Last Admin: 10/29/17 13:32 Dose: 1 puff Albuterol/Ipratropium (Duoneb -) 1 amp NEB Q6H PRN PRN Reason: SHORTNESS OF BREATH Last Admin: 10/28/17 18:59 Dose: 1 amp Amoxicillin/Clavulanate Potassium (Augmentin - 500mg Tablet) 1 tab PO BID@0800, 1730 [facility] Last Admin: 10/31/17 09:51 Dose: 1 tab Apixaban (Eliquis -) 2.5 mg PO BID [facility] Last Admin: 10/31/17 09:53 Dose: 2.5 mg Bacitracin (Bacitracin -) 1 applic TP BID [facility] Last Admin: 10/31/17 09:53 Dose: 1 applic Cholecalciferol (Vitamin D3 -) 1,000 unit PO DAILY [facility] Last Admin: 10/31/17 09:53 Dose: 1,000 unit Docusate Sodium (Colace -) 200 mg PO DAILY [facility] Last Admin: 10/31/17 09:52 Dose: 200 mg Escitalopram Oxalate (Lexapro -) 5 mg PO DAILY [facility] Last Admin: 10/31/17 09:52 Dose: 5 mg Guaifenesin (Robitussin -) 10 ml PO Q8H PRN PRN Reason: COUGH Haloperidol (Haldol -) 2 mg PO TID PRN PRN Reason: AGITATION Last Admin: 10/29/17 21:14 Dose: 2 mg Amino Acids (Clinimix -) 1,000 mls @ 42 mls/hr IV Q12H [facility] Last Admin: 10/31/17 11:40 Dose: Not Given Insulin Aspart (Novolog Vial Sliding Scale -) 1 vial SQ ACHS [facility] PRN Reason: Protocol Last Admin: 10/31/17 11:34 Dose: 2 units Insulin Detemir (Levemir Vial) 10 units SQ HS [facility] Last Admin: 10/30/17 21:00 Dose: 10 units Insulin Detemir (Levemir Vial) 15 units SQ AM [facility] Last Admin: 10/31/17 06:46 Dose: Not Given Latanoprost (Xalatan 0.005% Eye Drops -) 1 drop OU HS [facility] Last Admin: 10/30/17 21:00 Dose: 1 drop Lisinopril (Prinivil) 5 mg PO DAILY [facility] Last Admin: 10/31/17 09:52 Dose: 5 mg Lorazepam (Ativan -) 1 mg PO HS PRN PRN Reason: ANXIETY Last Admin: 10/30/17 21:01 Dose: 1 mg Metoprolol Succinate (Toprol Xl -) 25 mg PO BID [facility] Last Admin: 10/31/17 09:52 Dose: 25 mg Montelukast Sodium (Singulair -) 10 mg PO DAILY [facility] Last Admin: 10/31/17 09:52 Dose: 10 mg Asiyz-3-Kncc Ethyl Esters (Lovaza -) 1 gm PO DAILY [facility] Last Admin: 10/31/17 09:52 Dose: 1 gm Ondansetron HCl (Zofran Injection) 4 mg IVPUSH Q6H PRN PRN Reason: NAUSEA Potassium Phos/Sodium Phos (Phos-Nak Packet -) 1 packet PO BID [facility] Last Admin: 10/31/17 09:53 Dose: 1 packet Rosuvastatin Calcium (Crestor -) 20 mg PO HS [facility] Last Admin: 10/30/17 21:03 Dose: 20 mg Senna (Senna -) 2 tab PO [facility] Last Admin: 10/30/17 21:02 Dose: 2 tab Sitagliptin Phosphate (Januvia -) 50 mg PO DAILY@0700 [facility] Last Admin: 10/31/17 06:46 Dose: Not Given Tiotropium [place] (Spiriva -) 1 puff IH DAILY [facility] Last Admin: 10/31/17 09:51 Dose: 1 puff - Objective Vital Signs: Vital Signs Temperature 98.5 F 10/31/17 08:08 Pulse Rate 75 10/31/17 08:08 Respiratory Rate 18 10/31/17 08:08 Blood Pressure 135/71 10/31/17 08:08 O2 Sat by Pulse Oximetry (%) 100 10/31/17 08:27 Constitutional: Yes: Well Nourished, No Distress, Calm Cardiovascular: Yes: Regular Rate and Rhythm, S1, S2. No: Gallop, Murmur Respiratory: Yes: Regular (decr sounds diffusely), Wheezes (bases). No: Accessory Muscle Use Extremities: No: Cold Edema: No Neurological: Yes: Alert. No: Seizure Psychiatric: No: Agitated Labs: CBC, BMP 10/31/17 07:15 10/29/17 07:15 INR, PTT INR 1.12 (0.82-1.09) 10/19/17 21:00 Assessment/Plan cxr 10/23 images/report reviewed: persistent right base infiltrate with fluid/ atelectasis head ct: no acute pathology carotid u/s: extensive atherosclerotic disease without stenosis. Echo 11/12: nl LV/EF, nl RV, nl LA, no bioAVR dysfunction Assessment/Plan mechanical fall, hip frx: -tripped over chair in the dark -s/p ORIF 10/18 sinus tachycardia (with baseline LBBB)/PSVT/wide complex tach ? brief NSVT: -intermittent sinus tachy here being driven by confustion/agitation and now fever as well -also with frequent intermittent brief atrial runs/runs of svt -pain control, fever control/abx (ID consulted). -cont toprol 25 bid--low threshold to increase if need be, given bp's have been stable (asthma may not tolerate higher doses at home but ok while here) -10/24 tele: rate-related intermittent LBBB without suspicion of any sustained VT. at times atrial rate approx 120s, with similar OH interval as baseline-- likely sinus tach > SVT - 10/31: HR much improved, likely due to agitation/confusion improved. decr metopr back to home dose (25 qd), given also severe bronchospasm tendencies ( hypoxic on RA today per , + wheezing on exam) TYSON on CKD: -baseline creat 1.3-1.6 -TYSON resolved with IVF. -back on lisinopril s/p AVR: -normal fxn on recent echo CAD s/p CABG: -preserved EF -no angina since -cont home meds (bb, statin, lovaza), holding ASA while on AC HTN: - controlled - cont current BB and SIMA regimen dementia: -recently progressive -per pmd asthma/copd: -no sob, wheezing heard on exam at times -per pulm/hospitalist
--- NOTE | 2017-10-31 11:58 | PN ---
Progress Note, Physician History of Present Illness: confused but much more awake and alert in room eating lunch according to doing much better - Current Medication List Current Medications: Active Medications Acetaminophen (Tylenol -) 650 mg PO Q6H PRN PRN Reason: PAIN Last Admin: 10/27/17 21:52 Dose: 650 mg Albuterol Sulfate (Ventolin Hfa Inhaler -) 1 puff IH Q8H PRN PRN Reason: SHORT OF BREATH/WHEEZING Last Admin: 10/29/17 13:32 Dose: 1 puff Albuterol/Ipratropium (Duoneb -) 1 amp NEB Q6H PRN PRN Reason: SHORTNESS OF BREATH Last Admin: 10/28/17 18:59 Dose: 1 amp Amoxicillin/Clavulanate Potassium (Augmentin - 500mg Tablet) 1 tab PO BID@0800, 1730 [facility] Last Admin: 10/31/17 09:51 Dose: 1 tab Apixaban (Eliquis -) 2.5 mg PO BID [facility] Last Admin: 10/31/17 09:53 Dose: 2.5 mg Bacitracin (Bacitracin -) 1 applic TP BID [facility] Last Admin: 10/31/17 09:53 Dose: 1 applic Cholecalciferol (Vitamin D3 -) 1,000 unit PO DAILY [facility] Last Admin: 10/31/17 09:53 Dose: 1,000 unit Docusate Sodium (Colace -) 200 mg PO DAILY [facility] Last Admin: 10/31/17 09:52 Dose: 200 mg Escitalopram Oxalate (Lexapro -) 5 mg PO DAILY [facility] Last Admin: 10/31/17 09:52 Dose: 5 mg Guaifenesin (Robitussin -) 10 ml PO Q8H PRN PRN Reason: COUGH Haloperidol (Haldol -) 2 mg PO TID PRN PRN Reason: AGITATION Last Admin: 10/29/17 21:14 Dose: 2 mg Insulin Aspart (Novolog Vial Sliding Scale -) 1 vial SQ ACHS [facility] PRN Reason: Protocol Last Admin: 10/31/17 11:34 Dose: 2 units Insulin Detemir (Levemir Vial) 10 units SQ HS [facility] Last Admin: 10/30/17 21:00 Dose: 10 units Insulin Detemir (Levemir Vial) 15 units SQ AM [facility] Last Admin: 10/31/17 06:46 Dose: Not Given Latanoprost (Xalatan 0.005% Eye Drops -) 1 drop OU HS [facility] Last Admin: 10/30/17 21:00 Dose: 1 drop Lisinopril (Prinivil) 5 mg PO DAILY [facility] Last Admin: 10/31/17 09:52 Dose: 5 mg Lorazepam (Ativan -) 1 mg PO HS PRN PRN Reason: ANXIETY Last Admin: 10/30/17 21:01 Dose: 1 mg Metoprolol Succinate (Toprol Xl -) 25 mg PO DAILY [facility] Montelukast Sodium (Singulair -) 10 mg PO DAILY [facility] Last Admin: 10/31/17 09:52 Dose: 10 mg Bkane-6-Skov Ethyl Esters (Lovaza -) 1 gm PO DAILY [facility] Last Admin: 10/31/17 09:52 Dose: 1 gm Ondansetron HCl (Zofran Injection) 4 mg IVPUSH Q6H PRN PRN Reason: NAUSEA Potassium Phos/Sodium Phos (Phos-Nak Packet -) 1 packet PO BID [facility] Last Admin: 10/31/17 09:53 Dose: 1 packet Rosuvastatin Calcium (Crestor -) 20 mg PO HS [facility] Last Admin: 10/30/17 21:03 Dose: 20 mg Senna (Senna -) [address] [facility] Last Admin: 10/30/17 21:02 Dose: 2 tab Sitagliptin Phosphate (Januvia -) 50 mg PO DAILY@0700 [facility] Last Admin: 10/31/17 06:46 Dose: Not Given Tiotropium [place] (Spiriva -) 1 puff IH DAILY [facility] Last Admin: 10/31/17 09:51 Dose: 1 puff - Objective Vital Signs: Vital Signs Temperature 98.5 F 10/31/17 08:08 Pulse Rate 75 10/31/17 08:08 Respiratory Rate 18 10/31/17 08:08 Blood Pressure 135/71 10/31/17 08:08 O2 Sat by Pulse Oximetry (%) 100 10/31/17 08:27 Constitutional: Yes: No Distress, Calm Cardiovascular: Yes: Regular Rate and Rhythm Respiratory: Yes: Regular, CTA Bilaterally Gastrointestinal: Yes: Normal Bowel Sounds, Soft Musculoskeletal: Yes: WNL Extremities: Yes: WNL Neurological: Yes: Alert Psychiatric: Yes: Alert Labs: CBC, BMP 10/31/17 07:15 10/29/17 07:15 INR, PTT INR 1.12 (0.82-1.09) 10/19/17 21:00 Assessment/Plan Assessment/Plan (1) Pneumonia with sepsis (2) Fracture, proximal femur Code(s): S72.009A - FRACTURE OF UNSP PART OF NECK OF UNSP FEMUR, INIT Qualifiers: Fracture type: closed Laterality: left (3) CKD stage 3 secondary to diabetes Code(s): E11.22 - TYPE 2 DIABETES MELLITUS W DIABETIC CHRONIC KIDNEY DISEASE; N18.3 - CHRONIC KIDNEY DISEASE, STAGE 3 (MODERATE) (4) Coronary arteriosclerosis after coronary artery bypass grafting Code(s): I25.810 - ATHEROSCLEROSIS OF CABG W/O ANGINA PECTORIS (5) Hypercholesteremia Code(s): E78.00 - PURE HYPERCHOLESTEROLEMIA, UNSPECIFIED (6) Uncontrolled diabetes mellitus Code(s): E11.65 - TYPE 2 DIABETES MELLITUS WITH HYPERGLYCEMIA (7) COPD (chronic obstructive pulmonary disease) Code(s): J44.9 - CHRONIC OBSTRUCTIVE PULMONARY DISEASE, UNSPECIFIED (8) Dementia Code(s): F03.90 - UNSPECIFIED DEMENTIA WITHOUT BEHAVIORAL DISTURBANCE (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
--- NOTE | 2017-10-31 12:11 | PN ---
Progress Note, Physician Chief Complaint: Mr Calvillo pleasant and interactive. Unable to obtain subjective. with patient and expresses concern about stopping clinimix - Current Medication List Current Medications: Active Medications Acetaminophen (Tylenol -) 650 mg PO Q6H PRN PRN Reason: PAIN Last Admin: 10/27/17 21:52 Dose: 650 mg Albuterol Sulfate (Ventolin Hfa Inhaler -) 1 puff IH Q8H PRN PRN Reason: SHORT OF BREATH/WHEEZING Last Admin: 10/29/17 13:32 Dose: 1 puff Albuterol/Ipratropium (Duoneb -) 1 amp NEB Q6H PRN PRN Reason: SHORTNESS OF BREATH Last Admin: 10/28/17 18:59 Dose: 1 amp Amoxicillin/Clavulanate Potassium (Augmentin - 500mg Tablet) 1 tab PO BID@0800, 1730 [facility] Last Admin: 10/31/17 09:51 Dose: 1 tab Apixaban (Eliquis -) 2.5 mg PO BID [facility] Last Admin: 10/31/17 09:53 Dose: 2.5 mg Bacitracin (Bacitracin -) 1 applic TP BID [facility] Last Admin: 10/31/17 09:53 Dose: 1 applic Cholecalciferol (Vitamin D3 -) 1,000 unit PO DAILY [facility] Last Admin: 10/31/17 09:53 Dose: 1,000 unit Docusate Sodium (Colace -) 200 mg PO DAILY [facility] Last Admin: 10/31/17 09:52 Dose: 200 mg Escitalopram Oxalate (Lexapro -) 5 mg PO DAILY [facility] Last Admin: 10/31/17 09:52 Dose: 5 mg Guaifenesin (Robitussin -) 10 ml PO Q8H PRN PRN Reason: COUGH Haloperidol (Haldol -) 2 mg PO TID PRN PRN Reason: AGITATION Last Admin: 10/29/17 21:14 Dose: 2 mg Insulin Aspart (Novolog Vial Sliding Scale -) 1 vial SQ ACHS [facility] PRN Reason: Protocol Last Admin: 10/31/17 11:34 Dose: 2 units Insulin Detemir (Levemir Vial) 10 units SQ HS [facility] Last Admin: 10/30/17 21:00 Dose: 10 units Insulin Detemir (Levemir Vial) 15 units SQ AM [facility] Last Admin: 10/31/17 06:46 Dose: Not Given Latanoprost (Xalatan 0.005% Eye Drops -) 1 drop OU HS [facility] Last Admin: 10/30/17 21:00 Dose: 1 drop Lisinopril (Prinivil) 5 mg PO DAILY [facility] Last Admin: 10/31/17 09:52 Dose: 5 mg Lorazepam (Ativan -) 1 mg PO HS PRN PRN Reason: ANXIETY Last Admin: 10/30/17 21:01 Dose: 1 mg Metoprolol Succinate (Toprol Xl -) 25 mg PO DAILY [facility] Montelukast Sodium (Singulair -) 10 mg PO DAILY [facility] Last Admin: 10/31/17 09:52 Dose: 10 mg [id number] Ethyl Esters (Lovaza -) 1 gm PO DAILY [facility] Last Admin: 10/31/17 09:52 Dose: 1 gm Ondansetron HCl (Zofran Injection) 4 mg IVPUSH Q6H PRN PRN Reason: NAUSEA Potassium Phos/Sodium Phos (Phos-Nak Packet -) 1 packet PO BID [facility] Last Admin: 10/31/17 09:53 Dose: 1 packet Rosuvastatin Calcium (Crestor -) 20 mg PO HS [facility] Last Admin: 10/30/17 21:03 Dose: 20 mg Senna (Senna -) 2 tab PO [facility] Last Admin: 10/30/17 21:02 Dose: 2 tab Sitagliptin Phosphate (Januvia -) 50 mg PO DAILY@0700 [facility] Last Admin: 10/31/17 06:46 Dose: Not Given Tiotropium [place] (Spiriva -) 1 puff IH DAILY [facility] Last Admin: 10/31/17 09:51 Dose: 1 puff - Objective Vital Signs: Vital Signs Temperature 36.9 C 10/31/17 08:08 Pulse Rate 75 10/31/17 08:08 Respiratory Rate 18 10/31/17 08:08 Blood Pressure 135/71 10/31/17 08:08 O2 Sat by Pulse Oximetry (%) 100 10/31/17 08:27 Constitutional: Yes: Well Nourished, No Distress, Calm Cardiovascular: Yes: Regular Rate and Rhythm. No: Gallop, Murmur, Rub Respiratory: Yes: Regular, Rhonchi. No: Rales, Wheezes Gastrointestinal: Yes: Normal Bowel Sounds, Soft. No: Distention, Tenderness Extremities: Yes: WNL Edema: No Labs: CBC, BMP 10/31/17 07:15 10/29/17 07:15 INR, PTT INR 1.12 (0.82-1.09) 10/19/17 21:00 Problem List - Problems (1) Pneumonia Code(s): J18.9 - PNEUMONIA, UNSPECIFIED ORGANISM (2) Sepsis Code(s): A41.9 - SEPSIS, UNSPECIFIED ORGANISM (3) Fracture, proximal femur Code(s): S72.009A - FRACTURE OF UNSP PART OF NECK OF UNSP FEMUR, INIT Qualifiers: Fracture type: closed Laterality: left (4) CKD stage 3 secondary to diabetes Code(s): E11.22 - TYPE 2 DIABETES MELLITUS W DIABETIC CHRONIC KIDNEY DISEASE; N18.3 - CHRONIC KIDNEY DISEASE, STAGE 3 (MODERATE) (5) Coronary arteriosclerosis after coronary artery bypass grafting Code(s): I25.810 - ATHEROSCLEROSIS OF CABG W/O ANGINA PECTORIS (6) Hypercholesteremia Code(s): E78.00 - PURE HYPERCHOLESTEROLEMIA, UNSPECIFIED (7) Uncontrolled diabetes mellitus Code(s): E11.65 - TYPE 2 DIABETES MELLITUS WITH HYPERGLYCEMIA (8) COPD (chronic obstructive pulmonary disease) Code(s): J44.9 - CHRONIC OBSTRUCTIVE PULMONARY DISEASE, UNSPECIFIED (9) Dementia Code(s): F03.90 - UNSPECIFIED DEMENTIA WITHOUT BEHAVIORAL DISTURBANCE (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) Code(s): D75.82 - HEPARIN INDUCED THROMBOCYTOPENIA (HIT) Assessment/Plan (1) Pneumonia with sepsis -continue augmentin -ID follwing and appreciate assistance (2) Fracture, proximal femur Assessment/Plan: -s/p repair -continue PT Code(s): S72.009A - FRACTURE OF UNSP PART OF NECK OF UNSP FEMUR, INIT Qualifiers: Fracture type: closed Laterality: left (3) CKD stage 3 secondary to diabetes Assessment/Plan: -renal function stable -monitor -will stop clinimix and encourage po intake Code(s): E11.22 - TYPE 2 DIABETES MELLITUS W DIABETIC CHRONIC KIDNEY DISEASE; N18.3 - CHRONIC KIDNEY DISEASE, STAGE 3 (MODERATE) (4) Coronary arteriosclerosis after coronary artery bypass grafting Assessment/Plan: -cardiology following -holding aspirin while on AC -continue statin and toprol xl Code(s): I25.810 - ATHEROSCLEROSIS OF CABG W/O ANGINA PECTORIS (5) Hypercholesteremia Assessment/Plan: -continue statin Code(s): E78.00 - PURE HYPERCHOLESTEROLEMIA, UNSPECIFIED (6) Uncontrolled diabetes mellitus Assessment/Plan: -continue to monitor -may need to decrease levemir unless intake goes up Code(s): E11.65 - TYPE 2 DIABETES MELLITUS WITH HYPERGLYCEMIA (7) COPD (chronic obstructive pulmonary disease) Assessment/Plan: -not in exacerbation -continue current management Code(s): J44.9 - CHRONIC OBSTRUCTIVE PULMONARY DISEASE, UNSPECIFIED (8) Dementia Assessment/Plan: -ativan now scheduled -monitor for improvement Code(s): F03.90 - UNSPECIFIED DEMENTIA WITHOUT BEHAVIORAL DISTURBANCE (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
[2017-10-31] MEDS ORDERED: INSULIN (NOVOLOG) ASPART 100 UNITS/ML 10ML VIAL ONE ×2 (16:39→20:41)
[2017-10-31] MEDS: ALBUTEROL SO4 2.5/IPRATROPIUM 0.5 INH SOL 3 ML VIAL.NEB. NEB PRN (16:47)
[2017-10-31] MEDS ORDERED: ROSUVASTATIN CA 10 MG TABLET (FP) ONE (20:39)
[2017-10-31] MEDS: SENNOSIDES 8.6MG TABLET (FP) PO SCH (21:07)
[2017-10-31] MEDS: ACETAMINOPHEN 325 MG TABLET (FP) PO PRN (21:07)
[2017-10-31] MEDS: LORazepam 1 MG TABLET PO PRN (21:07)
[2017-10-31] MEDS: ROSUVASTATIN CA 20 MG TABLET (FP) PO SCH (21:08)
[2017-10-31] MEDS: LATANOPROST 0.005% OPHTH SOLN 2.5ML BOTTLE OU SCH (21:10)
[2017-11-01] MEDS: HALOPERIDOL 1 MG TABLET (FP) PO PRN (00:13)
[2017-11-01] MEDS: INSULIN SLIDING SCALE (NOVOLOG) 1 VIAL SQ SCH ×4 (06:05→21:20)
[2017-11-01] MEDS: sitaGLIPtin PHOSPHATE 50 MG TABLET PO SCH (06:05)
[2017-11-01] MEDS: INSULIN DETEMIR 100 UNITS/ML MDV SQ SCH ×2 (06:05→21:17)
[2017-11-01 07:46] LABS: BASO % 0.8 % (0-2.0); EOS % 5.1 % (0-4.5); HEMATOCRIT 28.8 % (35.4-49); LYMPH % 11.3 % (8-40); MCH 27.3 pg (25.7-33.7); MCHC 31.4 g/dl (32.0-35.9); MEAN CELL VOLUME 87.1 fl (80-96); MONO % 9.7 % (3.8-10.2); NEUT % 73.1 % (42.8-82.8); PLATELET COUNT 250 K/MM3 (134-434); RBC 3.31 M/mm3 (4.00-5.60); RDW 17.4 % (11.9-15.9); WHITE BLOOD COUNT 7.3 K/mm3 (4.0-10.0)
[2017-11-01 08:09] LABS: ANION GAP 5 (8-16); BLOOD UREA NITROGEN 24 mg/dL (7-18); CALCIUM 7.5 mg/dL (8.5-10.1); CHLORIDE 104 mmol/L (98-107); CO2 30 mmol/L (21-32); GLUCOSE,RANDOM 52 mg/dL (74-106); MAGNESIUM 2.2 mg/dL (1.8-2.4); PHOSPHOROUS 3.1 mg/dL (2.5-4.9); POTASSIUM 4.2 mmol/L (3.5-5.1); SODIUM 139 mmol/L (136-145)
[2017-11-01] MEDS: AMOX TR/POT CLAV 500MG/125MG TABLETS (FP) PO SCH (08:52)
[2017-11-01] MEDS ORDERED: PT OWN MED DRAWER 7, Y5N ONE ×2 (08:57→21:11)
[2017-11-01] MEDS: LISINOPRIL 5 MG TABLET (FP) PO SCH (09:05)
[2017-11-01] MEDS: OMEGA-3 ACID ETHYL ESTERS (FATTY-ACIDS) 1 GM CAPSULE (FP) PO SCH (09:05)
[2017-11-01] MEDS: DOCUSATE SODIUM 100 MG CAPSULE (FP) PO SCH (09:06)
[2017-11-01] MEDS: CHOLECALCIFEROL (VITAMIN D3) 1,000 UNIT TABLET (FP) PO SCH (09:06)
[2017-11-01] MEDS: APIXABAN 2.5 MG TABLET PO SCH ×2 (09:06→21:17)
[2017-11-01] MEDS: metoPROLOL SUCCINATE 25 MG TAB.SR.24H (FP) PO SCH (09:06)
[2017-11-01] MEDS: MONTELUKAST NA 10 MG TABLET PO SCH (09:06)
[2017-11-01] MEDS: ESCITALOPRAM OXALATE 10 MG TABLET (FP) PO SCH (09:07)
[2017-11-01] MEDS: TIOTROPIUM BROMIDE 18 MCG/INH (DEVICE W/ 5 CAPSULES) IH SCH (09:07)
[2017-11-01] MEDS: NAPH,MB-DB/K PH,MBDB POWDER PACKET PO SCH ×2 (09:08→21:17)
[2017-11-01] MEDS: BACITRACIN 15 GM TUBE TOPICAL OINTMENT TP SCH ×2 (09:09→21:20)
--- NOTE | 2017-11-01 09:45 | PN ---
Progress Note (short form) - Note Progress Note: Neurology History of Present Illness: 86 yrs old man multiple medical Co-morbidities lives at home with poor gait stability H/o HTN, Bioprosthic AVR, Dyslipedemia, as per Cardiology note recent evaluation by Dr Duncan compensated CHF, Uncontrolled T2DM, CAD S/P TX, CABG , PCI not on Plavix at base line LBB presented s/p fall as per patient was at home upstairs walked in a dark room stucked with chair lost balance landed on Left side, also had head trauma, but no LOC, and was brought to ER. Was noted to have left proximal Femur fracture, no syncope or pre- syncope symptoms, no c/o focal weakness, seizures or incontinence. Seen initially by Dr. Ramesh but requested second opinion. CT head completed and did not show acute changes. Psych recommended PRN haldol or if needed frequently, can use ongoing risperdal. Spoke to nurse and per notes, wake up in daytime, somnolent in AM. Nurse will monitor mental status. Was not aggitated overnight. Active Medications Acetaminophen (Tylenol -) 650 mg PO Q6H PRN PRN Reason: PAIN Last Admin: 10/31/17 21:07 Dose: 650 mg Albuterol Sulfate (Ventolin Hfa Inhaler -) 1 puff IH Q8H PRN PRN Reason: SHORT OF BREATH/WHEEZING Last Admin: 10/29/17 13:32 Dose: 1 puff Albuterol/Ipratropium (Duoneb -) 1 amp NEB Q6H PRN PRN Reason: SHORTNESS OF BREATH Last Admin: 10/31/17 16:47 Dose: 1 amp Amoxicillin/Clavulanate Potassium (Augmentin - 500mg Tablet) 1 tab PO BID@0800, 1730 [facility] Last Admin: 11/01/17 08:52 Dose: 1 tab Apixaban (Eliquis -) 2.5 mg PO BID [facility] Last Admin: 11/01/17 09:06 Dose: 2.5 mg Bacitracin (Bacitracin -) 1 applic TP BID [facility] Last Admin: 11/01/17 09:09 Dose: 1 applic Cholecalciferol (Vitamin D3 -) 1,000 unit PO DAILY [facility] Last Admin: 11/01/17 09:06 Dose: 1,000 unit Docusate Sodium (Colace -) 200 mg PO DAILY [facility] Last Admin: 11/01/17 09:06 Dose: 200 mg Escitalopram Oxalate (Lexapro -) 5 mg PO DAILY [facility] Last Admin: 11/01/17 09:07 Dose: 5 mg Guaifenesin (Robitussin -) 10 ml PO Q8H PRN PRN Reason: COUGH Haloperidol (Haldol -) 2 mg PO TID PRN PRN Reason: AGITATION Last Admin: 11/01/17 00:13 Dose: 2 mg Insulin Aspart (Novolog Vial Sliding Scale -) 1 vial SQ ACHS [facility] PRN Reason: Protocol Last Admin: 11/01/17 06:05 Dose: Not Given Insulin Detemir (Levemir Vial) 10 units SQ HS [facility] Last Admin: 10/31/17 21:09 Dose: 10 units Insulin Detemir (Levemir Vial) 15 units SQ AM [facility] Last Admin: 11/01/17 06:05 Dose: Not Given Latanoprost (Xalatan 0.005% Eye Drops -) 1 drop OU HS [facility] Last Admin: 10/31/17 21:10 Dose: 1 drop Lisinopril (Prinivil) 5 mg PO DAILY [facility] Last Admin: 11/01/17 09:05 Dose: 5 mg Lorazepam (Ativan -) 1 mg PO HS PRN PRN Reason: ANXIETY Last Admin: 10/31/17 21:07 Dose: 1 mg Metoprolol Succinate (Toprol Xl -) 25 mg PO DAILY [facility] Last Admin: 11/01/17 09:06 Dose: 25 mg Montelukast Sodium (Singulair -) 10 mg PO DAILY [facility] Last Admin: 11/01/17 09:06 Dose: 10 mg [id number] Ethyl Esters (Lovaza -) 1 gm PO DAILY [facility] Last Admin: 11/01/17 09:05 Dose: 1 gm Ondansetron HCl (Zofran Injection) 4 mg IVPUSH Q6H PRN PRN Reason: NAUSEA Potassium Phos/Sodium Phos (Phos-Nak Packet -) 1 packet PO BID [facility] Last Admin: 11/01/17 09:08 Dose: 1 packet Rosuvastatin Calcium (Crestor -) 20 mg PO HS [facility] Last Admin: 10/31/17 21:08 Dose: 20 mg Senna (Senna -) 2 tab PO HS [facility] Last Admin: 10/31/17 21:07 Dose: 2 tab Sitagliptin Phosphate (Januvia -) 50 mg PO DAILY@0700 [facility] Last Admin: 11/01/17 06:05 Dose: Not Given Tiotropium [place] (Spiriva -) 1 puff IH DAILY [facility] Last Admin: 11/01/17 09:07 Dose: 1 puff Physical Examination Vital Signs Temperature 98.0 F 11/01/17 05:50 Pulse Rate 74 11/01/17 05:50 Respiratory Rate 18 11/01/17 05:50 Blood Pressure 155/76 11/01/17 05:50 O2 Sat by Pulse Oximetry (%) 100 10/31/17 21:00 Constitutional: Yes: Well Nourished, No Distress, Calm and cooperative Eyes: No: Sclera Icterus HENT: No: Nasal Congestion Cardiovascular: Yes: Regular Rate and Rhythm, Tachycardia, Murmur (soft (2/6) FILEMON lusb). No: JVD, Gallop Respiratory: Yes: Regular, CTA Bilaterally No: Rales, Wheezes Gastrointestinal: Yes: Normal Bowel Sounds, Soft. No: Tenderness Musculoskeletal: Yes: Other (No kyphosis) Extremities: No: Cold Edema: No Integumentary: No: Jaundice Neurological: Awake, alert, calm, CN appear intact, moves all ext equally, sensory intact, gait deferred Psychiatric: somnolent CBCD WBC 7.3 K/mm3 (4.0-10.0) 11/01/17 06:30 RBC 3.31 M/mm3 (4.00-5.60) L 11/01/17 06:30 Hgb 9.0 GM/dL (11.7-16.9) L 11/01/17 06:30 Hct 28.8 % (35.4-49) L 11/01/17 06:30 MCV 87.1 fl (80-96) 11/01/17 06:30 MCHC 31.4 g/dl (32.0-35.9) L 11/01/17 06:30 RDW 17.4 % (11.9-15.9) H 11/01/17 06:30 Plt Count 250 K/MM3 (134-434) 11/01/17 06:30 MPV 9.0 fl (7.5-11.1) 11/01/17 06:30 CMP Sodium 139 mmol/L (136-145) 11/01/17 06:30 Potassium 4.2 mmol/L (3.5-5.1) 11/01/17 06:30 Chloride 104 mmol/L (98-107) 11/01/17 06:30 Carbon Dioxide 30 mmol/L (21-32) 11/01/17 06:30 Anion Gap 5 (8-16) L 11/01/17 06:30 BUN 24 mg/dL (7-18) H 11/01/17 06:30 Creatinine 1.0 mg/dL (0.7-1.3) 11/01/17 06:30 Creat Clearance w eGFR 48.28 (>60) 10/24/17 06:35 Calcium 7.5 mg/dL (8.5-10.1) L 11/01/17 06:30 Total Bilirubin 1.4 mg/dL (0.2-1.0) H 10/24/17 06:35 AST 70 U/L (15-37) H D 10/24/17 06:35 ALT 63 U/L (12-78) D 10/24/17 06:35 Alkaline Phosphatase 90 U/L (45-117) 10/24/17 06:35 Total Protein 4.9 g/dl (6.4-8.2) L D 10/24/17 06:35 Albumin 2.1 g/dl (3.4-5.0) L D 10/24/17 06:35 Imaging - Results Chest X-ray: Report Reviewed (No Pulmonary congestion or infiltrates) Cat Scan: Report Reviewed (Head: No acute intracraniall changes) Plan 86 yrs old man multiple medical Co-morbidities lives at home with poor gait stability H/o HTN, Bioprosthic AVR, Dyslipedemia, as per Cardiology note recent evaluation by Dr Duncan compensated CHF, Uncontrolled T2DM, CAD S/P TX, CABG , PCI not on Plavix at base line LBB presented s/p fall as per patient was at home upstairs walked in a dark room struck chair lost balance landed on Left side, also had head trauma, but no LOC, and was brought to ER. Was noted to have left proximal Femur fracture, no syncope or pre-syncope symptoms, no c/o focal weakness, seizures or incontinence. Seen initially by Dr. Ramesh but requested second opinion. CT head completed and did not show acute changes. Had been getting aggitated and psych recommended PRN haldol or if needed frequently, can use ongoing risperdal. Ativan as needed for aggitation Has had sundowning, combination of unfamiliar enviorment with infection causing altered mental status Was not aggitated overnight Though somnolent in Am, is awake and interactive during daytime Maintain hydration Id following for infection, on Augmentin
--- NOTE | 2017-11-01 12:56 | PN ---
Progress Note, Physician Chief Complaint: Unable to obtain secondary to lethargy. - Current Medication List Current Medications: Active Medications Acetaminophen (Tylenol -) 650 mg PO Q6H PRN PRN Reason: PAIN Last Admin: 10/31/17 21:07 Dose: 650 mg Albuterol Sulfate (Ventolin Hfa Inhaler -) 1 puff IH Q8H PRN PRN Reason: SHORT OF BREATH/WHEEZING Last Admin: 10/29/17 13:32 Dose: 1 puff Albuterol/Ipratropium (Duoneb -) 1 amp NEB Q6H PRN PRN Reason: SHORTNESS OF BREATH Last Admin: 10/31/17 16:47 Dose: 1 amp Amoxicillin/Clavulanate Potassium (Augmentin - 500mg Tablet) 1 tab PO BID@0800, 1730 [facility] Last Admin: 11/01/17 08:52 Dose: 1 tab Apixaban (Eliquis -) 2.5 mg PO BID [facility] Last Admin: 11/01/17 09:06 Dose: 2.5 mg Bacitracin (Bacitracin -) 1 applic TP BID [facility] Last Admin: 11/01/17 09:09 Dose: 1 applic Cholecalciferol (Vitamin D3 -) 1,000 unit PO DAILY [facility] Last Admin: 11/01/17 09:06 Dose: 1,000 unit Docusate Sodium (Colace -) 200 mg PO DAILY [facility] Last Admin: 11/01/17 09:06 Dose: 200 mg Escitalopram Oxalate (Lexapro -) 5 mg PO DAILY [facility] Last Admin: 11/01/17 09:07 Dose: 5 mg Guaifenesin (Robitussin -) 10 ml PO Q8H PRN PRN Reason: COUGH Haloperidol (Haldol -) 2 mg PO TID PRN PRN Reason: AGITATION Last Admin: 11/01/17 00:13 Dose: 2 mg Insulin Aspart (Novolog Vial Sliding Scale -) 1 vial SQ ACHS [facility] PRN Reason: Protocol Last Admin: 11/01/17 12:35 Dose: Not Given Insulin Detemir (Levemir Vial) 10 units SQ HS [facility] Last Admin: 10/31/17 21:09 Dose: 10 units Insulin Detemir (Levemir Vial) 15 units SQ AM [facility] Last Admin: 11/01/17 06:05 Dose: Not Given Latanoprost (Xalatan 0.005% Eye Drops -) 1 drop OU [facility] Last Admin: 10/31/17 21:10 Dose: 1 drop Lisinopril (Prinivil) 5 mg PO DAILY [facility] Last Admin: 11/01/17 09:05 Dose: 5 mg Lorazepam (Ativan -) 0.5 mg PO [facility] Metoprolol Succinate (Toprol Xl -) 25 mg PO DAILY [facility] Last Admin: 11/01/17 09:06 Dose: 25 mg Montelukast Sodium (Singulair -) 10 mg PO DAILY [facility] Last Admin: 11/01/17 09:06 Dose: 10 mg [id number] Ethyl Esters (Lovaza -) 1 gm PO DAILY [facility] Last Admin: 11/01/17 09:05 Dose: 1 gm Ondansetron HCl (Zofran Injection) 4 mg IVPUSH Q6H PRN PRN Reason: NAUSEA Potassium Phos/Sodium Phos (Phos-Nak Packet -) 1 packet PO BID [facility] Last Admin: 11/01/17 09:08 Dose: 1 packet Rosuvastatin Calcium (Crestor -) 20 mg PO [facility] Last Admin: 10/31/17 21:08 Dose: 20 mg Senna (Senna -) 2 tab PO [facility] Last Admin: 10/31/17 21:07 Dose: 2 tab Sitagliptin Phosphate (Januvia -) 50 mg PO DAILY@0700 [facility] Last Admin: 11/01/17 06:05 Dose: Not Given Tiotropium [place] (Spiriva -) 1 puff IH DAILY [facility] Last Admin: 11/01/17 09:07 Dose: 1 puff - Objective Vital Signs: Vital Signs Temperature 36.7 C 11/01/17 05:50 Pulse Rate 82 11/01/17 10:00 Respiratory Rate 18 11/01/17 10:00 Blood Pressure 136/50 11/01/17 10:00 O2 Sat by Pulse Oximetry (%) 100 10/31/17 21:00 Constitutional: Yes: No Distress, Other (lethargic) Cardiovascular: Yes: Regular Rate and Rhythm. No: Gallop, Murmur, Rub Respiratory: Yes: Regular, CTA Bilaterally. No: Rales, Rhonchi, Wheezes Gastrointestinal: Yes: Normal Bowel Sounds, Soft. No: Distention, Tenderness Extremities: Yes: WNL Edema: No Labs: CBC, BMP 11/01/17 06:30 11/01/17 06:30 INR, PTT INR 1.12 (0.82-1.09) 10/19/17 21:00 Problem List - Problems (1) Pneumonia Code(s): J18.9 - PNEUMONIA, UNSPECIFIED ORGANISM (2) Sepsis Code(s): A41.9 - SEPSIS, UNSPECIFIED ORGANISM (3) Fracture, proximal femur Code(s): S72.009A - FRACTURE OF UNSP PART OF NECK OF UNSP FEMUR, INIT Qualifiers: Fracture type: closed Laterality: left (4) CKD stage 3 secondary to diabetes Code(s): E11.22 - TYPE 2 DIABETES MELLITUS W DIABETIC CHRONIC KIDNEY DISEASE; N18.3 - CHRONIC KIDNEY DISEASE, STAGE 3 (MODERATE) (5) Coronary arteriosclerosis after coronary artery bypass grafting Code(s): I25.810 - ATHEROSCLEROSIS OF CABG W/O ANGINA PECTORIS (6) Hypercholesteremia Code(s): E78.00 - PURE HYPERCHOLESTEROLEMIA, UNSPECIFIED (7) Uncontrolled diabetes mellitus Code(s): E11.65 - TYPE 2 DIABETES MELLITUS WITH HYPERGLYCEMIA (8) COPD (chronic obstructive pulmonary disease) Code(s): J44.9 - CHRONIC OBSTRUCTIVE PULMONARY DISEASE, UNSPECIFIED (9) Dementia Code(s): F03.90 - UNSPECIFIED DEMENTIA WITHOUT BEHAVIORAL DISTURBANCE (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) Code(s): D75.82 - HEPARIN INDUCED THROMBOCYTOPENIA (HIT) Assessment/Plan (1) Pneumonia with sepsis -continue augmentin -ID follwing and appreciate assistance -last dose of augmentin today (2) Fracture, proximal femur Assessment/Plan: -s/p repair -continue PT Code(s): S72.009A - FRACTURE OF UNSP PART OF NECK OF UNSP FEMUR, INIT Qualifiers: Fracture type: closed Laterality: left (3) CKD stage 3 secondary to diabetes Assessment/Plan: -renal function stable -monitor Code(s): E11.22 - TYPE 2 DIABETES MELLITUS W DIABETIC CHRONIC KIDNEY DISEASE; N18.3 - CHRONIC KIDNEY DISEASE, STAGE 3 (MODERATE) (4) Coronary arteriosclerosis after coronary artery bypass grafting Assessment/Plan: -cardiology following -holding aspirin while on AC -continue statin and toprol xl Code(s): I25.810 - ATHEROSCLEROSIS OF CABG W/O ANGINA PECTORIS (5) Hypercholesteremia Assessment/Plan: -continue statin Code(s): E78.00 - PURE HYPERCHOLESTEROLEMIA, UNSPECIFIED (6) Uncontrolled diabetes mellitus Assessment/Plan: -continue to monitor -holding levemir secondary to hypoglycemia from decreased intake Code(s): E11.65 - TYPE 2 DIABETES MELLITUS WITH HYPERGLYCEMIA (7) COPD (chronic obstructive pulmonary disease) Assessment/Plan: -not in exacerbation -continue current management Code(s): J44.9 - CHRONIC OBSTRUCTIVE PULMONARY DISEASE, UNSPECIFIED (8) Dementia Assessment/Plan: -very lethargic -decrease ativan dose Code(s): F03.90 - UNSPECIFIED DEMENTIA WITHOUT BEHAVIORAL DISTURBANCE (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
--- NOTE | 2017-11-01 13:49 | PN ---
Progress Note, Physician History of Present Illness: patient is sleeping more otherwise has no issues in room - Current Medication List Current Medications: Active Medications Acetaminophen (Tylenol -) 650 mg PO Q6H PRN PRN Reason: PAIN Last Admin: 10/31/17 21:07 Dose: 650 mg Albuterol Sulfate (Ventolin Hfa Inhaler -) 1 puff IH Q8H PRN PRN Reason: SHORT OF BREATH/WHEEZING Last Admin: 10/29/17 13:32 Dose: 1 puff Albuterol/Ipratropium (Duoneb -) 1 amp NEB Q6H PRN PRN Reason: SHORTNESS OF BREATH Last Admin: 10/31/17 16:47 Dose: 1 amp Apixaban (Eliquis -) 2.5 mg PO BID [facility] Last Admin: 11/01/17 09:06 Dose: 2.5 mg Bacitracin (Bacitracin -) 1 applic TP BID [facility] Last Admin: 11/01/17 09:09 Dose: 1 applic Cholecalciferol (Vitamin D3 -) 1,000 unit PO DAILY [facility] Last Admin: 11/01/17 09:06 Dose: 1,000 unit Docusate Sodium (Colace -) 200 mg PO DAILY [facility] Last Admin: 11/01/17 09:06 Dose: 200 mg Escitalopram Oxalate (Lexapro -) 5 mg PO DAILY [facility] Last Admin: 11/01/17 09:07 Dose: 5 mg Guaifenesin (Robitussin -) 10 ml PO Q8H PRN PRN Reason: COUGH Haloperidol (Haldol -) 2 mg PO TID PRN PRN Reason: AGITATION Last Admin: 11/01/17 00:13 Dose: 2 mg Insulin Aspart (Novolog Vial Sliding Scale -) 1 vial SQ ACHS [facility] PRN Reason: Protocol Last Admin: 11/01/17 12:35 Dose: Not Given Insulin Detemir (Levemir Vial) 10 units SQ HS [facility] Last Admin: 10/31/17 21:09 Dose: 10 units Insulin Detemir (Levemir Vial) 15 units SQ AM [facility] Last Admin: 11/01/17 06:05 Dose: Not Given Latanoprost (Xalatan 0.005% Eye Drops -) 1 drop OU HS [facility] Last Admin: 10/31/17 21:10 Dose: 1 drop Lisinopril (Prinivil) 5 mg PO DAILY [facility] Last Admin: 11/01/17 09:05 Dose: 5 mg Lorazepam (Ativan -) 0.5 mg PO [facility] Metoprolol Succinate (Toprol Xl -) 25 mg PO DAILY [facility] Last Admin: 11/01/17 09:06 Dose: 25 mg Montelukast Sodium (Singulair -) 10 mg PO DAILY [facility] Last Admin: 11/01/17 09:06 Dose: 10 mg [id number] Ethyl Esters (Lovaza -) 1 gm PO DAILY [facility] Last Admin: 11/01/17 09:05 Dose: 1 gm Ondansetron HCl (Zofran Injection) 4 mg IVPUSH Q6H PRN PRN Reason: NAUSEA Potassium Phos/Sodium Phos (Phos-Nak Packet -) 1 packet PO BID [facility] Last Admin: 11/01/17 09:08 Dose: 1 packet Rosuvastatin Calcium (Crestor -) 20 mg PO [facility] Last Admin: 10/31/17 21:08 Dose: 20 mg Senna (Senna -) 2 tab PO [facility] Last Admin: 10/31/17 21:07 Dose: 2 tab Sitagliptin Phosphate (Januvia -) 50 mg PO DAILY@0700 [facility] Last Admin: 11/01/17 06:05 Dose: Not Given Tiotropium [place] (Spiriva -) 1 puff IH DAILY [facility] Last Admin: 11/01/17 09:07 Dose: 1 puff - Objective Vital Signs: Vital Signs Temperature 98.5 F 11/01/17 13:37 Pulse Rate 68 11/01/17 13:37 Respiratory Rate 18 11/01/17 10:00 Blood Pressure 125/55 11/01/17 13:37 O2 Sat by Pulse Oximetry (%) 100 10/31/17 21:00 Constitutional: Yes: No Distress, Calm Eyes: Yes: Conjunctiva Clear Cardiovascular: Yes: S1, S2 Respiratory: Yes: Regular, Poor Air Entry Gastrointestinal: Yes: Normal Bowel Sounds, Soft Musculoskeletal: Yes: WNL Extremities: Yes: WNL Neurological: Yes: Alert, Other Psychiatric: Yes: Other Labs: CBC, BMP 11/01/17 06:30 11/01/17 06:30 INR, PTT INR 1.12 (0.82-1.09) 10/19/17 21:00 Assessment/Plan Assessment/Plan (1) Pneumonia with sepsis (2) Fracture, proximal femur Code(s): S72.009A - FRACTURE OF UNSP PART OF NECK OF UNSP FEMUR, INIT Qualifiers: Fracture type: closed Laterality: left (3) CKD stage 3 secondary to diabetes Code(s): E11.22 - TYPE 2 DIABETES MELLITUS W DIABETIC CHRONIC KIDNEY DISEASE; N18.3 - CHRONIC KIDNEY DISEASE, STAGE 3 (MODERATE) (4) Coronary arteriosclerosis after coronary artery bypass grafting Code(s): I25.810 - ATHEROSCLEROSIS OF CABG W/O ANGINA PECTORIS (5) Hypercholesteremia Code(s): E78.00 - PURE HYPERCHOLESTEROLEMIA, UNSPECIFIED (6) Uncontrolled diabetes mellitus Code(s): E11.65 - TYPE 2 DIABETES MELLITUS WITH HYPERGLYCEMIA (7) COPD (chronic obstructive pulmonary disease) Code(s): J44.9 - CHRONIC OBSTRUCTIVE PULMONARY DISEASE, UNSPECIFIED (8) Dementia Code(s): F03.90 - UNSPECIFIED DEMENTIA WITHOUT BEHAVIORAL DISTURBANCE (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
[2017-11-01] MEDS: ALBUTEROL SO4 2.5/IPRATROPIUM 0.5 INH SOL 3 ML VIAL.NEB. NEB PRN (15:45)
[2017-11-01] MEDS ORDERED: LORazepam 1 MG TABLET PO SCH (21:00)
[2017-11-01] MEDS ORDERED: ROSUVASTATIN CA 10 MG TABLET (FP) ONE (21:10)
[2017-11-01] MEDS: LORazepam 1 MG TABLET PO SCH (21:17)
[2017-11-01] MEDS: SENNOSIDES 8.6MG TABLET (FP) PO SCH (21:17)
[2017-11-01] MEDS: ROSUVASTATIN CA 20 MG TABLET (FP) PO SCH (21:18)
[2017-11-01] MEDS ORDERED: INSULIN (NOVOLOG) ASPART 100 UNITS/ML 10ML VIAL ONE (21:19)
[2017-11-01] MEDS: LATANOPROST 0.005% OPHTH SOLN 2.5ML BOTTLE OU SCH (21:21)
[2017-11-02] MEDS ORDERED: PT OWN MED DRAWER 7, Y5N ONE ×2 (06:16→10:28)
[2017-11-02] MEDS: sitaGLIPtin PHOSPHATE 50 MG TABLET PO SCH (06:21)
[2017-11-02] MEDS: INSULIN DETEMIR 100 UNITS/ML MDV SQ SCH (06:21)
[2017-11-02] MEDS: INSULIN SLIDING SCALE (NOVOLOG) 1 VIAL SQ SCH ×4 (06:21→21:17)
[2017-11-02 08:29] LABS: BASO % 0.9 % (0-2.0); HEMATOCRIT 26.6 % (35.4-49); HEMOGLOBIN 8.4 GM/dL (11.7-16.9); LYMPH % 14.2 % (8-40); MCH 27.4 pg (25.7-33.7); MCHC 31.7 g/dl (32.0-35.9); MEAN CELL VOLUME 86.5 fl (80-96); MONO % 10.2 % (3.8-10.2); NEUT % 69.7 % (42.8-82.8); PLATELET COUNT 224 K/MM3 (134-434); RBC 3.08 M/mm3 (4.00-5.60); RDW 17.4 % (11.9-15.9); WHITE BLOOD COUNT 6.7 K/mm3 (4.0-10.0)
[2017-11-02 08:55] LABS: ANION GAP 8 (8-16); BLOOD UREA NITROGEN 20 mg/dL (7-18); CHLORIDE 104 mmol/L (98-107); CO2 27 mmol/L (21-32); CREATININE 0.9 mg/dL (0.7-1.3); GLUCOSE,RANDOM 79 mg/dL (74-106); MAGNESIUM 2.2 mg/dL (1.8-2.4); PHOSPHOROUS 2.9 mg/dL (2.5-4.9); POTASSIUM 4.2 mmol/L (3.5-5.1); SODIUM 139 mmol/L (136-145)
[2017-11-02 08:59] LABS: CALCIUM 7.2 mg/dL (8.5-10.1)
--- NOTE | 2017-11-02 09:37 | PN ---
Progress Note (short form) - Note Progress Note: Neurology History of Present Illness: 86 yrs old man multiple medical Co-morbidities lives at home with poor gait stability H/o HTN, Bioprosthic AVR, Dyslipedemia, as per Cardiology note recent evaluation by Dr Duncan compensated CHF, Uncontrolled T2DM, CAD S/P HI, CABG , PCI not on Plavix at base line LBB presented s/p fall as per patient was at home upstairs walked in a dark room stucked with chair lost balance landed on Left side, also had head trauma, but no LOC, and was brought to ER. Was noted to have left proximal Femur fracture, no syncope or pre- syncope symptoms, no c/o focal weakness, seizures or incontinence. Seen initially by Dr. Ramesh but requested second opinion. CT head completed and did not show acute changes. Psych recommended PRN haldol or if needed frequently, can use ongoing risperdal. This AM, more awake and alert for me. Interactive and conversive, does not know exact location but knows he's in the hospital. Had to be told it's Oct 2017. Main complaint was knee pain. Overnight no aggitation and per nurse getting less ativan. Appears mental status is better than prior encounters I've had with him. Active Medications Acetaminophen (Tylenol -) 650 mg PO Q6H PRN PRN Reason: PAIN Last Admin: 10/31/17 21:07 Dose: 650 mg Albuterol Sulfate (Ventolin Hfa Inhaler -) 1 puff IH Q8H PRN PRN Reason: SHORT OF BREATH/WHEEZING Last Admin: 10/29/17 13:32 Dose: 1 puff Albuterol/Ipratropium (Duoneb -) 1 amp NEB Q6H PRN PRN Reason: SHORTNESS OF BREATH Last Admin: 11/01/17 15:45 Dose: 1 amp Apixaban (Eliquis -) 2.5 mg PO BID [facility] Last Admin: 11/01/17 21:17 Dose: 2.5 mg Bacitracin (Bacitracin -) 1 applic TP BID [facility] Last Admin: 11/01/17 21:20 Dose: 1 applic Cholecalciferol (Vitamin D3 -) 1,000 unit PO DAILY [facility] Last Admin: 11/01/17 09:06 Dose: 1,000 unit Docusate Sodium (Colace -) 200 mg PO DAILY [facility] Last Admin: 11/01/17 09:06 Dose: 200 mg Escitalopram Oxalate (Lexapro -) 5 mg PO DAILY [facility] Last Admin: 11/01/17 09:07 Dose: 5 mg Guaifenesin (Robitussin -) 10 ml PO Q8H PRN PRN Reason: COUGH Haloperidol (Haldol -) 2 mg PO TID PRN PRN Reason: AGITATION Last Admin: 11/01/17 00:13 Dose: 2 mg Insulin Aspart (Novolog Vial Sliding Scale -) 1 vial SQ ACHS [facility] PRN Reason: Protocol Last Admin: 11/02/17 06:21 Dose: Not Given Insulin Detemir (Levemir Vial) 10 units SQ HS [facility] Last Admin: 11/01/17 21:17 Dose: 10 units Insulin Detemir (Levemir Vial) 15 units SQ AM [facility] Last Admin: 11/02/17 06:21 Dose: 15 units Latanoprost (Xalatan 0.005% Eye Drops -) 1 drop OU HS [facility] Last Admin: 11/01/17 21:21 Dose: 1 drop Lisinopril (Prinivil) 5 mg PO DAILY [facility] Last Admin: 11/01/17 09:05 Dose: 5 mg Lorazepam (Ativan -) 0.5 mg PO HS [facility] Last Admin: 11/01/17 21:17 Dose: 0.5 mg Metoprolol Succinate (Toprol Xl -) 25 mg PO DAILY [facility] Last Admin: 11/01/17 09:06 Dose: 25 mg Montelukast Sodium (Singulair -) 10 mg PO DAILY [facility] Last Admin: 11/01/17 09:06 Dose: 10 mg [id number]-[id number] Ethyl Esters (Lovaza -) 1 gm PO DAILY [facility] Last Admin: 11/01/17 09:05 Dose: 1 gm Ondansetron HCl (Zofran Injection) 4 mg IVPUSH Q6H PRN PRN Reason: NAUSEA Potassium Phos/Sodium Phos (Phos-Nak Packet -) 1 packet PO BID [facility] Last Admin: 11/01/17 21:17 Dose: 1 packet Rosuvastatin Calcium (Crestor -) 20 mg PO HS [facility] Last Admin: 11/01/17 21:18 Dose: 20 mg Senna (Senna -) 2 tab PO [facility] Last Admin: 11/01/17 21:17 Dose: 2 tab Sitagliptin Phosphate (Januvia -) 50 mg PO DAILY@0700 [facility] Last Admin: 11/02/17 06:21 Dose: 50 mg Tiotropium [place] (Spiriva -) 1 puff IH DAILY [facility] Last Admin: 11/01/17 09:07 Dose: 1 puff Physical Examination Vital Signs Period Temp Pulse Resp BP Sys/Staples Pulse Ox Last 24 Hr 97.4 F-98.5 F 68-90 18-18 125-136/50-55 95 Constitutional: Yes: Well Nourished, No Distress, Calm and cooperative Eyes: No: Sclera Icterus HENT: No: Nasal Congestion Cardiovascular: Yes: Regular Rate and Rhythm, Tachycardia, Murmur (soft (2/6) FILEMON lusb). No: JVD, Gallop Respiratory: Yes: Regular, CTA Bilaterally No: Rales, Wheezes Gastrointestinal: Yes: Normal Bowel Sounds, Soft. No: Tenderness Musculoskeletal: Yes: Other (No kyphosis) Extremities: No: Cold Edema: No Integumentary: No: Jaundice Neurological: Awake, alert, calm, CN appear intact, moves all ext equally, sensory intact, gait deferred Psychiatric: somnolent CBCD WBC 6.7 K/mm3 (4.0-10.0) 11/02/17 06:35 RBC 3.08 M/mm3 (4.00-5.60) L 11/02/17 06:35 Hgb 8.4 GM/dL (11.7-16.9) L 11/02/17 06:35 Hct 26.6 % (35.4-49) L 11/02/17 06:35 MCV 86.5 fl (80-96) 11/02/17 06:35 MCHC 31.7 g/dl (32.0-35.9) L 11/02/17 06:35 RDW 17.4 % (11.9-15.9) H 11/02/17 06:35 Plt Count 224 K/MM3 (134-434) 11/02/17 06:35 MPV 9.0 fl (7.5-11.1) 11/02/17 06:35 CMP Sodium 139 mmol/L (136-145) 11/02/17 06:35 Potassium 4.2 mmol/L (3.5-5.1) 11/02/17 06:35 Chloride 104 mmol/L (98-107) 11/02/17 06:35 Carbon Dioxide 27 mmol/L (21-32) 11/02/17 06:35 Anion Gap 8 (8-16) 11/02/17 06:35 BUN 20 mg/dL (7-18) H 11/02/17 06:35 Creatinine 0.9 mg/dL (0.7-1.3) 11/02/17 06:35 Creat Clearance w eGFR 48.28 (>60) 10/24/17 06:35 Calcium 7.2 mg/dL (8.5-10.1) L 11/02/17 06:35 Total Bilirubin 1.4 mg/dL (0.2-1.0) H 10/24/17 06:35 AST 70 U/L (15-37) H D 10/24/17 06:35 ALT 63 U/L (12-78) D 10/24/17 06:35 Alkaline Phosphatase 90 U/L (45-117) 10/24/17 06:35 Total Protein 4.9 g/dl (6.4-8.2) L D 10/24/17 06:35 Albumin 2.1 g/dl (3.4-5.0) L D 10/24/17 06:35 Imaging - Results Chest X-ray: Report Reviewed (No Pulmonary congestion or infiltrates) Cat Scan: Report Reviewed (Head: No acute intracraniall changes) Plan 86 yrs old man multiple medical Co-morbidities lives at home with poor gait stability H/o HTN, Bioprosthic AVR, Dyslipedemia, as per Cardiology note recent evaluation by Dr Duncan compensated CHF, Uncontrolled T2DM, CAD S/P HI, CABG , PCI not on Plavix at base line LBB presented s/p fall as per patient was at home upstairs walked in a dark room struck chair lost balance landed on Left side, also had head trauma, but no LOC, and was brought to ER. Was noted to have left proximal Femur fracture, no syncope or pre-syncope symptoms, no c/o focal weakness, seizures or incontinence. Seen initially by Dr. Ramesh but requested second opinion. CT head completed and did not show acute changes. Had been getting aggitated and psych recommended PRN haldol or if needed frequently, can use ongoing risperdal. Ativan as needed for aggitation, has been getting less of it per nurse, no aggitation overnight. Has had owning, combination of unfamiliar enviorment with infection causing altered mental status reorientation as needed Mental status more toward baseline this morning Maintain hydration
[2017-11-02] MEDS: DOCUSATE SODIUM 100 MG CAPSULE (FP) PO SCH (10:32)
[2017-11-02] MEDS: metoPROLOL SUCCINATE 25 MG TAB.SR.24H (FP) PO SCH (10:33)
[2017-11-02] MEDS: APIXABAN 2.5 MG TABLET PO SCH ×2 (10:33→21:13)
[2017-11-02] MEDS: ESCITALOPRAM OXALATE 10 MG TABLET (FP) PO SCH (10:33)
[2017-11-02] MEDS: TIOTROPIUM BROMIDE 18 MCG/INH (DEVICE W/ 5 CAPSULES) IH SCH (10:34)
[2017-11-02] MEDS: LISINOPRIL 5 MG TABLET (FP) PO SCH (10:34)
[2017-11-02] MEDS: NAPH,MB-DB/K PH,MBDB POWDER PACKET PO SCH ×2 (10:34→21:13)
[2017-11-02] MEDS: MONTELUKAST NA 10 MG TABLET PO SCH (10:34)
[2017-11-02] MEDS: OMEGA-3 ACID ETHYL ESTERS (FATTY-ACIDS) 1 GM CAPSULE (FP) PO SCH (10:34)
[2017-11-02] MEDS: CHOLECALCIFEROL (VITAMIN D3) 1,000 UNIT TABLET (FP) PO SCH (10:34)
--- NOTE | 2017-11-02 13:31 | DS ---
Physical Examination Vital Signs: Vital Signs Temperature 36.3 C L 11/02/17 06:00 Pulse Rate 88 11/02/17 10:00 Respiratory Rate 18 11/02/17 10:00 Blood Pressure 130/70 11/02/17 10:00 O2 Sat by Pulse Oximetry (%) 95 11/02/17 09:00 Constitutional: Yes: Well Nourished, No Distress, Calm Cardiovascular: Yes: Regular Rate and Rhythm. No: Gallop, Murmur, Rub Respiratory: Yes: Regular, CTA Bilaterally. No: Rales, Rhonchi, Wheezes Gastrointestinal: Yes: Normal Bowel Sounds, Soft. No: Distention, Tenderness Extremities: Yes: WNL Edema: No Labs: CBC, BMP 11/02/17 06:35 11/02/17 11:26 Discharge Summary Reason For Visit: FRACTURE OF PROXIMAL END FEMUR Current Active Problems CKD stage 3 secondary to diabetes (Acute) COPD (chronic obstructive pulmonary disease) (Acute) Coronary arteriosclerosis after coronary artery bypass grafting (Acute) Dementia (Acute) Fracture, proximal femur (Acute) HIT (heparin-induced thrombocytopenia) (Acute) Hematuria (Acute) Hypercholesteremia (Acute) Pneumonia (Acute) Pre-operative cardiovascular examination (Acute) Sepsis (Acute) Uncontrolled diabetes mellitus (Acute) Hospital Course: (1) Pneumonia Code(s): J18.9 - PNEUMONIA, UNSPECIFIED ORGANISM (2) Sepsis Code(s): A41.9 - SEPSIS, UNSPECIFIED ORGANISM (3) Fracture, proximal femur Code(s): S72.009A - FRACTURE OF UNSP PART OF NECK OF UNSP FEMUR, INIT Qualifiers: Fracture type: closed Laterality: left (4) CKD stage 3 secondary to diabetes Code(s): E11.22 - TYPE 2 DIABETES MELLITUS W DIABETIC CHRONIC KIDNEY DISEASE; N18.3 - CHRONIC KIDNEY DISEASE, STAGE 3 (MODERATE) (5) Coronary arteriosclerosis after coronary artery bypass grafting Code(s): I25.810 - ATHEROSCLEROSIS OF CABG W/O ANGINA PECTORIS (6) Hypercholesteremia Code(s): E78.00 - PURE HYPERCHOLESTEROLEMIA, UNSPECIFIED (7) Uncontrolled diabetes mellitus Code(s): E11.65 - TYPE 2 DIABETES MELLITUS WITH HYPERGLYCEMIA (8) COPD (chronic obstructive pulmonary disease) Code(s): J44.9 - CHRONIC OBSTRUCTIVE PULMONARY DISEASE, UNSPECIFIED (9) Dementia Code(s): F03.90 - UNSPECIFIED DEMENTIA WITHOUT BEHAVIORAL DISTURBANCE (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) Code(s): D75.82 - HEPARIN INDUCED THROMBOCYTOPENIA (HIT) Mr Calvillo is an 86 year old male with dementia who came in after fall with femur fracture. He was admitted to the hospital and underwent surgery. He did well from this, but it was complicated by pneumonia and sundowning exacerbating his dementia. He had full course of antibiotics and his pneumonia resolved. However his sundowning was difficulty to control. He was seen by psychiatry and neurology which recommended haldol. This was unsuccessful and he was trialled on ativan. This was helpful at first, however he became over sedated with ativan 1mg qhs. This was decreased to 0.5mg qhs and much improved. He is currently stable for discharge to SNF. 32 minutes spent in preparation of this discharge Condition: Stable - Instructions Diet, Activity, Other Instructions: diabetic diet with glucerna supplements. Up with assistance, further activity per PT at SNF. Can restart aspirin when eliquis finished. On eliquis for DVT PPx , does not need to be continued on discharge from SNF. Referrals: El Whiting MD [Staff Physician] - Hair Donald MD [Staff Physician] - Tyler Duncan MD [Staff Physician] - David Cornejo MD [Staff Physician] - Disposition: CUSTODIAL FACILITY - Home Medications Comprehensive Discharge Medication List: Ambulatory Orders Budesonide [Pulmicort 0.5 mg Nebulizer -] 1 neb NEB BID 10/16/17 Cholecalciferol (Vitamin D3) [Vitamin D -] 5,000 unit PO DAILY 10/16/17 Escitalopram Oxalate [Lexapro -] 5 mg PO DAILY 10/16/17 Metoprolol Succinate 25 mg PO DAILY 10/16/17 Montelukast Na [Singulair -] 10 mg PO HS 10/16/17 Multivitamin/Iron/Folic Acid [Centrum Adults Tablet] 1 each PO DAILY 10/16/17 Oran-3 Fatty Acids [Oran-3] 1,000 mg PO DAILY 10/16/17 Oran-3S/Dha/Epa/Fish Oil [Fish Oil 1,200 mg Softgel] 1 each PO DAILY 10/16/17 Rosuvastatin [Crestor -] 20 mg PO HS 10/16/17 Sitagliptin Phosphate [Januvia -] 50 mg PO DAILY 10/16/17 Tiotropium [place] [Spiriva] 1 inh PO DAILY 10/16/17 Acetaminophen [Tylenol .Regular Strength -] 650 mg PO Q6H PRN tablet 11/02/17 Albuterol 2.5/Ipratropium 0.5 [Duoneb -] 1 amp NEB Q6H PRN amp 11/02/17 Albuterol Sulfate Inhaler - [Ventolin HFA Inhaler -] 1 puff IH Q8H PRN inhaler 11/02/17 Apixaban [Eliquis -] 2.5 mg PO BID tablet 11/02/17 Bacitracin - [Bacitracin Topical Ointment -] 1 applic TP BID tube 11/02/17 Cholecalciferol (Vitamin D3) [Vitamin D3 -] 1,000 unit PO DAILY tab 11/02/17 Docusate Sodium [Colace -] 200 mg PO DAILY capsule 11/02/17 Guaifenesin [Robitussin -] 10 ml PO Q8H PRN cup 11/02/17 Insulin (Levemir) [Levemir Vial] 15 units SQ AM ml 11/02/17 Insulin Sliding Scale [Novolog Vial Sliding Scale -] 1 vial SQ ACHS units 11/02 LORazepam [Ativan] 0.5 mg PO HS tablet MDD 0.5mg 11/02/17 Latanoprost 0.005% Eye Drops [Xalatan 0.005% Eye Drops -] 1 drop OU HS drops Lisinopril [Prinivil] 5 mg PO DAILY tablet 11/02/17 Montelukast Na [Singulair -] 10 mg PO DAILY tablet 11/02/17 Oran-3 Acid Ethyl Esters [Lovaza -] 1 gm PO DAILY cap 11/02/17 Rosuvastatin [Crestor -] 20 mg PO HS tablet 11/02/17 Sitagliptin Phosphate [Januvia -] 50 mg PO DAILY@0700 tablet 11/02/17 Tiotropium [place] [Spiriva] 1 puff IH DAILY inh 11/02/17
[2017-11-02] MEDS: ALBUTEROL SO4 2.5/IPRATROPIUM 0.5 INH SOL 3 ML VIAL.NEB. NEB PRN (15:21)
--- NOTE | 2017-11-02 15:26 | PN ---
Progress Note, Physician History of Present Illness: stable no issues still with some wheeze - Current Medication List Current Medications: Active Medications Acetaminophen (Tylenol -) 650 mg PO Q6H PRN PRN Reason: PAIN Last Admin: 10/31/17 21:07 Dose: 650 mg Albuterol Sulfate (Ventolin Hfa Inhaler -) 1 puff IH Q8H PRN PRN Reason: SHORT OF BREATH/WHEEZING Last Admin: 10/29/17 13:32 Dose: 1 puff Albuterol/Ipratropium (Duoneb -) 1 amp NEB Q6H PRN PRN Reason: SHORTNESS OF BREATH Last Admin: 11/02/17 15:21 Dose: 1 amp Apixaban (Eliquis -) 2.5 mg PO BID [facility] Last Admin: 11/02/17 10:33 Dose: 2.5 mg Bacitracin (Bacitracin -) 1 applic TP BID [facility] Last Admin: 11/01/17 21:20 Dose: 1 applic Cholecalciferol (Vitamin D3 -) 1,000 unit PO DAILY [facility] Last Admin: 11/02/17 10:34 Dose: 1,000 unit Docusate Sodium (Colace -) 200 mg PO DAILY [facility] Last Admin: 11/02/17 10:32 Dose: Not Given Escitalopram Oxalate (Lexapro -) 5 mg PO DAILY [facility] Last Admin: 11/02/17 10:33 Dose: 5 mg Guaifenesin (Robitussin -) 10 ml PO Q8H PRN PRN Reason: COUGH Haloperidol (Haldol -) 2 mg PO TID PRN PRN Reason: AGITATION Last Admin: 11/01/17 00:13 Dose: 2 mg Insulin Aspart (Novolog Vial Sliding Scale -) 1 vial SQ ACHS [facility] PRN Reason: Protocol Last Admin: 11/02/17 11:15 Dose: Not Given Insulin Detemir (Levemir Vial) 15 units SQ AM [facility] Last Admin: 11/02/17 06:21 Dose: 15 units Latanoprost (Xalatan 0.005% Eye Drops -) 1 drop OU HS [facility] Last Admin: 11/01/17 21:21 Dose: 1 drop Lisinopril (Prinivil) 5 mg PO DAILY [facility] Last Admin: 11/02/17 10:34 Dose: 5 mg Lorazepam (Ativan -) 0.5 mg PO HS [facility] Last Admin: 11/01/17 21:17 Dose: 0.5 mg Metoprolol Succinate (Toprol Xl -) 25 mg PO DAILY [facility] Last Admin: 11/02/17 10:33 Dose: 25 mg Montelukast Sodium (Singulair -) 10 mg PO DAILY [facility] Last Admin: 11/02/17 10:34 Dose: 10 mg Syixn-1-[id number] Ethyl Esters (Lovaza -) 1 gm PO DAILY [facility] Last Admin: 11/02/17 10:34 Dose: 1 gm Ondansetron HCl (Zofran Injection) 4 mg IVPUSH Q6H PRN PRN Reason: NAUSEA Potassium Phos/Sodium Phos (Phos-Nak Packet -) 1 packet PO BID [facility] Last Admin: 11/02/17 10:34 Dose: 1 packet Rosuvastatin Calcium (Crestor -) 20 mg PO [facility] Last Admin: 11/01/17 21:18 Dose: 20 mg Senna (Senna -) 2 tab PO [facility] Last Admin: 11/01/17 21:17 Dose: 2 tab Sitagliptin Phosphate (Januvia -) 50 mg PO DAILY@0700 [facility] Last Admin: 11/02/17 06:21 Dose: 50 mg Tiotropium [place] (Spiriva -) 1 puff IH DAILY [facility] Last Admin: 11/02/17 10:34 Dose: 1 puff - Objective Vital Signs: Vital Signs Temperature 97.6 F 11/02/17 14:48 Pulse Rate 89 11/02/17 14:48 Respiratory Rate 18 11/02/17 14:48 Blood Pressure 135/75 11/02/17 14:48 O2 Sat by Pulse Oximetry (%) 95 11/02/17 09:00 Constitutional: Yes: No Distress, Calm Cardiovascular: Yes: Regular Rate and Rhythm Respiratory: Yes: Regular, Wheezes Gastrointestinal: Yes: Normal Bowel Sounds, Soft Musculoskeletal: Yes: WNL Extremities: Yes: WNL Neurological: Yes: Alert Psychiatric: Yes: Alert Labs: CBC, BMP 11/02/17 06:35 11/02/17 11:26 INR, PTT INR 1.12 (0.82-1.09) 10/19/17 21:00 Assessment/Plan Assessment/Plan (1) Pneumonia with sepsis (2) Fracture, proximal femur Code(s): S72.009A - FRACTURE OF UNSP PART OF NECK OF UNSP FEMUR, INIT Qualifiers: Fracture type: closed Laterality: left (3) CKD stage 3 secondary to diabetes Code(s): E11.22 - TYPE 2 DIABETES MELLITUS W DIABETIC CHRONIC KIDNEY DISEASE; N18.3 - CHRONIC KIDNEY DISEASE, STAGE 3 (MODERATE) (4) Coronary arteriosclerosis after coronary artery bypass grafting Code(s): I25.810 - ATHEROSCLEROSIS OF CABG W/O ANGINA PECTORIS (5) Hypercholesteremia Code(s): E78.00 - PURE HYPERCHOLESTEROLEMIA, UNSPECIFIED (6) Uncontrolled diabetes mellitus Code(s): E11.65 - TYPE 2 DIABETES MELLITUS WITH HYPERGLYCEMIA (7) COPD (chronic obstructive pulmonary disease) Code(s): J44.9 - CHRONIC OBSTRUCTIVE PULMONARY DISEASE, UNSPECIFIED (8) Dementia Code(s): F03.90 - UNSPECIFIED DEMENTIA WITHOUT BEHAVIORAL DISTURBANCE (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
[2017-11-02] MEDS: BACITRACIN 15 GM TUBE TOPICAL OINTMENT TP SCH ×2 (17:07→21:13)
[2017-11-02] MEDS ORDERED: ROSUVASTATIN CA 10 MG TABLET (FP) ONE (21:08)
[2017-11-02] MEDS: LORazepam 1 MG TABLET PO SCH (21:12)
[2017-11-02] MEDS: SENNOSIDES 8.6MG TABLET (FP) PO SCH (21:13)
[2017-11-02] MEDS: ROSUVASTATIN CA 20 MG TABLET (FP) PO SCH (21:13)
--- NOTE | 2017-11-02 21:13 | PN ---
Progress Note (short form) - Note Progress Note: Chief Complaint: confusion History of Present Illness: still with confusion this evening, although calm. Per report, appetite improving. he denies cp, sob, leg swelling, syncope, palps. toprol dose changed from bid to daily yesterday. Current Medications Acetaminophen (Tylenol -) 650 mg PO Q6H PRN PRN Reason: PAIN Last Admin: 10/31/17 21:07 Dose: 650 mg Albuterol Sulfate (Ventolin Hfa Inhaler -) 1 puff IH Q8H PRN PRN Reason: SHORT OF BREATH/WHEEZING Last Admin: 10/29/17 13:32 Dose: 1 puff Albuterol/Ipratropium (Duoneb -) 1 amp NEB Q6H PRN PRN Reason: SHORTNESS OF BREATH Last Admin: 11/02/17 15:21 Dose: 1 amp Apixaban (Eliquis -) 2.5 mg PO BID [facility] Last Admin: 11/02/17 10:33 Dose: 2.5 mg Bacitracin (Bacitracin -) 1 applic TP BID [facility] Last Admin: 11/02/17 17:07 Dose: Not Given Cholecalciferol (Vitamin D3 -) 1,000 unit PO DAILY [facility] Last Admin: 11/02/17 10:34 Dose: 1,000 unit Docusate Sodium (Colace -) 200 mg PO DAILY [facility] Last Admin: 11/02/17 10:32 Dose: Not Given Escitalopram Oxalate (Lexapro -) 5 mg PO DAILY [facility] Last Admin: 11/02/17 10:33 Dose: 5 mg Guaifenesin (Robitussin -) 10 ml PO Q8H PRN PRN Reason: COUGH Haloperidol (Haldol -) 2 mg PO TID PRN PRN Reason: AGITATION Last Admin: 11/01/17 00:13 Dose: 2 mg Insulin Aspart (Novolog Vial Sliding Scale -) 1 vial SQ ACHS [facility] PRN Reason: Protocol Last Admin: 11/02/17 17:06 Dose: Not Given Insulin Detemir (Levemir Vial) 15 units SQ AM [facility] Last Admin: 11/02/17 06:21 Dose: 15 units Latanoprost (Xalatan 0.005% Eye Drops -) 1 drop OU HS [facility] Last Admin: 11/01/17 21:21 Dose: 1 drop Lisinopril (Prinivil) 5 mg PO DAILY [facility] Last Admin: 11/02/17 10:34 Dose: 5 mg Lorazepam (Ativan -) 0.5 mg PO [facility] Last Admin: 11/01/17 21:17 Dose: 0.5 mg Metoprolol Succinate (Toprol Xl -) 25 mg PO DAILY [facility] Last Admin: 11/02/17 10:33 Dose: 25 mg Montelukast Sodium (Singulair -) 10 mg PO DAILY [facility] Last Admin: 11/02/17 10:34 Dose: 10 mg Cjcoz-4-Amrf Ethyl Esters (Lovaza -) 1 gm PO DAILY [facility] Last Admin: 11/02/17 10:34 Dose: 1 gm Ondansetron HCl (Zofran Injection) 4 mg IVPUSH Q6H PRN PRN Reason: NAUSEA Potassium Phos/Sodium Phos (Phos-Nak Packet -) 1 packet PO BID [facility] Last Admin: 11/02/17 10:34 Dose: 1 packet Rosuvastatin Calcium (Crestor -) 20 mg PO [facility] Last Admin: 11/01/17 21:18 Dose: 20 mg Senna (Senna -) 2 tab PO [facility] Last Admin: 11/01/17 21:17 Dose: 2 tab Sitagliptin Phosphate (Januvia -) 50 mg PO DAILY@0700 [facility] Last Admin: 11/02/17 06:21 Dose: 50 mg Tiotropium [place] (Spiriva -) 1 puff IH DAILY [facility] Last Admin: 11/02/17 10:34 Dose: 1 puff - Objective Vital Signs - 24 hr 11/02/17 11/02/17 11/02/17 06:00 09:00 10:00 Temperature 97.4 F L Pulse Rate 90 88 Respiratory 18 18 Rate Blood Pressure 130/50 130/70 O2 Sat by Pulse 95 Oximetry (%) 11/02/17 11/02/17 14:48 20:56 Temperature 97.6 F Pulse Rate 89 Respiratory 18 Rate Blood Pressure 135/75 O2 Sat by Pulse 94 L Oximetry (%) Intake & Output 10/31/17 11/01/17 11/02/17 11/03/17 07:59 07:59 07:59 07:59 Intake Total 385 600 450 975 Output Total 300 Balance 385 600 150 975 Weight 202 lb 2 oz 198 lb 6 oz 193 lb Constitutional: Yes: Well Nourished, No Distress, Calm Cardiovascular: Yes: Regular Rate and Rhythm, S1, S2. soft (2/6) FILEMON lusb. jvd flat Respiratory: Yes: rales at right base, nl effort. No: Accessory Muscle Use Gastrointestinal: Yes: Normal Bowel Sounds, Soft. No: Tenderness Extremities: + dp/pt No: Cold Edema: No Integumentary: No: Jaundice, diaphoresis Neurological: Yes: Alert. not oriented No: Seizure Psychiatric: No: Agitated Labs: CBC, BMP 11/02/17 06:35 Laboratory Tests 11/02/17 06:35 Sodium 139 Potassium 4.2 Carbon Dioxide 27 Magnesium 2.2 Assessment/Plan cxr 10/23 images/report reviewed: persistent right base infiltrate with fluid/ atelectasis head ct: no acute pathology carotid u/s: extensive atherosclerotic disease without stenosis. 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 Duration of treatment per surg recs. Once off eliquis, can resume asa for h/o cad/cabg/ bioavr. sinus tachycardia (with baseline LBBB)/PSVT/wide complex tach ? brief NSVT: -intermittent sinus tachy here being driven by confustion/agitation and now fever as well -also with frequent intermittent brief atrial runs/runs of svt -pain control, fever control/abx (ID consulted). -cont toprol 25 bid--low threshold to increase if need be, given bp's have been stable (asthma may not tolerate higher doses at home but ok while here) -10/24 tele: rate-related intermittent LBBB without suspicion of any sustained VT. at times atrial rate approx 120s, with similar [place] interval as baseline-- likely sinus tach > SVT - 10/31 - 11/02: HR much improved, likely due to agitation/confusion improved. Since with severe bronchospasm tendencies (hypoxic on RA 2 per , + wheezing on exam) --> decr metopr back to home dose (25 qd). HR/BP's have remained stable on this dosing. TYSON on CKD: -baseline creat 1.3-1.6 -TYSON resolved with IVF. -back on lisinopril s/p bioAVR: -normal fxn on recent echo CAD s/p CABG: -preserved EF -no angina since -cont home meds (bb, statin, lovaza), holding ASA while on AC HTN: - controlled - cont current BB and SIMA regimen dementia: -recently progressive -per pmd asthma/copd: -no sob, wheezing heard on exam at times -per pulm/hospitalist pna/sepsis - resolving, mgm't per id/pmd. has plan for d/c. stable from CV perspective. Can f/u with Dr. Duncan as outpatient
[2017-11-02] MEDS ORDERED: INSULIN (NOVOLOG) ASPART 100 UNITS/ML 10ML VIAL ONE (21:16)
[2017-11-02] MEDS: LATANOPROST 0.005% OPHTH SOLN 2.5ML BOTTLE OU SCH (21:18)
[2017-11-03] MEDS ORDERED: INSULIN (NOVOLOG) ASPART 100 UNITS/ML 10ML VIAL ONE (06:32)
[2017-11-03] MEDS: INSULIN DETEMIR 100 UNITS/ML MDV SQ SCH (06:33)
[2017-11-03] MEDS: INSULIN SLIDING SCALE (NOVOLOG) 1 VIAL SQ SCH ×3 (06:34→17:05)
[2017-11-03] MEDS: sitaGLIPtin PHOSPHATE 50 MG TABLET PO SCH (06:35)
--- NOTE | 2017-11-03 10:01 | PN ---
Progress Note (short form) - Note Progress Note: Neurology History of Present Illness: 86 yrs old man multiple medical Co-morbidities lives at home with poor gait stability H/o HTN, Bioprosthic AVR, Dyslipedemia, as per Cardiology note recent evaluation by Dr Duncan compensated CHF, Uncontrolled T2DM, CAD S/P OR, CABG , PCI not on Plavix at base line LBB presented s/p fall as per patient was at home upstairs walked in a dark room stucked with chair lost balance landed on Left side, also had head trauma, but no LOC, and was brought to ER. Was noted to have left proximal Femur fracture, no syncope or pre- syncope symptoms, no c/o focal weakness, seizures or incontinence. Seen initially by Dr. Ramesh but requested second opinion. CT head completed and did not show acute changes. Psych recommended PRN haldol or if needed frequently, can use ongoing risperdal. This AM, arousable, briefly interactive and conversive, does not know exact location but knows he's in the hospital. Says he if feeling better. Being planned for placement. Active Medications Acetaminophen (Tylenol -) 650 mg PO Q6H PRN PRN Reason: PAIN Last Admin: 10/31/17 21:07 Dose: 650 mg Albuterol Sulfate (Ventolin Hfa Inhaler -) 1 puff IH Q8H PRN PRN Reason: SHORT OF BREATH/WHEEZING Last Admin: 10/29/17 13:32 Dose: 1 puff Albuterol/Ipratropium (Duoneb -) 1 amp NEB Q6H PRN PRN Reason: SHORTNESS OF BREATH Last Admin: 11/02/17 15:21 Dose: 1 amp Apixaban (Eliquis -) 2.5 mg PO BID [facility] Last Admin: 11/02/17 21:13 Dose: 2.5 mg Bacitracin (Bacitracin -) 1 applic TP BID [facility] Last Admin: 11/02/17 21:13 Dose: 1 applic Cholecalciferol (Vitamin D3 -) 1,000 unit PO DAILY [facility] Last Admin: 11/02/17 10:34 Dose: 1,000 unit Docusate Sodium (Colace -) 200 mg PO DAILY [facility] Last Admin: 11/02/17 10:32 Dose: Not Given Escitalopram Oxalate (Lexapro -) 5 mg PO DAILY [facility] Last Admin: 11/02/17 10:33 Dose: 5 mg Guaifenesin (Robitussin -) 10 ml PO Q8H PRN PRN Reason: COUGH Haloperidol (Haldol -) 2 mg PO TID PRN PRN Reason: AGITATION Last Admin: 11/01/17 00:13 Dose: 2 mg Insulin Aspart (Novolog Vial Sliding Scale -) 1 vial SQ ACHS [facility] PRN Reason: Protocol Last Admin: 11/03/17 06:34 Dose: 2 units Insulin Detemir (Levemir Vial) 15 units SQ AM [facility] Last Admin: 11/03/17 06:33 Dose: 15 units Latanoprost (Xalatan 0.005% Eye Drops -) 1 drop OU HS [facility] Last Admin: 11/02/17 21:18 Dose: 1 drop Lisinopril (Prinivil) 5 mg PO DAILY [facility] Last Admin: 11/02/17 10:34 Dose: 5 mg Lorazepam (Ativan -) 0.5 mg PO HS [facility] Last Admin: 11/02/17 21:12 Dose: 0.5 mg Metoprolol Succinate (Toprol Xl -) 25 mg PO DAILY [facility] Last Admin: 11/02/17 10:33 Dose: 25 mg Montelukast Sodium (Singulair -) 10 mg PO DAILY [facility] Last Admin: 11/02/17 10:34 Dose: 10 mg Njyfl-6-Hypn Ethyl Esters (Lovaza -) 1 gm PO DAILY [facility] Last Admin: 11/02/17 10:34 Dose: 1 gm Ondansetron HCl (Zofran Injection) 4 mg IVPUSH Q6H PRN PRN Reason: NAUSEA Potassium Phos/Sodium Phos (Phos-Nak Packet -) 1 packet PO BID [facility] Last Admin: 11/02/17 21:13 Dose: 1 packet Rosuvastatin Calcium (Crestor -) 20 mg PO HS [facility] Last Admin: 11/02/17 21:13 Dose: 20 mg Senna (Senna -) 2 tab PO HS [facility] Last Admin: 11/02/17 21:13 Dose: 2 tab Sitagliptin Phosphate (Januvia -) 50 mg PO DAILY@0700 [facility] Last Admin: 11/03/17 06:35 Dose: 50 mg Tiotropium [place] (Spiriva -) 1 puff IH DAILY [facility] Last Admin: 11/02/17 10:34 Dose: 1 puff Physical Examination Vital Signs Temperature 97.5 F L 11/03/17 05:33 Pulse Rate 86 11/03/17 05:33 Respiratory Rate 19 11/03/17 05:33 Blood Pressure 132/82 11/03/17 05:33 O2 Sat by Pulse Oximetry (%) 94 L 11/02/17 20:56 Constitutional: Yes: Well Nourished, No Distress, Calm and cooperative Eyes: No: Sclera Icterus HENT: No: Nasal Congestion Cardiovascular: Yes: Regular Rate and Rhythm, Tachycardia, Murmur (soft (2/6) FILEMON lusb). No: JVD, Gallop Respiratory: Yes: Regular, CTA Bilaterally No: Rales, Wheezes Gastrointestinal: Yes: Normal Bowel Sounds, Soft. No: Tenderness Musculoskeletal: Yes: Other (No kyphosis) Extremities: No: Cold Edema: No Integumentary: No: Jaundice Neurological: Awake, alert, calm, CN appear intact, moves all ext equally, sensory intact, gait deferred Psychiatric: somnolent CBCD WBC 6.7 K/mm3 (4.0-10.0) 11/02/17 06:35 RBC 3.08 M/mm3 (4.00-5.60) L 11/02/17 06:35 Hgb 8.4 GM/dL (11.7-16.9) L 11/02/17 06:35 Hct 26.6 % (35.4-49) L 11/02/17 06:35 MCV 86.5 fl (80-96) 11/02/17 06:35 MCHC 31.7 g/dl (32.0-35.9) L 11/02/17 06:35 RDW 17.4 % (11.9-15.9) H 11/02/17 06:35 Plt Count 224 K/MM3 (134-434) 11/02/17 06:35 MPV 9.0 fl (7.5-11.1) 11/02/17 06:35 CMP Sodium 139 mmol/L (136-145) 11/02/17 06:35 Potassium 4.2 mmol/L (3.5-5.1) 11/02/17 06:35 Chloride 104 mmol/L (98-107) 11/02/17 06:35 Carbon Dioxide 27 mmol/L (21-32) 11/02/17 06:35 Anion Gap 8 (8-16) 11/02/17 06:35 BUN 20 mg/dL (7-18) H 11/02/17 06:35 Creatinine 0.9 mg/dL (0.7-1.3) 11/02/17 06:35 Creat Clearance w eGFR 48.28 (>60) 10/24/17 06:35 Calcium 7.2 mg/dL (8.5-10.1) L 11/02/17 06:35 Total Bilirubin 1.4 mg/dL (0.2-1.0) H 10/24/17 06:35 AST 70 U/L (15-37) H D 10/24/17 06:35 ALT 63 U/L (12-78) D 10/24/17 06:35 Alkaline Phosphatase 90 U/L (45-117) 10/24/17 06:35 Total Protein 4.9 g/dl (6.4-8.2) L D 10/24/17 06:35 Albumin 2.1 g/dl (3.4-5.0) L D 10/24/17 06:35 Imaging - Results Chest X-ray: Report Reviewed (No Pulmonary congestion or infiltrates) Cat Scan: Report Reviewed (Head: No acute intracraniall changes) Plan 86 yrs old man multiple medical Co-morbidities lives at home with poor gait stability H/o HTN, Bioprosthic AVR, Dyslipedemia, as per Cardiology note recent evaluation by Dr Duncan compensated CHF, Uncontrolled T2DM, CAD S/P OR, CABG , PCI not on Plavix at base line LBB presented s/p fall as per patient was at home upstairs walked in a dark room struck chair lost balance landed on Left side, also had head trauma, but no LOC, and was brought to ER. Was noted to have left proximal Femur fracture, no syncope or pre-syncope symptoms, no c/o focal weakness, seizures or incontinence. Seen initially by Dr. Ramesh but requested second opinion. CT head completed and did not show acute changes. Had been getting aggitated and psych recommended PRN haldol or if needed frequently, can use ongoing risperdal. Ativan as needed for aggitation Reorientation as needed Being considered for discharge planning Tends to be more arousable during the daytime
[2017-11-03] MEDS: MONTELUKAST NA 10 MG TABLET PO SCH (11:33)
[2017-11-03] MEDS: DOCUSATE SODIUM 100 MG CAPSULE (FP) PO SCH (11:34)
[2017-11-03] MEDS: OMEGA-3 ACID ETHYL ESTERS (FATTY-ACIDS) 1 GM CAPSULE (FP) PO SCH (11:35)
[2017-11-03] MEDS: LISINOPRIL 5 MG TABLET (FP) PO SCH (11:35)
[2017-11-03] MEDS: BACITRACIN 15 GM TUBE TOPICAL OINTMENT TP SCH (11:35)
[2017-11-03] MEDS: APIXABAN 2.5 MG TABLET PO SCH (11:36)
[2017-11-03] MEDS: NAPH,MB-DB/K PH,MBDB POWDER PACKET PO SCH (11:37)
[2017-11-03] MEDS: ESCITALOPRAM OXALATE 10 MG TABLET (FP) PO SCH (11:37)
[2017-11-03] MEDS: metoPROLOL SUCCINATE 25 MG TAB.SR.24H (FP) PO SCH (11:38)
[2017-11-03] MEDS: CHOLECALCIFEROL (VITAMIN D3) 1,000 UNIT TABLET (FP) PO SCH (11:38)
[2017-11-03] MEDS: TIOTROPIUM BROMIDE 18 MCG/INH (DEVICE W/ 5 CAPSULES) IH SCH (12:22)
--- NOTE | 2017-11-03 12:32 | PN ---
Progress Note, Physician History of Present Illness: stable no issues still with some wheeze in room much more awake and alert - Current Medication List Current Medications: Active Medications Acetaminophen (Tylenol -) 650 mg PO Q6H PRN PRN Reason: PAIN Last Admin: 10/31/17 21:07 Dose: 650 mg Albuterol Sulfate (Ventolin Hfa Inhaler -) 1 puff IH Q8H PRN PRN Reason: SHORT OF BREATH/WHEEZING Last Admin: 10/29/17 13:32 Dose: 1 puff Albuterol/Ipratropium (Duoneb -) 1 amp NEB Q6H PRN PRN Reason: SHORTNESS OF BREATH Last Admin: 11/02/17 15:21 Dose: 1 amp Apixaban (Eliquis -) 2.5 mg PO BID [facility] Last Admin: 11/03/17 11:36 Dose: 2.5 mg Bacitracin (Bacitracin -) 1 applic TP BID [facility] Last Admin: 11/03/17 11:35 Dose: 1 applic Cholecalciferol (Vitamin D3 -) 1,000 unit PO DAILY [facility] Last Admin: 11/03/17 11:38 Dose: 1,000 unit Docusate Sodium (Colace -) 200 mg PO DAILY [facility] Last Admin: 11/03/17 11:34 Dose: 200 mg Escitalopram Oxalate (Lexapro -) 5 mg PO DAILY [facility] Last Admin: 11/03/17 11:37 Dose: 5 mg Guaifenesin (Robitussin -) 10 ml PO Q8H PRN PRN Reason: COUGH Haloperidol (Haldol -) 2 mg PO TID PRN PRN Reason: AGITATION Last Admin: 11/01/17 00:13 Dose: 2 mg Insulin Aspart (Novolog Vial Sliding Scale -) 1 vial SQ ACHS [facility] PRN Reason: Protocol Last Admin: 11/03/17 11:51 Dose: Not Given Insulin Detemir (Levemir Vial) 15 units SQ AM [facility] Last Admin: 11/03/17 06:33 Dose: 15 units Latanoprost (Xalatan 0.005% Eye Drops -) 1 drop OU HS [facility] Last Admin: 11/02/17 21:18 Dose: 1 drop Lisinopril (Prinivil) 5 mg PO DAILY [facility] Last Admin: 11/03/17 11:35 Dose: 5 mg Lorazepam (Ativan -) 0.5 mg PO [facility] Last Admin: 11/02/17 21:12 Dose: 0.5 mg Metoprolol Succinate (Toprol Xl -) 25 mg PO DAILY [facility] Last Admin: 11/03/17 11:38 Dose: 25 mg Montelukast Sodium (Singulair -) 10 mg PO DAILY [facility] Last Admin: 11/03/17 11:33 Dose: 10 mg Demsr-4-Hlde Ethyl Esters (Lovaza -) 1 gm PO DAILY [facility] Last Admin: 11/03/17 11:35 Dose: 1 gm Ondansetron HCl (Zofran Injection) 4 mg IVPUSH Q6H PRN PRN Reason: NAUSEA Potassium Phos/Sodium Phos (Phos-Nak Packet -) 1 packet PO BID [facility] Last Admin: 11/03/17 11:37 Dose: 1 packet Rosuvastatin Calcium (Crestor -) 20 mg PO [facility] Last Admin: 11/02/17 21:13 Dose: 20 mg Senna (Senna -) 2 tab PO [facility] Last Admin: 11/02/17 21:13 Dose: 2 tab Sitagliptin Phosphate (Januvia -) 50 mg PO DAILY@0700 [facility] Last Admin: 11/03/17 06:35 Dose: 50 mg Tiotropium [place] (Spiriva -) 1 puff IH DAILY [facility] Last Admin: 11/03/17 12:22 Dose: 1 puff - Objective Vital Signs: Vital Signs Temperature 97.5 F L 11/03/17 05:33 Pulse Rate 86 11/03/17 05:33 Respiratory Rate 19 11/03/17 05:33 Blood Pressure 132/82 11/03/17 05:33 O2 Sat by Pulse Oximetry (%) 94 L 11/02/17 20:56 Constitutional: Yes: No Distress, Calm Cardiovascular: Yes: Pulse Irregular, S1, S2 Respiratory: Yes: Regular, Poor Air Entry Gastrointestinal: Yes: Normal Bowel Sounds, Soft Musculoskeletal: Yes: WNL Extremities: Yes: WNL Neurological: Yes: Alert, Other Psychiatric: Yes: Alert Labs: CBC, BMP 11/02/17 06:35 11/02/17 11:26 INR, PTT INR 1.12 (0.82-1.09) 10/19/17 21:00 Assessment/Plan Assessment/Plan (1) Pneumonia with sepsis (2) Fracture, proximal femur Code(s): S72.009A - FRACTURE OF UNSP PART OF NECK OF UNSP FEMUR, INIT Qualifiers: Fracture type: closed Laterality: left (3) CKD stage 3 secondary to diabetes Code(s): E11.22 - TYPE 2 DIABETES MELLITUS W DIABETIC CHRONIC KIDNEY DISEASE; N18.3 - CHRONIC KIDNEY DISEASE, STAGE 3 (MODERATE) (4) Coronary arteriosclerosis after coronary artery bypass grafting Code(s): I25.810 - ATHEROSCLEROSIS OF CABG W/O ANGINA PECTORIS (5) Hypercholesteremia Code(s): E78.00 - PURE HYPERCHOLESTEROLEMIA, UNSPECIFIED (6) Uncontrolled diabetes mellitus Code(s): E11.65 - TYPE 2 DIABETES MELLITUS WITH HYPERGLYCEMIA (7) COPD (chronic obstructive pulmonary disease) Code(s): J44.9 - CHRONIC OBSTRUCTIVE PULMONARY DISEASE, UNSPECIFIED (8) Dementia Code(s): F03.90 - UNSPECIFIED DEMENTIA WITHOUT BEHAVIORAL DISTURBANCE (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
[2017-11-03] MEDS ORDERED: PT OWN MED DRAWER 7, Y5N ONE (14:29)
[2017-11-03 15:13] VITALS: BP 114/57; PULSE 72; TEMP 98.3
[2017-11-03] MEDS: ACETAMINOPHEN 325 MG TABLET (FP) PO PRN (15:21)
== END 2017-11-03 17:56 | DRG 480 ==
LOC: JER 20:50 → JERBED 23:52 → J4W 10-16 23:49 → J6S 10-25 19:50
PROVIDERS: ADMIT Internal Medicine Geriatric Medicine; ATTEND Internal Medicine
PROC: 30233N1 Transfusion of Nonautologous Red Blood Cells into Peripheral Vein, Percutaneous Approach (ICD-10-PCS; 2017-10-18)
PROC: 0QS706Z Reposition Left Upper Femur with Intramedullary Internal Fixation Device, Open Approach (ICD-10-PCS; principal; 2017-10-18 14:00)
DX: S72.142A Displaced intertrochanteric fracture of left femur, initial encounter for closed fracture (principal); J18.9 Pneumonia, unspecified organism; A41.9 Sepsis, unspecified organism; I47.1 Supraventricular tachycardia; N17.9 Acute kidney failure, unspecified; I13.0 Hypertensive heart and chronic kidney disease with heart failure and stage 1 through stage 4 chronic kidney disease, or unspecified chronic kidney disease; E87.0 Hyperosmolality and hypernatremia; W19.XXXA Unspecified fall, initial encounter; Y93.9 Activity, unspecified; Y92.098 Other place in other non-institutional residence as the place of occurrence of the external cause; Y99.9 Unspecified external cause status; E78.5 Hyperlipidemia, unspecified; I25.10 Atherosclerotic heart disease of native coronary artery without angina pectoris; Z98.61 Coronary angioplasty status; Z95.1 Presence of aortocoronary bypass graft; E11.65 Type 2 diabetes mellitus with hyperglycemia; R00.1 Bradycardia, unspecified; F03.90 Unspecified dementia, unspecified severity, without behavioral disturbance, psychotic disturbance, mood disturbance, and anxiety; J44.9 Chronic obstructive pulmonary disease, unspecified; J45.909 Unspecified asthma, uncomplicated; N18.3 Chronic kidney disease, stage 3 (moderate); D75.82 Heparin induced thrombocytopenia (HIT); E11.22 Type 2 diabetes mellitus with diabetic chronic kidney disease; I50.9 Heart failure, unspecified; N40.0 Benign prostatic hyperplasia without lower urinary tract symptoms; R31.0 Gross hematuria
CPT/HCPCS: 36415; 36430; 70450-TC; 71045-TC; 73523-TC-FY; 73552-TC-LT-FY; 76001-TC-FY; 76775-TC; 76856-TC; 80048; 80053; 81003; 81015; 82550; 82553; 82570; 82607; 82728; 82747; 82947; 82962; 83540; 83550; 83615; 83735; 84100; 84156; 84300; 84484; 84540; 85014; 85025; 85027; 85044; 85610; 85730; 86850; 86900; 86901; 86922; 87040; 87086; 93005; 93010; 93880-TC; 94010; 94640; 94760; 97116-GP; 97161-GP; 99285-25; P9038; P9058

== ENCOUNTER 2017-11-22 11:42 | Inpatient (IN) | payer OTHER, BC ==
--- NOTE | 2017-11-22 11:44 | PDOC ---
History of Present Illness - General Chief Complaint: Pain, Acute Stated Complaint: RIGHT LEG PAIN Time Seen by Provider: 11/22/17 11:44 - History of Present Illness Initial Comments: 11/22/17 11:48 Mr Calvillo is an 87 yo M presenting to the ER s/p fall He has a history of Dementia, HTN, CAD, CHF HLD, Aortic stenosis s/p valve replacement Pt s/p fall with left hip fracture He is s/p repair of this He is currently at [facility] and was found on the ground by nursing staff this morning The patient is unable to give any additional historical information He does report pain in his right hip ? head trauma ? LOC Past Medical History Dementia, Aortic Stenosis, CAD, CHF, HTN, Hyperlipdemia Past Surgical History Past Surgical History: Yes: CABG, Valve Replacement GENERAL/CONSTITUTIONAL: No: fever, chills, weakness, loss of appetite. HEAD, EYES, EARS, NOSE AND THROAT: No: change in vision, ear pain, discharge, sore throat, throat swelling. CARDIOVASCULAR: No: chest pain, lightheadedness, palpitations, syncope RESPIRATORY: No: cough, shortness of breath, wheezing, hemoptysis, stridor. GASTROINTESTINAL: No: nausea, vomiting, diarrhea, abdominal cramping, rectal bleeding, constipation. GENITOURINARY: No: dysuria, hematuria, frequency, urgency, flank pain. MUSCULOSKELETAL: Yes: right hip pain No: back pain, neck pain, SKIN : No: lesions, pallor, rash or easy bruising. NEUROLOGIC: No: headache, vertigo, paresthesias, weakness ENDOCRINE: No: unexplained weight gain or loss HEMATOLOGIC/LYMPHATIC: No: anemia, easy bleeding, swelling nodes. GENERAL: The patient is in no acute distress. HEAD: Normal with no signs of trauma. EYES: PERRLA, EOMI, sclera anicteric, conjunctiva clear. ENT: Ears normal, nares patent, oropharynx clear without exudates. Moist mucous membranes. NECK: Normal range of motion, supple without midline tenderness to palpation LUNGS: Breath sounds equal, clear to auscultation bilaterally. No wheezes, and no crackles. HEART:Regular rate and rhythm, normal S1 and S2 without murmur, rub or gallop. ABDOMEN: Soft, nontender, normoactive bowel sounds. No guarding, no rebound. No masses palpable. EXTREMITIES: Normal range of motion, no edema. NEUROLOGICAL: Cranial nerves II through XII grossly intact. Normal speech. No focal neurological deficits. MUSCULOSKELETAL: Right hip pain, hip shortened and externally rotated SKIN: Warm, Dry, normal turgor, no rashes or lesions noted. Past History - Past Medical History Allergies/Adverse Reactions: Allergies Allergy/AdvReac Type Severity Reaction Status Date / Time heparin (porcine) Allergy Severe Verified 11/22/17 12:05 iodine [Iodine] Allergy Severe Verified 11/22/17 12:05 heparin AdvReac Severe Verified 11/22/17 12:05 IV CONTRAST Allergy Severe Uncoded 11/22/17 12:05 Home Medications: Ambulatory Orders Apixaban [Eliquis] 2.5 mg PO BID 11/22/17 Budesonide 0.5 mg IH BID 11/22/17 Cholecalciferol (Vitamin D3) [Vitamin D3] 1,000 unit PO DAILY 11/22/17 Docusate Sodium [Colace] 200 mg PO HS 11/22/17 Escitalopram Oxalate [Lexapro -] 5 mg PO DAILY 11/22/17 Fish Oil/Borage/Flax/Om3,6,9 1 [[place] 3-6-9 Complex Softgel] 1 each PO DAILY Insulin Detemir [Levemir Flextouch] 15 unit SQ DAILY 11/22/17 Insulin Lispro [Humalog] 100 unit SQ ASDIR 11/22/17 LORazepam [Ativan] 0.5 mg PO HS 11/22/17 Latanoprost 0.005% Eye Drops [Xalatan 0.005% Eye Drops -] 1 drop OU HS 11/22/17 Lisinopril [Prinivil] 5 mg PO DAILY@1700 11/22/17 Metoprolol Succinate [Toprol Xl] 25 mg PO DAILY 11/22/17 Montelukast Sodium [Singulair] 10 mg PO HS 11/22/17 Multivit-Minerals/Folic Acid [Centrum Multigummies] 0 mcg PO DAILY 11/22/17 Oxycodone HCl [Oxycontin] 10 mg PO DAILY 11/22/17 Oxycodone HCl/Acetaminophen [Percocet 5-325 mg Tablet] 1 tab PO DAILY 11/22/17 Polyethylene Glycol 3350 [Miralax (For Daily Use) -] 17 gm PO BID 11/22/17 Rosuvastatin Calcium [Crestor] 20 mg PO HS 11/22/17 Sennosides [Senna] 8.6 mg PO HS 11/22/17 Sitagliptin Phosphate [Januvia] 50 mg PO DAILY 11/22/17 Tiotropium [place] [Spiriva] 1 inh PO DAILY 11/22/17 Asthma: Yes Cardiac Disorders: Yes (CAD, [place], CABG) COPD: Yes Diabetes: Yes (IDDM) HTN: Yes Hypercholesterolemia: Yes - Surgical History Abdominal Surgery: Yes Cardiac Surgery: Yes (STENTS: 2007) Cholecystectomy: Yes Orthopedic Surgery: Yes (RIGHT FOOT SX BX) - Suicide/Smoking/Psychosocial Hx Smoking History: Never smoked Have you smoked in the past 12 months: No If you are a former smoker, when did you quit?: 5 YRS AGO 'Breaking Loose' booklet given: 11/10/13 Hx Alcohol Use: No Drug/Substance Use Hx: No ED Treatment Course - LABORATORY CBC & Chemistry Diagram: 11/23/17 07:25 11/23/17 07:25 Medical Decision Making - Medical Decision Making 11/22/17 13:16 87 yo M presenting to the ER s/p fall from standing Severe pain in the right hip Possible hip fracture Will do: Labs EKG CT head and c spine Xray hip and pelvis Pain medications Admit Dr Alford already consulted EKG: Sinus rhythm, rate of 94 bpm, left bundle branch block 11/22/17 13:18 Laboratory Tests 11/22/17 12:33 WBC 10.7 Hgb 12.8 Hct 39.1 Plt Count 215 Neutrophils % 86.8 H Laboratory Tests 11/22/17 11/22/17 12:33 12:33 Sodium 129 L Potassium 5.1 Chloride 98 Carbon Dioxide 28 BUN 17 Creatinine 1.1 Random Glucose 308 H* Troponin I < 0.03 11/22/17 13:37 Hip x ray demonstrates right hip fracture Will admit to hospitalist service Clinical impression: right hip fracture, initial presentation 11/23/17 21:12 *DC/Admit/Observation/Transfer Diagnosis at time of Disposition: Closed right hip fracture Qualifiers: Encounter type: initial encounter Qualified Code(s): S72.001A - Fracture of unspecified part of neck of right femur, initial encounter for closed fracture - Discharge Dispostion Condition at time of disposition: Stable Admit: Yes - Referrals - Patient Instructions - Post Discharge Activity
[2017-11-22] MEDS ORDERED: morphine CARPU-JECT 2 MG/1 ML DISP.SYRIN IVPUSH ONE (12:28)
[2017-11-22] MEDS ORDERED: ACETAMINOPHEN 1000 MG/100 ML VIAL (NON FORMULARY) IVPB ONE (12:28)
[2017-11-22] MEDS ORDERED: ACETAMINOPHEN INJECTION 100 ML IVPB ONE (12:50)
[2017-11-22 13:09] LABS: EOS % 0.3 % (0-4.5); HEMATOCRIT 39.1 % (35.4-49); HEMOGLOBIN 12.8 GM/dl (11.7-16.9); LYMPH % 5.6 % (8-40); MCH 28.2 pg (25.7-33.7); MCHC 32.7 g/dl (32.0-35.9); MEAN CELL VOLUME 86.3 fl (80-96); MEAN PLT VOLUME 9.2 fl (7.5-11.1); MONO % 7.3 % (3.8-10.2); NEUT % 86.8 % (42.8-82.8); PLATELET COUNT 215 K/MM3 (134-434); RBC 4.52 M/mm3 (4.00-5.60); WHITE BLOOD COUNT 10.7 K/mm3 (4.0-10.8)
[2017-11-22 13:21] LABS: INR 1.47 (0.82-1.09); PROTHROMBIN TIME (PATIENT) 16.3 SEC (10.2-13.0)
[2017-11-22 13:25] LABS: ALBUMIN 2.9 g/dl (3.5-5.0); ALK PHOS 221 U/L (32-92); ANION GAP 3 (8-16); BILIRUBIN,TOTAL 0.8 mg/dl (0.2-1.0); BLOOD UREA NITROGEN 17 mg/dl (7-18); CALCIUM 8.3 mg/dl (8.4-10.2); CHLORIDE 98 mmol/L (98-107); CO2 28 mmol/L (22-28); CREATININE 1.1 mg/dl (0.6-1.3); POTASSIUM 5.1 mmol/L (3.5-5.1); SGOT/AST 27 U/L (10-42); SGPT/ALT 24 U/L (10-40); SODIUM 129 mmol/L (136-145); TOT PROT 6.1 g/dl (6.4-8.3)
[2017-11-22 13:36] LABS: GLUCOSE,RANDOM 308 mg/dl (74-106)
--- NOTE | 2017-11-22 14:31 | CONSULT ---
Consult - text type - Consultation Consultation Note: FULL CONSULT DICTATED IMP: RIGHT IT HIP FX PLAN: RIGHT GAMMA NAIL TOMORROW
[2017-11-22] MEDS ORDERED: ALBUTEROL SO4 0.083% IH SOL 2.5 MG/3 ML VIAL.NEB. NEB PRN (16:16)
[2017-11-22] MEDS ORDERED: ONDANSETRON 4 MG/2 ML VIAL IVPUSH PRN (16:21)
--- NOTE | 2017-11-22 16:21 | CONS ---
ORTHOPEDIC EMERGENCY ROOM CONSULTATION/ HOSPITAL DATE OF CONSULTATION: 11/22/2017 Patient is an 87-year-old male well known to our service. He is about a month status post left intertrochanteric hip fracture requiring open Dall-Miles cables and intramedullary rodding. The patient was in the rehabilitation center when he fell again, this time injuring his right leg. He presented to the emergency room with an externally rotated right lower extremity. PHYSICAL EXAMINATION: Extremities: He has marked, increased pain with any range of motion of his hip. Good motion knee, ankle, and toes. Calves are soft and nontender intact. Obvious shortening of the right lower extremity. X-rays taken in the emergency room showed a four-point right intertrochanteric hip fracture. IMPRESSION: Right intertrochanteric hip fracture. Risks, benefits and alternatives discussed with patient and with in great detail. The patient will be booked for right gamma nailing. As the patient was on Eliquis with the last dose taken yesterday at 9 a.m., surgery will be delayed until tomorrow afternoon to allow the effects of the Eliquis to subside prior to proceeding with the procedure. We will perform that procedure, tomorrow. ARCHIE MICHELE M.D. JENNIFFER/[id number]
[2017-11-22] MEDS ORDERED: SODIUM CHLORIDE 1,000 ML IV SCH (16:30)
[2017-11-22] MEDS ORDERED: ACETAMINOPHEN 325 MG TABLET (FP) PO PRN (16:33)
[2017-11-22 16:55] VITALS: BMI 25.4
[2017-11-22] MEDS ORDERED: INSULIN (NOVOLOG) ASPART 100 UNITS/ML 10ML VIAL ONE (17:19)
[2017-11-22] MEDS: INSULIN SLIDING SCALE (NOVOLOG) 1 VIAL SQ SCH (17:20)
[2017-11-22] MEDS ORDERED: ROSUVASTATIN CA 40 MG TABLET PO SCH (22:00)
[2017-11-22] MEDS ORDERED: LISINOPRIL 5 MG TABLET (FP) PO SCH (22:00)
[2017-11-22] MEDS ORDERED: PT OWN MED DRAWER 7, Y5N ONE (22:21)
[2017-11-22] MEDS: LORazepam 0.5 MG TABLET PO SCH (22:25)
[2017-11-22] MEDS: SENNOSIDES 8.6MG TABLET (FP) PO SCH (22:25)
[2017-11-22] MEDS: DOCUSATE SODIUM 100 MG CAPSULE (FP) PO SCH (22:25)
[2017-11-22] MEDS: MONTELUKAST NA 10 MG TABLET PO SCH (22:25)
[2017-11-22] MEDS: POLYETHYLENE GLYCOL 3350 119 GM BTL PO SCH (22:25)
[2017-11-22] MEDS: ACETAMINOPHEN 325 MG TABLET (FP) PO PRN (22:42)
--- NOTE | 2017-11-22 23:54 | HP ---
CHIEF COMPLAINT: right leg shortened and rotated PCP: Natalia COLINDRES HISTORY OF PRESENT ILLNESS: This is an 87 year old male with multiple medical problems below who was sent to the ED from [facility] s/p fall. He reports right leg pain on ROM and was noted to have shortening and rotation. ER course was notable for: (1) XRay + IT fracture R hip Recent Travel: pt denies PAST MEDICAL HISTORY: HTN, ASCVD s/p CABG, Aortic stenosis s/p bovine AVR, CHF, dementia, DM PAST SURGICAL HISTORY: 2v CABG (BOTELLO-LAD, SVG-OM1) stents RCA AVR-bovine Social History: Smoking: prior-quit 40+ years ago Alcohol: pt denies Drugs: pt denies Family History: unknown Allergies heparin (porcine) Allergy (Severe, Verified 11/22/17 12:05) iodine [Iodine] Allergy (Severe, Verified 11/22/17 12:05) heparin Adverse Reaction (Severe, Verified 11/22/17 12:05) IV CONTRAST Allergy (Severe, Uncoded 11/22/17 12:05) HOME MEDICATIONS: 3 Medication Instructions Recorded Apixaban [Eliquis] 2.5 mg PO BID 11/22/17 Budesonide 0.5 mg IH BID 11/22/17 Cholecalciferol (Vitamin D3) 1,000 unit PO DAILY 11/22/17 [Vitamin D3] Docusate Sodium [Colace] 200 mg PO HS 11/22/17 Escitalopram Oxalate [Lexapro -] 5 mg PO DAILY 11/22/17 Fish Oil/Borage/Flax/Om3,6,9 1 1 each PO DAILY 11/22/17 [[place] 3-6-9 Complex Softgel] Insulin Detemir [Levemir Flextouch] 15 unit SQ DAILY 11/22/17 Insulin Lispro [Humalog] 100 unit SQ ASDIR 11/22/17 LORazepam [Ativan] 0.5 mg PO HS 11/22/17 Latanoprost 0.005% Eye Drops 1 drop OU HS 11/22/17 [Xalatan 0.005% Eye Drops -] Lisinopril [Prinivil] 5 mg PO DAILY@1700 11/22/17 Metoprolol Succinate [Toprol Xl] 25 mg PO DAILY 11/22/17 Montelukast Sodium [Singulair] 10 mg PO HS 11/22/17 Multivit-Minerals/Folic Acid 0 mcg PO DAILY 11/22/17 [Centrum Multigummies] Oxycodone HCl [Oxycontin] 10 mg PO DAILY 11/22/17 Oxycodone HCl/Acetaminophen 1 tab PO DAILY 11/22/17 [Percocet 5-325 mg Tablet] Polyethylene Glycol 3350 [Miralax 17 gm PO BID 11/22/17 (For Daily Use) -] Rosuvastatin Calcium [Crestor] 20 mg PO HS 11/22/17 Sennosides [Senna] 8.6 mg PO HS 11/22/17 Sitagliptin Phosphate [Januvia] 50 mg PO DAILY 11/22/17 Tiotropium [place] [Spiriva] 1 inh PO DAILY 11/22/17 REVIEW OF SYSTEMS CONSTITUTIONAL: Absent: fever, chills, diaphoresis, generalized weakness, malaise, loss of appetite, weight change HEENT: Absent: rhinorrhea, nasal congestion, throat pain, throat swelling, difficulty swallowing, mouth swelling, ear pain, eye pain, visual changes CARDIOVASCULAR: Absent: chest pain, syncope, palpitations, irregular heart rate, lightheadedness , peripheral edema RESPIRATORY: Absent: cough, shortness of breath, dyspnea with exertion, orthopnea, wheezing, stridor, hemoptysis GASTROINTESTINAL: Absent: abdominal pain, abdominal distension, nausea, vomiting, diarrhea, constipation, melena, hematochezia GENITOURINARY: Absent: dysuria, frequency, urgency, hesitancy, hematuria, flank pain, genital pain MUSCULOSKELETAL: Present: R hip pain on ROM Absent: myalgia, arthralgia, joint swelling, back pain, neck pain SKIN: Absent: rash, itching, pallor HEMATOLOGIC/IMMUNOLOGIC: Absent: easy bleeding, easy bruising, lymphadenopathy, frequent infections ENDOCRINE: Absent: unexplained weight gain, unexplained weight loss, heat intolerance, cold intolerance NEUROLOGIC: Absent: headache, focal weakness or paresthesias, dizziness, unsteady gait, seizure, mental status changes, bladder or bowel incontinence PSYCHIATRIC: Absent: anxiety, depression, suicidal or homicidal ideation, hallucinations. PHYSICAL EXAMINATION Vital Signs - 24 hr 3 11/22/17 11/22/17 11/22/17 11/22/17 11:43 15:45 16:34 22:00 Temperature 98.2 F 98.2 F 98.2 F 98.0 F Pulse Rate 96 H 95 H 95 H Pulse Rate [ 86 Right] Respiratory 19 18 18 18 Rate Blood Pressure 150/66 157/71 152/75 Blood Pressure 163/84 [Left Arm] O2 Sat by Pulse 100 95 98 Oximetry (%) GENERAL: Awake, alert, and oriented to person and place, in no acute distress. HEAD: Normal with no signs of trauma. EYES: Pupils equal, round and reactive to light, extraocular movements intact, sclera anicteric, conjunctiva clear. No lid lag. EARS, NOSE, THROAT: Ears normal, nares patent, oropharynx clear without exudates. Moist mucous membranes. NECK: Normal range of motion, supple without lymphadenopathy, JVD, or masses. LUNGS: Breath sounds equal, clear to auscultation bilaterally. No wheezes, and no crackles. No accessory muscle use. HEART: Regular rate and rhythm, normal S1 and S2 without murmur, rub or gallop. ABDOMEN: Soft, nontender, not distended, normoactive bowel sounds, no guarding, no rebound, no masses. No hepatomegaly or splenomegaly. MUSCULOSKELETAL: Normal range of motion at all joints. No bony deformities or tenderness. No CVA tenderness. R leg shortened and rotated, + ecchymosis R hip UPPER EXTREMITIES: 2+ pulses, warm, well-perfused. No cyanosis. No clubbing. No peripheral edema. LOWER EXTREMITIES: 2+ pulses, warm, well-perfused. No calf tenderness. No peripheral edema. NEUROLOGICAL: Cranial nerves II-XII intact. Normal speech. Normal gait. PSYCHIATRIC: Cooperative. Good eye contact. Appropriate mood and affect. SKIN: Warm, dry, normal turgor, no rashes or lesions noted, normal capillary refill. Laboratory Results - last 24 hr 3 11/22/17 11/22/17 11/22/17 12:30 12:33 12:33 WBC 10.7 RBC 4.52 Hgb 12.8 Hct 39.1 MCV 86.3 MCH 28.2 MCHC 32.7 RDW 16.0 H Plt Count 215 MPV 9.2 Neutrophils % 86.8 H Lymphocytes % 5.6 L Monocytes % 7.3 Eosinophils % 0.3 Basophils % 0.0 PT with INR 16.3 H INR 1.47 H Sodium Potassium Chloride Carbon Dioxide Anion Gap BUN Creatinine Creat Clearance w eGFR POC Glucometer Random Glucose Calcium Total Bilirubin AST ALT Alkaline Phosphatase Troponin I Total Protein Albumin Blood Type O POSITIVE Antibody Screen Negative 3 11/22/17 11/22/17 11/22/17 12:33 12:33 12:45 17:15 22:47 WBC RBC Hgb Hct MCV MCH MCHC RDW Plt Count MPV Neutrophils % Lymphocytes % Monocytes % Eosinophils % Basophils % PT with INR INR Sodium 129 L Potassium 5.1 Chloride 98 Carbon Dioxide 28 Anion Gap 3 L BUN 17 Creatinine 1.1 Creat Clearance w eGFR > 60 POC Glucometer 299 202 Random Glucose 308 H* Calcium 8.3 L Total Bilirubin 0.8 AST 27 ALT 24 Alkaline Phosphatase 221 H Troponin I < 0.03 Total Protein 6.1 L Albumin 2.9 L Blood Type Cancelled Antibody Screen ECG Normal sinus rhythm LBBB vent rate 94, QTC 542 Radiology Reports CXR IMPRESSION: Right basilar consolidation and pleural effusion Reported By: Richard Barillas MD 11/22/17 1623 R hip and pelvis IMPRESSION: Intertrochanteric fracture of the right femur. Reported By: Richard Barillas MD 11/22/[address] c-spine IMPRESSION: 1. Limited examination as above. Within these limitations, no definite acute fracture in the cervical spine. 2. Grade 1 anterolisthesis of C3 on C4 and C4 on C5 as above is presumably chronic and degenerative. Cervical spondylosis with canal and neural foraminal stenosis as described above. 3. Asymmetric effacement of the left vallecula, at least some of which is presumably secondary to secretions and mucosal apposition. However, the tongue base is incompletely visualized. Please correlate clinically, direct visualization. Reported By: Miracle Blanc DO 11/22/[address] head IMPRESSION: No definite interval change from 10/22/[address] No evidence of acute intracranial hemorrhage or calvarial fracture. Reported By: Miracle Blanc DO 11/22/17 1307 ASSESSMENT/PLAN: 87yM with PMH HTN, ASCVD s/p CABG, Aortic stenosis s/p bovine AVR, CHF, dementia , DM, Left hip fracture s/p ORIF who presented from [facility] with right hip pain s/p fall. Right intertrochanteric fracture - ortho consult appreciated. - NPO for OR tomorrow - bedrest until ORIF - hold eliquis until after surgery HTN, CAD, CHF - cont home meds - hold eliquis DM - hold levemir-npo - BGM with novolog SS DVT PPX - defer until after surgery FEN - NS @ 75cc/hr - BMP in am - NPO after MN Dispo: pt currently requires further inpatient management of his emergent condition. Visit type - Emergency Visit Emergency Visit: Yes ED Registration Date: 11/22/17 Care time: The patient presented to the Emergency Department on the above date and was hospitalized for further evaluation of their emergent condition. - New Patient This patient is new to me today: Yes Date on this admission: 11/22/17 - Critical Care Critical Care patient: No Hospitalist Screening - Colonoscopy Questionnaire Colonoscopy Questionnaire: Colonoscopy Questionnaire - Patient: 50 - 75 years old and never had a screening colonoscopy: No History of colon or rectal polyps, or CA: Unknown History of IBD, Crohn's disease or UC: Unknown History of abdominal radiation therapy as a child: Unknown - Relative: 1 with colon or rectal CA, or polyps at age 60 or younger: Unknown Colon or rectal CA diagnosed at age 45 or younger: Unknown Multiple relatives with colon or rectal CA: Unknown - Outcome: Screening Result: Negative Screen
[2017-11-22] MEDS: LATANOPROST 0.005% OPHTH SOLN 2.5ML BOTTLE OU SCH (23:55)
[2017-11-22] MEDS: MOMETASONE FUROATE 220 MCG/IH INHALER IH SCH (23:56)
[2017-11-23] MEDS: ACETAMINOPHEN 325 MG TABLET (FP) PO PRN (05:06)
[2017-11-23] MEDS: oxyCODONE HCL 5 MG TABLET PO PRN (05:07)
[2017-11-23] MEDS: INSULIN SLIDING SCALE (NOVOLOG) 1 VIAL SQ SCH ×3 (07:05→17:00)
[2017-11-23 08:42] LABS: HEMATOCRIT 37.5 % (35.4-49); HEMOGLOBIN 12.1 GM/dl (11.7-16.9); MCH 27.9 pg (25.7-33.7); MCHC 32.3 g/dl (32.0-35.9); MEAN CELL VOLUME 86.4 fl (80-96); MEAN PLT VOLUME 9.2 fl (7.5-11.1); PLATELET COUNT 189 K/MM3 (134-434); RBC 4.35 M/mm3 (4.00-5.60); RDW 15.4 % (11.9-15.9); WHITE BLOOD COUNT 9.4 K/mm3 (4.0-10.8)
--- NOTE | 2017-11-23 08:43 | PN ---
Progress Note (short form) - Note Progress Note: Ortho Pt seen and examined s/p right IT fx PE- RLE shortened and ER, + ttp, + swelling, decr rom nvi a/p OR for right IM gamma nail NPO surgical clearance d/w Dr. Fair
[2017-11-23 08:48] LABS: ANION GAP 4 (8-16); BLOOD UREA NITROGEN 16 mg/dl (7-18); CALCIUM 8.1 mg/dl (8.4-10.2); CHLORIDE 99 mmol/L (98-107); CO2 29 mmol/L (22-28); GLUCOSE,RANDOM 231 mg/dl (74-106); POTASSIUM 4.4 mmol/L (3.5-5.1); SODIUM 132 mmol/L (136-145)
--- NOTE | 2017-11-23 09:17 | PN ---
Physical Exam: SUBJECTIVE: Patient seen and examined, resting in bed, denies any chest pain or shortness of breath, reports right lower extremity pain upon movement. OBJECTIVE: Patient is a 87 y/o male with a past medical history of HTN, ASCVD s /p CABG, Aortic stenosis s/p bovine AVR, CHF, dementia, DM. patient was admitted from the emergency department for a right intrathrocantic fracture. Vital Signs Period Temp Pulse Resp BP Sys/Staples Pulse Ox Last 24 Hr 98.0 F-98.6 F 86-99 18-19 150-164/66-84 93-100 GENERAL: The patient is awake, alert, and oriented times person and place, in no acute distress. HEAD: Normal with no signs of trauma. EYES: PERRL, extraocular movements intact, sclera anicteric, conjunctiva clear. No ptosis. ENT: Ears normal, nares patent, oropharynx clear without exudates, moist mucous membranes. NECK: Trachea midline, full range of motion, supple. LUNGS: Breath sounds equal, clear to auscultation bilaterally, no wheezes, no crackles, no accessory muscle use. HEART: Regular rate and rhythm, S1, S2 without murmur, rub or gallop. ABDOMEN: Soft, nontender, nondistended, normoactive bowel sounds, no guarding, no rebound, no hepatosplenomegaly, no masses. EXTREMITIES: 2+ pulses, warm, well-perfused, no edema. RIGHT LOWER EXTREMITY: externally rotated and shortened, less than 3 second capillary refill, + 3 pedal pulse NEUROLOGICAL: Cranial nerves II through XII grossly intact. Normal speech, gait not observed. PSYCH: Normal mood, normal affect. SKIN: Warm, dry, normal turgor, no rashes or lesions noted Laboratory Results - last 24 hr 11/22/17 11/22/17 11/22/17 12:30 12:33 12:33 WBC 10.7 RBC 4.52 Hgb 12.8 Hct 39.1 MCV 86.3 MCH 28.2 MCHC 32.7 RDW 16.0 H Plt Count 215 MPV 9.2 Neutrophils % 86.8 H Lymphocytes % 5.6 L Monocytes % 7.3 Eosinophils % 0.3 Basophils % 0.0 PT with INR 16.3 H INR 1.47 H Sodium Potassium Chloride Carbon Dioxide Anion Gap BUN Creatinine Creat Clearance w eGFR POC Glucometer Random Glucose Calcium Total Bilirubin AST ALT Alkaline Phosphatase Troponin I Total Protein Albumin Blood Type O POSITIVE Antibody Screen Negative 11/22/17 11/22/17 11/22/17 12:33 12:33 12:45 WBC RBC Hgb Hct MCV MCH MCHC RDW Plt Count MPV Neutrophils % Lymphocytes % Monocytes % Eosinophils % Basophils % PT with INR INR Sodium 129 L Potassium 5.1 Chloride 98 Carbon Dioxide 28 Anion Gap 3 L BUN 17 Creatinine 1.1 Creat Clearance w eGFR > 60 POC Glucometer Random Glucose 308 H* Calcium 8.3 L Total Bilirubin 0.8 AST 27 ALT 24 Alkaline Phosphatase 221 H Troponin I < 0.03 Total Protein 6.1 L Albumin 2.9 L Blood Type Cancelled Antibody Screen 11/22/17 11/22/17 11/23/17 17:15 22:47 07:04 WBC RBC Hgb Hct MCV MCH MCHC RDW Plt Count MPV Neutrophils % Lymphocytes % Monocytes % Eosinophils % Basophils % PT with INR INR Sodium Potassium Chloride Carbon Dioxide Anion Gap BUN Creatinine Creat Clearance w eGFR POC Glucometer 299 202 229 Random Glucose Calcium Total Bilirubin AST ALT Alkaline Phosphatase Troponin I Total Protein Albumin Blood Type Antibody Screen 11/23/17 11/23/17 07:25 07:25 WBC 9.4 RBC 4.35 Hgb 12.1 Hct 37.5 MCV 86.4 MCH 27.9 MCHC 32.3 RDW 15.4 Plt Count 189 MPV 9.2 Neutrophils % Lymphocytes % Monocytes % Eosinophils % Basophils % PT with INR INR Sodium 132 L Potassium 4.4 Chloride 99 Carbon Dioxide 29 H Anion Gap 4 L BUN 16 Creatinine 1.0 Creat Clearance w eGFR POC Glucometer Random Glucose 231 H D Calcium 8.1 L Total Bilirubin AST ALT Alkaline Phosphatase Troponin I Total Protein Albumin Blood Type Antibody Screen Active Medications Generic Name Dose Route Start Last Admin Trade Name Freq PRN Reason Stop Dose Admin Acetaminophen 650 mg 11/22/17 16:16 11/23/17 05:06 Tylenol - PO 650 mg Q4H PRN Administration PAIN LEVEL 1-5 Acetaminophen 325 mg 11/22/17 16:33 Tylenol - PO Q6H PRN PAIN LEVEL 6-10 Albuterol Sulfate 1 amp 11/22/17 16:16 Ventolin 0.083% Nebulizer Soln - NEB Q4H PRN SHORT OF BREATH/WHEEZING Cholecalciferol 1,000 unit 11/23/17 10:00 Vitamin D3 - PO DAILY [facility] Docusate Sodium 200 mg 11/22/17 22:00 11/22/17 22:25 Colace - PO 200 mg HS JEAN-PIERRE Administration Escitalopram Oxalate 5 mg 11/23/17 10:00 Lexapro - PO DAILY [facility] Sodium Chloride 1,000 mls @ 75 mls/hr 11/22/17 16:30 11/22/17 17:21 Normal Saline - IV 75 mls/hr ASDIR JEAN-PIERRE Administration Insulin Aspart 1 vial 11/22/17 16:30 11/23/17 07:05 Novolog Vial Sliding Scale - SQ Not Given TIDAC [facility] Protocol Latanoprost 1 drop 11/22/17 22:00 11/22/17 23:55 Xalatan 0.005% Eye Drops - OU 1 drp HS [facility] Administration Lisinopril 5 mg 11/23/17 17:00 Prinivil PO DAILY@1700 JEAN-PIERRE Lorazepam 0.5 mg 11/22/17 22:00 11/22/17 22:25 Ativan - PO 0.5 mg HS [facility] Administration Metoprolol Succinate 25 mg 11/23/17 10:00 Toprol Xl - PO DAILY [facility] Mometasone Furoate 1 puff 11/22/17 22:00 11/22/17 23:56 Asmanex 220mcg - IH 1 puff HS [facility] Administration Montelukast Sodium 10 mg 11/22/17 22:00 11/22/17 22:25 Singulair - PO 10 mg HS [facility] Administration Multivitamins/Minerals/Vitamin C 1 tab 11/23/17 10:00 Tab-A-Vit - PO DAILY [facility] Nwgkg-4-Rsfr Ethyl Esters 1 gm 11/23/17 10:00 Lovaza - PO DAILY [facility] Ondansetron HCl 4 mg 11/22/17 16:21 Zofran Injection IVPUSH Q6H PRN NAUSEA Oxycodone HCl 10 mg 11/23/17 10:00 Oxycontin - PO DAILY [facility] Oxycodone HCl 5 mg 11/22/17 16:32 11/23/17 05:07 Roxicodone - PO 5 mg Q6H PRN Administration PAIN LEVEL 6-10 Polyethylene Glycol 17 gm 11/22/17 22:00 11/22/17 22:25 Miralax (For Daily Use) - PO 17 gm BID JEAN-PIERRE Administration Rosuvastatin Calcium 20 mg 11/22/17 23:16 Crestor - PO HS JEAN-PIERRE Senna 1 tab 11/22/17 22:00 11/22/17 22:25 Senna - PO 1 tab HS JEAN-PIERRE Administration Tiotropium [place] 1 puff 11/23/17 10:00 Spiriva - IH DAILY JEAN-PIERRE ECG Normal sinus rhythm LBBB vent rate 94, QTC 542 Radiology Reports CXR IMPRESSION: Right basilar consolidation and pleural effusion Reported By: Richard Barillas MD 11/22/17 1623 R hip and pelvis IMPRESSION: Intertrochanteric fracture of the right femur. Reported By: Richard Barillas MD 11/22/[address] c-spine IMPRESSION: 1. Limited examination as above. Within these limitations, no definite acute fracture in the cervical spine. 2. Grade 1 anterolisthesis of C3 on C4 and C4 on C5 as above is presumably chronic and degenerative. Cervical spondylosis with canal and neural foraminal stenosis as described above. 3. Asymmetric effacement of the left vallecula, at least some of which is presumably secondary to secretions and mucosal apposition. However, the tongue base is incompletely visualized. Please correlate clinically, direct visualization. Reported By: Miracle Blanc DO 11/22/[address] head IMPRESSION: No definite interval change from 10/22/[address] No evidence of acute intracranial hemorrhage or calvarial fracture. Reported By: Miracle Blanc DO 11/22/17 1307 ASSESSMENT/PLAN: 1) MS Right intertrochanteric fracture - Dr Alford, consulted and following, patient is pending OR tommorow - continue bedrest until surgery tomm - prn pain medication 2) cardiovascular hypertension - continue lisinopril, strict b/p monitoring systolic congestive heart failure - pt appears euvolemic on exam, strict i/o and daily weight CAD - hold eliquis, continue lipitor and toprol 3) endo DM - continue levermir - fingersticks achs with novolog sliding scale DVT PPX - defer until after surgery FEN - low sodium diet - BMP in am - NPO after MN Dispo: pt currently requires further inpatient management of his emergent condition. Visit type - Emergency Visit Emergency Visit: Yes ED Registration Date: 11/22/17 Care time: The patient presented to the Emergency Department on the above date and was hospitalized for further evaluation of their emergent condition. - New Patient This patient is new to me today: Yes Date on this admission: 11/23/17 - Critical Care Critical Care patient: No - Discharge Referral Referred to [facility] No
[2017-11-23] MEDS: POLYETHYLENE GLYCOL 3350 119 GM BTL PO SCH ×2 (10:42→21:52)
[2017-11-23] MEDS: CHOLECALCIFEROL (VITAMIN D3) 1,000 UNIT TABLET (FP) PO SCH (10:44)
[2017-11-23] MEDS: MULTIVITAMINS (DAILY MVI) TABLET (FP) PO SCH (10:44)
[2017-11-23] MEDS: metoPROLOL SUCCINATE 25 MG TAB.SR.24H (FP) PO SCH (10:44)
[2017-11-23] MEDS: oxyCODONE HCL 10 MG SUSTAINED ACTING TABLET PO SCH (10:44)
[2017-11-23] MEDS: OMEGA-3 ACID ETHYL ESTERS (FATTY-ACIDS) 1 GM CAPSULE (FP) PO SCH (10:45)
[2017-11-23] MEDS: TIOTROPIUM BROMIDE 18 MCG/INH (DEVICE W/ 5 CAPSULES) IH SCH (10:47)
[2017-11-23] MEDS: ESCITALOPRAM OXALATE 10 MG TABLET (FP) PO SCH (10:47)
[2017-11-23] MEDS ORDERED: INSULIN (NOVOLOG) ASPART 100 UNITS/ML 10ML VIAL ONE ×2 (12:12→17:53)
--- NOTE | 2017-11-23 14:25 | EKG ---
Test Reason : Blood Pressure : / mmHG Vent. Rate : 094 BPM Atrial Rate : 094 BPM P-R Int : 190 ms QRS Dur : 162 ms QT Int : 434 ms P-R-T Axes : 005 013 126 degrees QTc Int : 542 ms NORMAL SINUS RHYTHM POSSIBLE LEFT ATRIAL ENLARGEMENT LEFT BUNDLE BRANCH BLOCK ABNORMAL ECG WHEN COMPARED WITH ECG OF 17-OCT-2017 11:58, SINUS RHYTHM HAS REPLACED ATRIAL FIBRILLATION Confirmed by KO CROCKER MD ([id number]) on 11/23/2017 2:24:29 PM Referred By: KALEB LIMA Confirmed By:KO CROCKER MD
[2017-11-23] MEDS: LISINOPRIL 5 MG TABLET (FP) PO SCH (17:49)
[2017-11-23] MEDS ORDERED: PT OWN MED DRAWER 7, Y5N ONE (21:15)
[2017-11-23] MEDS: DOCUSATE SODIUM 100 MG CAPSULE (FP) PO SCH (21:48)
[2017-11-23] MEDS: LORazepam 0.5 MG TABLET PO SCH (21:49)
[2017-11-23] MEDS: MONTELUKAST NA 10 MG TABLET PO SCH (21:49)
[2017-11-23] MEDS: ROSUVASTATIN CA 20 MG TABLET (FP) PO SCH (21:51)
[2017-11-23] MEDS: SENNOSIDES 8.6MG TABLET (FP) PO SCH (21:51)
[2017-11-23] MEDS: MOMETASONE FUROATE 220 MCG/IH INHALER IH SCH (21:52)
[2017-11-23] MEDS: LATANOPROST 0.005% OPHTH SOLN 2.5ML BOTTLE OU SCH (21:53)
[2017-11-24] MEDS: oxyCODONE HCL 5 MG TABLET PO PRN ×2 (01:55→17:27)
[2017-11-24] MEDS: ACETAMINOPHEN 325 MG TABLET (FP) PO PRN ×2 (01:57→21:05)
[2017-11-24] MEDS: sitaGLIPtin PHOSPHATE 50 MG TABLET PO SCH (06:08)
[2017-11-24] MEDS: INSULIN SLIDING SCALE (NOVOLOG) 1 VIAL SQ SCH ×3 (06:08→17:27)
[2017-11-24 08:29] LABS: BASO % 0.4 % (0-2.0); EOS % 4.4 % (0-4.5); HEMATOCRIT 35.4 % (35.4-49); HEMOGLOBIN 12.2 GM/dl (11.7-16.9); LYMPH % 10.6 % (8-40); MCH 29.5 pg (25.7-33.7); MCHC 34.4 g/dl (32.0-35.9); MEAN CELL VOLUME 85.9 fl (80-96); MEAN PLT VOLUME 9.6 fl (7.5-11.1); MONO % 10.6 % (3.8-10.2); PLATELET COUNT 171 K/MM3 (134-434); RBC 4.13 M/mm3 (4.00-5.60); RDW 15.7 % (11.9-15.9); WHITE BLOOD COUNT 8.4 K/mm3 (4.0-10.8)
[2017-11-24 08:32] LABS: ALBUMIN 2.4 g/dl (3.5-5.0); ALK PHOS 177 U/L (32-92); ANION GAP 3 (8-16); BILIRUBIN,TOTAL 0.6 mg/dl (0.2-1.0); BLOOD UREA NITROGEN 17 mg/dl (7-18); CALCIUM 7.9 mg/dl (8.4-10.2); CHLORIDE 99 mmol/L (98-107); CO2 28 mmol/L (22-28); CREATININE 0.9 mg/dl (0.6-1.3); GLUCOSE,RANDOM 251 mg/dl (74-106); MAGNESIUM 1.8 mg/dL (1.8-2.4); PHOSPHOROUS 2.7 mg/dl (2.5-4.6); POTASSIUM 4.5 mmol/L (3.5-5.1); SGOT/AST 20 U/L (10-42); SGPT/ALT 17 U/L (10-40); SODIUM 130 mmol/L (136-145); TOT PROT 5.3 g/dl (6.4-8.3)
[2017-11-24] MEDS ORDERED: MIDAZOLAM HCL 2 MG/2 ML SINGLE DOSE VIAL ONE (08:36)
[2017-11-24] MEDS ORDERED: BUPIVACAINE HCL/PF (5 MG/ML) 30 ML VIAL IJ ONE (08:37)
[2017-11-24] MEDS ORDERED: PROPOFOL 20 ML ONE (08:48)
[2017-11-24] MEDS ORDERED: ceFAZolin SODIUM 1 GM VIAL ONE (09:22)
--- NOTE | 2017-11-24 10:09 | OP ---
Operative Note - Note: Operative Date: 11/24/17 (dominik) Pre-Operative Diagnosis: right IT fx Operation: right IM gamma nail Post-Operative Diagnosis: Same as Pre-op Surgeon: Ugo Alford Estimated Blood Loss (mls): 50 Operative Report Dictated: Yes
--- NOTE | 2017-11-24 10:17 | SPEC ---
DATE OF OPERATION: 11/24/2017 PREOPERATIVE DIAGNOSIS: Right intertrochanteric hip fracture. POSTOPERATIVE DIAGNOSIS: Right intertrochanteric hip fracture. PROCEDURE: Right Gamma nailing. SURGICAL ATTENDING: Ugo Alford MD [employer] INTERN: ADAM Pemberton ANESTHESIA: Spinal. CLOSURE: A short Gamma nail with appropriate interlocking screws, 0 Vicryl fascia, 2-0 subcutaneous, ritika to skin. ESTIMATED BLOOD LOSS: Negligible. COMPLICATIONS: None. CONDITION: To Recovery in stable condition. DESCRIPTION OF THE PROCEDURE: The patient was taken to the operating room on November 24, 2017. IV Kefzol was administered prophylactically prior to the case. Anesthesia was administered by the anesthesiologist. The patient was then fastened to the fracture table with all prominences well padded. Excellent reduction of the fracture was confirmed in AP and lateral plane by use of fluoroscopy. The right hip area was then prepped and draped in the usual sterile fashion by use of a shower curtain. A small 2-cm longitudinal incision over the tip of the greater trochanter was incised, hemostasis achieved using Bovie cautery. Sharp dissection was carried through the fascia. A guidewire was drilled from the tip of the greater trochanter into the intramedullary canal past the fracture. This was directed by fluoroscopy in both the AP and lateral plane. This was overreamed with a proximal reamer. A short Gamma nail was then malleted down into place. Using the outrigger and a small stab incision laterally, a guidewire was drilled from the lateral aspect of the femur, through the terri, through the neck into the femoral head. Proper placement was confirmed in the AP and lateral plane by using the image intensifier. The guidewire was measured for length, reamed with a triple reamer, and then screwed with the appropriate-sized lag screw. With the traction removed, the compression device was used to compress the fracture. A set screw was placed from above in the dynamic fashion. Again using the outrigger and through a small stab incision distally, a distal hole was drilled, depth gauged and screwed with the appropriate length locking screw in the static hole. The outrigger was removed. The x-rays in the AP and lateral plane revealed excellent position of the hardware with excellent reduction of the fracture. All incisions were irrigated out with copious amounts of irrigation. The fascia was closed in 0 Vicryl, 2-0 subcutaneous, and ritika to the skin. Sterile pressure dressing was applied, patient awakened from anesthesia and transferred to Recovery in stable condition. No complications. Estimated blood loss negligible. Kannan JACOBSEN/[id number]
--- NOTE | 2017-11-24 10:32 | PN ---
Physical Exam: SUBJECTIVE: Patient seen and examined, s/p right IM gamma nail today, reports pain to the right lower extremity, at bedside. OBJECTIVE:Patient is a 87 y/o male with a past medical history of HTN, ASCVD s/ p CABG, Aortic stenosis s/p bovine AVR, CHF, dementia, DM. patient was admitted from the emergency department for a right intrathrocantic fracture s/p right IM gamma nail. Vital Signs Period Temp Pulse Resp BP Sys/Staples Pulse Ox Last 24 Hr 98 F-98.7 F 92-111 17-25 88-166/44-79 91-100 GENERAL: The patient is awake, alert, and oriented times person and place, in no acute distress. HEAD: Normal with no signs of trauma. EYES: PERRL, extraocular movements intact, sclera anicteric, conjunctiva clear. No ptosis. ENT: Ears normal, nares patent, oropharynx clear without exudates, moist mucous membranes. NECK: Trachea midline, full range of motion, supple. LUNGS: Breath sounds equal, clear to auscultation bilaterally, no wheezes, no crackles, no accessory muscle use. HEART: Regular rate and rhythm, S1, S2 without murmur, rub or gallop. ABDOMEN: Soft, nontender, nondistended, normoactive bowel sounds, no guarding, no rebound, no hepatosplenomegaly, no masses. EXTREMITIES: 2+ pulses, warm, well-perfused, no edema. RIGHT LOWER EXTREMITY: aguacel dressing, cdi, carroll/scd intact NEUROLOGICAL: Cranial nerves II through XII grossly intact. Normal speech, gait not observed. PSYCH: Normal mood, normal affect. SKIN: Warm, dry, normal turgor, no rashes or lesions noted Laboratory Results - last 24 hr 11/23/17 11/23/17 11/23/17 12:01 17:03 22:13 WBC RBC Hgb Hct MCV MCH MCHC RDW Plt Count MPV Neutrophils % Lymphocytes % Monocytes % Eosinophils % Basophils % Sodium Potassium Chloride Carbon Dioxide Anion Gap BUN Creatinine Creat Clearance w eGFR POC Glucometer 284 224 249 Random Glucose Calcium Phosphorus Magnesium Total Bilirubin AST ALT Alkaline Phosphatase Total Protein Albumin 11/24/17 11/24/17 11/24/17 06:38 07:30 07:30 WBC 8.4 RBC 4.13 Hgb 12.2 Hct 35.4 MCV 85.9 MCH 29.5 MCHC 34.4 RDW 15.7 Plt Count 171 MPV 9.6 Neutrophils % 74.0 Lymphocytes % 10.6 D Monocytes % 10.6 H Eosinophils % 4.4 D Basophils % 0.4 D Sodium 130 L Potassium 4.5 Chloride 99 Carbon Dioxide 28 Anion Gap 3 L BUN 17 Creatinine 0.9 Creat Clearance w eGFR > 60 POC Glucometer 223 Random Glucose 251 H Calcium 7.9 L Phosphorus 2.7 Magnesium 1.8 Total Bilirubin 0.6 D AST 20 D ALT 17 D Alkaline Phosphatase 177 H Total Protein 5.3 L Albumin 2.4 L Active Medications Generic Name Dose Route Start Last Admin Trade Name Freq PRN Reason Stop Dose Admin Acetaminophen 650 mg 11/22/17 16:16 11/24/17 01:57 Tylenol - PO 650 mg Q4H PRN Administration PAIN LEVEL 1-5 Acetaminophen 325 mg 11/22/17 16:33 Tylenol - PO Q6H PRN PAIN LEVEL 6-10 Albuterol Sulfate 1 amp 11/22/17 16:16 Ventolin 0.083% Nebulizer Soln - NEB Q4H PRN SHORT OF BREATH/WHEEZING Cholecalciferol 1,000 unit 11/23/17 10:00 11/23/17 10:44 Vitamin D3 - PO 1,000 unit DAILY [facility] Administration Docusate Sodium 200 mg 11/22/17 22:00 11/23/17 21:48 Colace - PO 200 mg HS [facility] Administration Enoxaparin Sodium 40 mg 11/25/17 10:00 Lovenox - SQ DAILY [facility] Escitalopram Oxalate 5 mg 11/23/17 10:00 11/23/17 10:47 Lexapro - PO 5 mg DAILY [facility] Administration Fentanyl 25 mcg 11/24/17 09:54 Sublimaze Injection - IVPUSH [id number] PRN PAIN-PACU ORDER X 4 DOSES ONLY Cefazolin Sodium/Dextrose 2 gm in 50 mls @ 100 mls/hr 11/24/17 17:00 Ancef 2 Gm Premixed Ivpb - IVPB 11/25/17 01:29 Q8H [facility] Insulin Aspart 1 vial 11/22/17 16:30 11/24/17 06:08 Novolog Vial Sliding Scale - SQ Not Given TIDAC [facility] Protocol Insulin Detemir 15 units 11/24/17 10:00 Levemir Vial SQ DAILY [facility] Latanoprost 1 drop 11/22/17 22:00 11/23/17 21:53 Xalatan 0.005% Eye Drops - OU 1 drp HS [facility] Administration Lisinopril 5 mg 11/23/17 17:00 11/23/17 17:49 Prinivil PO 5 mg DAILY@1700 [facility] Administration Lorazepam 0.5 mg 11/22/17 22:00 11/23/17 21:49 Ativan - PO 0.5 mg HS [facility] Administration Metoprolol Succinate 25 mg 11/23/17 10:00 11/23/17 10:44 Toprol Xl - PO 25 mg DAILY [facility] Administration Mometasone Furoate 1 puff 11/22/17 22:00 11/23/17 21:52 Asmanex 220mcg - IH 1 puff HS [facility] Administration Montelukast Sodium 10 mg 11/22/17 22:00 11/23/17 21:49 Singulair - PO 10 mg HS [facility] Administration Multivitamins/Minerals/Vitamin C 1 tab 11/23/17 10:00 11/23/17 10:44 Tab-A-Vit - PO 1 tab DAILY [facility] Administration Websg-1-Glof Ethyl Esters 1 gm 11/23/17 10:00 11/23/17 10:45 Lovaza - PO 1 gm DAILY [facility] Administration Oxycodone HCl 10 mg 11/23/17 10:00 11/23/17 10:44 Oxycontin - PO 10 mg DAILY [facility] Administration Oxycodone HCl 5 mg 11/22/17 16:32 11/24/17 01:55 Roxicodone - PO 5 mg Q6H PRN Administration PAIN LEVEL 6-10 Polyethylene Glycol 17 gm 11/22/17 22:00 11/23/17 21:52 Miralax (For Daily Use) - PO 17 gm BID [facility] Administration Rosuvastatin Calcium 20 mg 11/22/17 23:16 11/23/17 21:51 Crestor - PO 20 mg HS [facility] Administration Senna 1 tab 11/22/17 22:00 11/23/17 21:51 Senna - PO 1 tab HS [facility] Administration Sitagliptin Phosphate 50 mg 11/24/17 07:00 11/24/17 06:08 Januvia - PO Not Given DAILY@0700 [facility] Tiotropium [place] 1 puff 11/23/17 10:00 11/23/17 10:47 Spiriva - IH 1 puff DAILY [facility] Administration ECG Normal sinus rhythm LBBB vent rate 94, QTC 542 Radiology Reports CXR IMPRESSION: Right basilar consolidation and pleural effusion Reported By: Richard Barillas MD 11/22/17 1623 R hip and pelvis IMPRESSION: Intertrochanteric fracture of the right femur. Reported By: Richard Barillas MD 11/22/[address] c-spine IMPRESSION: 1. Limited examination as above. Within these limitations, no definite acute fracture in the cervical spine. 2. Grade 1 anterolisthesis of C3 on C4 and C4 on C5 as above is presumably chronic and degenerative. Cervical spondylosis with canal and neural foraminal stenosis as described above. 3. Asymmetric effacement of the left vallecula, at least some of which is presumably secondary to secretions and mucosal apposition. However, the tongue base is incompletely visualized. Please correlate clinically, direct visualization. Reported By: Miracle Blanc DO 11/22/[address] head IMPRESSION: No definite interval change from 10/22/[address] No evidence of acute intracranial hemorrhage or calvarial fracture. Reported By: Miracle Blanc DO 11/22/17 1307 ASSESSMENT/PLAN: 1) MS Right intertrochanteric fracture-->s/p right gamma nail, pod #0 (lent) - prn pain medication - physical therapy as per ortho - hgb 12.2, stable, close monitoring 2) cardiovascular hypertension - continue lisinopril, strict b/p monitoring systolic congestive heart failure - pt appears euvolemic on exam, strict i/o and daily weight CAD - hold eliquis resume until cleared by ortho, continue lipitor and toprol 3) endo DM - continue levermir - fingersticks achs with novolog sliding scale DVT PPX - eliquis on hold until cleared by ortho FEN hyponatremia - improving with gentle ivf, secondary to hypovolemia - low sodium diet - BMP in am Dispo: pt currently requires further inpatient management of his emergent condition. Visit type - Emergency Visit Emergency Visit: Yes ED Registration Date: 11/22/17 Care time: The patient presented to the Emergency Department on the above date and was hospitalized for further evaluation of their emergent condition. - New Patient This patient is new to me today: No - Critical Care Critical Care patient: No - Discharge Referral Referred to [facility] Med P.C.: No
[2017-11-24] MEDS: INSULIN DETEMIR 100 UNITS/ML MDV SQ SCH (10:46)
[2017-11-24] MEDS: MULTIVITAMINS (DAILY MVI) TABLET (FP) PO SCH (10:47)
[2017-11-24] MEDS: oxyCODONE HCL 10 MG SUSTAINED ACTING TABLET PO SCH (10:48)
[2017-11-24] MEDS: metoPROLOL SUCCINATE 25 MG TAB.SR.24H (FP) PO SCH (10:48)
[2017-11-24] MEDS: CHOLECALCIFEROL (VITAMIN D3) 1,000 UNIT TABLET (FP) PO SCH (10:48)
[2017-11-24] MEDS: ESCITALOPRAM OXALATE 10 MG TABLET (FP) PO SCH (10:49)
[2017-11-24] MEDS: OMEGA-3 ACID ETHYL ESTERS (FATTY-ACIDS) 1 GM CAPSULE (FP) PO SCH (10:49)
[2017-11-24] MEDS: POLYETHYLENE GLYCOL 3350 119 GM BTL PO SCH ×2 (10:49→21:07)
[2017-11-24] MEDS: TIOTROPIUM BROMIDE 18 MCG/INH (DEVICE W/ 5 CAPSULES) IH SCH (10:50)
[2017-11-24] MEDS ORDERED: ACETAMINOPHEN 1000 MG/100 ML VIAL (NON FORMULARY) IVPB ONE (13:22)
[2017-11-24] MEDS ORDERED: INSULIN (NOVOLOG) ASPART 100 UNITS/ML 10ML VIAL ONE (17:23)
[2017-11-24] MEDS: LISINOPRIL 5 MG TABLET (FP) PO SCH (17:27)
[2017-11-24] MEDS: CEFAZOLIN 2 GM/D5W 2 GM/50 ML ML IVPB SCH (17:27)
[2017-11-24] MEDS ORDERED: PT OWN MED DRAWER 7, Y5N ONE ×2 (20:38→21:55)
[2017-11-24] MEDS: DOCUSATE SODIUM 100 MG CAPSULE (FP) PO SCH (21:06)
[2017-11-24] MEDS: LATANOPROST 0.005% OPHTH SOLN 2.5ML BOTTLE OU SCH (21:06)
[2017-11-24] MEDS: LORazepam 0.5 MG TABLET PO SCH (21:06)
[2017-11-24] MEDS: ROSUVASTATIN CA 20 MG TABLET (FP) PO SCH (21:07)
[2017-11-24] MEDS: MOMETASONE FUROATE 220 MCG/IH INHALER IH SCH (21:07)
[2017-11-24] MEDS: SENNOSIDES 8.6MG TABLET (FP) PO SCH (21:07)
[2017-11-24] MEDS: MONTELUKAST NA 10 MG TABLET PO SCH (21:08)
[2017-11-25] MEDS: CEFAZOLIN 2 GM/D5W 2 GM/50 ML ML IVPB SCH (00:04)
[2017-11-25] MEDS ORDERED: LORazepam 0.5 MG TABLET PO ONE (00:11)
[2017-11-25] MEDS: ACETAMINOPHEN 325 MG TABLET (FP) PO PRN (03:00)
[2017-11-25] MEDS: oxyCODONE HCL 5 MG TABLET PO PRN (03:01)
[2017-11-25 06:33] VITALS: BP 112/64; PULSE 106; TEMP 98.1
[2017-11-25] MEDS: INSULIN SLIDING SCALE (NOVOLOG) 1 VIAL SQ SCH ×2 (06:39→11:52)
[2017-11-25] MEDS ORDERED: INSULIN (NOVOLOG) ASPART 100 UNITS/ML 10ML VIAL ONE ×2 (06:40→11:55)
[2017-11-25] MEDS: sitaGLIPtin PHOSPHATE 50 MG TABLET PO SCH (06:41)
[2017-11-25 08:26] LABS: HEMATOCRIT 33.4 % (35.4-49); HEMOGLOBIN 10.5 GM/dl (11.7-16.9); MCH 26.8 pg (25.7-33.7); MCHC 31.3 g/dl (32.0-35.9); MEAN CELL VOLUME 85.5 fl (80-96); MEAN PLT VOLUME 9.4 fl (7.5-11.1); PLATELET COUNT 189 K/MM3 (134-434); RBC 3.91 M/mm3 (4.00-5.60); RDW 15.3 % (11.9-15.9); WHITE BLOOD COUNT 8.9 K/mm3 (4.0-10.8)
[2017-11-25 08:44] LABS: ANION GAP 1 (8-16); BLOOD UREA NITROGEN 21 mg/dl (7-18); CALCIUM 7.7 mg/dl (8.4-10.2); CHLORIDE 101 mmol/L (98-107); CO2 29 mmol/L (22-28); CREATININE 1.1 mg/dl (0.6-1.3); GLUCOSE,RANDOM 249 mg/dl (74-106); POTASSIUM 3.9 mmol/L (3.5-5.1); SODIUM 131 mmol/L (136-145)
--- NOTE | 2017-11-25 09:55 | PN ---
Progress Note (short form) - Note Progress Note: Ortho Pt seen and examined s/p right IM gamma nail Selected Entries 11/25/17 06:00 Temperature 98.1 F Pulse Rate 106 H Respiratory 19 Rate Blood Pressure 112/64 Laboratory Tests 11/25/17 07:55 WBC 8.9 Hgb 10.5 L D Hct 33.4 L Plt Count 189 dressing c/d/i, calf soft, nt nvi a/p PT if able wbat dvt ppx pain control may d/c from ortho pov
[2017-11-25] MEDS ORDERED: ENOXAPARIN NA (PORCINE) 40 MG/0.4 ML DISP.SYRIN SQ SCH (10:00)
[2017-11-25] MEDS ORDERED: PT OWN MED DRAWER 7, Y5N ONE (10:05)
[2017-11-25] MEDS: metoPROLOL SUCCINATE 25 MG TAB.SR.24H (FP) PO SCH (10:11)
[2017-11-25] MEDS: CHOLECALCIFEROL (VITAMIN D3) 1,000 UNIT TABLET (FP) PO SCH (10:12)
[2017-11-25] MEDS: oxyCODONE HCL 10 MG SUSTAINED ACTING TABLET PO SCH (10:13)
[2017-11-25] MEDS: MULTIVITAMINS (DAILY MVI) TABLET (FP) PO SCH (10:13)
[2017-11-25] MEDS: ESCITALOPRAM OXALATE 10 MG TABLET (FP) PO SCH (10:14)
[2017-11-25] MEDS: INSULIN DETEMIR 100 UNITS/ML MDV SQ SCH (10:15)
[2017-11-25] MEDS: POLYETHYLENE GLYCOL 3350 119 GM BTL PO SCH (10:15)
[2017-11-25] MEDS: OMEGA-3 ACID ETHYL ESTERS (FATTY-ACIDS) 1 GM CAPSULE (FP) PO SCH (10:15)
[2017-11-25] MEDS: TIOTROPIUM BROMIDE 18 MCG/INH (DEVICE W/ 5 CAPSULES) IH SCH (11:52)
--- NOTE | 2017-11-25 12:32 | DS ---
Physical Exam: SUBJECTIVE: Patient seen and examined, resting comfortably in bed, voices no complaints OBJECTIVE: Patient is a 87 year old male with multiple medical problems below who was sent to the ED from [facility] s/p fall. He reports right leg pain on ROM and was noted to have shortening and rotation. ER course was notable for: (1) XRay + IT fracture R hip Vital Signs Period Temp Pulse Resp BP Sys/Staples Pulse Ox Last 24 Hr 98 F-99.5 F 106-110 18-19 112-179/64-81 91-96 PHYSICAL EXAM GENERAL: The patient is awake, alert, and oriented times person and place, in no acute distress. HEAD: Normal with no signs of trauma. EYES: PERRL, extraocular movements intact, sclera anicteric, conjunctiva clear. No ptosis. ENT: Ears normal, nares patent, oropharynx clear without exudates, moist mucous membranes. NECK: Trachea midline, full range of motion, supple. LUNGS: Breath sounds equal, clear to auscultation bilaterally, no wheezes, no crackles, no accessory muscle use. HEART: Regular rate and rhythm, S1, S2 without murmur, rub or gallop. ABDOMEN: Soft, nontender, nondistended, normoactive bowel sounds, no guarding, no rebound, no hepatosplenomegaly, no masses. EXTREMITIES: 2+ pulses, warm, well-perfused, no edema. RIGHT LOWER EXTREMITY: tegaderm, and gauze cdi, carroll/scd intact NEUROLOGICAL: Cranial nerves II through XII grossly intact. Normal speech, gait not observed. PSYCH: Normal mood, normal affect. SKIN: Warm, dry, normal turgor, no rashes or lesions noted LABS Laboratory Results - last 24 hr 11/24/17 11/25/17 11/25/17 16:59 06:34 07:55 WBC 8.9 RBC 3.91 L Hgb 10.5 L D Hct 33.4 L MCV 85.5 MCH 26.8 MCHC 31.3 L RDW 15.3 Plt Count 189 MPV 9.4 Sodium Potassium Chloride Carbon Dioxide Anion Gap BUN Creatinine POC Glucometer 271 296 Random Glucose Calcium Magnesium 11/25/17 11/25/17 11/25/17 07:55 07:55 11:51 WBC RBC Hgb Hct MCV MCH MCHC RDW Plt Count MPV Sodium 131 L Potassium 3.9 Chloride 101 Carbon Dioxide 29 H Anion Gap 1 L BUN 21 H D Creatinine 1.1 D POC Glucometer 318 Random Glucose 249 H Calcium 7.7 L Magnesium 1.9 ECG Normal sinus rhythm LBBB vent rate 94, QTC 542 Radiology Reports CXR IMPRESSION: Right basilar consolidation and pleural effusion Reported By: Richard Barillas MD 11/22/17 1623 R hip and pelvis IMPRESSION: Intertrochanteric fracture of the right femur. Reported By: Richard Barillas MD 11/22/[address] c-spine IMPRESSION: 1. Limited examination as above. Within these limitations, no definite acute fracture in the cervical spine. 2. Grade 1 anterolisthesis of C3 on C4 and C4 on C5 as above is presumably chronic and degenerative. Cervical spondylosis with canal and neural foraminal stenosis as described above. 3. Asymmetric effacement of the left vallecula, at least some of which is presumably secondary to secretions and mucosal apposition. However, the tongue base is incompletely visualized. Please correlate clinically, direct visualization. Reported By: Miracle Blanc DO 11/22/[address] head IMPRESSION: No definite interval change from 10/22/[address] No evidence of acute intracranial hemorrhage or calvarial fracture. Reported By: Miracle Blanc DO 11/22/17 1307 ASSESSMENT/PLAN: 1) MS Right intertrochanteric fracture-->s/p right gamma nail, pod #1 (lent) - prn pain medication - physical therapy as per orthopedist, weight bearing as tolerated - hgb 10.5, stable 2) cardiovascular hypertension - continue lisinopril, strict b/p monitoring systolic congestive heart failure - pt appears euvolemic on exam, strict i/o and daily weight CAD - resume eliquis as per the orthopedist, continued lipitor and toprol 3) endo DM - continue levermir - fingersticks achs with novolog sliding scale 4) hyponatremia - trending upward, calculated serum sodium 135. DVT PPX - eliquis Date of Admission:11/22/17 Date of Discharge: 11/25/17 Minutes to complete discharge: 45 Discharge Summary Reason For Visit: RIGHT HIP FRACTURE Current Active Problems Closed right hip fracture (Acute) Condition: Stable - Instructions Referrals: Regulo Hanna MD [Primary Care Provider] - Disposition: HOME - Home Medications Comprehensive Discharge Medication List: Ambulatory Orders Apixaban [Eliquis] 2.5 mg PO BID 11/22/17 Budesonide 0.5 mg IH BID 11/22/17 Cholecalciferol (Vitamin D3) [Vitamin D3] 1,000 unit PO DAILY 11/22/17 Docusate Sodium [Colace] 200 mg PO HS 11/22/17 Escitalopram Oxalate [Lexapro -] 5 mg PO DAILY 11/22/17 Fish Oil/Borage/Flax/Om3,6,9 1 [[place] 3-6-9 Complex Softgel] 1 each PO DAILY Insulin Detemir [Levemir Flextouch] 15 unit SQ DAILY 11/22/17 Insulin Lispro [Humalog] 100 unit SQ ASDIR 11/22/17 LORazepam [Ativan] 0.5 mg PO HS 11/22/17 Latanoprost 0.005% Eye Drops [Xalatan 0.005% Eye Drops -] 1 drop OU HS 11/22/17 Lisinopril [Prinivil] 5 mg PO DAILY@1700 11/22/17 Metoprolol Succinate [Toprol Xl] 25 mg PO DAILY 11/22/17 Montelukast Sodium [Singulair] 10 mg PO HS 11/22/17 Multivit-Minerals/Folic Acid [Centrum Multigummies] 0 mcg PO DAILY 11/22/17 Oxycodone HCl [Oxycontin] 10 mg PO DAILY 11/22/17 Oxycodone HCl/Acetaminophen [Percocet 5-325 mg Tablet] 1 tab PO DAILY 11/22/17 Polyethylene Glycol 3350 [Miralax (For Daily Use) -] 17 gm PO BID 11/22/17 Rosuvastatin Calcium [Crestor] 20 mg PO HS 11/22/17 Sennosides [Senna] 8.6 mg PO HS 11/22/17 Sitagliptin Phosphate [Januvia] 50 mg PO DAILY 11/22/17 Tiotropium [place] [Spiriva] 1 inh PO DAILY 11/22/17 This patient is new to me today: No Emergency Visit: Yes ED Registration Date: 11/22/17 Care time: The patient presented to the Emergency Department on the above date and was hospitalized for further evaluation of their emergent condition. Critical Care patient: No - Discharge Referral Referred to [facility] Med P.C.: No
[2017-11-25] MEDS ORDERED: APIXABAN 2.5 MG TABLET PO SCH (22:00)
== END 2017-11-25 14:00 | DRG 481 ==
LOC: FER 11:42 → FM/S 15:43
PROVIDERS: ADMIT Internal Medicine; ATTEND Nurse Practitioner Family
PROC: 0QS606Z Reposition Right Upper Femur with Intramedullary Internal Fixation Device, Open Approach (ICD-10-PCS; principal; 2017-11-24 09:21)
DX: S72.141A Displaced intertrochanteric fracture of right femur, initial encounter for closed fracture (principal); I50.22 Chronic systolic (congestive) heart failure; E87.1 Hypo-osmolality and hyponatremia; E11.9 Type 2 diabetes mellitus without complications; I11.0 Hypertensive heart disease with heart failure; I50.9 Heart failure, unspecified; W01.0XXA Fall on same level from slipping, tripping and stumbling without subsequent striking against object, initial encounter; Y93.89 Activity, other specified; Y92.128 Other place in nursing home as the place of occurrence of the external cause; Y99.8 Other external cause status; I25.10 Atherosclerotic heart disease of native coronary artery without angina pectoris; E78.5 Hyperlipidemia, unspecified; Z95.4 Presence of other heart-valve replacement; F03.90 Unspecified dementia, unspecified severity, without behavioral disturbance, psychotic disturbance, mood disturbance, and anxiety; Z79.4 Long term (current) use of insulin; Z87.891 Personal history of nicotine dependence; Z95.1 Presence of aortocoronary bypass graft; E86.1 Hypovolemia; I44.7 Left bundle-branch block, unspecified
CPT/HCPCS: 36415; 70450-TC; 71045-TC-FY; 72125-TC; 73502-TC-RT; 73523-TC-FY; 76000-TC-FY; 80048; 80053; 82962; 83735; 84100; 84484; 85025; 85027; 85610; 86850; 86900; 86901; 93005; 94010; 94760; 97116-GP; 97162-GP; 99283-25

== ENCOUNTER 2020-10-09 09:20 | Inpatient (IN) | payer OTHER, BC ==
[2020-10-09] MEDS ORDERED: DEXAMETHASONE SOD PHOSPHATE 10 MG/1 ML VIAL IVPUSH ONE (09:46)
[2020-10-09] MEDS ORDERED: ALBUTEROL SO4 2.5/IPRATROPIUM 0.5 INH SOL 3 ML VIAL.NEB. NEB SCH (10:00)
[2020-10-09] MEDS ORDERED: ALBUTEROL SO4 2.5/IPRATROPIUM 0.5 INH SOL 3 ML VIAL.NEB. NEB ONE (10:28)
[2020-10-09] MEDS ORDERED: DEXAMETHASONE SOD PHOSPHATE 10 MG/1 ML VIAL ONE (10:28)
[2020-10-09 10:40] LABS: BASO % 0.8 % (0-2.0); EOS % 1.9 % (0-4.5); LYMPH % 10.1 % (8-40); MCH 29.3 pg (25.7-33.7); MCHC 32.4 g/dl (32.0-35.9); MEAN CELL VOLUME 90.5 fl (80-96); MEAN PLT VOLUME 9.3 fl (7.5-11.1); MONO % 9.6 % (3.8-10.2); NEUT % 77.6 % (42.8-82.8); PLATELET COUNT 148 K/MM3 (134-434); RBC 4.09 M/mm3 (4.00-5.60); RDW 13.1 % (11.9-15.9); WHITE BLOOD COUNT 6.5 K/mm3 (4.0-10.8)
[2020-10-09 10:46] LABS: ALBUMIN 2.9 g/dl (3.4-5.0); BILIRUBIN,TOTAL 0.7 mg/dl (0.2-1); CALCIUM 8.3 mg/dl (8.5-10); CREATININE 1.5 mg/dl (0.55-1.3); POTASSIUM 4.5 mmol/L (3.5-5.1); TOT PROT 5.9 g/dl (6.4-8.2)
[2020-10-09 10:47] LABS: ACTIVATED PTT 26.1 SECONDS (25.2-36.5)
[2020-10-09] MEDS ORDERED: LACTATED RINGERS SOLUTION 1000 ML INFUS.BAG IV STA (10:51)
[2020-10-09 10:52] LABS: INR 1.24 (0.82-1.09); PROTHROMBIN TIME (PATIENT) 13.7 SEC (10.2-13.0)
[2020-10-09] MEDS ORDERED: CEFTRIAXONE 1,000 MG in DEXTROSE 5%-WATER - 50 ML IVPB ONE (10:56)
[2020-10-09] MEDS ORDERED: AZITHROMYCIN IVPB 500 MG in DEXTROSE 5%-WATER - 250 ML IVPB ONE (10:58)
[2020-10-09] MEDS ORDERED: AZITHROMYCIN 500 MG VIAL IVPB ONE (11:21)
[2020-10-09] MEDS ORDERED: cefTRIAXone SODIUM 1 GM VIAL ONE (11:21)
[2020-10-09] MEDS ORDERED: LACTATED RINGERS SOLUTION 1,000 ML/1,000 ML INFUS.BAG IV SCH (11:45)
[2020-10-09] MEDS ORDERED: ESCITALOPRAM OXALATE 10 MG TABLET PO ONE (11:45)
[2020-10-09 12:15] LABS: N-TERMINAL BNP 4271.2 pg/ml (5-450)
[2020-10-09] MEDS ORDERED: FUROSEMIDE 40 MG/4 ML INJECTABLE VIAL IVPUSH ONE ×2 (14:30→15:39)
[2020-10-09] MEDS ORDERED: FUROSEMIDE 40 MG/4 ML INJECTABLE VIAL ONE (15:43)
[2020-10-09 16:46] LABS: HEMATOCRIT 39.4 % (35.4-49); HEMOGLOBIN 12.7 GM/dl (11.7-16.9); MCH 29.4 pg (25.7-33.7); MCHC 32.3 g/dl (32.0-35.9); MEAN PLT VOLUME 10.3 fl (7.5-11.1); PLATELET COUNT 149 K/MM3 (134-434); RBC 4.33 M/mm3 (4.00-5.60); RDW 13.3 % (11.9-15.9); WHITE BLOOD COUNT 5.1 K/mm3 (4.0-10.8)
[2020-10-09 17:07] LABS: ALBUMIN 3.2 g/dl (3.4-5.0); BILIRUBIN,TOTAL 0.4 mg/dl (0.2-1); CALCIUM 8.5 mg/dl (8.5-10); CREATININE 1.4 mg/dl (0.55-1.3); POTASSIUM 4.9 mmol/L (3.5-5.1); TOT PROT 6.3 g/dl (6.4-8.2)
[2020-10-09 17:20] VITALS: BMI 25.5
[2020-10-09] MEDS: INSULIN (NOVOLOG) ASPART 100 UNITS/ML 10ML VIAL SQ SCH ×2 (17:40→23:03)
[2020-10-09 19:03] LABS: PLATELET ESTIMATE ADEQUATE
[2020-10-09] MEDS ORDERED: PATIENT'S OWN MEDICATION (NON-FORMULARY) (Travoprost [Travatan Z] 5 ML Drops) OP SCH (22:00)
[2020-10-09] MEDS ORDERED: BUDESONIDE 0.25 MG/2ML INH SUSP VIAL NEB SCH ×2 (22:00)
[2020-10-09] MEDS: LATANOPROST 0.005% OPHTH SOLN 2.5ML BOTTLE OU SCH (23:11)
[2020-10-10] MEDS: INSULIN (NOVOLOG) ASPART 100 UNITS/ML 10ML VIAL SQ SCH ×4 (06:32→22:10)
[2020-10-10 07:43] LABS: BASO % 0.7 % (0-2.0); HEMATOCRIT 38.1 % (35.4-49); HEMOGLOBIN 12.5 GM/dl (11.7-16.9); LYMPH % 8.4 % (8-40); MCH 29.8 pg (25.7-33.7); MCHC 32.8 g/dl (32.0-35.9); MEAN CELL VOLUME 90.9 fl (80-96); MEAN PLT VOLUME 9.1 fl (7.5-11.1); MONO % 7.3 % (3.8-10.2); NEUT % 83.6 % (42.8-82.8); PLATELET COUNT 157 K/MM3 (134-434); RBC 4.19 M/mm3 (4.00-5.60); RDW 13.6 % (11.9-15.9); WHITE BLOOD COUNT 9.4 K/mm3 (4.0-10.8)
[2020-10-10 07:55] LABS: ALBUMIN 3.1 g/dl (3.4-5.0); BILIRUBIN,TOTAL 0.7 mg/dl (0.2-1); CALCIUM 8.4 mg/dl (8.5-10); CREATININE 1.8 mg/dl (0.55-1.3); PHOSPHOROUS 3.7 mg/dl (2.5-4.9); POTASSIUM 4.5 mmol/L (3.5-5.1); TOT PROT 6.2 g/dl (6.4-8.2)
[2020-10-10] MEDS ORDERED: HALOPERIDOL LACTATE 5 MG/ML ONE (08:28)
[2020-10-10] MEDS ORDERED: HALOPERIDOL LACTATE 5 MG/ML IM ONE (08:45)
[2020-10-10] MEDS ORDERED: ESCITALOPRAM OXALATE 10 MG TABLET PO SCH (10:00)
[2020-10-10] MEDS ORDERED: PATIENT'S OWN MEDICATION (NON-FORMULARY) (Lisinopril [Zestril] 2.5 MG Tablet) PO SCH (10:00)
[2020-10-10] MEDS ORDERED: PATIENT'S OWN MEDICATION (NON-FORMULARY) (Escitalopram Oxalate [Lexapro -] 5 MG Tablet) PO SCH (10:00)
[2020-10-10] MEDS ORDERED: AZITHROMYCIN IVPB 250 MG in DEXTROSE 5%-WATER - 250 ML IVPB SCH (10:00)
[2020-10-10] MEDS ORDERED: cefTRIAXone SODIUM 1 GM VIAL ONE (10:01)
[2020-10-10] MEDS ORDERED: DEXTROSE 5%-WATER - 50 ML IVPB ONE (10:02)
[2020-10-10] MEDS ORDERED: METOPROLOL TARTRATE 25 MG TABLET (FP) PO SCH (10:15)
[2020-10-10] MEDS: LISINOPRIL 5 MG TABLET PO SCH (10:16)
[2020-10-10] MEDS: ASPIRIN COATED 81 MG TABLET.EC PO SCH (10:16)
[2020-10-10] MEDS: FUROSEMIDE 40 MG/4 ML INJECTABLE VIAL IVPUSH SCH (10:17)
[2020-10-10] MEDS: ROSUVASTATIN CA 20 MG TABLET (FP) PO SCH ×2 (10:28→21:57)
[2020-10-10] MEDS: TIOTROPIUM BROMIDE 2.5 MCG (SPIRIVA) RESPIMAT INHALER IH SCH (10:32)
[2020-10-10] MEDS: CEFTRIAXONE 1 GM in DEXTROSE 5%-WATER - 50 ML IVPB SCH (11:09)
[2020-10-10] MEDS: AZITHROMYCIN IVPB 250 MG in SODIUM CHLORIDE 250 ML IVPB SCH (11:09)
[2020-10-10] MEDS ORDERED: LORazepam 2 MG/ML SDV VIAL ONE (17:02)
[2020-10-10] MEDS ORDERED: LORazepam 2 MG/ML SDV VIAL IM ONE (17:06)
[2020-10-10] MEDS: OLANZapine 5 MG TABLET PO SCH (21:57)
[2020-10-10] MEDS: METOPROLOL TARTRATE 25 MG TABLET (FP) PO SCH (21:57)
[2020-10-10] MEDS: MONTELUKAST NA 10 MG TABLET PO SCH (21:57)
[2020-10-10] MEDS ORDERED: BUDESONIDE 0.25 MG/2ML INH SUSP VIAL NEB SCH (22:00)
[2020-10-10] MEDS: MOMETASONE FUROATE 110 MCG/IH INHALER IH SCH (22:01)
[2020-10-10] MEDS: LATANOPROST 0.005% OPHTH SOLN 2.5ML BOTTLE OU SCH (22:01)
[2020-10-11] MEDS: INSULIN (NOVOLOG) ASPART 100 UNITS/ML 10ML VIAL SQ SCH ×4 (06:47→21:22)
[2020-10-11] MEDS: TIOTROPIUM BROMIDE 2.5 MCG (SPIRIVA) RESPIMAT INHALER IH SCH (11:16)
[2020-10-11] MEDS: LISINOPRIL 5 MG TABLET PO SCH ×2 (11:16→14:59)
[2020-10-11] MEDS: OLANZapine 5 MG TABLET PO SCH ×2 (11:16→21:16)
[2020-10-11] MEDS: METOPROLOL TARTRATE 25 MG TABLET (FP) PO SCH ×3 (11:16→21:15)
[2020-10-11] MEDS: ASPIRIN COATED 81 MG TABLET.EC PO SCH ×2 (11:16→14:59)
[2020-10-11] MEDS ORDERED: cefTRIAXone SODIUM 1 GM VIAL ONE (11:57)
[2020-10-11] MEDS ORDERED: PT OWN MED DRAWER 7, Y5N ONE ×2 (11:57→21:14)
[2020-10-11] MEDS ORDERED: DEXTROSE 5%-WATER - 50 ML IVPB ONE (11:58)
[2020-10-11] MEDS: AZITHROMYCIN IVPB 250 MG in SODIUM CHLORIDE 250 ML IVPB SCH (12:00)
[2020-10-11] MEDS: CEFTRIAXONE 1 GM in DEXTROSE 5%-WATER - 50 ML IVPB SCH (12:05)
[2020-10-11] MEDS: FUROSEMIDE 40 MG/4 ML INJECTABLE VIAL IVPUSH SCH (12:05)
[2020-10-11 14:23] LABS: CALCIUM 8.3 mg/dl (8.5-10); CREATININE 1.8 mg/dl (0.55-1.3); POTASSIUM 3.9 mmol/L (3.5-5.1)
[2020-10-11] MEDS: MONTELUKAST NA 10 MG TABLET PO SCH (21:15)
[2020-10-11] MEDS: ROSUVASTATIN CA 20 MG TABLET (FP) PO SCH (21:16)
[2020-10-11] MEDS: MOMETASONE FUROATE 110 MCG/IH INHALER IH SCH (21:17)
[2020-10-11] MEDS: LATANOPROST 0.005% OPHTH SOLN 2.5ML BOTTLE OU SCH (21:22)
[2020-10-12] MEDS: INSULIN (NOVOLOG) ASPART 100 UNITS/ML 10ML VIAL SQ SCH ×4 (07:07→22:18)
[2020-10-12 08:55] LABS: BASO % 0.3 % (0-2.0); EOS % 0.7 % (0-4.5); HEMATOCRIT 39.8 % (35.4-49); HEMOGLOBIN 12.8 GM/dl (11.7-16.9); LYMPH % 13.2 % (8-40); MCH 29.3 pg (25.7-33.7); MCHC 32.2 g/dl (32.0-35.9); MEAN CELL VOLUME 90.9 fl (80-96); MEAN PLT VOLUME 9.9 fl (7.5-11.1); MONO % 7.8 % (3.8-10.2); PLATELET COUNT 170 K/MM3 (134-434); RBC 4.37 M/mm3 (4.00-5.60); RDW 13.1 % (11.9-15.9); WHITE BLOOD COUNT 8.4 K/mm3 (4.0-10.8)
[2020-10-12 09:15] LABS: CALCIUM 8.1 mg/dl (8.5-10); CREATININE 1.6 mg/dl (0.55-1.3); POTASSIUM 4.4 mmol/L (3.5-5.1)
[2020-10-12] MEDS ORDERED: PT OWN MED DRAWER 7, Y5N ONE (09:47)
[2020-10-12] MEDS ORDERED: cefTRIAXone SODIUM 1 GM VIAL ONE (09:47)
[2020-10-12] MEDS ORDERED: DEXTROSE 5%-WATER - 50 ML IVPB ONE (09:48)
[2020-10-12] MEDS: LISINOPRIL 5 MG TABLET PO SCH (09:58)
[2020-10-12] MEDS: CEFTRIAXONE 1 GM in DEXTROSE 5%-WATER - 50 ML IVPB SCH (09:58)
[2020-10-12] MEDS: METOPROLOL TARTRATE 25 MG TABLET (FP) PO SCH ×2 (09:58→22:19)
[2020-10-12] MEDS: ASPIRIN COATED 81 MG TABLET.EC PO SCH (09:58)
[2020-10-12] MEDS: TIOTROPIUM BROMIDE 2.5 MCG (SPIRIVA) RESPIMAT INHALER IH SCH (09:59)
[2020-10-12] MEDS: OLANZapine 5 MG TABLET PO SCH ×2 (10:02→22:19)
[2020-10-12] MEDS: AZITHROMYCIN IVPB 250 MG in SODIUM CHLORIDE 250 ML IVPB SCH (12:21)
[2020-10-12] MEDS ORDERED: ALBUTEROL SO4 0.083% IH SOL 2.5 MG/3 ML VIAL.NEB. NEB PRN (14:42)
[2020-10-12] MEDS: ROSUVASTATIN CA 20 MG TABLET (FP) PO SCH (22:19)
[2020-10-12] MEDS: MONTELUKAST NA 10 MG TABLET PO SCH (22:19)
[2020-10-12] MEDS: LATANOPROST 0.005% OPHTH SOLN 2.5ML BOTTLE OU SCH (22:20)
[2020-10-12] MEDS: MOMETASONE FUROATE 110 MCG/IH INHALER IH SCH (22:20)
[2020-10-13] MEDS: INSULIN (NOVOLOG) ASPART 100 UNITS/ML 10ML VIAL SQ SCH ×4 (06:57→21:39)
[2020-10-13 09:45] LABS: CREATININE 1.2 mg/dl (0.55-1.3); MAGNESIUM 2.3 mg/dL (1.8-2.4); PHOSPHOROUS 3.3 mg/dl (2.5-4.9); POTASSIUM 4.2 mmol/L (3.5-5.1)
[2020-10-13] MEDS ORDERED: cefTRIAXone SODIUM 1 GM VIAL ONE (11:50)
[2020-10-13] MEDS ORDERED: DEXTROSE 5%-WATER - 50 ML IVPB ONE (11:50)
[2020-10-13] MEDS: ASPIRIN COATED 81 MG TABLET.EC PO SCH (11:53)
[2020-10-13] MEDS: METOPROLOL TARTRATE 25 MG TABLET (FP) PO SCH (11:53)
[2020-10-13] MEDS: LISINOPRIL 5 MG TABLET PO SCH (11:53)
[2020-10-13] MEDS: CEFTRIAXONE 1 GM in DEXTROSE 5%-WATER - 50 ML IVPB SCH (11:54)
[2020-10-13] MEDS: BUDESONIDE 0.25 MG/2ML INH SUSP VIAL NEB SCH ×2 (11:54→21:40)
[2020-10-13] MEDS: TIOTROPIUM BROMIDE 2.5 MCG (SPIRIVA) RESPIMAT INHALER IH SCH (11:59)
[2020-10-13] MEDS: OLANZapine 5 MG TABLET PO SCH ×2 (11:59→21:39)
[2020-10-13] MEDS: AZITHROMYCIN IVPB 250 MG in SODIUM CHLORIDE 250 ML IVPB SCH (12:06)
[2020-10-13] MEDS: MONTELUKAST NA 10 MG TABLET PO SCH (21:39)
[2020-10-13] MEDS: ROSUVASTATIN CA 20 MG TABLET (FP) PO SCH (21:40)
[2020-10-13] MEDS: metoPROLOL SUCCINATE 25 MG TAB.SR.24H (FP) PO SCH (21:40)
[2020-10-13] MEDS: LATANOPROST 0.005% OPHTH SOLN 2.5ML BOTTLE OU SCH (22:16)
[2020-10-14] MEDS: INSULIN (NOVOLOG) ASPART 100 UNITS/ML 10ML VIAL SQ SCH ×2 (08:01→12:19)
[2020-10-14] MEDS ORDERED: cefTRIAXone SODIUM 1 GM VIAL ONE ×3 (08:26→10:59)
[2020-10-14] MEDS ORDERED: DEXTROSE 5%-WATER - 50 ML IVPB ONE (08:26)
[2020-10-14] MEDS ORDERED: CEFTRIAXONE 1 GM in SODIUM CHLORIDE 50 ML IVPB SCH ×2 (08:55→10:00)
[2020-10-14] MEDS: CEFTRIAXONE 1 GM in DEXTROSE 5%-WATER - 50 ML IVPB SCH (08:59)
[2020-10-14] MEDS: ASPIRIN COATED 81 MG TABLET.EC PO SCH (09:00)
[2020-10-14] MEDS: metoPROLOL SUCCINATE 25 MG TAB.SR.24H (FP) PO SCH (09:00)
[2020-10-14] MEDS: OLANZapine 5 MG TABLET PO SCH (09:00)
[2020-10-14] MEDS: LISINOPRIL 5 MG TABLET PO SCH (09:01)
[2020-10-14] MEDS: TIOTROPIUM BROMIDE 2.5 MCG (SPIRIVA) RESPIMAT INHALER IH SCH (09:15)
[2020-10-14] MEDS: BUDESONIDE 0.25 MG/2ML INH SUSP VIAL NEB SCH (09:15)
[2020-10-14 09:23] LABS: BASO % 0.5 % (0-2.0); EOS % 0.8 % (0-4.5); HEMATOCRIT 40.9 % (35.4-49); HEMOGLOBIN 13.1 GM/dl (11.7-16.9); LYMPH % 8.3 % (8-40); MCH 29.2 pg (25.7-33.7); MEAN CELL VOLUME 91.5 fl (80-96); MEAN PLT VOLUME 9.5 fl (7.5-11.1); MONO % 5.2 % (3.8-10.2); NEUT % 85.2 % (42.8-82.8); PLATELET COUNT 180 K/MM3 (134-434); RBC 4.48 M/mm3 (4.00-5.60); RDW 13.6 % (11.9-15.9); WHITE BLOOD COUNT 9.5 K/mm3 (4.0-10.8)
[2020-10-14 09:29] LABS: BILIRUBIN,TOTAL 0.7 mg/dl (0.2-1); CALCIUM 8.5 mg/dl (8.5-10); CREATININE 1.4 mg/dl (0.55-1.3); MAGNESIUM 2.1 mg/dL (1.8-2.4); POTASSIUM 3.7 mmol/L (3.5-5.1); TOT PROT 5.9 g/dl (6.4-8.2)
[2020-10-14] MEDS ORDERED: metoPROLOL SUCCINATE 25 MG TAB.SR.24H (FP) PO ONE (10:45)
[2020-10-14 10:48] VITALS: BP 141/86; PULSE 91; TEMP 98.3
[2020-10-14] MEDS ORDERED: SODIUM CHLORIDE 50 ML IVPB ONE (10:59)
[2020-10-14] MEDS ORDERED: metoPROLOL SUCCINATE 25 MG TAB.SR.24H (FP) PO SCH (22:00)
== END 2020-10-14 14:40 | disposition home or self-care (01) | DRG 291 ==
LOC: FER 09:20 → FM/S 11:46
PROVIDERS: ADMIT Internal Medicine; ATTEND Nurse Practitioner Acute Care
DX: I13.0 Hypertensive heart and chronic kidney disease with heart failure and stage 1 through stage 4 chronic kidney disease, or unspecified chronic kidney disease (principal); I50.23 Acute on chronic systolic (congestive) heart failure; J18.9 Pneumonia, unspecified organism; J96.01 Acute respiratory failure with hypoxia; F03.91 Unspecified dementia, unspecified severity, with behavioral disturbance; E11.22 Type 2 diabetes mellitus with diabetic chronic kidney disease; I25.10 Atherosclerotic heart disease of native coronary artery without angina pectoris; J44.9 Chronic obstructive pulmonary disease, unspecified; R00.0 Tachycardia, unspecified; N18.30 Chronic kidney disease, stage 3 unspecified; Z95.1 Presence of aortocoronary bypass graft; Z95.5 Presence of coronary angioplasty implant and graft; E78.5 Hyperlipidemia, unspecified; J45.909 Unspecified asthma, uncomplicated; I48.91 Unspecified atrial fibrillation; E11.65 Type 2 diabetes mellitus with hyperglycemia
CPT/HCPCS: 36415; 70450-TC; 71045-TC-FY; 71250-TC; 80048; 80053; 81003; 81015; 82550; 82962; 83605; 83735; 83880; 84100; 84443; 84484; 85025; 85610; 85730; 87040; 87086; 87186; 87804; 87899; 93005; 93306-TC; 94640; 97116-GP; 97162-GP; 99285-25; C9803; J1100; U0003

== ENCOUNTER 2021-01-08 11:37 | Inpatient (IN) | payer OTHER, BC ==
[2021-01-08 11:44] VITALS: BMI 24.4
[2021-01-08] MEDS ORDERED: DEXAMETHASONE SOD PHOSPHATE 10 MG/1 ML VIAL IVPUSH ONE (11:54)
[2021-01-08] MEDS ORDERED: ALBUTEROL SO4 0.083% IH SOL 2.5 MG/3 ML VIAL.NEB. NEB ONE (12:16)
[2021-01-08] MEDS ORDERED: DEXAMETHASONE SOD PHOSPHATE 10 MG/1 ML VIAL ONE (12:17)
[2021-01-08] MEDS: ALBUTEROL SO4 2.5/IPRATROPIUM 0.5 INH SOL 3 ML VIAL.NEB. NEB SCH ×4 (12:30→13:30)
[2021-01-08 13:14] LABS: INR 1.23 (0.82-1.09); PROTHROMBIN TIME (PATIENT) 13.6 SEC (10.2-13.0)
[2021-01-08 13:19] LABS: BASO % 0.5 % (0-2.0); EOS % 1.6 % (0-4.5); HEMATOCRIT 43.2 % (35.4-49); HEMOGLOBIN 14.4 GM/dl (11.7-16.9); LYMPH % 22.7 % (8-40); MCH 28.6 pg (25.7-33.7); MCHC 33.2 g/dl (32.0-35.9); MEAN CELL VOLUME 86.1 fl (80-96); MEAN PLT VOLUME 9.3 fl (7.5-11.1); MONO % 11.2 % (3.8-10.2); PLATELET COUNT 166 K/MM3 (134-434); RBC 5.02 M/mm3 (4.00-5.60); RDW 14.3 % (11.9-15.9); WHITE BLOOD COUNT 7.8 K/mm3 (4.0-10.8)
[2021-01-08 13:26] LABS: ALBUMIN 3.1 g/dl (3.4-5.0); BILIRUBIN,TOTAL 0.8 mg/dl (0.2-1); CALCIUM 8.6 mg/dl (8.5-10); CREATININE 1.1 mg/dl (0.55-1.3); TOT PROT 6.3 g/dl (6.4-8.2)
[2021-01-08] MEDS ORDERED: AZITHROMYCIN IVPB 500 MG in DEXTROSE 5%-WATER - 250 ML IVPB ONE (14:21)
[2021-01-08] MEDS ORDERED: PIPERACILLIN/TAZOB 3.375 GM 3.375 GM in DEXTROSE 5%-WATER - 50 ML IVPB ONE (14:21)
[2021-01-08 14:41] LABS: N-TERMINAL BNP 6847.6 pg/ml (5-450)
[2021-01-08] MEDS ORDERED: AZITHROMYCIN 500 MG VIAL IVPB ONE (14:54)
[2021-01-08] MEDS ORDERED: PIPERACILLIN/TAZOBACTAM 3.375 GM VIAL IVPB ONE (14:54)
[2021-01-08] MEDS ORDERED: VANCOMYCIN 1,000 MG in DEXTROSE 5%-WATER - 250 ML IVPB ONE (15:09)
[2021-01-08] MEDS ORDERED: VANCOMYCIN 1,000 MG VIAL (RESTRICTED TO ID ONLY) ONE (16:58)
[2021-01-08] MEDS: INSULIN (NOVOLOG) ASPART 100 UNITS/ML 10ML VIAL SQ SCH ×2 (17:13→21:26)
[2021-01-08] MEDS ORDERED: INSULIN (NOVOLOG) ASPART 100 UNITS/ML 10ML VIAL ONE ×2 (17:15→21:31)
[2021-01-08] MEDS ORDERED: FUROSEMIDE 40 MG/4 ML INJECTABLE VIAL IVPUSH ONE (18:16)
[2021-01-08] MEDS ORDERED: ALBUTEROL SO4 HFA INHALER IH ONE (18:29)
[2021-01-08] MEDS ORDERED: FUROSEMIDE 40 MG/4 ML INJECTABLE VIAL ONE (18:29)
[2021-01-08] MEDS: ALBUTEROL SO4 HFA INHALER IH SCH (18:40)
[2021-01-08] MEDS: LATANOPROST 0.005% OPHTH SOLN 2.5ML BOTTLE OU SCH (21:09)
[2021-01-08] MEDS: metoPROLOL SUCCINATE 25 MG TAB.SR.24H (FP) PO SCH (21:10)
[2021-01-08] MEDS: MONTELUKAST NA 10 MG TABLET PO SCH (21:10)
[2021-01-08] MEDS: ROSUVASTATIN CA 20 MG TABLET (FP) PO SCH (21:10)
[2021-01-08] MEDS: ESCITALOPRAM OXALATE 10 MG TABLET PO SCH (21:10)
[2021-01-08] MEDS: FONDAPARINUX SODIUM 2.5 MG/0.5 ML DISP.SYRIN SQ SCH (21:39)
[2021-01-09 07:00] LABS: BASO % 0.1 % (0-2.0); HEMATOCRIT 38.7 % (35.4-49); HEMOGLOBIN 12.8 GM/dL (11.7-16.9); LYMPH % 8.4 % (8-40); MCH 28.3 pg (25.7-33.7); MEAN CELL VOLUME 85.6 fl (80-96); MEAN PLT VOLUME 9.3 fl (7.5-11.1); NEUT % 86.5 % (42.8-82.8); PLATELET COUNT 144 K/MM3 (134-434); RBC 4.53 M/mm3 (4.00-5.60); RDW 15.4 % (11.9-15.9); WHITE BLOOD COUNT 7.1 K/mm3 (4.0-10.0)
[2021-01-09] MEDS: ALBUTEROL SO4 HFA INHALER IH SCH ×7 (07:00→22:09)
[2021-01-09] MEDS: INSULIN (NOVOLOG) ASPART 100 UNITS/ML 10ML VIAL SQ SCH ×4 (07:01→22:08)
[2021-01-09 07:27] LABS: ALBUMIN 2.8 g/dl (3.4-5.0); BLOOD UREA NITROGEN 27.2 mg/dL (7-18); CALCIUM 8.3 mg/dL (8.5-10.1); CREATININE 1.6 mg/dL (0.55-1.3)
[2021-01-09 07:28] LABS: BILIRUBIN,TOTAL 0.6 mg/dL (0.2-1); TOT PROT 6.3 g/dl (6.4-8.2)
[2021-01-09 07:30] LABS: PHOSPHOROUS 3.6 mg/dL (2.5-4.9)
[2021-01-09] MEDS: metoPROLOL SUCCINATE 25 MG TAB.SR.24H (FP) PO SCH (10:29)
[2021-01-09] MEDS: DEXAMETHASONE SOD PHOSPHATE 10 MG/1 ML VIAL IVPUSH SCH (10:30)
[2021-01-09] MEDS: ASPIRIN COATED 81 MG TABLET.EC PO SCH (10:30)
[2021-01-09] MEDS: FONDAPARINUX SODIUM 2.5 MG/0.5 ML DISP.SYRIN SQ SCH (10:30)
[2021-01-09] MEDS: TIOTROPIUM BROMIDE 2.5 MCG (SPIRIVA) RESPIMAT INHALER IH SCH (13:05)
[2021-01-09] MEDS ORDERED: PNEUMOC 13-VAL CONJ-DIP CRM/PF 0.5 ML DISP.SYRIN IM ONE (15:00)
[2021-01-09] MEDS ORDERED: FLU VACCINE (FLULAVAL) PF 60 MCG/0.5 ML SYRINGE 2020-2021 IM ONE (15:00)
[2021-01-09] MEDS ORDERED: metoPROLOL SUCCINATE 25 MG TAB.SR.24H (FP) PO ONE (15:52)
[2021-01-09] MEDS ORDERED: ACETAMINOPHEN 1000 MG/100 ML VIAL (NON FORMULARY) IVPB ONE (16:35)
[2021-01-09] MEDS ORDERED: ACETAMINOPHEN 325 MG TABLET (FP) PO PRN (16:36)
[2021-01-09] MEDS ORDERED: PT OWN MED DRAWER 7, Y5N ONE (19:00)
[2021-01-09] MEDS: ESCITALOPRAM OXALATE 10 MG TABLET PO SCH (22:00)
[2021-01-09] MEDS: MONTELUKAST NA 10 MG TABLET PO SCH (22:00)
[2021-01-09] MEDS: ROSUVASTATIN CA 20 MG TABLET (FP) PO SCH (22:00)
[2021-01-09] MEDS: INSULIN (LEVEMIR) 100 UNITS/ML UNITS SQ SCH (22:08)
[2021-01-09] MEDS: LATANOPROST 0.005% OPHTH SOLN 2.5ML BOTTLE OU SCH (22:08)
[2021-01-10] MEDS: ALBUTEROL SO4 HFA INHALER IH SCH ×6 (05:42→22:24)
[2021-01-10] MEDS: INSULIN (NOVOLOG) ASPART 100 UNITS/ML 10ML VIAL SQ SCH ×4 (06:11→22:23)
[2021-01-10] MEDS ORDERED: PT OWN MED DRAWER 7, Y5N ONE (09:06)
[2021-01-10] MEDS ORDERED: amLODIPine BESYLATE 2.5 MG TABLET (FP) PO SCH (10:00)
[2021-01-10] MEDS: DEXAMETHASONE SOD PHOSPHATE 10 MG/1 ML VIAL IVPUSH SCH (10:07)
[2021-01-10] MEDS: TIOTROPIUM BROMIDE 2.5 MCG (SPIRIVA) RESPIMAT INHALER IH SCH (10:07)
[2021-01-10] MEDS: ASPIRIN COATED 81 MG TABLET.EC PO SCH (10:07)
[2021-01-10] MEDS ORDERED: LORazepam 2 MG/ML SDV VIAL IVPUSH ONE (10:57)
[2021-01-10] MEDS: FONDAPARINUX SODIUM 2.5 MG/0.5 ML DISP.SYRIN SQ SCH (11:44)
[2021-01-10 12:54] LABS: BASO % 0.1 % (0-2.0); EOS % 0.3 % (0-4.5); HEMATOCRIT 39.2 % (35.4-49); LYMPH % 6.8 % (8-40); MCHC 33.1 g/dl (32.0-35.9); MEAN CELL VOLUME 84.6 fl (80-96); MEAN PLT VOLUME 9.5 fl (7.5-11.1); MONO % 4.1 % (3.8-10.2); NEUT % 88.7 % (42.8-82.8); PLATELET COUNT 155 K/MM3 (134-434); RBC 4.64 M/mm3 (4.00-5.60); RDW 15.6 % (11.9-15.9); WHITE BLOOD COUNT 9.8 K/mm3 (4.0-10.0)
[2021-01-10 13:26] LABS: ALBUMIN 2.7 g/dl (3.4-5.0); CALCIUM 8.3 mg/dL (8.5-10.1)
[2021-01-10 13:27] LABS: MAGNESIUM 2.1 mg/dL (1.8-2.4)
[2021-01-10] MEDS ORDERED: cefTRIAXone SODIUM 1 GM VIAL ONE (13:29)
[2021-01-10] MEDS ORDERED: DEXTROSE 5%-WATER - 50 ML IVPB ONE (13:29)
[2021-01-10 13:30] LABS: CREATININE 1.2 mg/dL (0.55-1.3)
[2021-01-10 13:32] LABS: BILIRUBIN,TOTAL 0.5 mg/dL (0.2-1); TOT PROT 5.9 g/dl (6.4-8.2)
[2021-01-10] MEDS: CEFTRIAXONE 1 GM in DEXTROSE 5%-WATER - 50 ML IVPB SCH (13:40)
[2021-01-10] MEDS: ESCITALOPRAM OXALATE 10 MG TABLET PO SCH (22:16)
[2021-01-10] MEDS: MONTELUKAST NA 10 MG TABLET PO SCH (22:17)
[2021-01-10] MEDS: ROSUVASTATIN CA 20 MG TABLET (FP) PO SCH (22:18)
[2021-01-10] MEDS: INSULIN (LEVEMIR) 100 UNITS/ML UNITS SQ SCH (22:23)
[2021-01-10] MEDS: LATANOPROST 0.005% OPHTH SOLN 2.5ML BOTTLE OU SCH (22:24)
[2021-01-11] MEDS: ALBUTEROL SO4 HFA INHALER IH SCH ×4 (02:44→14:20)
[2021-01-11] MEDS: INSULIN (NOVOLOG) ASPART 100 UNITS/ML 10ML VIAL SQ SCH ×4 (06:42→22:01)
[2021-01-11 07:15] LABS: CALCIUM 8.6 mg/dL (8.5-10.1)
[2021-01-11 07:16] LABS: ALBUMIN 2.7 g/dl (3.4-5.0); BLOOD UREA NITROGEN 38.9 mg/dL (7-18); MAGNESIUM 2.2 mg/dL (1.8-2.4)
[2021-01-11 07:19] LABS: CREATININE 1.3 mg/dL (0.55-1.3)
[2021-01-11 07:20] LABS: BILIRUBIN,TOTAL 0.4 mg/dL (0.2-1); TOT PROT 6.3 g/dl (6.4-8.2)
[2021-01-11] MEDS: LORazepam 2 MG/ML SDV VIAL IVPUSH PRN ×2 (08:26→23:34)
[2021-01-11] MEDS ORDERED: DEXTROSE 5%-WATER - 50 ML IVPB ONE (09:46)
[2021-01-11] MEDS ORDERED: cefTRIAXone SODIUM 1 GM VIAL ONE (09:46)
[2021-01-11] MEDS: DEXAMETHASONE SOD PHOSPHATE 10 MG/1 ML VIAL IVPUSH SCH (10:08)
[2021-01-11] MEDS: TIOTROPIUM BROMIDE 2.5 MCG (SPIRIVA) RESPIMAT INHALER IH SCH (10:09)
[2021-01-11] MEDS: LISINOPRIL 5 MG TABLET PO SCH (10:09)
[2021-01-11] MEDS: ASPIRIN COATED 81 MG TABLET.EC PO SCH (10:09)
[2021-01-11] MEDS: CEFTRIAXONE 1 GM in DEXTROSE 5%-WATER - 50 ML IVPB SCH (10:09)
[2021-01-11] MEDS: FONDAPARINUX SODIUM 2.5 MG/0.5 ML DISP.SYRIN SQ SCH (11:38)
[2021-01-11] MEDS ORDERED: LORazepam 2 MG/ML SDV VIAL IVPUSH ONE (14:01)
[2021-01-11] MEDS ORDERED: METOPROLOL TARTRATE 25 MG TABLET (FP) PO ONE (14:39)
[2021-01-11] MEDS ORDERED: METOPROLOL TARTRATE 5 MG/5 ML VIAL IVPUSH ONE (14:47)
[2021-01-11] MEDS ORDERED: METOPROLOL TARTRATE 5 MG/5 ML VIAL ONE (14:51)
[2021-01-11] MEDS ORDERED: dilTIAZem HCL 50 MG/10 ML - 10 ML VIAL IVPUSH ONE (15:09)
[2021-01-11 16:36] LABS: BASO % 0.3 % (0-2.0); EOS % 0.1 % (0-4.5); HEMATOCRIT 46.1 % (35.4-49); HEMOGLOBIN 14.5 GM/dL (11.7-16.9); LYMPH % 9.2 % (8-40); MCH 27.5 pg (25.7-33.7); MCHC 31.6 g/dl (32.0-35.9); MEAN CELL VOLUME 87.2 fl (80-96); MONO % 7.2 % (3.8-10.2); NEUT % 83.2 % (42.8-82.8); PLATELET COUNT 182 K/MM3 (134-434); RBC 5.29 M/mm3 (4.00-5.60); RDW 16.3 % (11.9-15.9); WHITE BLOOD COUNT 10.8 K/mm3 (4.0-10.0)
[2021-01-11] MEDS ORDERED: FUROSEMIDE 40 MG/4 ML INJECTABLE VIAL IVPUSH ONE (16:51)
[2021-01-11] MEDS ORDERED: DILTIAZEM INJECTION 125 MG in SODIUM CHLORIDE 100 ML IVPB SCH ×2 (17:00→19:00)
[2021-01-11 17:25] LABS: ANISOCYTOSIS 0; MACROCYTOSIS 0; PLATELET ESTIMATE NORMAL
[2021-01-11] MEDS ORDERED: PT OWN MED DRAWER 7, Y5N ONE (21:58)
[2021-01-11] MEDS: ROSUVASTATIN CA 20 MG TABLET (FP) PO SCH (22:01)
[2021-01-11] MEDS: INSULIN (LEVEMIR) 100 UNITS/ML UNITS SQ SCH (22:01)
[2021-01-11] MEDS: MONTELUKAST NA 10 MG TABLET PO SCH (22:01)
[2021-01-11] MEDS: LATANOPROST 0.005% OPHTH SOLN 2.5ML BOTTLE OU SCH (22:43)
[2021-01-12] MEDS: INSULIN (NOVOLOG) ASPART 100 UNITS/ML 10ML VIAL SQ SCH ×4 (06:55→21:31)
[2021-01-12 07:15] LABS: CALCIUM 8.6 mg/dL (8.5-10.1)
[2021-01-12 07:16] LABS: BLOOD UREA NITROGEN 44.9 mg/dL (7-18)
[2021-01-12 07:19] LABS: CREATININE 1.4 mg/dL (0.55-1.3)
[2021-01-12] MEDS ORDERED: DEXTROSE 5%-WATER - 50 ML IVPB ONE (09:15)
[2021-01-12] MEDS ORDERED: PT OWN MED DRAWER 7, Y5N ONE ×2 (09:15→10:19)
[2021-01-12] MEDS ORDERED: cefTRIAXone SODIUM 1 GM VIAL ONE (09:15)
[2021-01-12] MEDS: CEFTRIAXONE 1 GM in DEXTROSE 5%-WATER - 50 ML IVPB SCH (10:17)
[2021-01-12] MEDS: FUROSEMIDE 40 MG TABLET (FP) PO SCH (10:17)
[2021-01-12] MEDS: DEXAMETHASONE SOD PHOSPHATE 4 MG/1 ML VIAL IVPUSH SCH (10:17)
[2021-01-12] MEDS: LISINOPRIL 5 MG TABLET PO SCH (10:17)
[2021-01-12] MEDS: ASPIRIN COATED 81 MG TABLET.EC PO SCH (10:17)
[2021-01-12] MEDS: TIOTROPIUM BROMIDE 2.5 MCG (SPIRIVA) RESPIMAT INHALER IH SCH (10:18)
[2021-01-12] MEDS: FONDAPARINUX SODIUM 2.5 MG/0.5 ML DISP.SYRIN SQ SCH (11:39)
[2021-01-12] MEDS: METOPROLOL TARTRATE 50 MG TABLET (FP) PO SCH ×2 (11:39→21:24)
[2021-01-12 12:19] LABS: BASO % 0.2 % (0-2.0); EOS % 0.2 % (0-4.5); HEMATOCRIT 42.1 % (35.4-49); HEMOGLOBIN 13.9 GM/dL (11.7-16.9); LYMPH % 10.2 % (8-40); MCH 27.9 pg (25.7-33.7); MEAN CELL VOLUME 84.6 fl (80-96); MEAN PLT VOLUME 9.4 fl (7.5-11.1); MONO % 9.5 % (3.8-10.2); NEUT % 79.9 % (42.8-82.8); PLATELET COUNT 160 K/MM3 (134-434); RBC 4.98 M/mm3 (4.00-5.60); RDW 15.5 % (11.9-15.9); WHITE BLOOD COUNT 9.3 K/mm3 (4.0-10.0)
[2021-01-12 12:43] LABS: ALBUMIN 2.6 g/dl (3.4-5.0); BLOOD UREA NITROGEN 44.4 mg/dL (7-18); CALCIUM 8.6 mg/dL (8.5-10.1); MAGNESIUM 2.4 mg/dL (1.8-2.4)
[2021-01-12 12:47] LABS: CREATININE 1.4 mg/dL (0.55-1.3)
[2021-01-12 12:48] LABS: BILIRUBIN,TOTAL 0.6 mg/dL (0.2-1)
[2021-01-12] MEDS: dilTIAZem HCL 50 MG/10 ML - 10 ML VIAL IVPUSH PRN (15:39)
[2021-01-12] MEDS: ROSUVASTATIN CA 20 MG TABLET (FP) PO SCH (21:24)
[2021-01-12] MEDS: MONTELUKAST NA 10 MG TABLET PO SCH (21:24)
[2021-01-12] MEDS: LATANOPROST 0.005% OPHTH SOLN 2.5ML BOTTLE OU SCH (21:31)
[2021-01-12] MEDS: INSULIN (LEVEMIR) 100 UNITS/ML UNITS SQ SCH (21:31)
[2021-01-12] MEDS: LORazepam 2 MG/ML SDV VIAL IVPUSH PRN (23:52)
[2021-01-13] MEDS: LORazepam 2 MG/ML SDV VIAL IVPUSH PRN ×2 (05:41→14:11)
[2021-01-13] MEDS: dilTIAZem HCL 50 MG/10 ML - 10 ML VIAL IVPUSH PRN ×2 (06:18→20:18)
[2021-01-13] MEDS: INSULIN (NOVOLOG) ASPART 100 UNITS/ML 10ML VIAL SQ SCH ×4 (06:26→21:56)
[2021-01-13] MEDS ORDERED: PT OWN MED DRAWER 7, Y5N ONE ×3 (08:27→11:33)
[2021-01-13] MEDS ORDERED: cefTRIAXone SODIUM 1 GM VIAL ONE (08:27)
[2021-01-13] MEDS ORDERED: DEXTROSE 5%-WATER - 50 ML IVPB ONE (08:27)
[2021-01-13] MEDS: CEFTRIAXONE 1 GM in DEXTROSE 5%-WATER - 50 ML IVPB SCH (11:00)
[2021-01-13] MEDS: METOPROLOL TARTRATE 50 MG TABLET (FP) PO SCH ×2 (11:01→21:48)
[2021-01-13] MEDS: FUROSEMIDE 40 MG TABLET (FP) PO SCH (11:01)
[2021-01-13] MEDS: DEXAMETHASONE SOD PHOSPHATE 4 MG/1 ML VIAL IVPUSH SCH (11:01)
[2021-01-13] MEDS: LISINOPRIL 5 MG TABLET PO SCH (11:01)
[2021-01-13] MEDS: ASPIRIN COATED 81 MG TABLET.EC PO SCH (11:02)
[2021-01-13] MEDS: TIOTROPIUM BROMIDE 2.5 MCG (SPIRIVA) RESPIMAT INHALER IH SCH (11:02)
[2021-01-13 11:59] LABS: BASO % 0.1 % (0-2.0); HEMOGLOBIN 14.3 GM/dL (11.7-16.9); LYMPH % 12.2 % (8-40); MCH 27.5 pg (25.7-33.7); MCHC 32.4 g/dl (32.0-35.9); MEAN PLT VOLUME 9.1 fl (7.5-11.1); MONO % 8.1 % (3.8-10.2); NEUT % 79.6 % (42.8-82.8); PLATELET COUNT 171 K/MM3 (134-434); RBC 5.18 M/mm3 (4.00-5.60); RDW 15.4 % (11.9-15.9); WHITE BLOOD COUNT 9.2 K/mm3 (4.0-10.0)
[2021-01-13 12:21] LABS: BLOOD UREA NITROGEN 53.4 mg/dL (7-18); CALCIUM 8.7 mg/dL (8.5-10.1)
[2021-01-13 12:22] LABS: MAGNESIUM 2.4 mg/dL (1.8-2.4)
[2021-01-13 12:24] LABS: CREATININE 1.4 mg/dL (0.55-1.3)
[2021-01-13 12:26] LABS: BILIRUBIN,TOTAL 0.7 mg/dL (0.2-1); TOT PROT 6.3 g/dl (6.4-8.2)
[2021-01-13] MEDS: FONDAPARINUX SODIUM 2.5 MG/0.5 ML DISP.SYRIN SQ SCH (13:18)
[2021-01-13] MEDS ORDERED: LISINOPRIL 5 MG TABLET PO ONE (18:09)
[2021-01-13] MEDS: MONTELUKAST NA 10 MG TABLET PO SCH (21:48)
[2021-01-13] MEDS: ROSUVASTATIN CA 20 MG TABLET (FP) PO SCH (21:48)
[2021-01-13] MEDS: INSULIN (LEVEMIR) 100 UNITS/ML UNITS SQ SCH (21:56)
[2021-01-13] MEDS: LATANOPROST 0.005% OPHTH SOLN 2.5ML BOTTLE OU SCH (22:18)
[2021-01-14] MEDS: LORazepam 2 MG/ML SDV VIAL IVPUSH PRN ×2 (02:37→16:01)
[2021-01-14] MEDS: INSULIN (NOVOLOG) ASPART 100 UNITS/ML 10ML VIAL SQ SCH ×4 (06:37→21:24)
[2021-01-14] MEDS ORDERED: INSULIN (NOVOLOG) ASPART 100 UNITS/ML 10ML VIAL ONE (09:13)
[2021-01-14] MEDS ORDERED: PT OWN MED DRAWER 7, Y5N ONE ×2 (09:14→15:59)
[2021-01-14] MEDS: FUROSEMIDE 40 MG TABLET (FP) PO SCH (09:22)
[2021-01-14] MEDS: METOPROLOL TARTRATE 50 MG TABLET (FP) PO SCH ×3 (09:22→21:21)
[2021-01-14] MEDS: ASPIRIN COATED 81 MG TABLET.EC PO SCH (09:22)
[2021-01-14] MEDS: DEXAMETHASONE SOD PHOSPHATE 4 MG/1 ML VIAL IVPUSH SCH (09:23)
[2021-01-14] MEDS: LISINOPRIL 5 MG TABLET PO SCH (09:23)
[2021-01-14] MEDS: TIOTROPIUM BROMIDE 2.5 MCG (SPIRIVA) RESPIMAT INHALER IH SCH (09:57)
[2021-01-14 13:19] LABS: BASO % 0.1 % (0-2.0); HEMATOCRIT 45.7 % (35.4-49); HEMOGLOBIN 14.9 GM/dL (11.7-16.9); LYMPH % 7.7 % (8-40); MCH 27.6 pg (25.7-33.7); MCHC 32.5 g/dl (32.0-35.9); MEAN CELL VOLUME 84.8 fl (80-96); MEAN PLT VOLUME 9.1 fl (7.5-11.1); NEUT % 87.2 % (42.8-82.8); PLATELET COUNT 192 K/MM3 (134-434); RBC 5.39 M/mm3 (4.00-5.60); RDW 15.5 % (11.9-15.9); WHITE BLOOD COUNT 14.9 K/mm3 (4.0-10.0)
[2021-01-14 13:41] LABS: BLOOD UREA NITROGEN 61.6 mg/dL (7-18); CALCIUM 9.6 mg/dL (8.5-10.1)
[2021-01-14 13:42] LABS: ALBUMIN 3.3 g/dl (3.4-5.0); MAGNESIUM 2.8 mg/dL (1.8-2.4)
[2021-01-14 13:45] LABS: CREATININE 1.7 mg/dL (0.55-1.3)
[2021-01-14 13:46] LABS: BILIRUBIN,TOTAL 0.8 mg/dL (0.2-1)
[2021-01-14] MEDS: FONDAPARINUX SODIUM 2.5 MG/0.5 ML DISP.SYRIN SQ SCH (16:01)
[2021-01-14] MEDS: LATANOPROST 0.005% OPHTH SOLN 2.5ML BOTTLE OU SCH (21:21)
[2021-01-14] MEDS: ROSUVASTATIN CA 20 MG TABLET (FP) PO SCH (21:21)
[2021-01-14] MEDS: MONTELUKAST NA 10 MG TABLET PO SCH (21:21)
[2021-01-14] MEDS: INSULIN (LEVEMIR) 100 UNITS/ML UNITS SQ SCH (21:23)
[2021-01-15] MEDS: LORazepam 2 MG/ML SDV VIAL IVPUSH PRN (01:15)
[2021-01-15] MEDS: INSULIN (NOVOLOG) ASPART 100 UNITS/ML 10ML VIAL SQ SCH ×4 (06:03→21:59)
[2021-01-15 07:01] LABS: BASO % 0.2 % (0-2.0); HEMATOCRIT 50.2 % (35.4-49); HEMOGLOBIN 16.3 GM/dL (11.7-16.9); LYMPH % 13.7 % (8-40); MCH 27.5 pg (25.7-33.7); MCHC 32.4 g/dl (32.0-35.9); MEAN CELL VOLUME 84.9 fl (80-96); MEAN PLT VOLUME 8.9 fl (7.5-11.1); MONO % 9.6 % (3.8-10.2); NEUT % 76.5 % (42.8-82.8); PLATELET COUNT 210 K/MM3 (134-434); RBC 5.92 M/mm3 (4.00-5.60); RDW 15.6 % (11.9-15.9); WHITE BLOOD COUNT 19.6 K/mm3 (4.0-10.0)
[2021-01-15 07:16] LABS: CHLORIDE 105 mmol/L (98-107); SODIUM 147 mmol/L (136-145)
[2021-01-15 07:17] LABS: CALCIUM 9.2 mg/dL (8.5-10.1)
[2021-01-15 07:18] LABS: ALBUMIN 3.4 g/dl (3.4-5.0); ANION GAP 6 MMOL/L (8-16); BLOOD UREA NITROGEN 55.9 mg/dL (7-18); CO2 37 mmol/L (21-32); MAGNESIUM 2.6 mg/dL (1.8-2.4)
[2021-01-15 07:21] LABS: CREATININE 1.5 mg/dL (0.55-1.3); SGOT/AST 94 U/L (15-37); SGPT/ALT 65 U/L (13-61)
[2021-01-15 07:23] LABS: BILIRUBIN,TOTAL 0.9 mg/dL (0.2-1); TOT PROT 7.4 g/dl (6.4-8.2)
[2021-01-15 07:24] LABS: ALK PHOS 127 U/L (45-117)
[2021-01-15 07:28] LABS: GLUCOSE,RANDOM 40 mg/dL (74-106)
[2021-01-15] MEDS: METOPROLOL TARTRATE 50 MG TABLET (FP) PO SCH ×3 (09:32→21:58)
[2021-01-15] MEDS: FUROSEMIDE 40 MG TABLET (FP) PO SCH (09:32)
[2021-01-15] MEDS: ASPIRIN COATED 81 MG TABLET.EC PO SCH (09:32)
[2021-01-15] MEDS: LISINOPRIL 5 MG TABLET PO SCH (09:33)
[2021-01-15] MEDS: TIOTROPIUM BROMIDE 2.5 MCG (SPIRIVA) RESPIMAT INHALER IH SCH (09:33)
[2021-01-15] MEDS: dilTIAZem HCL 50 MG/10 ML - 10 ML VIAL IVPUSH PRN (19:19)
[2021-01-15] MEDS ORDERED: INSULIN (NOVOLOG) ASPART 100 UNITS/ML 10ML VIAL ONE (21:49)
[2021-01-15] MEDS: MONTELUKAST NA 10 MG TABLET PO SCH (21:58)
[2021-01-15] MEDS: ROSUVASTATIN CA 20 MG TABLET (FP) PO SCH (21:58)
[2021-01-15] MEDS: LATANOPROST 0.005% OPHTH SOLN 2.5ML BOTTLE OU SCH (21:59)
[2021-01-16] MEDS: METOPROLOL TARTRATE 50 MG TABLET (FP) PO SCH ×4 (03:58→21:17)
[2021-01-16] MEDS: INSULIN (NOVOLOG) ASPART 100 UNITS/ML 10ML VIAL SQ SCH ×4 (06:21→21:22)
[2021-01-16 07:49] LABS: BASO % 0.2 % (0-2.0); HEMATOCRIT 49.9 % (35.4-49); HEMOGLOBIN 15.7 GM/dL (11.7-16.9); LYMPH % 6.7 % (8-40); MCH 27.7 pg (25.7-33.7); MCHC 31.5 g/dl (32.0-35.9); MEAN CELL VOLUME 87.7 fl (80-96); MONO % 3.1 % (3.8-10.2); PLATELET COUNT 157 K/MM3 (134-434); RBC 5.69 M/mm3 (4.00-5.60); RDW 15.7 % (11.9-15.9); WHITE BLOOD COUNT 14.4 K/mm3 (4.0-10.0)
[2021-01-16 08:06] LABS: BLOOD UREA NITROGEN 75.3 mg/dL (7-18); CALCIUM 8.9 mg/dL (8.5-10.1); MAGNESIUM 2.9 mg/dL (1.8-2.4)
[2021-01-16 08:09] LABS: BILIRUBIN,TOTAL 1.3 mg/dL (0.2-1); CREATININE 2.2 mg/dL (0.55-1.3); TOT PROT 6.6 g/dl (6.4-8.2)
[2021-01-16] MEDS ORDERED: dilTIAZem HCL 30 MG TABLET PO ONE (08:15)
[2021-01-16] MEDS ORDERED: POTASSIUM CHLORIDE ORAL LIQUID 20 MEQ/15 ML PO ONE (08:15)
[2021-01-16] MEDS: LISINOPRIL 5 MG TABLET PO SCH (09:20)
[2021-01-16] MEDS: FUROSEMIDE 40 MG TABLET (FP) PO SCH (09:20)
[2021-01-16] MEDS: TIOTROPIUM BROMIDE 2.5 MCG (SPIRIVA) RESPIMAT INHALER IH SCH (09:21)
[2021-01-16] MEDS: ASPIRIN COATED 81 MG TABLET.EC PO SCH (09:21)
[2021-01-16] MEDS ORDERED: SODIUM CHLORIDE 1,000 ML IV SCH (17:30)
[2021-01-16] MEDS: dilTIAZem HCL 50 MG/10 ML - 10 ML VIAL IVPUSH PRN ×2 (18:28→22:30)
[2021-01-16] MEDS ORDERED: INSULIN (NOVOLOG) ASPART 100 UNITS/ML 10ML VIAL ONE (20:45)
[2021-01-16] MEDS: MONTELUKAST NA 10 MG TABLET PO SCH (21:17)
[2021-01-16] MEDS: ROSUVASTATIN CA 20 MG TABLET (FP) PO SCH (21:17)
[2021-01-16] MEDS: INSULIN (LEVEMIR) 100 UNITS/ML UNITS SQ SCH (21:22)
[2021-01-16] MEDS: LATANOPROST 0.005% OPHTH SOLN 2.5ML BOTTLE OU SCH (21:27)
[2021-01-17] MEDS: METOPROLOL TARTRATE 50 MG TABLET (FP) PO SCH ×2 (02:15→10:38)
[2021-01-17] MEDS: INSULIN (NOVOLOG) ASPART 100 UNITS/ML 10ML VIAL SQ SCH ×4 (06:11→23:15)
[2021-01-17] MEDS: dilTIAZem HCL 50 MG/10 ML - 10 ML VIAL IVPUSH PRN ×4 (06:11→22:30)
[2021-01-17 08:26] LABS: BASO % 0.1 % (0-2.0); HEMATOCRIT 50.2 % (35.4-49); HEMOGLOBIN 15.9 GM/dL (11.7-16.9); LYMPH % 8.4 % (8-40); MCH 27.4 pg (25.7-33.7); MCHC 31.6 g/dl (32.0-35.9); MEAN CELL VOLUME 86.5 fl (80-96); MONO % 4.9 % (3.8-10.2); NEUT % 86.6 % (42.8-82.8); PLATELET COUNT 164 K/MM3 (134-434); RDW 16.1 % (11.9-15.9); WHITE BLOOD COUNT 19.9 K/mm3 (4.0-10.0)
[2021-01-17 08:50] LABS: ALBUMIN 2.9 g/dl (3.4-5.0); BLOOD UREA NITROGEN 86.8 mg/dL (7-18)
[2021-01-17 08:53] LABS: CREATININE 2.7 mg/dL (0.55-1.3)
[2021-01-17 08:54] LABS: PHOSPHOROUS 3.8 mg/dL (2.5-4.9)
[2021-01-17 08:55] LABS: BILIRUBIN,TOTAL 0.9 mg/dL (0.2-1); MAGNESIUM 2.9 mg/dL (1.8-2.4); TOT PROT 6.4 g/dl (6.4-8.2)
[2021-01-17] MEDS: ASPIRIN COATED 81 MG TABLET.EC PO SCH (10:39)
[2021-01-17] MEDS: TIOTROPIUM BROMIDE 2.5 MCG (SPIRIVA) RESPIMAT INHALER IH SCH (10:40)
[2021-01-17] MEDS ORDERED: AMINO ACIDS 4.25%/D5W 1,000 ML IV SCH (10:45)
[2021-01-17] MEDS ORDERED: D5-1/2NS+40 MEQ KCL - 40 MEQ/1,000 ML INFUS.BAG IV SCH (10:45)
[2021-01-17] MEDS ORDERED: ACETAMINOPHEN 1000 MG/100 ML VIAL (NON FORMULARY) IVPB PRN (10:48)
[2021-01-17] MEDS ORDERED: PIPERACILLIN/TAZOBACTAM 3.375 GM VIAL IVPB ONE (12:59)
[2021-01-17] MEDS ORDERED: DEXTROSE 5%-WATER - 50 ML IVPB ONE (13:00)
[2021-01-17] MEDS ORDERED: PIPERACILLIN/TAZOB 3.375 GM 3.375 GM in DEXTROSE 5%-WATER - 50 ML IVPB ONE (13:00)
[2021-01-17 15:35] LABS: EPI CELLS >36 /uL (0-25.1); HYALINE CASTS 20 /uL (0-3.1); URINE APPEARANCE TURBID; URINE BACTERIA 5 /uL (0-1359); URINE BILIRUBIN NEGATIVE (NEGATIVE); URINE COLOR YELLOW; URINE GLUCOSE (UA) NEGATIVE (NEGATIVE); URINE KETONE NEGATIVE (NEGATIVE); URINE LEUK ESTERASE NEGATIVE (NEGATIVE); URINE NITRITE NEGATIVE (NEGATIVE); URINE PROTEIN 3+ (NEGATIVE)
[2021-01-17 15:46] LABS: URINE RBC 273.1 /uL (0-23.9); URINE WBC 93.1 /uL (0-25.8)
[2021-01-17] MEDS: POTASSIUM CHLORIDE 20 MEQ in AMINO ACIDS 4.25%/D5W 1,000 ML IV SCH (17:12)
[2021-01-17 19:57] LABS: CALCIUM 8.8 mg/dL (8.5-10.1)
[2021-01-17 19:58] LABS: BLOOD UREA NITROGEN 92.7 mg/dL (7-18)
[2021-01-17 20:01] LABS: CREATININE 2.9 mg/dL (0.55-1.3)
[2021-01-17] MEDS: INSULIN (LEVEMIR) 100 UNITS/ML UNITS SQ SCH (23:15)
[2021-01-17] MEDS: LATANOPROST 0.005% OPHTH SOLN 2.5ML BOTTLE OU SCH (23:16)
[2021-01-18] MEDS ORDERED: PIPERACILLIN/TAZOBACTAM 2.25 GM VIAL IVPB ONE ×3 (00:20→16:41)
[2021-01-18] MEDS ORDERED: DEXTROSE 5%-WATER - 50 ML IVPB ONE ×3 (00:20→16:41)
[2021-01-18] MEDS ORDERED: METOPROLOL TARTRATE 5 MG/5 ML VIAL ONE (00:20)
[2021-01-18] MEDS: PIPERACILLIN/TAZOB 2.25 GM 2.25 GM in DEXTROSE 5%-WATER - 50 ML IVPB SCH ×4 (00:34→17:23)
[2021-01-18] MEDS: METOPROLOL TARTRATE 5 MG/5 ML VIAL IVPUSH PRN ×3 (00:40→10:02)
[2021-01-18] MEDS: INSULIN (NOVOLOG) ASPART 100 UNITS/ML 10ML VIAL SQ SCH ×4 (06:45→22:04)
[2021-01-18] MEDS: POTASSIUM CHLORIDE 20 MEQ in AMINO ACIDS 4.25%/D5W 1,000 ML IV SCH (06:45)
[2021-01-18 08:40] LABS: CHLORIDE 116 mmol/L (98-107); SODIUM 158 mmol/L (136-145)
[2021-01-18 08:45] LABS: BASO % 0.1 % (0-2.0); EOS % 0.1 % (0-4.5); HEMATOCRIT 52.6 % (35.4-49); HEMOGLOBIN 16.6 GM/dL (11.7-16.9); LYMPH % 10.2 % (8-40); MCH 27.5 pg (25.7-33.7); MCHC 31.5 g/dl (32.0-35.9); MEAN CELL VOLUME 87.2 fl (80-96); MEAN PLT VOLUME 9.7 fl (7.5-11.1); MONO % 7.2 % (3.8-10.2); NEUT % 82.4 % (42.8-82.8); PLATELET COUNT 146 K/MM3 (134-434); RBC 6.03 M/mm3 (4.00-5.60); RDW 16.4 % (11.9-15.9)
[2021-01-18 08:50] LABS: CALCIUM 8.9 mg/dL (8.5-10.1)
[2021-01-18 08:51] LABS: ALBUMIN 2.7 g/dl (3.4-5.0); ANION GAP 6 MMOL/L (8-16); CO2 36 mmol/L (21-32); GLUCOSE,RANDOM 138 mg/dL (74-106); LDH 602 U/L (87-246)
[2021-01-18 08:54] LABS: CREATININE 3.4 mg/dL (0.55-1.3); SGOT/AST 79 U/L (15-37); SGPT/ALT 70 U/L (13-61)
[2021-01-18 08:55] LABS: BILIRUBIN,TOTAL 1.3 mg/dL (0.2-1); TOT PROT 6.2 g/dl (6.4-8.2)
[2021-01-18 08:57] LABS: ALK PHOS 111 U/L (45-117)
[2021-01-18 09:04] LABS: BLOOD UREA NITROGEN 107.9 mg/dL (7-18)
[2021-01-18 09:51] LABS: ANISOCYTOSIS 1+; MACROCYTOSIS 0; PLATELET ESTIMATE DECREASED
[2021-01-18] MEDS: TIOTROPIUM BROMIDE 2.5 MCG (SPIRIVA) RESPIMAT INHALER IH SCH (10:02)
[2021-01-18] MEDS: FONDAPARINUX SODIUM 2.5 MG/0.5 ML DISP.SYRIN SQ SCH (10:02)
[2021-01-18] MEDS: POTASSIUM CHLORIDE 40 MEQ in AMINO ACIDS 4.25%/D5W 1,000 ML IV SCH (11:39)
[2021-01-18] MEDS ORDERED: LACTATED RINGERS SOLUTION 1000 ML INFUS.BAG IV ONE (13:00)
[2021-01-18] MEDS: DILTIAZEM INJECTION 125 MG in SODIUM CHLORIDE 100 ML IVPB SCH (16:39)
[2021-01-18] MEDS ORDERED: VANCOMYCIN 500 MG in DEXTROSE 5%-WATER 100 ML IVPB ONE (21:46)
[2021-01-18] MEDS ORDERED: MEROPENEM 500 MG VIAL (RESTRICTED TO ID) IVPB ONE (22:00)
[2021-01-18] MEDS: INSULIN (LEVEMIR) 100 UNITS/ML UNITS SQ SCH (22:01)
[2021-01-18] MEDS ORDERED: DEXTROSE 5%-WATER 100 ML IVPB ONE (22:01)
[2021-01-18] MEDS: MEROPENEM 500 MG in DEXTROSE 5%-WATER 100 ML IVPB SCH (22:05)
[2021-01-18] MEDS: LATANOPROST 0.005% OPHTH SOLN 2.5ML BOTTLE OU SCH (22:06)
[2021-01-18 23:41] LABS: ARTERIAL BLD GAS O2 SATURATION 94.8 mmHg (95-98); ARTERIAL BLOOD GAS PO2 71.1 mmHg (80-100); ARTERIAL BLOOD GAS pH 7.434 (7.350-7.450)
[2021-01-19] MEDS: MEROPENEM 500 MG in DEXTROSE 5%-WATER 100 ML IVPB SCH ×3 (03:30→17:16)
[2021-01-19] MEDS ORDERED: MEROPENEM 500 MG VIAL (RESTRICTED TO ID) IVPB ONE ×3 (03:32→15:49)
[2021-01-19] MEDS ORDERED: DEXTROSE 5%-WATER 100 ML IVPB ONE ×3 (03:32→15:50)
[2021-01-19] MEDS: POTASSIUM CHLORIDE 40 MEQ in AMINO ACIDS 4.25%/D5W 1,000 ML IV SCH ×2 (03:54→11:45)
[2021-01-19] MEDS: INSULIN (NOVOLOG) ASPART 100 UNITS/ML 10ML VIAL SQ SCH ×4 (06:28→21:26)
[2021-01-19] MEDS ORDERED: LACTATED RINGERS SOLUTION 1000 ML INFUS.BAG IV ONE ×4 (08:19→23:21)
[2021-01-19 08:29] LABS: ALBUMIN 2.2 g/dl (3.4-5.0); ALK PHOS 99 U/L (45-117); ANION GAP 13 MMOL/L (8-16); BILIRUBIN,TOTAL 1.7 mg/dL (0.2-1); BLOOD UREA NITROGEN 147.2 mg/dL (7-18); CHLORIDE 115 mmol/L (98-107); CO2 24 mmol/L (21-32); CREATININE 5.4 mg/dL (0.55-1.3); GLUCOSE,RANDOM 393 mg/dL (74-106); MAGNESIUM 2.7 mg/dL (1.8-2.4); SGOT/AST 83 U/L (15-37); SGPT/ALT 56 U/L (13-61); SODIUM 151 mmol/L (136-145); TOT PROT 5.4 g/dl (6.4-8.2)
[2021-01-19] MEDS ORDERED: PT OWN MED DRAWER 7, Y5N ONE (09:11)
[2021-01-19] MEDS: TIOTROPIUM BROMIDE 2.5 MCG (SPIRIVA) RESPIMAT INHALER IH SCH (09:42)
[2021-01-19] MEDS: DILTIAZEM INJECTION 125 MG in SODIUM CHLORIDE 100 ML IVPB SCH (09:42)
[2021-01-19] MEDS: FONDAPARINUX SODIUM 2.5 MG/0.5 ML DISP.SYRIN SQ SCH (09:42)
[2021-01-19 11:39] LABS: BASO % 0.2 % (0-2.0); EOS % 0.1 % (0-4.5); HEMATOCRIT 48.9 % (35.4-49); HEMOGLOBIN 15.1 GM/dL (11.7-16.9); MCH 27.4 pg (25.7-33.7); MCHC 30.9 g/dl (32.0-35.9); MEAN CELL VOLUME 88.5 fl (80-96); MEAN PLT VOLUME 10.9 fl (7.5-11.1); NEUT % 81.7 % (42.8-82.8); PLATELET COUNT 109 K/MM3 (134-434); RBC 5.53 M/mm3 (4.00-5.60); WHITE BLOOD COUNT 25.8 K/mm3 (4.0-10.0)
[2021-01-19] MEDS: LACTATED RINGERS SOLUTION 1,000 ML/1,000 ML INFUS.BAG IV SCH (13:31)
[2021-01-19 14:55] LABS: ANISOCYTOSIS 0; MACROCYTOSIS 0; PLATELET ESTIMATE DECREASED; TARGET CELLS 0
[2021-01-19 20:19] LABS: HEMOGLOBIN 14.3 GM/dL (11.7-16.9); MCH 27.2 pg (25.7-33.7); MEAN CELL VOLUME 87.9 fl (80-96); MEAN PLT VOLUME 11.1 fl (7.5-11.1); PLATELET COUNT 105 K/MM3 (134-434); RBC 5.24 M/mm3 (4.00-5.60)
[2021-01-19 20:40] LABS: CHLORIDE 112 mmol/L (98-107); SODIUM 149 mmol/L (136-145)
[2021-01-19 20:41] LABS: CALCIUM 8.5 mg/dL (8.5-10.1)
[2021-01-19 20:42] LABS: ANION GAP 13 MMOL/L (8-16); CO2 24 mmol/L (21-32)
[2021-01-19 20:45] LABS: CREATININE 6.1 mg/dL (0.55-1.3)
[2021-01-19 20:50] LABS: BLOOD UREA NITROGEN 159.4 mg/dL (7-18); GLUCOSE,RANDOM 418 mg/dL (74-106); LACTIC ACID 3.2 mmol/L (0.4-2.0)
[2021-01-19] MEDS: INSULIN (LEVEMIR) 100 UNITS/ML UNITS SQ SCH (21:27)
[2021-01-19] MEDS: LATANOPROST 0.005% OPHTH SOLN 2.5ML BOTTLE OU SCH (21:31)
[2021-01-20] MEDS ORDERED: LACTATED RINGERS SOLUTION 1000 ML INFUS.BAG IV ONE (00:57)
[2021-01-20] MEDS ORDERED: MEROPENEM 500 MG VIAL (RESTRICTED TO ID) IVPB ONE ×2 (02:10→11:50)
[2021-01-20] MEDS ORDERED: DEXTROSE 5%-WATER 100 ML IVPB ONE ×2 (02:10→11:51)
[2021-01-20] MEDS: MEROPENEM 500 MG in DEXTROSE 5%-WATER 100 ML IVPB SCH ×2 (02:22→10:00)
[2021-01-20] MEDS: INSULIN (LEVEMIR) 100 UNITS/ML UNITS SQ SCH ×2 (06:50→21:14)
[2021-01-20] MEDS: INSULIN (NOVOLOG) ASPART 100 UNITS/ML 10ML VIAL SQ SCH ×4 (06:50→21:14)
[2021-01-20 07:43] LABS: BASO % 0.2 % (0-2.0); EOS % 0.2 % (0-4.5); HEMATOCRIT 46.3 % (35.4-49); HEMOGLOBIN 14.9 GM/dL (11.7-16.9); LYMPH % 8.6 % (8-40); MCH 27.3 pg (25.7-33.7); MCHC 32.1 g/dl (32.0-35.9); MEAN CELL VOLUME 85.1 fl (80-96); MEAN PLT VOLUME 10.5 fl (7.5-11.1); MONO % 8.1 % (3.8-10.2); NEUT % 82.9 % (42.8-82.8); PLATELET COUNT 107 K/MM3 (134-434); RBC 5.44 M/mm3 (4.00-5.60); RDW 16.2 % (11.9-15.9); WHITE BLOOD COUNT 26.5 K/mm3 (4.0-10.0)
[2021-01-20 08:00] LABS: CHLORIDE 114 mmol/L (98-107); SODIUM 150 mmol/L (136-145)
[2021-01-20 08:08] LABS: ALBUMIN 1.9 g/dl (3.4-5.0); ANION GAP 9 MMOL/L (8-16); CALCIUM 8.8 mg/dL (8.5-10.1); CO2 27 mmol/L (21-32); GLUCOSE,RANDOM 173 mg/dL (74-106)
[2021-01-20 08:09] LABS: MAGNESIUM 2.7 mg/dL (1.8-2.4)
[2021-01-20 08:11] LABS: CREATININE 6.7 mg/dL (0.55-1.3); SGOT/AST 235 U/L (15-37); SGPT/ALT 70 U/L (13-61)
[2021-01-20 08:13] LABS: TOT PROT 5.2 g/dl (6.4-8.2)
[2021-01-20 08:14] LABS: ALK PHOS 112 U/L (45-117)
[2021-01-20 08:41] LABS: BLOOD UREA NITROGEN 162.3 mg/dL (7-18)
[2021-01-20 09:05] LABS: ANISOCYTOSIS 1+; MACROCYTOSIS 1+; PLATELET ESTIMATE DECREASED
[2021-01-20] MEDS ORDERED: SODIUM CHLORIDE 250 ML IV STA (09:39)
[2021-01-20] MEDS: FONDAPARINUX SODIUM 2.5 MG/0.5 ML DISP.SYRIN SQ SCH ×3 (09:56→11:57)
[2021-01-20] MEDS: MORPHINE SULFATE 2 MG/ML VIAL IVPUSH PRN ×2 (10:20→14:02)
[2021-01-20] MEDS: DILTIAZEM INJECTION 125 MG in SODIUM CHLORIDE 100 ML IVPB SCH (11:53)
[2021-01-20] MEDS: TIOTROPIUM BROMIDE 2.5 MCG (SPIRIVA) RESPIMAT INHALER IH SCH (11:54)
[2021-01-20] MEDS: LACTATED RINGERS SOLUTION 1,000 ML/1,000 ML INFUS.BAG IV SCH (11:56)
[2021-01-20] MEDS ORDERED: ACETAMINOPHEN 650 MG SUPP.RECT RC PRN (15:49)
[2021-01-20] MEDS ORDERED: DEXTROSE 50%-WATER - 25 GM/50 ML VIAL IVPUSH ONE (21:05)
[2021-01-20] MEDS ORDERED: DEXTROSE 50%-WATER 25 GM/50 ML DISP.SYRIN ONE (21:05)
[2021-01-20] MEDS: LATANOPROST 0.005% OPHTH SOLN 2.5ML BOTTLE OU SCH (21:15)
[2021-01-21] MEDS: MORPHINE SULFATE 2 MG/ML VIAL IVPUSH PRN ×4 (01:56→20:14)
[2021-01-21] MEDS: LACTATED RINGERS SOLUTION 1,000 ML/1,000 ML INFUS.BAG IV SCH ×4 (03:42→22:48)
[2021-01-21] MEDS: INSULIN (NOVOLOG) ASPART 100 UNITS/ML 10ML VIAL SQ SCH ×4 (06:26→23:38)
[2021-01-21] MEDS: INSULIN (LEVEMIR) 100 UNITS/ML UNITS SQ SCH ×2 (06:27→23:38)
[2021-01-21] MEDS ORDERED: DEXTROSE 5%-WATER 100 ML IVPB ONE (11:13)
[2021-01-21] MEDS ORDERED: PT OWN MED DRAWER 7, Y5N ONE (11:13)
[2021-01-21] MEDS ORDERED: MEROPENEM 500 MG VIAL (RESTRICTED TO ID) IVPB ONE (11:13)
[2021-01-21] MEDS: MEROPENEM 500 MG in DEXTROSE 5%-WATER 100 ML IVPB SCH (11:16)
[2021-01-21] MEDS: TIOTROPIUM BROMIDE 2.5 MCG (SPIRIVA) RESPIMAT INHALER IH SCH (11:17)
[2021-01-21] MEDS: FONDAPARINUX SODIUM 2.5 MG/0.5 ML DISP.SYRIN SQ SCH (11:20)
[2021-01-21] MEDS: LATANOPROST 0.005% OPHTH SOLN 2.5ML BOTTLE OU SCH (23:39)
[2021-01-22] MEDS: INSULIN (NOVOLOG) ASPART 100 UNITS/ML 10ML VIAL SQ SCH (06:50)
[2021-01-22] MEDS: INSULIN (LEVEMIR) 100 UNITS/ML UNITS SQ SCH (06:50)
[2021-01-22] MEDS: LACTATED RINGERS SOLUTION 1,000 ML/1,000 ML INFUS.BAG IV SCH (06:59)
[2021-01-22 07:44] VITALS: BP 69/39; PULSE 134; TEMP 98.8
[2021-01-22] MEDS: MORPHINE SULFATE 2 MG/ML VIAL IVPUSH PRN (09:46)
[2021-01-22] MEDS: TIOTROPIUM BROMIDE 2.5 MCG (SPIRIVA) RESPIMAT INHALER IH SCH (11:03)
[2021-01-22] MEDS ORDERED: DEXTROSE 5%-WATER 100 ML IVPB ONE (11:09)
[2021-01-22] MEDS ORDERED: MEROPENEM 500 MG VIAL (RESTRICTED TO ID) IVPB ONE (11:09)
[2021-01-22] MEDS ORDERED: PT OWN MED DRAWER 7, Y5N ONE (11:10)
[2021-01-22] MEDS: FONDAPARINUX SODIUM 2.5 MG/0.5 ML DISP.SYRIN SQ SCH (11:12)
[2021-01-22] MEDS: MEROPENEM 500 MG in DEXTROSE 5%-WATER 100 ML IVPB SCH (11:12)
== END 2021-01-22 13:00 | disposition expired | DRG 177 ==
LOC: FER 11:37 → J4S 01-09 04:00 → J4W 01-11 23:00 → J8W 01-20 17:25
PROVIDERS: ADMIT Internal Medicine; ATTEND Nurse Practitioner Family
PROC: XW13325 Transfusion of Convalescent Plasma (Nonautologous) into Peripheral Vein, Percutaneous Approach, New Technology Group 5 (ICD-10-PCS; principal; 2021-01-20)
DX: U07.1 COVID-19 (principal); J96.01 Acute respiratory failure with hypoxia; I50.43 Acute on chronic combined systolic (congestive) and diastolic (congestive) heart failure; J12.82 Pneumonia due to coronavirus disease 2019; G93.41 Metabolic encephalopathy; A41.9 Sepsis, unspecified organism; N17.0 Acute kidney failure with tubular necrosis; R65.21 Severe sepsis with septic shock; I13.0 Hypertensive heart and chronic kidney disease with heart failure and stage 1 through stage 4 chronic kidney disease, or unspecified chronic kidney disease; E87.0 Hyperosmolality and hypernatremia; E46 Unspecified protein-calorie malnutrition; E78.5 Hyperlipidemia, unspecified; I25.10 Atherosclerotic heart disease of native coronary artery without angina pectoris; J45.909 Unspecified asthma, uncomplicated; J44.9 Chronic obstructive pulmonary disease, unspecified; E11.22 Type 2 diabetes mellitus with diabetic chronic kidney disease; N18.30 Chronic kidney disease, stage 3 unspecified; F03.90 Unspecified dementia, unspecified severity, without behavioral disturbance, psychotic disturbance, mood disturbance, and anxiety; I50.82 Biventricular heart failure; I48.0 Paroxysmal atrial fibrillation; R13.10 Dysphagia, unspecified; D72.829 Elevated white blood cell count, unspecified; Z95.5 Presence of coronary angioplasty implant and graft; Z95.1 Presence of aortocoronary bypass graft; I95.9 Hypotension, unspecified; D63.1 Anemia in chronic kidney disease; E87.6 Hypokalemia; Z68.24 Body mass index [BMI] 24.0-24.9, adult; E11.65 Type 2 diabetes mellitus with hyperglycemia
CPT/HCPCS: 36415; 36600; 70450-TC; 71045-TC-FY; 71250-TC; 80048; 80053; 81003; 81015; 82550; 82570; 82728; 82803; 82962; 83605; 83615; 83735; 83880; 84100; 84156; 84300; 84484; 84540; 85025; 85027; 85379; 85384; 85610; 85651; 85730; 86140; 86769; 87040; 87086; 87186; 87205; 87804; 93005; 97162-GP; 99285-25; C9803; G0008; J0131; J1100; Q2036; U0003; U0005